=== PATIENT | female | born 1935 | race Caucasian/White ===

== ENCOUNTER 2018-01-25 09:43 | Outpatient (CLI) | payer MEDICARE, OTHER, SELFPAY ==
[2018-01-25] VITALS (11 sets, daily range): BP systolic 110–159; BP diastolic 62–116; PULSE 83–112; RESP 16–20; TEMP 36; O2SAT 95–100
--- NOTE | 2018-01-25 09:44 | DI.RAD.S_ITS ---
PROCEDURE: PAIN C/T INTERLAMINAR INJECT INDICATIONS: INTERVERTEBRAL DISC DISPLACMENT FINDINGS: Fluoroscopic spot filming was performed to verify placement of spinal needles at the left-sided T12-L1 paramedian interlaminar region level(s), as labeled on the films. Appropriate location(s) of the needle tip(s) was confirmed by injection of iodinated contrast. IMPRESSION: Successful left T12-L1 needle tip localization at the left paramedian interlaminar space for dorsal epidural steroid injection. Dictated by: Christian Randhawa M.D. on 01/25/2018 at 15:38 Approved by: Christian Randhawa M.D. on 01/25/2018 at 15:40
--- NOTE | 2018-01-25 10:22 | PM.PROC.1 ---
Procedures Date/Time Date of procedure: 01/25/18 Time of procedure: 10:22 General Procedure description: Preop diagnosis: Thoracic stenosis with HNP Postprocedure diagnosis: Thoracic stenosis with HNP Physician: Hair Sarah D.O. Indications: Inga is referred by RICARDO Jennings for treatment of thoracic DDD/DJD with radiculopathy Description of procedure: Fluoroscopic guided, contrast controlled T12/L1 translaminar epidural steroid injection with conscious sedation. Following denial of allergy review potential side effects and complications, including, but not necessarily limited to, infection, allergic reaction, local tissue breakdown, temporary as well as permanent nerve injury, stroke, paralysis and possible , the patient indicated that they understood and agreed to proceed. An informed consent document was signed by the patient, witnessed by the nurse, and placed in the patient's chart. Additionally other treatment options including modalities, medications and physical therapy were reviewed with the patient. After review of previous anaesthesic history and IV conscious sedation the patient was deemed safe to proceed with todays procedure with IV conscious sedation as ASA class II designation. Safety time-out was performed to confirm patient ID, procedure to be performed and site of procedure. IV sedation was accomplished with a combination of 1mg of Versed administered by the RN after DO order, titrated to patient comfort during the course of the procedure while the patient remained responsive to all verbal commands In the prone position, following sterile prep and drape of the thoracic region the T12/L1 translaminar space was identified fluoroscopically. The skin was anesthetized via 25 gauge 20 mm sheath with 1% lidocaine solution. At this point a 20 gauge epidural needle was atraumatically introduced and advanced under fluoroscopic guidance into the region of the T12/L1 translaminar space depth was confirmed on lateral view. Radiographic data, including multiple fluoroscopic views of the thoracic spine, reveals spinal needle at the T12/L1 translaminar space. Lateral views then showed the placement of the needle in the epidural space. Subsequent view show contrast material flowing superiorly and inferiorly in the epidural space. No vascular or intrathecal uptake is observed. At this point using loss of resistance technique with saline and the epidural space was entered. This was confirmed followed negative aspiration and injection of approximately 1.5 cc of Isovue 200 showed excellent epidural flow without vascular or intrathecal uptake. At this point, 1 cc of 1% lidocaine solution was admitted as a test dose and the patient was observed for an appropriate period of time without signs or symptoms of complications, including abdominal pain, shortness of breath, bilateral upper and lower extremity weakness, nausea and vomiting, prior to steroid injection. Subsequently, 3 cc or 30 mg of dexamethasone was then injected without incident. The patient tolerated the procedure well without signs of complications and subsequently was transferred to the recovery room for further monitoring. The patient was then transferred to the recovery area with their observed for an appropriate time after the injection. Patient reported a VAS score of 7 prior to the procedure and postprocedure VAS of 2. Total fluoroscopy time: 26.3 sec Total conscious sedation time: 24 min Hair Sarah D.O. Complications: none
[2018-01-25] MEDS: MIDAZOLAM 5 MG/5 ML VIAL IV (10:30)
[2018-01-25] MEDS: IOPAMIDOL 15 ML VIAL 3 ML INJ (10:33)
[2018-01-25] MEDS: DEXAMETHASONE 10 MG/ML VIAL 30 MG INJ (10:34)
== END 2018-01-25 12:00 ==
LOC: RAD 09:44
PROVIDERS: Family Provider Physician Assistant; PCP Physician Assistant; Visit Provider Physical Medicine & Rehabilitation
DX: M48.04 Spinal stenosis, thoracic region (principal); M51.14 Intervertebral disc disorders with radiculopathy, thoracic region
CPT/HCPCS: 62321; 99152; J1100; J2250

== ENCOUNTER → 2019-06-29 09:39 | Outpatient (CLI) | payer MEDICARE, OTHER, SELFPAY ==
--- NOTE | 2019-06-29 09:41 | DI.RAD.S_ITS ---
PROCEDURE: XR ANKLE LT MIN 3V INDICATIONS: l ankle pain TECHNIQUE: 3 views of the ankle were acquired. COMPARISON: [facility], , ANKLE 2 VIEWS RIGHT, 08/10/2015, 11:49. FINDINGS: Bones: Acute transverse fracture through medial malleolus is seen. Acute oblique fracture through distal fibular shaft extending to lateral malleolus is also noted. There is slight widening of both medial and lateral ankle mortise. No dislocation. No suspicious bony lesions. Soft tissues: Soft tissue swelling around ankle joint is noted. No tibiotalar joint effusion. Achilles tendon appears normal. IMPRESSION: Acute bimalleolar fractures as above. Dictated by: Jonathan Chicas M.D. on 06/29/2019 at 10:38 Approved by: Jonathan Chicas M.D. on 06/29/2019 at 10:41
== END ==
PROVIDERS: Family Provider Physician Assistant; PCP Physician Assistant; Referring Provider Physician Assistant; Visit Provider Physician Assistant
DX: S82.842A Displaced bimalleolar fracture of left lower leg, initial encounter for closed fracture (principal); M25.572 Pain in left ankle and joints of left foot; X58.XXXA Exposure to other specified factors, initial encounter
CPT/HCPCS: 73610

== ENCOUNTER → 2020-01-24 17:27 | Outpatient (CLI) | payer MEDICARE, OTHER, SELFPAY ==
[2020-01-24 18:33] LABS: Add Manual Diff / Slide Review NO; Basophils Absolute Auto 0 /uL (0-100); Basophils Percent Auto 0.7 % (0-2); Eosinophils Absolute Auto 200 /uL (0-450); Eosinophils Percent Auto 3.8 % (2-4); Hematocrit 42.3 % (36-46); Hemoglobin 14.4 g/dL (12.0-16.0); Lymphocytes Absolute Auto 1400 /uL (1100-4500); Lymphocytes Percent Auto 27.9 % (25-40); Mean Corpuscular Hemoglobin 35.8 PG (26-34); Mean Corpuscular Volume 105.5 fL (80-100); Monocytes Absolute Auto 600 /uL (0-900); Monocytes Percent Auto 12.2 % (3-14); Neutrophils Absolute Auto 2800 /uL (1500-7000); Neutrophils Percent Auto 55.4 % (50-75); Platelet Count 184 X10^3/uL (150-400); Red Blood Cell Count 4.01 X10^6/uL (4.0-5.2); Red Cell Distribution Width 13.3 % (11.6-14.8)
[2020-01-24 19:07] LABS: C-Reactive Protein Quant < 0.5 mg/dL (<1.0)
[2020-01-24 19:42] LABS: Erythrocyte Sedimentation Rate 3 MM/HR (0-20)
[2020-01-26 04:07] LABS: Complement C3 97 mg/dL (82-167)
[2020-01-28 14:10] LABS: Cytoplasmic C-ANCA <1:20 titer (Neg:<1:20); Perinuclear P-ANCA <1:20 titer (Neg:<1:20)
[2020-01-28 18:36] LABS: ANA Screen, IFA Positive (.)
[2020-01-29 02:11] LABS: Complement Total CH50 > 60 U/mL (>41)
== END ==
PROVIDERS: Family Provider Physician Assistant; PCP Physician Assistant; Referring Provider Internal Medicine; Visit Provider Internal Medicine
DX: R21 Rash and other nonspecific skin eruption (principal)
CPT/HCPCS: 36415; 85025; 85651; 86038; 86140; 86160; 86162; 87252

== ENCOUNTER 2022-05-03 18:44 | Inpatient (IN) | payer MEDICARE, OTHER, SELFPAY ==
[2022-05-03] VITALS (14 sets, daily range): BP systolic 130–219; BP diastolic 65–117; PULSE 99–126; RESP 28–45; TEMP 36.6; O2SAT 90–99; BMI 25.7
--- NOTE | 2022-05-03 18:49 | DI.RAD.S_ITS ---
PROCEDURE: XR CHEST 1V INDICATIONS: SOB, fatigued, cough TECHNIQUE: One view of the chest was acquired. COMPARISON: None. FINDINGS: Surgical changes and devices: Partially seen left shoulder hardware Lungs and pleura: Mild lung disease, most confluent at the right perihilar and infrahilar regions. Questionable trace left pleural effusion versus thickening. Mediastinum: Heart size is at the upper limit of normal. Bones and chest wall: No suspicious bony lesions. Overlying soft tissues appear unremarkable. IMPRESSION: Mild diffuse lung disease, most confluent in the right perihilar and infrahilar regions. These may be infectious or inflammatory. Consider future imaging surveillance to assess for resolution. Dictated by: Joe Kraft M.D. on 05/03/2022 at 19:47 Approved by: Joe Kraft M.D. on 05/03/2022 at 19:48
--- NOTE | 2022-05-03 18:50 | ED.GENADULT ---
HPI - General Adult General Chief complaint: Shortness of Breath/Dyspnea Stated complaint: SOB Time Seen by Provider: 05/03/22 18:46 History of Present Illness HPI narrative: 86-year-old female former smoker with history of hypertension is a do not resuscitate with limited interventions presents from [facility] at the request of nursing due to increasing shortness of breath, fatigue along with nausea and vomiting for the past few days. They apparently have a significant number of COVID patients there and suspect that she likely has COVID but have not checked yet. She denies any headache or blurred vision. She is had some runny nose and nasal congestion as well as cough. She states that she has a burning sensation in her anterior chest when she coughs. She becomes more short of breath when she walks but denies any orthopnea, weight gain or lower extremity swelling. She denies fever or chills. She has had nausea and vomiting but denies any diarrhea. She denies any dysuria, frequency or urgency. On arrival EMS found her pulse ox to be in the low 90s and when placed on 2 L she bumped up to the upper 90s Related Data Home Medications Medication Instructions Recorded Confirmed alprazolam 0.25 mg tablet 0.25 mg PO BID 01/12/18 06/29/19 aspirin 81 mg tablet,delayed 81 mg PO DAILY 01/12/18 06/29/19 release (Adult Aspirin Regimen) cimetidine 200 mg tablet (Tagamet 200 mg PO ONCE 01/12/18 06/29/19 HB) estradiol 0.5 mg tablet 0.5 mg PO DAILY 01/12/18 06/29/19 losartan 50 mg tablet 50 mg PO DAILY 01/12/18 06/29/19 oxycodone 5 mg tablet 5 mg PO Q4-6H PRN 01/12/18 06/29/19 duloxetine 60 mg capsule,delayed PO 90 days #90 caps 02/23/18 06/29/19 release oxycodone 15 mg tablet,crush PO 30 days #60 tabs 02/23/18 06/29/19 resistant,extended release 12 hr zolpidem 10 mg tablet PO 30 days #30 tabs 02/23/18 06/29/19 Allergies Allergy/AdvReac Type Severity Reaction Status Date / Time No Known Drug Allergies Allergy Verified 05/03/22 18:53 Review of Systems Review of Systems Narrative: GENERAL: See HPI HEENT: Denies sinus pain, ear pain, sore throat, difficulty swallowing, dizziness. RESPIRATORY: See HPI CARDIOVASCULAR: See HPI GASTROINTESTINAL: Denies nausea, vomiting, abdominal pain, diarrhea, constipation, melena. : Denies dysuria, frequency, incontinence, hematuria, urinary retention. MUSCULOSKELETAL: denies weakness, joint pain, or bony pain SKIN: Denies rash, skin lesions, or other NEUROLOGIC: Denies weakness, headache, numbness, change in speech, confusion, seizures, incoordination. PSYCHIATRIC: No concerning psychosocial issues. 12 point review of systems is negative except for those stated above Patient History Social History Smoking Status: Former smoker Smoking Status: Former smoker Exam Narrative Exam Narrative: GENERAL: [86] year old patient appears stated age. Well-developed patient, in mild distress. GCS 15 HEAD: Atraumatic. Normocephalic. EYES: Pupils equal round and reactive. Extraocular motions intact. No scleral icterus. No injection or drainage. ENT: Nose without bleeding, purulent drainage. Throat without erythema, tonsillar hypertrophy or exudate. Airway patent. NECK: Trachea midline. Non tender CARDIOVASCULAR: Regular rate and rhythm without murmurs, gallops, or rubs. RESPIRATORY: Clear to auscultation. Breath sounds equal bilaterally. No wheezes, rales, or rhonchi. No significant work of breathing, no use of accessory muscles or measurable hypoxemia GASTROINTESTINAL: Abdomen soft, non-tender, nondistended. EXTREMITIES: No edema or joint tenderness. BACK: Nontender without deformity or crepitance. No flank tenderness. NEURO: AOx3. SKIN: No rash or erythema of visible areas Initial Vital Signs Initial Vital Signs: Vital Signs Temperature 97.9 F 05/03/22 18:50 Pulse Rate 120 H 05/03/22 18:50 Respiratory Rate 28 H 05/03/22 18:50 Pulse Oximetry 90 L 05/03/22 18:50 Oxygen Delivery Method 05/03/22 18:50 Course Orders Ordered: ED Orders 05/03/22 18:49 Chest [XR chest 1V] Stat 05/03/22 18:56 Covid-19 + FLU A/B + RSV - PCR Stat 05/03/22 19:04 Complete Blood Count AUTO DIFF Stat Comprehensive Metabolic Panel Stat Lactate (Lactic Acid) Stat NT-proBNP (BNP-Adult 18+) Stat Procalcitonin Stat Prothrombin Time INR Stat Troponin & CK Cardiac Panel Stat 05/03/22 20:05 Blood Culture Stat Acetaminophen (Acetaminophen 325 Mg Tablet) 650 mg PO Q6H PRN PRN Reason: Fever/Mild Pain (1-3) Aspirin (Aspirin Ec 81 Mg Tablet) 81 mg PO DAILY [facility] Calcium Carbonate (Calcium Carbonate 500 Mg Tab) 1,000 mg PO Q4HR PRN PRN Reason: Dyspepsia Duloxetine HCl (Duloxetine 30 Mg Capsule) 60 mg PO DAILY [facility] Enoxaparin Sodium (Enoxaparin 40 Mg/0.4 Ml Syringe) 40 mg SUBCUT DAILY [facility] Sodium Chloride (Normal Saline 0.9%) 1,000 mls @ 100 mls/hr IV CONT [facility] Ceftriaxone Sodium 1,000 mg/ (Sodium Chloride) 100 mls @ 200 mls/hr IV Q24H [facility] Stop: 05/09/22 19:59 Azithromycin 500 mg/ Dextrose 250 mls @ 250 mls/hr IV Q24H [facility] Stop: 05/07/22 19:59 Losartan Potassium (Losartan 50 Mg Tablet) 50 mg PO DAILY [facility] Naloxone HCl (Naloxone 0.4 Mg/Ml Vial) 0.2 mg IV Q2MIN PRN PRN Reason: Opiate Reversal Ondansetron HCl (Ondansetron 4 Mg/2 Ml Inj) 4 mg IV Q8HR PRN PRN Reason: Nausea And Vomiting Discontinued Medications Furosemide (Furosemide 40 Mg/4 Ml Vial) 40 mg IV NOW ONE Stop: 05/03/22 20:10 Last Admin: 05/03/22 21:33 Dose: 40 mg Documented By: CLAIRE Sodium Chloride (Normal Saline 0.9%) 500 mls @ 1,000 mls/hr IV BOLUS ONE Stop: 05/03/22 19:17 Last Infusion: 05/03/22 20:24 Dose: 0 mls/hr Documented By: Admin: 05/03/22 19:30 Dose: 1,000 mls/hr Documented By: KAILYN Ceftriaxone Sodium 1,000 mg/ (Sodium Chloride) 100 mls @ 200 mls/hr IV NOW ONE Stop: 05/03/22 20:24 Last Infusion: 05/03/22 22:20 Dose: 0 mls/hr Documented By: Admin: 05/03/22 21:32 Dose: 200 mls/hr Documented By: CLAIRE Azithromycin 500 mg/ Dextrose 250 mls @ 250 mls/hr IV NOW ONE Stop: 05/03/22 20:24 Last Infusion: 05/03/22 23:46 Dose: 0 mls/hr Documented By: Admin: 05/03/22 22:30 Dose: 250 mls/hr Documented By: CLAIRE Sodium Chloride (Normal Saline 0.9%) 2,041.17 mls @ 680.39 mls/hr 30 ml/kg infuse over 3 hr (2041.17 ml) IV NOW ONE Stop: 05/03/22 23:29 Last Admin: 05/03/22 21:34 Dose: 680.39 mls/hr Documented By: CLAIRE Ondansetron HCl (Ondansetron 4 Mg/2 Ml Inj) 4 mg IV NOW ONE Stop: 05/03/22 18:49 Last Admin: 05/03/22 21:33 Dose: 4 mg Documented By: CLAIRE Vital Signs Vital signs: Vital Signs - 8 hr 05/03/22 18:50 05/03/22 19:58 05/03/22 20:00 Temperature 97.9 F Pulse Rate 120 H 102 H Respiratory Rate 28 H Blood Pressure 130/78 Pulse Oximetry 90 L 99 Oxygen Delivery Method Room Air 05/03/22 20:00 05/03/22 20:30 05/03/22 20:30 Temperature Pulse Rate 99 H 105 H Respiratory Rate Blood Pressure 183/79 H Pulse Oximetry 99 98 Oxygen Delivery Method 05/03/22 21:00 05/03/22 21:00 05/03/22 21:28 Temperature Pulse Rate 103 H 106 H Respiratory Rate Blood Pressure 147/69 H Pulse Oximetry 98 97 Oxygen Delivery Method 05/03/22 21:30 05/03/22 21:33 Temperature Pulse Rate 102 H Respiratory Rate 37 H Blood Pressure 157/72 H Pulse Oximetry Oxygen Delivery Method Medical Decision Making Lab Data Result diagrams: 05/03/22 19:04 05/03/22 19:04 Labs: Lab Results 05/03/22 05/03/22 05/03/22 Range/Units 18:56 19:04 19:04 WBC 14.3 H (4.5-11.0) X10^3/uL RBC 3.56 L (4.0-5.2) X10^6/uL Hgb 12.9 (12.0-16.0) g/dL Hct 38.1 (36-46) % MCV 106.9 H (80-100) fL MCH 36.3 H (26-34) PG MCHC 34.0 (30-36) % RDW 13.4 (11.6-14.8) % Plt Count 218 (150-400) X10^3/uL Neut % (Auto) Not Reportable Lymph % (Auto) Not Reportable [place] % (Auto) Not Reportable Eos % (Auto) Not Reportable Baso % (Auto) Not Reportable Lymph # (Auto) Not Reportable [place] # (Auto) Not Reportable Baso # (Auto) Not Reportable Total Counted 100 Seg Neutrophils % 79.0 H (38-70) % Band Neutrophils % 5.0 (3-7) % Lymphocytes % (Manual) 6.0 L (25-45) % Monocytes % (Manual) 10.0 (2-11) % Neutrophils # (Manual) 17033 H (2266-7643) /uL RBC Morphology See below Macrocytosis 1+ H PT (10.1-12.7) SECONDS INR (0.9-1.3) Sodium 124 L (137-145) mmol/L Potassium 4.2 (3.4-5.1) mmol/L Chloride 89 L (98-107) mmol/L Carbon Dioxide 24 (22-32) mmol/L BUN 28 H (7-17) mg/dL Creatinine 1.00 (0.52-1.04) mg/dL Estimated GFR 55 L (>60) mL/min BUN/Creatinine Ratio 28.0 H (6-22) Glucose 101 (80-110) mg/dL Lactate (0.7-2.1) mmol/L Calcium 8.5 (8.4-10.2) mg/dL Total Bilirubin 1.2 (0.2-1.3) mg/dL AST 21 (14-36) IU/L ALT 14 (<35) IU/L Alkaline Phosphatase 95 (38-126) U/L Total Creatine Kinase (30-135) U/L CK-MB (CK-2) CK-MB (CK-2) Rel Index Troponin I (0.01-0.034) ng/mL NT-Pro-B Natriuret Pep (<450) pg/mL Total Protein 6.0 L (6.3-8.2) g/dL Albumin 3.2 L (3.5-5.0) g/dL Globulin 2.8 (1.7-4.1) g/dL Albumin/Globulin Ratio 1.1 (1.0-2.8) Procalcitonin (<0.5) ng/mL SARS-CoV-2 (PCR) Negative (Negative) Influenza A (RT-PCR) Flu a negative (NEGATIVE) Influenza B (RT-PCR) Flu b negative (NEGATIVE) RSV (PCR) Negative (Negative) 05/03/22 05/03/22 05/03/22 Range/Units 19:04 19:04 19:04 WBC (4.5-11.0) X10^3/uL RBC (4.0-5.2) X10^6/uL Hgb (12.0-16.0) g/dL Hct (36-46) % MCV (80-100) fL MCH (26-34) PG MCHC (30-36) % RDW (11.6-14.8) % Plt Count (150-400) X10^3/uL Neut % (Auto) Lymph % (Auto) [place] % (Auto) Eos % (Auto) Baso % (Auto) Lymph # (Auto) [place] # (Auto) Baso # (Auto) Total Counted Seg Neutrophils % (38-70) % Band Neutrophils % (3-7) % Lymphocytes % (Manual) (25-45) % Monocytes % (Manual) (2-11) % Neutrophils # (Manual) (1963-7856) /uL RBC Morphology Macrocytosis PT 15.6 H (10.1-12.7) SECONDS INR 1.4 H (0.9-1.3) Sodium (137-145) mmol/L Potassium (3.4-5.1) mmol/L Chloride (98-107) mmol/L Carbon Dioxide (22-32) mmol/L BUN (7-17) mg/dL Creatinine (0.52-1.04) mg/dL Estimated GFR (>60) mL/min BUN/Creatinine Ratio (6-22) Glucose (80-110) mg/dL Lactate 1.5 (0.7-2.1) mmol/L Calcium (8.4-10.2) mg/dL Total Bilirubin (0.2-1.3) mg/dL AST (14-36) IU/L ALT (<35) IU/L Alkaline Phosphatase (38-126) U/L Total Creatine Kinase 38 (30-135) U/L CK-MB (CK-2) TNP CK-MB (CK-2) Rel Index TNP Troponin I 0.016 (0.01-0.034) ng/mL NT-Pro-B Natriuret Pep 22354 H (<450) pg/mL Total Protein (6.3-8.2) g/dL Albumin (3.5-5.0) g/dL Globulin (1.7-4.1) g/dL Albumin/Globulin Ratio (1.0-2.8) Procalcitonin (<0.5) ng/mL SARS-CoV-2 (PCR) (Negative) Influenza A (RT-PCR) (NEGATIVE) Influenza B (RT-PCR) (NEGATIVE) RSV (PCR) (Negative) 05/03/22 Range/Units 19:04 WBC (4.5-11.0) X10^3/uL RBC (4.0-5.2) X10^6/uL Hgb (12.0-16.0) g/dL Hct (36-46) % MCV (80-100) fL MCH (26-34) PG MCHC (30-36) % RDW (11.6-14.8) % Plt Count (150-400) X10^3/uL Neut % (Auto) Lymph % (Auto) [place] % (Auto) Eos % (Auto) Baso % (Auto) Lymph # (Auto) [place] # (Auto) Baso # (Auto) Total Counted Seg Neutrophils % (38-70) % Band Neutrophils % (3-7) % Lymphocytes % (Manual) (25-45) % Monocytes % (Manual) (2-11) % Neutrophils # (Manual) (5249-6816) /uL RBC Morphology Macrocytosis PT (10.1-12.7) SECONDS INR (0.9-1.3) Sodium (137-145) mmol/L Potassium (3.4-5.1) mmol/L Chloride (98-107) mmol/L Carbon Dioxide (22-32) mmol/L BUN (7-17) mg/dL Creatinine (0.52-1.04) mg/dL Estimated GFR (>60) mL/min BUN/Creatinine Ratio (6-22) Glucose (80-110) mg/dL Lactate (0.7-2.1) mmol/L Calcium (8.4-10.2) mg/dL Total Bilirubin (0.2-1.3) mg/dL AST (14-36) IU/L ALT (<35) IU/L Alkaline Phosphatase (38-126) U/L Total Creatine Kinase (30-135) U/L CK-MB (CK-2) CK-MB (CK-2) Rel Index Troponin I (0.01-0.034) ng/mL NT-Pro-B Natriuret Pep (<450) pg/mL Total Protein (6.3-8.2) g/dL Albumin (3.5-5.0) g/dL Globulin (1.7-4.1) g/dL Albumin/Globulin Ratio (1.0-2.8) Procalcitonin 9.64 H (<0.5) ng/mL SARS-CoV-2 (PCR) (Negative) Influenza A (RT-PCR) (NEGATIVE) Influenza B (RT-PCR) (NEGATIVE) RSV (PCR) (Negative) Urine Dip Bedside Urine Glucose Negative Bedside Urine Bilirubin - Negative Bedside Urine Ketone - Negative Urine Specific [place] 1.015 Bedside Urine Occult Blood +++ Bedside Urine pH 5.5 Bedside Urine Protein + 30 Bedside Urine Urobilinogen +/- 1mg Bedside Urine Nitrite - Negative Bedside Urine Leukocytes - Negative Esterase Point of care testing: Urine Dip Bedside Urine Glucose Negative Bedside Urine Bilirubin - Negative Bedside Urine Ketone - Negative Urine Specific [place] 1.015 Bedside Urine Occult Blood +++ Bedside Urine pH 5.5 Bedside Urine Protein + 30 Bedside Urine Urobilinogen +/- 1mg Bedside Urine Nitrite - Negative Bedside Urine Leukocytes - Negative Esterase ECG Data Interpretation: [2024] EKG is normal sinus rhythm rate [ 105] and free of any signs of ischemia or ectopy. No ST segmental elevation or depression. No T wave inversions MDM Narrative Medical decision making narrative: CC: 86-year-old female with shortness of breath, fatigue and weakness Complicating co-morbidities: Age, hypertension Data collected from: Patient and multiple family members Medical records reviewed: Multiple prior family practice and pain management notes Differential considered: COVID, influenza, pneumonia, CHF, anemia versus other Exam documented above, pertinent findings include: Increased work of breathing, hypoxemia with supplemental oxygen requirements, faint crackles in bilateral bases Lab Test results independently reviewed as above. Pertinent findings: Elevated white blood cell count and critically elevated procalcitonin consistent with underlying infectious process, sodium of 124 with weakness suggestive of symptoms associated with hyponatremia, finally her BNP is elevated at over 14,000 Independently reviewed EKG as above Imaging studies independently reviewed: Possible infiltrative Consultations: Hospitalist happy to accept Treatments: Patient given fluids for sepsis criteria, antibiotics as well as Lasix Re-evaluations: Patient does have improved work of breathing after above-stated therapies Discussion: Elderly female with multiple comorbidities presents with increased work of breathing, requirement of supplemental oxygen, sepsis, likely related to pneumonia, evidence of fluid overload and symptomatic hyponatremia, she requires hospitalization for further treatment and stabilization Discharge Plan Departure Patient Disposition: Admitted As Inpatient Clinical Impression: Sepsis, CHF (congestive heart failure), Pneumonia, Acute hyponatremia Admit Date/Time: 05/03/22 22:49 Admit Provider: Emily Barr
[2022-05-03 19:28] LABS: INR 1.4 (0.9-1.3); Prothrombin Time 15.6 SECONDS (10.1-12.7)
[2022-05-03] MEDS: SODIUM CHLORIDE 0.9% 500 ML 1000 ML IV (19:30)
[2022-05-03 19:31] LABS: Creatine Kinase 38 U/L (30-135)
[2022-05-03 19:32] LABS: Alanine Aminotransferase 14 IU/L (<35); Albumin 3.2 g/dL (3.5-5.0); Albumin Globulin Ratio 1.1 (1.0-2.8); Alkaline Phosphatase 95 U/L (38-126); Aspartate Aminotransferase 21 IU/L (14-36); Bilirubin Total 1.2 mg/dL (0.2-1.3); Blood Urea Nitrogen 28 mg/dL (7-17); Calcium 8.5 mg/dL (8.4-10.2); Carbon Dioxide 24 mmol/L (22-32); Chloride 89 mmol/L (98-107); Estimated Glomerular Filt Rate 55 mL/min (>60); Globulin 2.8 g/dL (1.7-4.1); Glucose 101 mg/dL (80-110); HEMOLYSIS 30 (0-50); Potassium 4.2 mmol/L (3.4-5.1); Sodium 124 mmol/L (137-145)
[2022-05-03 19:33] LABS: Lactate (Lactic Acid) 1.5 mmol/L (0.7-2.1)
[2022-05-03 19:36] LABS: Hematocrit 38.1 % (36-46); Hemoglobin 12.9 g/dL (12.0-16.0); Mean Corpuscular Hemoglobin 36.3 PG (26-34); Mean Corpuscular Volume 106.9 fL (80-100); Platelet Count 218 X10^3/uL (150-400); Red Blood Cell Count 3.56 X10^6/uL (4.0-5.2); Red Cell Distribution Width 13.4 % (11.6-14.8); White Blood Cell Count 14.3 X10^3/uL (4.5-11.0)
[2022-05-03 19:37] LABS: Influenza A - CEPHEID Flu A NEGATIVE (NEGATIVE); Influenza B - CEPHEID Flu B NEGATIVE (NEGATIVE); Respiratory Syncytial Virus Negative (Negative)
[2022-05-03 19:37] LABS: Add Manual Diff / Slide Review YES
[2022-05-03 19:44] LABS: NT-proBNP (BNP-Adult 18+) 14400 pg/mL (<450); Troponin I 0.016 ng/mL (0.01-0.034)
[2022-05-03 19:50] LABS: Macrocytosis 1+; Neutrophils Absolute Manual 12012 /uL (3000-5900); Total Cells Counted 100
[2022-05-03 20:00] LABS: COVID-19 CEPHEID 4-PLEX PCR Negative (Negative)
[2022-05-03 20:49] LABS: Procalcitonin 9.64 ng/mL (<0.5)
[2022-05-03] MEDS: cefTRIAXone 1,000 MG in SODIUM CHLORIDE 0.9% 100 ML 200 MG IV (21:32)
[2022-05-03] MEDS: FUROSEMIDE 40 MG/4 ML VIAL IV (21:33)
[2022-05-03] MEDS: ONDANSETRON 4 MG/2 ML INJ IV (21:33)
[2022-05-03] MEDS: SODIUM CHLORIDE 0.9% 2,041.17 ML 680.39 ML IV (21:34)
[2022-05-03] MEDS: AZITHROMYCIN 500 MG in DEXTROSE 5% IN WATER 250 ML 250 MG IV (22:30)
[2022-05-04] VITALS (15 sets, daily range): BP systolic 142–198; BP diastolic 70–100; PULSE 66–119; RESP 16–40; TEMP 36.4–37.1; O2SAT 92–97; BMI 25.7; BMI 26.1
--- NOTE | 2022-05-04 02:28 | P.HP_ITS ---
History of Present Illness History of Present Illness Date Patient Seen: 05/04/22 Time Patient Seen: 02:28 Chief complaint: SOB Narrative: Inga Mata is an 86-year-old female former smoker with history of hypertension presented to the ED from [facility] at the request of nursing due to increasing shortness of breath, fatigue along with nausea and vomiting for the past few days.? They apparently have a significant number of COVID patients there and suspect that she likely has COVID but have not checked yet.? She denies any headache or blurred vision.? She is had some runny nose and nasal congestion as well as cough.? She states that she has a burning sensation in her anterior chest when she coughs.? She becomes more short of breath when she walks but denies any orthopnea, weight gain or lower extremity swelling.? She denies fever or chills.? She has had nausea and vomiting, limited diarrhea, denies constipation.? She denies any dysuria, frequency or urgency.? On arrival EMS found her pulse ox to be in the low 90s and when placed on 2 L she bumped up to the upper 90s. She is afebrile, blood pressure 152/83 heart rate 111 respiratory rate 18 oxygen saturation of 96% on 2 L she weighs 68 kg with a BMI of 25.7 she does have an elevated white count of 14.3 she is an abnormal smear, sodium 124 chloride 89 BUN 28 EGFR [place] [address] [place] [address] albumin 3.2 procalcitonin is 9.64 respiratory panel including COVID-19 PCR are all negative. FH: Mother age 80 of ALS, father age 63 of heart disease. Patient History Surgical History History of shoulder replacement Family & Social History Safety & Behavioral: Feels Safe in Current Yes Environment Been Physically Hurt or No Threatened By a Person Tobacco & Substance use: Smoking Status Former smoker Substance Use Type does not use Alcohol use daughter states patient imbibes daily Meds Home Medications and Allergies Home Medications Medication Instructions Recorded Confirmed Type alprazolam 0.25 mg tablet 0.25 mg PO BID 01/12/18 06/29/19 History aspirin 81 mg tablet,delayed 81 mg PO DAILY 01/12/18 06/29/19 History release (Adult Aspirin Regimen) cimetidine 200 mg tablet (Tagamet 200 mg PO ONCE 01/12/18 06/29/19 History HB) estradiol 0.5 mg tablet 0.5 mg PO DAILY 01/12/18 06/29/19 History losartan 50 mg tablet 50 mg PO DAILY 01/12/18 06/29/19 History oxycodone 5 mg tablet 5 mg PO Q4-6H PRN 01/12/18 06/29/19 History duloxetine 60 mg capsule,delayed PO 90 days #90 caps 02/23/18 06/29/19 History release oxycodone 15 mg tablet,crush PO 30 days #60 tabs 02/23/18 06/29/19 History resistant,extended release 12 hr zolpidem 10 mg tablet PO 30 days #30 tabs 02/23/18 06/29/19 History Allergies Allergy/AdvReac Type Severity Reaction Status Date / Time No Known Drug Allergies Allergy Verified 05/03/22 18:53 Review of Systems Review of Systems ROS: Yes All systems reviewed with the patient and are negative except as otherwise documented Exam Vital Signs (past 8 hours): - 05/03/22 18:50 05/03/22 19:58 05/03/22 20:00 Temperature 97.9 F Pulse Rate 120 H 102 H Respiratory Rate 28 H Blood Pressure 130/78 Pulse Oximetry 90 L 99 Oxygen Delivery Method Room Air Oxygen Flow Rate 05/03/22 20:00 05/03/22 20:30 05/03/22 20:30 Temperature Pulse Rate 99 H 105 H Respiratory Rate Blood Pressure 183/79 H Pulse Oximetry 99 98 Oxygen Delivery Method Oxygen Flow Rate 05/03/22 21:00 05/03/22 21:00 05/03/22 21:28 Temperature Pulse Rate 103 H 106 H Respiratory Rate Blood Pressure 147/69 H Pulse Oximetry 98 97 Oxygen Delivery Method Oxygen Flow Rate 05/03/22 21:30 05/03/22 21:33 05/03/22 22:00 Temperature Pulse Rate 102 H 109 H Respiratory Rate 37 H 45 H Blood Pressure 157/72 H Pulse Oximetry 94 Oxygen Delivery Method Oxygen Flow Rate 05/03/22 22:01 05/03/22 22:01 05/03/22 22:20 Temperature Pulse Rate 110 H Respiratory Rate 37 H Blood Pressure 219/90 H 175/117 H Pulse Oximetry 94 Oxygen Delivery Method Oxygen Flow Rate 05/03/22 22:20 05/03/22 22:30 05/03/22 22:30 Temperature Pulse Rate 126 H 117 H Respiratory Rate 44 H 42 H Blood Pressure 177/109 H Pulse Oximetry 94 Oxygen Delivery Method Oxygen Flow Rate 05/03/22 23:00 05/03/22 23:00 05/03/22 23:30 Temperature Pulse Rate 110 H Respiratory Rate 33 H Blood Pressure 152/65 H 150/83 H Pulse Oximetry 94 Oxygen Delivery Method Oxygen Flow Rate 05/03/22 23:30 05/04/22 00:00 05/04/22 00:00 Temperature Pulse Rate 111 H 108 H Respiratory Rate 35 H 33 H Blood Pressure 161/73 H Pulse Oximetry 92 95 Oxygen Delivery Method Oxygen Flow Rate 05/04/22 00:30 05/04/22 00:30 05/04/22 01:00 Temperature Pulse Rate 119 H 108 H Respiratory Rate 40 H 27 H Blood Pressure 154/82 H Pulse Oximetry 92 95 Oxygen Delivery Method Oxygen Flow Rate 05/04/22 01:01 05/04/22 01:01 05/04/22 01:30 Temperature Pulse Rate 109 H Respiratory Rate 35 H Blood Pressure 148/70 H 162/100 H Pulse Oximetry 94 Oxygen Delivery Method Oxygen Flow Rate 05/04/22 01:30 Temperature Pulse Rate 107 H Respiratory Rate 28 H Blood Pressure Pulse Oximetry 94 Oxygen Delivery Method Nasal Cannula Oxygen Flow Rate 2 Oxygen Delivery Method Nasal Cannula Oxygen Flow Rate 2 Narrative Exam Narrative: Gen: Alert, oriented, ill appearing 86 y.o. female, NAD HEENT: normocephalic, atraumatic, conjunctiva clear, sclera non-icteric, oral mucosa pink and moist Neck: supple, full ROM, no JVD, trachea is midline Resp: Lungs CTA, non-labored breathing on supplemental O2 CV: RRR, no murmur or rubs Abd: soft, non-tender, normoactive BTs Skin: no lesions or rashes, dry and intact Neuro: Alert and oriented X 4 w/no focal deficits. Speech clear and coherent. Extremities: moves all 4 extremities, is ambulatory, negative Diamond?s sign Psyche: anxious, otherwise, normal mood and affect. Objective Labs Result Diagrams: 05/03/22 19:04 05/03/22 19:04 Labs: Laboratory Results - last 24 hr 05/03/22 05/03/2205/03/23 18:56 19:04 19:04 WBC 14.3 H RBC 3.56 L Hgb 12.9 Hct 38.1 MCV 106.9 H MCH 36.3 H MCHC 34.0 RDW 13.4 Plt Count 218 Neut % (Auto) Not Reportable Lymph % (Auto) Not Reportable [place] % (Auto) Not Reportable Eos % (Auto) Not Reportable Baso % (Auto) Not Reportable Lymph # (Auto) Not Reportable [place] # (Auto) Not Reportable Baso # (Auto) Not Reportable Total Counted 100 Seg Neutrophils % 79.0 H Band Neutrophils % 5.0 Lymphocytes % (Manual) 6.0 L Monocytes % (Manual) 10.0 Neutrophils # (Manual) 72254 H RBC Morphology See below Macrocytosis 1+ H PT INR Sodium 124 L Potassium 4.2 Chloride 89 L Carbon Dioxide 24 BUN 28 H Creatinine 1.00 Estimated GFR 55 L BUN/Creatinine Ratio 28.0 H Glucose 101 Lactate Calcium 8.5 Total Bilirubin 1.2 AST 21 ALT 14 Alkaline Phosphatase 95 Total Creatine Kinase CK-MB (CK-2) CK-MB (CK-2) Rel Index Troponin I NT-Pro-B Natriuret Pep Total Protein 6.0 L Albumin 3.2 L Globulin 2.8 Albumin/Globulin Ratio 1.1 Procalcitonin SARS-CoV-2 (PCR) Negative Influenza A (RT-PCR) Flu a negative Influenza B (RT-PCR) Flu b negative RSV (PCR) Negative 05/03/22 05/03/22 05/03/22 19:04 19:04 19:04 WBC RBC Hgb Hct MCV MCH MCHC RDW Plt Count Neut % (Auto) Lymph % (Auto) [place] % (Auto) Eos % (Auto) Baso % (Auto) Lymph # (Auto) [place] # (Auto) Baso # (Auto) Total Counted Seg Neutrophils % Band Neutrophils % Lymphocytes % (Manual) Monocytes % (Manual) Neutrophils # (Manual) RBC Morphology Macrocytosis PT 15.6 H INR 1.4 H Sodium Potassium Chloride Carbon Dioxide BUN Creatinine Estimated GFR BUN/Creatinine Ratio Glucose Lactate 1.5 Calcium Total Bilirubin AST ALT Alkaline Phosphatase Total Creatine Kinase 38 CK-MB (CK-2) TNP CK-MB (CK-2) Rel Index TNP Troponin I 0.016 NT-Pro-B Natriuret Pep 53215 H Total Protein Albumin Globulin Albumin/Globulin Ratio Procalcitonin SARS-CoV-2 (PCR) Influenza A (RT-PCR) Influenza B (RT-PCR) RSV (PCR) 05/03/22 19:04 WBC RBC Hgb Hct MCV MCH MCHC RDW Plt Count Neut % (Auto) Lymph % (Auto) [place] % (Auto) Eos % (Auto) Baso % (Auto) Lymph # (Auto) [place] # (Auto) Baso # (Auto) Total Counted Seg Neutrophils % Band Neutrophils % Lymphocytes % (Manual) Monocytes % (Manual) Neutrophils # (Manual) RBC Morphology Macrocytosis PT INR Sodium Potassium Chloride Carbon Dioxide BUN Creatinine Estimated GFR BUN/Creatinine Ratio Glucose Lactate Calcium Total Bilirubin AST ALT Alkaline Phosphatase Total Creatine Kinase CK-MB (CK-2) CK-MB (CK-2) Rel Index Troponin I NT-Pro-B Natriuret Pep Total Protein Albumin Globulin Albumin/Globulin Ratio Procalcitonin 9.64 H SARS-CoV-2 (PCR) Influenza A (RT-PCR) Influenza B (RT-PCR) RSV (PCR) Assessment & Plan Assessment & Plan narrative: Inga Mata is admitted for initial sepsis associated with probable pneumonia, acute CHF, and acute hyponatremia Sepsis associated with probable pneumonia, acute, present on admission * She will continue on supplemental oxygen * IV ceftriaxone and azithromycin Acute hyponatremia, present on admission * Initial sodium was 124, unknown if this is chronic or new * Holding fluids currently due to concerns for volume overload * Consider salt supplementation in the morning. We will need to have a careful increase in sodium levels over 24 hour period of time to avoid pontine demyelination. CHF, unknown if acute or chronic or both * She was given IV fluids in the ED as well as IV Lasix with good effect * Complete echo in the morning * She takes losartan 50 mg daily and this will be continued. She is not currently on a beta-josué. * I have started her on oral metoprolol extended release 25 mg p.o. daily * Continue aspirin 81 mg p.o. daily Chronic pain syndrome, stable * She sees Dr. Sarah who has in the past given her fluoroscopic epidural steroid injections * She currently takes oxycodone, and and has previously taken duloxetine unknown if she takes for anxiety are not Insomnia, chronic * She is insistent on taking her sleep medications which include Ambien 10 mg at bedtime and this will be continued Other independent historians: None Discussion of results, plan of care with independent HCP/other ED provider Reviewed outside records: PCP and pain management notes VTE Prophylaxis: Wells risk score 0X Enoxaparin 40 mg subQ once daily Bilateral SCDs Patient is admitted to the inpatient service due to the severity of disease, risks of further disease progression and this stay is expected to exceed 2 midnights. FEN: IV fluids: Saline lock, diet: Low-sodium heart healthy diet, labs: CBC, C/BMP, liver enzymes, Mag, PT/INR Consultants None Dispo: Unknown at this time Code status: DNR/DNI as discussed with the patient who identifies her daughter Ivonne Turner her surrogate and POA. Advanced care planning 10 minutes. [X] I have utilized all available immediate resources to obtain, update, or revi ew of the patient's current medications VTE Deep Vein Thrombosis/Pulmonary Embolism Present on Admission: No MIPS - Admit I confirm the patient?s Advance Care Plan is present, Code status is documented, Surrogate decision maker is in patient?s record: Yes MIPS - DC The patient has current or prior documentation of left ventricular ejection fraction (LVEF) less than 40%, or moderate or severely depressed left ventricular systolic function.: No COVID-19 COVID-19 status: Negative Result date/Date tested (Pos, Neg/Pending): 05/03/22
--- NOTE | 2022-05-04 04:05 | DI.ECHO.S_ITS ---
[facility]---------+ [facility] +---------+ : : [address] : [place] : : : : [id number] : : : : Phone: [phone]+ Echocardiogram Report + + :Name: SUMAN KEMP Study Date: 05/04/2022 Height: 64 in : :[facility] [employer] [facility] ReadingLocation: Weight: 150 lb : : Gender: Female BSA: 1.7 m2 : :: 1935 Age: 86 yrs BP: 152/83 mmHg: :Reason For Study: CHF : :Ordering Physician: PAMELA OCHOA Performed By: Tonie Collins : :Referring: PAMELA OCHOA : + + Interpretation Summary 1) Mildly increased left ventricular thickness (concentric) with normal size and severely reduced systolic function (EF 25-30%). 2) Normal right ventricular size and function. 3) The left atrium is severely dilated. The interatrial septum bows toward right atrium consistent with elevated left atrial pressure. 4) There is moderate mitral regurgitation. 5) The right ventricular systolic pressure is estimated to be at least 48 mmHg based on an estimated right atrial pressure of 15 mm Hg. 6) No prior Echo available for comparison. Procedure: A two-dimensional transthoracic echocardiogram with color flow and Doppler was performed. The study quality was technically good. There is no prior echocardiogram noted for this patient. The heart rate ranged between 90- 105 bpm during the study. Left Ventricle: The left ventricle is normal in size. There is mild concentric left ventricular hypertrophy. The ejection fraction is estimated to be 25-30%. There is severe global hypokinesis of the left ventricle. Diastolic function could not be accurately assessed due to atrial fibrillation. Right Ventricle: The right ventricle is normal in size and function. Atria: The left atrium is severely dilated. Right atrial size is normal. There is no Doppler evidence for an interatrial shunt. The interatrial septum bows toward right atrium consistent with elevated left atrial pressure. Mitral Valve: The mitral valve leaflets appear mildly thickened, but open well. There is moderate mitral regurgitation. Aortic Valve: The aortic valve is trileaflet. The aortic valve is mildly calcified. There is no aortic valve stenosis. No aortic regurgitation is present. Tricuspid Valve: The tricuspid valve is normal in structure and function. There is mild tricuspid regurgitation. The right ventricular systolic pressure is estimated to be at least 48 mmHg based on an estimated right atrial pressure of 15 mm Hg. Pulmonic Valve: The pulmonic valve leaflets are thin and pliable; valve motion is normal. There is mild to moderate pulmonic regurgitation. Great Vessels: The aortic root is normal size. The dimensions of the ascending aorta are normal. The IVC is dilated (diameter is greater than 2.1 cm) and it collapses less than 50% with a sniff. This suggests a high right atrial pressure of 15 mm Hg. Pericardium/ Pleura There is no pericardial effusion. There is no pleural effusion. MMode/2D Measurements & Calculations LVIDd: 5.7 cm LVOT diam: 2.2 cm LVIDs: 5.1 cm Ao root diam: 3.3 cm FS: 10.3 % asc Aorta Diam: 3.0 cm EPSS: 1.8 cm IVSd: 1.1 cm LVPWd: 1.1 cm LV caal. diameter/BSA (cm/m^2): 3.3 LV sys. diameter/BSA (cm/m^2): 2.9 LA A2 area: 22.6 cm2 RA long axis: 4.7 cm LA A4 area: 28.6 cm2 RA area: 11.2 cm2 LA length (vol): 6.0 cm RA vol: 22.5 ml LA vol: 90.9 ml RA : 13.0 ml/m2 LA vol index: 52.5 ml/m2 IVC diam: 2.2 cm RVD1 (basal): 3.7 cm RVD2 (mid): 2.9 cm TAPSE: 2.0 cm Doppler Measurements & Calculations Ao V2 max: 132.6 cm/sec LVOT Max Pedro: 69.6 cm/sec Ao V2 mean: 100.5 cm/sec LV V1 max P.9 mmHg Ao max P.0 mmHg LV V1 VTI: 13.5 cm Ao mean P.3 mmHg MANJEET(I,D): 2.1 cm2 Ao V2 VTI: 24.3 cm MANJEET(V,D): 2.0 cm2 sev ratio: 0.55 MANJEET indexed to BSA (cm^2/m^2): 1.2 MV E max pedro: 111.2 cm/sec TR max pedro: 287.4 cm/sec MV A max pedro: 2.4 cm/sec TR max P.0 mmHg MV E/A: 45.9 PA V2 max: 75.6 cm/sec Med Peak E' Pedro: 7.8 cm/sec PA V2 mean: 55.7 cm/sec E/E' med: 14.3 PA mean P.3 mmHg Lat Peak E' Pedro: 3.1 cm/sec PA pr(Accel): 46.5 mmHg E/E' lat: 35.3 E/e' average: 24.8 MV dec time: 0.13 sec SV(LVOT): 50.5 ml Reading Physician:09:10 AM
[2022-05-04] MEDS: ASPIRIN EC 81 MG TABLET PO (09:54)
[2022-05-04] MEDS: DULOXETINE 30 MG CAPSULE 60 MG PO (09:54)
[2022-05-04] MEDS: LOSARTAN 50 MG TABLET PO ×2 (09:55→21:01)
[2022-05-04] MEDS: ENOXAPARIN 40 MG/0.4 ML SYRINGE SUBCUT (09:57)
[2022-05-04] MEDS: METOPROLOL ER 25 MG TABLET PO (09:57)
[2022-05-04] MEDS: OXYCODONE ER 10 MG TAB 15 MG PO ×2 (11:28→21:01)
[2022-05-04] MEDS: predniSONE 20 MG TABLET 40 MG PO (11:29)
[2022-05-04] MEDS: FUROSEMIDE 40 MG/4 ML VIAL IV ×2 (11:30→23:59)
[2022-05-04] MEDS: ALBUTEROL 2.5 MG/3 ML NEB (ADULT) INH ×3 (13:56→19:16)
[2022-05-04] MEDS: polyethylene glycoL 3350 17 GM POWD.PACK PO (14:44)
--- NOTE | 2022-05-04 16:58 | PM.PN.1 ---
Subjective Subjective Date Patient Seen: 05/04/22 Interval history: 86-year-old female former smoker with history of hypertension presented to the ED from [facility] at the request of nursing due to increasing shortness of breath, fatigue along with nausea and vomiting for the past few days. She is being treated for pneumonia and CHF. Patient with audible wheeze when evaluated this morning. Echo showed LVEF 25-30%, LVH, normal RV, moderate MR, dilated IVC collapses less than 50% consistent with volume overload. Clinical presentation consistent with combination pneumonia and acute systolic heart failure. Patient's daughter endorses that in the past month her ankles have been swelling. This CHF is a new diagnosis for her. Ordered Lasix 40 mg IV b.i.d. for today then start on 20 mg oral daily tomorrow a.m.. Also was started on metoprolol succinate 25 mg daily and already on losartan 50 mg b.i.d. per home routine. Continue azithromycin and Rocephin for bacterial pneumonia. Additionally ordered prednisone 40 mg daily x5 days and nebulizer treatments qid and prn per RT. She was started back on her chronic pain regimen of extended release oxycodone and as needed oxycodone. On exam, vital stable. Labored breathing with diffuse wheezing on exam. Tachycardic with regular rhythm. Has mild edema in ankles. Neurologically she is alert and oriented. Exam Vital Signs (past 8 hours): - 05/04/22 09:55 05/04/22 09:57 05/04/22 12:00 Temperature 97.9 F Pulse Rate 113 H 113 H 93 H Respiratory Rate 16 Blood Pressure 189/98 H 198/98 H 168/80 H Pulse Oximetry 97 Oxygen Flow Rate 2 05/04/22 13:57 Temperature Pulse Rate Respiratory Rate Blood Pressure Pulse Oximetry 97 Oxygen Flow Rate 1 Oxygen Delivery Method Nasal Cannula Oxygen Flow Rate 1 Objective Labs Result Diagrams: 05/03/22 19:04 05/03/22 19:04 Labs: Laboratory Results - last 24 hr 05/03/22 05/03/22 05/03/22 18:56 19:04 19:04 WBC 14.3 H RBC 3.56 L Hgb 12.9 Hct 38.1 MCV 106.9 H MCH 36.3 H MCHC 34.0 RDW 13.4 Plt Count 218 Neut % (Auto) Not Reportable Lymph % (Auto) Not Reportable [place] % (Auto) Not Reportable Eos % (Auto) Not Reportable Baso % (Auto) Not Reportable Lymph # (Auto) Not Reportable [place] # (Auto) Not Reportable Baso # (Auto) Not Reportable Total Counted 100 Seg Neutrophils % 79.0 H Band Neutrophils % 5.0 Lymphocytes % (Manual) 6.0 L Monocytes % (Manual) 10.0 Neutrophils # (Manual) 76727 H RBC Morphology See below Macrocytosis 1+ H PT INR Sodium 124 L Potassium 4.2 Chloride 89 L Carbon Dioxide 24 BUN 28 H Creatinine 1.00 Estimated GFR 55 L BUN/Creatinine Ratio 28.0 H Glucose 101 Lactate Calcium 8.5 Total Bilirubin 1.2 AST 21 ALT 14 Alkaline Phosphatase 95 Total Creatine Kinase CK-MB (CK-2) CK-MB (CK-2) Rel Index Troponin I NT-Pro-B Natriuret Pep Total Protein 6.0 L Albumin 3.2 L Globulin 2.8 Albumin/Globulin Ratio 1.1 Procalcitonin SARS-CoV-2 (PCR) Negative Influenza A (RT-PCR) Flu a negative Influenza B (RT-PCR) Flu b negative RSV (PCR) Negative 05/03/22 05/03/22 05/03/22 19:04 19:04 19:04 WBC RBC Hgb Hct MCV MCH MCHC RDW Plt Count Neut % (Auto) Lymph % (Auto) [place] % (Auto) Eos % (Auto) Baso % (Auto) Lymph # (Auto) [place] # (Auto) Baso # (Auto) Total Counted Seg Neutrophils % Band Neutrophils % Lymphocytes % (Manual) Monocytes % (Manual) Neutrophils # (Manual) RBC Morphology Macrocytosis PT 15.6 H INR 1.4 H Sodium Potassium Chloride Carbon Dioxide BUN Creatinine Estimated GFR BUN/Creatinine Ratio Glucose Lactate 1.5 Calcium Total Bilirubin AST ALT Alkaline Phosphatase Total Creatine Kinase 38 CK-MB (CK-2) TNP CK-MB (CK-2) Rel Index TNP Troponin I 0.016 NT-Pro-B Natriuret Pep 54316 H Total Protein Albumin Globulin Albumin/Globulin Ratio Procalcitonin SARS-CoV-2 (PCR) Influenza A (RT-PCR) Influenza B (RT-PCR) RSV (PCR) 05/03/22 19:04 WBC RBC Hgb Hct MCV MCH MCHC RDW Plt Count Neut % (Auto) Lymph % (Auto) [place] % (Auto) Eos % (Auto) Baso % (Auto) Lymph # (Auto) [place] # (Auto) Baso # (Auto) Total Counted Seg Neutrophils % Band Neutrophils % Lymphocytes % (Manual) Monocytes % (Manual) Neutrophils # (Manual) RBC Morphology Macrocytosis PT INR Sodium Potassium Chloride Carbon Dioxide BUN Creatinine Estimated GFR BUN/Creatinine Ratio Glucose Lactate Calcium Total Bilirubin AST ALT Alkaline Phosphatase Total Creatine Kinase CK-MB (CK-2) CK-MB (CK-2) Rel Index Troponin I NT-Pro-B Natriuret Pep Total Protein Albumin Globulin Albumin/Globulin Ratio Procalcitonin 9.64 H SARS-CoV-2 (PCR) Influenza A (RT-PCR) Influenza B (RT-PCR) RSV (PCR) [facility] Surgical History History of shoulder replacement Social History household members: none Smoking Status: Former smoker alcohol intake: former Assessment & Plan Time Spent With Patient Critical Care time: I spent a total of [] minutes of critical care time on this patient's care today; this time is exclusive of procedural time.
[2022-05-04] MEDS: AZITHROMYCIN 500 MG in DEXTROSE 5% IN WATER 250 ML 250 MG IV (19:32)
[2022-05-04] MEDS: SODIUM CHLORIDE 0.9% FLUSH 10 ML IV ×2 (19:32→23:59)
[2022-05-04] MEDS: OXYCODONE IR 5 MG TABLET PO (19:40)
[2022-05-04] MEDS: cefTRIAXone 1,000 MG in SODIUM CHLORIDE 0.9% 100 ML 200 MG IV (20:38)
[2022-05-04] MEDS: ZOLPIDEM 5 MG TABLET 10 MG PO (21:01)
--- NOTE | 2022-05-04 23:42 | PC.NURSE ---
Patient is oriented except did not know day of month, year and reports she is in the hospital because of an ankle fracture. Breath sounds with expiratory wheezes throughout and crackles in bilateral bases; RA sat 95%; on continuous oximetry. HRR w/elevated BP of 144/77. Denies nausea. BT hypoactive and abdomen is soft. Denies dysuria, frequency or urgency and states she is continent but currently using Purewick as is getting IV Lasix. Is able to move herself in bed. Complained of back pain and was medicated with oxycodone IR without relief and then received scheduled oxycontin ER and is currently asleep. Refusing SCD's. Fall risk score is high and bed alarm is activated.
[2022-05-05] VITALS (9 sets, daily range): BP systolic 128–153; BP diastolic 58–93; PULSE 62–84; RESP 13–20; TEMP 35.8–36.9; O2SAT 93–100
[2022-05-05 06:03] LABS: Add Manual Diff / Slide Review NO; Basophils Absolute Auto 0 /uL (0-100); Basophils Percent Auto 0.1 % (0-2); Eosinophils Absolute Auto 0 /uL (0-450); Hematocrit 33.7 % (36-46); Hemoglobin 11.4 g/dL (12.0-16.0); Lymphocytes Absolute Auto 300 /uL (1100-4500); Lymphocytes Percent Auto 3.3 % (25-40); Mean Corpuscular HGB Conc 33.8 % (30-36); Mean Corpuscular Hemoglobin 36.2 PG (26-34); Mean Corpuscular Volume 107.1 fL (80-100); Monocytes Absolute Auto 1000 /uL (0-900); Monocytes Percent Auto 10.1 % (3-14); Neutrophils Absolute Auto 8400 /uL (1500-7000); Neutrophils Percent Auto 86.5 % (50-75); Platelet Count 207 X10^3/uL (150-400); Red Blood Cell Count 3.15 X10^6/uL (4.0-5.2); Red Cell Distribution Width 13.5 % (11.6-14.8); White Blood Cell Count 9.7 X10^3/uL (4.5-11.0)
[2022-05-05 06:15] LABS: Alanine Aminotransferase 15 IU/L (<35); Albumin 2.8 g/dL (3.5-5.0); Albumin Globulin Ratio 1.1 (1.0-2.8); Alkaline Phosphatase 90 U/L (38-126); Aspartate Aminotransferase 26 IU/L (14-36); BUN Creatinine Ratio 26.1 (6-22); Bilirubin Total 0.5 mg/dL (0.2-1.3); Blood Urea Nitrogen 36 mg/dL (7-17); Calcium 7.9 mg/dL (8.4-10.2); Carbon Dioxide 25 mmol/L (22-32); Chloride 88 mmol/L (98-107); Estimated Glomerular Filt Rate 37 mL/min (>60); Globulin 2.6 g/dL (1.7-4.1); Glucose 108 mg/dL (80-110); HEMOLYSIS < 15 (0-50); Magnesium 1.3 mg/dL (1.6-2.3); Potassium 4.6 mmol/L (3.4-5.1); Sodium 121 mmol/L (137-145); Total Protein 5.4 g/dL (6.3-8.2)
[2022-05-05] MEDS: polyethylene glycoL 3350 17 GM POWD.PACK PO (08:56)
[2022-05-05] MEDS: DOCUSATE 100 MG CAPSULE 200 MG PO (08:56)
[2022-05-05] MEDS: ENOXAPARIN 40 MG/0.4 ML SYRINGE SUBCUT (08:56)
[2022-05-05] MEDS: ESCITALOPRAM 10 MG TABLET 20 MG PO (08:57)
[2022-05-05] MEDS: predniSONE 20 MG TABLET 40 MG PO (08:57)
[2022-05-05] MEDS: METOPROLOL ER 25 MG TABLET PO (08:57)
[2022-05-05] MEDS: ASPIRIN EC 81 MG TABLET PO (08:58)
[2022-05-05] MEDS: FUROSEMIDE 20 MG TABLET PO (08:58)
[2022-05-05] MEDS: LOSARTAN 50 MG TABLET PO ×2 (08:58→21:20)
[2022-05-05] MEDS: SODIUM CHLORIDE 0.9% FLUSH 10 ML IV ×3 (08:59→22:04)
[2022-05-05] MEDS: OXYCODONE ER 10 MG TAB 15 MG PO ×2 (08:59→21:20)
--- NOTE | 2022-05-05 09:00 | OT.IP.EVAL ---
Current Diagnoses Sepsis, unspecified organism (05/03/22) Surgical History (Last Reviewed 05/04/22 @ 04:09 by NILDA Briceño) History of shoulder replacement Occupational Therapy Inpatient Evaluation/Re-Eval M1 PT/OT-IP Prior Functional Status Start: 05/05/22 09:46 Freq: NEEDED Status: Active Protocol: Document 05/05/22 09:00 [facility] (Rec: 05/05/22 10:02 [facility] [id number]) Medical Review Prior Functional Status Communication independent Mobility and Gait Uses a 4ww to get around at [facility] Activities of Daily Living and IADL's Pt able to do all ADL's and has help with meals, chores, money management and medications per pt. Social History Household Members none Living Arrangements Assisted Living Home Environment High Toilet,Walk in Shower Home Equipment Four Wheel Walker,Hand Held Shower,Grab Bars Near Toilet Additional Social History Comment Pt states has a built in seat in the walk in shower. Pt states has a Life Alert. Pt has an adjustable full size bed at home. M2 OT-IP Current Condition Start: 05/05/22 09:46 Freq: Status: Active Protocol: Document 05/05/22 09:00 [facility] (Rec: 05/05/22 10:02 [facility] [id number]) Occupational Therapy Current Condition Current Condition Evaluation Date 05/05/22 Treatment Diagnosis Hypoatremia, CHF, PNA Diagnosis Onset Date 05/03/22 M3 OT- IP Subjective and Pain Start: 05/05/22 09:46 Freq: Status: Active Protocol: Document 05/05/22 09:00 [facility] (Rec: 05/05/22 10:02 [facility] [id number]) OT- Subjective Occupational Therapy Visit Type Type Initial Evaluation Visit Start Time 09:00 Visit Stop Time 09:45 Occupational Therapy Visit Comments Patient Comments Pt agreed to get to the recliner so able to eat her breakfast. Patient/Caregiver Goals TO get better. OT Pain Assessment Pain When Pain Assessed At Rest Pain Present Pain Present Pain Reported Location Chest Description Pressure M4 OT- IP ADL's Start: 05/05/22 09:46 Freq: Status: Active Protocol: Document 05/05/22 09:00 [facility] (Rec: 05/05/22 10:02 [facility] [id number]) OT [id number] Comments OT Self-Feeding Comments Not at meal time. OT ADL-Grooming Comments OT Grooming Comments Not performed as pt wanting to eat breakfast. OT ADL-Oral Care Comments Oral Care Comments Not performed. OT ADL-Dressing General Eval Lower Body Dressing Ability Standby Assistance Comments OT Dressing Comments Pt able to bruna/doff her socks with her foot up on the bed with increased time. OT ADL-Toileting General Evaluation Toileting Ability Total Assistance Comments OT Toileting Comments Use of Purewick at this time. OT ADL-Bathing Comments OT Bathing Comments To tired to perform at this time. M5 OT- IP IADL's Start: 05/05/22 09:46 Freq: Status: Active Protocol: Document 05/05/22 09:00 [facility] (Rec: 05/05/22 10:02 [facility] [id number]) OT-Instrumental Activities of Daily Living Deficits IADL Deficits Identified Deficits Home Safety Awareness Awareness of Need for Assistance at Home Good Awareness Ability to Problem Solve Emergency Unable to Problem Solve Situations Home Safety Comments Pt not thinking clearly at times which may be affected by her low sodium levels. Medication Management Medication Management Caregiver Administers Money Management Money Management Caregiver Provides Assistance Meal Preparation Meal Preparation Caregiver Provides Assist Coding Compliance Auditor Coding Compliance Auditor Caregiver Provides Assist Driving Driving Caregiver Provides Assist M6 OT- IP Functional Cognition Start: 05/05/22 09:46 Freq: Status: Active Protocol: Document 05/05/22 09:00 [facility] (Rec: 05/05/22 10:02 [facility] [id number]) Cognitive Factors Limiting Selfcare Function Cognitive Ability Level of Alertness Alert,Confusional State Patient Orientation Name,Place,Situation Attention Span Ability Capable of Focused Attention, Capable of Sustained Attention Safety Awareness No Deficits Noted Problem Solving Ability Needs Assist to Identify Solutions Cognitive Comments Cognitive Assessment Comments Pt having low sodium which may be affecting her thinking at this time. Pt believing that she has had CPR done as having chest pain, nursing aware and explaining to the pt that her chest pain in from her new onset of CHF. OT- Vision and Hearing OT- Hearing Assessment OT- Hearing Assessment WFL OT- Vision Assessment Visual Acuity Glasses For Reading Visual Attentiveness WFL Occular Pursuits WFL Vision Assessment Comments Pt able to read the clock accurately. M7 OT- IP Mobility and Balance Start: 05/05/22 09:46 Freq: Status: Active Protocol: Document 05/05/22 09:00 [facility] (Rec: 05/05/22 10:02 [facility] [id number]) OT- Bed Mobility Assessment Rolling Type of Rolling Roll to Right Level of Assistance Standby Assistance Supine to Sit Supine to Sit Assist Standby Assistance Scooting Scooting to Edge of Bed Moderate Assistance OT-Transfer Assessment Sit to and From Stand Sit to and from Stand Contact Guard Assistance Transfers Transfer Ability Contact Guard Assistance Technique Transfer Destination Bed,Chair Transfer Technique Stand Step Pivot Devices Transfer Assistive Devices Gait Belt,Front Wheeled Walker Comments Mobility Comments Pt usually gets out of bed at home with the head of bed up. SBA to get up and MOD A to help scoot to the edge of the bed. CGA to stand to FWW and for transfer. VC to back up all the way to the recliner before sitting down. Pt needing increased time to sit before standing, O2 drops initially to 88% and immediately increases to 94% after several seconds. BP sitting 161/97 and after transfer 166/79. OT- Balance Assessment Sitting Balance and Reactions Static Sitting Balance Ability Normal Dynamic Sitting Balance Ability Good Standing Balance and Reactions Static Standing Balance Ability Fair Dynamic Standing Balance Ability Fair M8 OT- IP Objective Assessments Start: 05/05/22 09:46 Freq: Status: Active Protocol: Document 05/05/22 09:00 [facility] (Rec: 05/05/22 10:02 [facility] [id number]) OT Gross Range of Motion Upper Extremity Range of Motion Assessment Bilaterally Impaired ROM Impairments Left more decreased at end range of motion due to history of shoulder replacement for the left arm. OT Strength Comments Strength Comments Shoulder Flexion 3-/5 and from elbow to distal 4/5 to 4-/5 for BUE. OT- Coordination Assessment Comments Coordination Comments Pt needing assist for set-up for meal items. OT-Muscle Tone Assessment Muscle Tone WNL Yes M9 OT- IP Assessment and Plan Start: 05/05/22 09:46 Freq: Status: Active Protocol: Document 05/05/22 09:00 [facility] (Rec: 05/05/22 10:02 [facility] [id number]) OT Summary Assessment and Plan Potential Rehabilitation Potential Good Analytic Complexity at Evaluation Moderate Summary OT Impairments Strength,Balance,Functional Cognition,Functional Mobility, Self-Feeding,Grooming,Dressing ,Toileting,Bathing,Toilet Transfers,Shower Transfers, Activity Tolerance Progress Towards Goals Slow Progress due to Medical Issues,Slow Progress due to Activity Tolerance,Slow Progress due to Cognition Assessment Summary Pt MOD complexity and main barriers are not thinking as well as usual due to probable low sodium level, decreased activity tolerance and endurance, and just needing minimal assist for ADl and mobility needs at this time. Pt when medically stable with benefit from increased assist from [facility] and home health. Goals Self-Feeding Goal Independent Grooming Goal Independent Dressing Goal Independent Toileting Goal Independent Bathing Goal Independent Toilet Transfer Goal Independent Shower Transfer Goal Independent Patient/Caregiver Education Goal Demonstrate Energy Conservation and Pacing Days to Meet Goals 7 Frequency of Treatment Frequency Of Treatment Once a Day Treatment Plan OT Treatment Plan ADL Training,Functional Cognition Training,Functional Mobility,Patient/Family Education,Discharge Planning Discharge Recommendations OT Discharge Recommendations Home with 15/11 Assist but not 1:1 assist Available,Home Health Transportation Needs at Discharge Private Vehicle
[2022-05-05] MEDS: MAGNESIUM SULFATE 2 GM/50 ML PIGGYBACK IV (09:06)
--- NOTE | 2022-05-05 13:05 | PM.PN.1 ---
Subjective Subjective Date Patient Seen: 05/05/22 Time Patient Seen: 12:30 Interval history: Today she says she feels largely no different than when she came in to the hospital. She continues to have cough, she feels weak. She is not very short of breath currently. Exam Vital Signs (past 8 hours): - 05/05/22 06:00 05/05/22 08:57 05/05/22 08:58 Temperature 97.3 F L Pulse Rate 79 Respiratory Rate 17 Blood Pressure 153/93 H 133/64 133/64 Pulse Oximetry 95 Oxygen Flow Rate 0 05/05/22 12:14 Temperature 98.5 F Pulse Rate 62 Respiratory Rate 20 Blood Pressure 145/72 H Pulse Oximetry 98 Oxygen Flow Rate 0 Oxygen Delivery Method Room Air Oxygen Flow Rate 0 Narrative Exam Narrative: GEN: fatigued, no acute distress HEENT: moist mucous membranes SKIN: normal skin turgor PULM: harsh, coarse, rhonchorous breath sounds ABD: soft, nontender, nondistended EXT: trace to 1+ edema bilaterally NEURO: awake, alert, oriented, no focal deficits noted Objective Labs Result Diagrams: 05/05/22 05:29 05/05/22 05:29 Labs: Laboratory Results - last 24 hr 05/05/22 05/05/22 05:29 05:29 WBC 9.7 RBC 3.15 L Hgb 11.4 L Hct 33.7 L MCV 107.1 H MCH 36.2 H MCHC 33.8 RDW 13.5 Plt Count 207 Neut % (Auto) 86.5 H Lymph % (Auto) 3.3 L [place] % (Auto) 10.1 Eos % (Auto) 0.0 L Baso % (Auto) 0.1 Neut # (Auto) 8400 H Lymph # (Auto) 300 L [place] # (Auto) 1000 H Eos # (Auto) 0 Baso # (Auto) 0 Sodium 121 L Potassium 4.6 Chloride 88 L Carbon Dioxide 25 BUN 36 H Creatinine 1.38 H Estimated GFR 37 L BUN/Creatinine Ratio 26.1 H Glucose 108 Calcium 7.9 L Magnesium 1.3 L Total Bilirubin 0.5 AST 26 ALT 15 Alkaline Phosphatase 90 Total Protein 5.4 L Albumin 2.8 L Globulin 2.6 Albumin/Globulin Ratio 1.1 COUNT INCLUDES THE [facility] Surgical History History of shoulder replacement Social History household members: none Smoking Status: Former smoker alcohol intake: former Assessment & Plan Assessment & Plan narrative: 1. Sepsis from pneumonia with acute hypoxemic respiratory failure -initially tachycardic, tachypneic, with low oxygen sats consistent with respiratory failure -started antibiotics for pneumonia, continue ceftriaxone and azithromycin -now improving and off oxygen -also started on prednisone, will continue for 5 day burst -nebs prn 2. Acute CHF exacerbation with reduced EF -EF noted on ECHO to be 25-30% -new diagnosis of heart failure -initial BNP is 14k -patient received fluid boluses and diuretics on admission, per I/Os appears to be fluid balance positive, however respiratory status has improved, her volume status looks slightly volume overloaded with lower extremity edema and ECHO with non collapsing IVC, however after lasix was given sodium worsened and creatinine worsened, today 05/05 will hold diuretics and see if oral hydration improves her lab values, will consider restarting lasix tomorrow as suspect with her low EF she may need diuretics chronically -check BNP tomorrow -continue beta-josué and ARB 3. Hyponatremia and ANA MARIA with hypomagnesemia -may be secondary to diuretics -will stop diuretics today and recheck labs tomorrow -if is not improving tomorrow will reorder labs for further evaluation prior to fluids or diuretics Time Spent With Patient Critical Care time: I spent a total of [] minutes of critical care time on this patient's care today; this time is exclusive of procedural time.
[2022-05-05] MEDS: ALBUTEROL 2.5 MG/3 ML NEB (ADULT) INH ×2 (13:37→19:37)
--- NOTE | 2022-05-05 14:50 | PT.IIE ---
Current Diagnoses Sepsis, unspecified organism (05/03/22) Surgical History (Last Reviewed 05/04/22 @ 04:09 by NILDA Briceño) History of shoulder replacement Physical Therapy Inpatient Evaluation/Re-Eval M1 PT/OT-IP Prior Functional Status Start: 05/05/22 17:19 Freq: NEEDED Status: Active Protocol: Document 05/05/22 14:50 [facility] (Rec: 05/05/22 17:33 [facility] [id number]) Medical Review Prior Functional Status Communication able to make needs known Mobility and Gait per daughter: pt is modified independent with all mobilities and ambulation using 4WW in her apartment at [facility] but uses a transport chair when she has to go outside and usually somebody assists her with the transport chair; pt stated that she occasionally calls staff members to assist her if needed Activities of Daily Living and IADL's Pt able to do all ADL's and has help with meals, chores, money management and medications per pt. Social History Household Members none Living Arrangements Assisted Living Number of Floors (Floors) One Floor Number of Stairs To Enter/Railing? pt lives at [facility] Home Environment Standard Height Toilet,Walk in Shower,Built-In Shower Seat Home Equipment Four Wheel Walker,Raised Toilet Seat w/Armrests,Hand Held Shower,Grab Bars In Shower Additional Social History Comment pt has an adjustable bed M2 PT-IP Current Condition Start: 05/05/22 17:19 Freq: NEEDED Status: Active Protocol: Document 05/05/22 14:50 [facility] (Rec: 05/05/22 17:33 [facility] [id number]) Physical Therapy Current Condition Current Condition Evaluation Date 05/05/22 Treatment Diagnosis CHF; PNA; sepsis; difficulty in walking Onset Date 05/03/22 M3 PT-IP Subjective Start: 05/05/22 17:19 Freq: NEEDED Status: Active Protocol: Document 05/05/22 14:50 [facility] (Rec: 05/05/22 17:33 AB [email or web address]) Subjective Physical Therapy Visit Type Type Initial Evaluation Visit Start Time 14:50 Visit Stop Time 15:15 Total Visit Minutes 25 Number of AWNING CRAFTSPERSON Visits 0 Physical Therapy Visit Comments Patient Comments agreeable to do PT M4 PT-IP Mobility and Gait Start: 05/05/22 17:19 Freq: NEEDED Status: Active Protocol: Document 05/05/22 14:50 [facility] (Rec: 05/05/22 17:33 [facility] [id number]) PT-Bed Mobility Assessment Supine to Sit Supine to Sit Moderate Assistance,1 Person Assistance Scooting Scooting to Edge of Bed Moderate Assistance PT-Transfer Assessment Sit to and From Stand Sit to and from Stand Moderate Assistance,1 Person Assistance,Use of Upper Extremities Equipment Transfer Assistive Device Gait Belt,Front Wheeled Walker Orthotic/Prosthetic Devices or Brace: No Transfers Transfer Destination Chair Transfer Technique ambulated Transfer Ability Level of Assist Moderate Assistance,1 Person Assistance,Use of Upper Extremities Comments Mobility Comments BP: 140/70 O2 sat at room air : 97-99% completed supine to sit mod A and cues. able to sit on EOB CGA. O2 sat: 91% but increased to 97% in ~ 15 sec. completed sit to stand mod A and ambulated in room using FWW mod A and cues ~ 12 ft. increase stooped posture and increase unsteadiness midway through ambulation. pt agreed to sit up on the chair . (+) SOB , O2 sat after ambulation 93-94%. positioned on the chair. call light and table placed within reach. O2 sat at end of PT session: 99-100% Gait Assessment Gait Gait Assistance Required: Moderate Assistance Distance (Feet) 12 Able to Maintain Weight Bearing Status Yes During Gait Assistive Devices Assistive Device Gait Belt,Front Wheeled Walker Orthotic/Prosthetic Devices or Brace: No Gait Deviations General Gait Pattern Decreased Stride Length, Decreased Feet Clearance, Flexed Trunk Factors Limiting Gait Function Factors Limiting Gait Function Decreased Activity Tolerance, Decreased Strength,Pain,Poor Balance,Poor Safety Awareness, Respiratory Distress PT-Balance Assessment Sitting Balance and Reactions Static Sitting Balance Ability Good Dynamic Sitting Balance Ability Fair Standing Balance and Reactions Static Standing Balance Ability Fair Dynamic Standing Balance Ability Poor Device Used FWW M5 PT-IP Objective Assessments Start: 05/05/22 17:19 Freq: NEEDED Status: Active Protocol: Document 05/05/22 14:50 [facility] (Rec: 05/05/22 17:33 [facility] [id number]) Orientation Orientation/Cognition Level of Alertness Alert Orientation Name,Place,Situation Language Function Ability Hard of Hearing Safety Awareness Decreased Safety Awareness Memory Description Short Term Impaired Gross Range of Motion Lower Extremity ROM Assessment Within Functional Limits Strength Lower Extremity Strength Hip 4-/5 Knee 4-/5 Muscle Tone Muscle Tone WNL Yes M6 PT-IP Treatment Start: 05/05/22 17:19 Freq: NEEDED Status: Active Protocol: Document 05/05/22 14:50 [facility] (Rec: 05/05/22 17:33 [facility] [id number]) Physical Therapy Treatment Education Education Provided Safety M7 PT-IP Assessment and Plan Start: 05/05/22 17:19 Freq: NEEDED Status: Active Protocol: Document 05/05/22 14:50 [facility] (Rec: 05/05/22 17:33 [facility] [id number]) PT Summary Assessment and Plan Potential Rehabilitation Potential Fair Status of Condition at Evaluation Evolving Summary Impairments Pain,ROM,Strength,Balance, Coordination,Sensation,Tone, Cognition,Bed Mobility, Transfers,Gait,Activity Tolerance Assessment Summary Pt requiring mod A with mobility using FWW and unable to tolerate much activity with increase unsteadiness walking ~ 12 ft using fWW. (+) SOB but O2 sat 91-94% with activity. d/c plan depending on progress but may require SNF rehab at this time. will continue to assess progress. Goals Bed Mobility Goal Standby Assistance Transfer Goal Standby Assistance,Front Wheeled Walker Gait Goal Standby Assistance,Front Wheel Walker Gait Distance 100 Other Goals improve bed mobility, transfers and ambulation usng 4WW ~ 100ft SBA Days to Meet Goals 10 Frequency of Treatment Frequency Of Treatment Once a Day Treatment Plan Physical Therapy Treatment Plan Bed Mobility Training,Transfer Training,Gait Training, Therapeutic Exercise,Balance Retraining,Discharge Planning, Hot or Cold Pack,Neuromuscular Re-ed,Coordination Retraining Precautions Other Precautions O2 sat Recommendations To Nursing Amount of Assist Needed 1 Person Assist Discharge Recommendations PT Discharge Recommendations Home with 15/11 Assist Available,Home Health,Home vs SNF Equipment Needed for Home Before FWW if not safe with 4WW Discharge Transportation Needs at Discharge Private Vehicle,Wheelchair/ Cabulance
[2022-05-05] MEDS: cefTRIAXone 1,000 MG in SODIUM CHLORIDE 0.9% 100 ML 200 MG IV (19:40)
[2022-05-05] MEDS: AZITHROMYCIN 500 MG in DEXTROSE 5% IN WATER 250 ML 250 MG IV (20:28)
[2022-05-05] MEDS: ZOLPIDEM 5 MG TABLET 10 MG PO (21:19)
[2022-05-06] VITALS (9 sets, daily range): BP systolic 122–148; BP diastolic 66–85; PULSE 69–76; RESP 16–22; TEMP 35.7–36.1; O2SAT 94–100
--- NOTE | 2022-05-06 00:51 | PC.NURSE ---
Patient is oriented to self, birthdate, age, place and able to identify she has pneumonia. Breath sounds coarse with expiratory wheezes in bilateral upper lobes and crackles at bases and in left middle lobe. Reports feeling SOB with exertion but not at rest. Is on RA with sat of 100%; on continuous oximetry. HRR. Denied nausea. BT present and stated she is passing flatus but did not have a BM today. Requested purewick be applied overnight; denied dysuria. Is able to turn herself in bed. Gait not assessed at this time; receiving PT and OT. Complained of left hip and chronic back pain and was medicated with oxycontin at hs and is currently asleep. Refusing to wear SCD's. Fall risk score is high and bed alarm is activated.
[2022-05-06] MEDS: ALBUTEROL 2.5 MG/3 ML NEB (ADULT) INH ×2 (08:04→19:38)
[2022-05-06 08:09] LABS: Add Manual Diff / Slide Review NO; Basophils Absolute Auto 0 /uL (0-100); Eosinophils Absolute Auto 0 /uL (0-450); Eosinophils Percent Auto 0.1 % (2-4); Hematocrit 32.9 % (36-46); Hemoglobin 11.3 g/dL (12.0-16.0); Lymphocytes Absolute Auto 600 /uL (1100-4500); Lymphocytes Percent Auto 5.1 % (25-40); Mean Corpuscular HGB Conc 34.3 % (30-36); Mean Corpuscular Hemoglobin 36.3 PG (26-34); Mean Corpuscular Volume 105.7 fL (80-100); Monocytes Absolute Auto 1400 /uL (0-900); Monocytes Percent Auto 12.7 % (3-14); Neutrophils Absolute Auto 8900 /uL (1500-7000); Neutrophils Percent Auto 82.1 % (50-75); Platelet Count 225 X10^3/uL (150-400); Red Blood Cell Count 3.11 X10^6/uL (4.0-5.2); Red Cell Distribution Width 13.4 % (11.6-14.8); White Blood Cell Count 10.9 X10^3/uL (4.5-11.0)
[2022-05-06 08:49] LABS: Alanine Aminotransferase 19 IU/L (<35); Albumin 2.8 g/dL (3.5-5.0); Alkaline Phosphatase 103 U/L (38-126); Aspartate Aminotransferase 41 IU/L (14-36); BUN Creatinine Ratio 28.1 (6-22); Bilirubin Total 0.4 mg/dL (0.2-1.3); Blood Urea Nitrogen 45 mg/dL (7-17); Carbon Dioxide 22 mmol/L (22-32); Chloride 85 mmol/L (98-107); Estimated Glomerular Filt Rate 31 mL/min (>60); Globulin 2.7 g/dL (1.7-4.1); Glucose 96 mg/dL (80-110); HEMOLYSIS < 15 (0-50); Magnesium 1.9 mg/dL (1.6-2.3); Potassium 4.6 mmol/L (3.4-5.1); Total Protein 5.5 g/dL (6.3-8.2)
[2022-05-06 09:08] LABS: NT-proBNP (BNP-Adult 18+) 40200 pg/mL (<450)
[2022-05-06 09:20] LABS: Sodium 118 mmol/L (137-145)
[2022-05-06] MEDS: polyethylene glycoL 3350 17 GM POWD.PACK PO (09:40)
[2022-05-06] MEDS: ENOXAPARIN 30 MG/0.3 ML SYRINGE SUBCUT (09:41)
[2022-05-06] MEDS: OXYCODONE ER 10 MG TAB 15 MG PO ×2 (09:41→22:03)
[2022-05-06] MEDS: ESCITALOPRAM 10 MG TABLET 20 MG PO (09:42)
[2022-05-06] MEDS: ASPIRIN EC 81 MG TABLET PO (09:42)
[2022-05-06] MEDS: LOSARTAN 50 MG TABLET PO (09:42)
[2022-05-06] MEDS: predniSONE 20 MG TABLET 40 MG PO (09:42)
[2022-05-06] MEDS: SODIUM CHLORIDE 0.9% FLUSH 10 ML IV ×2 (09:43→22:03)
[2022-05-06] MEDS: METOPROLOL ER 25 MG TABLET PO (09:43)
[2022-05-06] MEDS: DOCUSATE 100 MG CAPSULE 200 MG PO (09:43)
--- NOTE | 2022-05-06 12:18 | P.PN_ITS ---
Subjective Subjective Date Patient Seen: 05/06/22 Time Patient Seen: 09:00 Interval history: She still feels short of breath. She is drinking a good amount of water. She is not eating much. Exam Vital Signs (past 8 hours): - 05/06/22 08:04 05/06/22 07:45 05/06/22 09:42 Temperature 97.0 F L Pulse Rate 69 69 Respiratory Rate 20 22 Blood Pressure 145/70 H 148/78 H Pulse Oximetry 97 96 Oxygen Flow Rate 0 05/06/22 09:43 Temperature Pulse Rate Respiratory Rate Blood Pressure 148/78 H Pulse Oximetry Oxygen Flow Rate Fraction of Inspired Oxygen 100 Oxygen Delivery Method Room Air Oxygen Flow Rate 0 Narrative Exam Narrative: GEN: fatigued, no acute distress HEENT: moist mucous membranes SKIN: normal skin turgor PULM: decreased breath sounds bilaterally ABD: soft, nontender, nondistended EXT: trace to 1+ edema bilaterally NEURO: awake, alert, oriented, no focal deficits noted Objective Labs Result Diagrams: 05/06/22 05:50 05/06/22 05:50 Labs: Laboratory Results - last 24 hr 05/06/22 05/06/22 05/06/22 05:50 05:50 05:50 WBC 10.9 RBC 3.11 L Hgb 11.3 L Hct 32.9 L MCV 105.7 H MCH 36.3 H MCHC 34.3 RDW 13.4 Plt Count 225 Neut % (Auto) 82.1 H Lymph % (Auto) 5.1 L [place] % (Auto) 12.7 Eos % (Auto) 0.1 L Baso % (Auto) 0.0 Neut # (Auto) 8900 H Lymph # (Auto) 600 L [place] # (Auto) 1400 H Eos # (Auto) 0 Baso # (Auto) 0 Sodium 118 L* Potassium 4.6 Chloride 85 L Carbon Dioxide 22 BUN 45 H Creatinine 1.60 H Estimated GFR 31 L BUN/Creatinine Ratio 28.1 H Glucose 96 Calcium 8.0 L Magnesium 1.9 Total Bilirubin 0.4 AST 41 H ALT 19 Alkaline Phosphatase 103 NT-Pro-B Natriuret Pep 51622 H Total Protein 5.5 L Albumin 2.8 L Globulin 2.7 Albumin/Globulin Ratio 1.0 PFSH Surgical History History of shoulder replacement Social History household members: none Smoking Status: Former smoker alcohol intake: former Assessment & Plan Assessment & Plan narrative: 1. Sepsis from pneumonia with acute hypoxemic respiratory failure -initially tachycardic, tachypneic, with low oxygen sats consistent with respiratory failure -started antibiotics for pneumonia, continue ceftriaxone and azithromycin -now improving and off oxygen -also started on prednisone, will continue for 5 day burst -nebs prn 2. Acute CHF exacerbation with reduced EF -EF noted on ECHO to be 25-30% -new diagnosis of heart failure -initial BNP is 14k, repeat is 40k -patient received fluid boluses and diuretics on admission, per I/Os appears to be fluid balance positive, however respiratory status has improved, her volume status looks slightly volume overloaded with lower extremity edema and ECHO with non collapsing IVC, however after lasix was given sodium worsened and creatinine worsened, with stopping fluids and lasix and letting her drink on her own on 05/05 she was volume up and with that her BNP increased, creatinine worsened, and sodium dropped -ordered for 80 IV lasix -continue beta-josué and ARB 3. Hyponatremia and ANA MARIA with hypomagnesemia -initially unclear if secondary to fluids or diuretics -diuretics held and patient was drinking lots of water on own on 05/05 and sodium worsened -ordered urine sodium, creatinine, osmolality, and also check serums osms -if is not improving tomorrow will reorder labs for further evaluation prior to fluids or diuretics Time Spent With Patient Critical Care time: I spent a total of [] minutes of critical care time on this patient's care today; this time is exclusive of procedural time.
[2022-05-06] MEDS: FUROSEMIDE 80 MG in SODIUM CHLORIDE 0.9% 50 ML 116 MG IV ×2 (12:21→23:32)
[2022-05-06] MEDS: OXYCODONE IR 5 MG TABLET PO (12:23)
--- NOTE | 2022-05-06 12:47 | PT.IPTN ---
Current Diagnoses Sepsis, unspecified organism (05/03/22) Physical Therapy Treatment Note M2 PT-IP Current Condition Start: 05/05/22 17:19 Freq: NEEDED Status: Active Protocol: Document 05/06/22 12:09 SP (Rec: 05/06/22 18:05 SP [id number]) Physical Therapy Current Condition Current Condition Evaluation Date 05/05/22 Treatment Diagnosis CHF; PNA; sepsis; difficulty in walking Onset Date 05/03/22 M3 PT-IP Subjective Start: 05/05/22 17:19 Freq: NEEDED Status: Active Protocol: Document 05/06/22 12:09 SP (Rec: 05/06/22 18:05 SP [id number]) Subjective Physical Therapy Visit Type Type Treatment Note Visit Start Time 12:09 Visit Stop Time 12:47 Total Visit Minutes 38 Notes Vitals: BP 125/69 HR 72 SaO2 97% on RA Daughter in room, observed tx. Number of CORRECTIONAL SUBSTANCE ABUSE COUNSELOR Visits 1 Physical Therapy Visit Comments Patient Comments agreeable to do PT Patient Goals return home with staff and daughter. Daughter stated can help her for few days and if still needs will have family help or make arrangements. Therapy Pain Assessment Pain When Pain Assessed During Mobility M4 PT-IP Mobility and Gait Start: 05/05/22 17:19 Freq: NEEDED Status: Active Protocol: Document 05/06/22 12:09 SP (Rec: 05/06/22 18:05 SP [id number]) PT-Bed Mobility Assessment Supine to Sit Supine to Sit Standby Assistance,Head of Bed Elevated,Bedrails Scooting Scooting to Edge of Bed Standby Assistance PT-Transfer Assessment Sit to and From Stand Sit to and from Stand Contact Guard Assistance, Minimal Assistance,1 Person Assistance,Use of Upper Extremities Equipment Transfer Assistive Device Gait Belt,Front Wheeled Walker Orthotic/Prosthetic Devices or Brace: No Transfers Transfer Destination Chair,Toilet Transfer Technique pt ambulated with FWW Transfer Ability Level of Assist Contact Guard Assistance,1 Person Assistance,Use of Upper Extremities Comments Mobility Comments Pt able to complete elevated supine>sit SBA, STS CGA cues for pushing from bed/downward pressure FWW for safety coming to standing. Progressed gait to toilet 10 ft w/ FWW CGA, cued proximating body to FWW then pivot and back step fully . Pt completed brief mgt cues for 1 UE on grab bar for safety other brief mgt then slow descend to sit toile CG/ Min A. Pt able to void, self pericare sitting. STS cues use grab bar, self brief mgt cues 1 UE support grab bar safety with balance. Pt tired coming out of bathrom and unable to progress gait to sink so gait to chair 8 ft w/FWW CGA, safety cues back step pivot/ cener self and proper hand placement. Min A to scoot back in chair fully due to unable to touch floor self support performance. Pt had call light and all needs in reach before left. CORRECTIONAL SUBSTANCE ABUSE COUNSELOR cued for breath due to tiring and noticed increase breath rate during activity, good pt carryover with cues. CORRECTIONAL SUBSTANCE ABUSE COUNSELOR discussed with pt and daughter pt decreased activity tolerance distance. Recommending SNF vs HHPT 15/11 available if daugher can provide it. Will continue to assess progress. Gait Assessment Gait Gait Assistance Required: Contact Guard Assist,1 Person Assist Distance (Feet) 10 Able to Maintain Weight Bearing Status Yes During Gait Assistive Devices Assistive Device Gait Belt,Front Wheeled Walker Orthotic/Prosthetic Devices or Brace: No Gait Deviations General Gait Pattern Decreased Stride Length, Decreased Feet Clearance, Flexed Trunk Factors Limiting Gait Function Factors Limiting Gait Function Decreased Activity Tolerance, Decreased Strength,Difficulty Following Directions,Pain,Poor Balance,Poor Safety Awareness ,Respiratory Distress Comments Gait Comments Pt receiprocal stepping w/ FWW , cues for safety back step fully to toilet. Pt decreased distance gait w/FWW post use bathroom this tx. Stair Climbing Assessment Comments Stair Climbing Comments No stairs to perform at home but states she visit her children and they have a few stairs to manage if she wants to visit. PT-Balance Assessment Sitting Balance and Reactions Static Sitting Balance Ability Good Dynamic Sitting Balance Ability Good Standing Balance and Reactions Static Standing Balance Ability Good Dynamic Standing Balance Ability Fair Device Used FWW M5 PT-IP Objective Assessments Start: 05/05/22 17:19 Freq: NEEDED Status: Active Protocol: Document 05/05/22 14:50 AB (Rec: 05/05/22 17:33 AB [id number]) Orientation Orientation/Cognition Level of Alertness Alert Orientation Name,Place,Situation Language Function Ability Hard of Hearing Safety Awareness Decreased Safety Awareness Memory Description Short Term Impaired Gross Range of Motion Lower Extremity ROM Assessment Within Functional Limits Strength Lower Extremity Strength Hip 4-/5 Knee 4-/5 Muscle Tone Muscle Tone WNL Yes M6 PT-IP Treatment Start: 05/05/22 17:19 Freq: NEEDED Status: Active Protocol: Document 05/06/22 12:09 SP (Rec: 05/06/22 18:05 SP [id number]) Physical Therapy Treatment Education Education Provided Safety Other Treatments Other Treatment Performed No sways or LOB during stance toilet activity, CGA require with cues for safety. M7 PT-IP Assessment and Plan Start: 05/05/22 17:19 Freq: NEEDED Status: Active Protocol: Document 05/06/22 12:09 SP (Rec: 05/06/22 18:05 SP [id number]) PT Summary Assessment and Plan Potential Rehabilitation Potential Fair Status of Condition at Evaluation Evolving Summary Impairments Pain,ROM,Strength,Balance, Coordination,Sensation,Tone, Cognition,Bed Mobility, Transfers,Gait,Activity Tolerance Progress Towards Goals Progressing Toward Goals,Slow Progress due to Activity Tolerance Assessment Summary Pt required SBA during elevated bedmob, CG- Min A STS and gait w/FWW. Pt requires safety cues for body/FWW positioning and proper hand placement. Pt increase breath rate with activitiy, needs rest breaks for mobility tasks . CORRECTIONAL SUBSTANCE ABUSE COUNSELOR discussed with daughter and pt decrease activity tolerance and unable short distances for appt and requires safety cues for mobiltiy and unsure safe to use of call light assist and assisted living facility. REcommending SNF vs 24/7 available when pt builds up more endurance, limited activity continues at this time. Will continue to assess progress. Goals Bed Mobility Goal Standby Assistance Transfer Goal Standby Assistance,Front Wheeled Walker Gait Goal Standby Assistance,Front Wheel Walker Gait Distance 100 Other Goals improve bed mobility, transfers and ambulation usng 4WW ~ 100ft SBA Days to Meet Goals 10 Frequency of Treatment Frequency Of Treatment Once a Day Treatment Plan Physical Therapy Treatment Plan Bed Mobility Training,Transfer Training,Gait Training, Therapeutic Exercise,Balance Retraining,Discharge Planning, Hot or Cold Pack,Neuromuscular Re-ed,Coordination Retraining Other Recommendations and Next Treatment transfers, further distance Focus gait w/ FWW (4WW if safe), gait further distance. Precautions Other Precautions O2 sat Recommendations To Nursing Amount of Assist Needed 1 Person Assist Discharge Recommendations PT Discharge Recommendations Home with 24/7 Assist Available,Home Health,SNF Rehab,Home vs SNF Equipment Needed for Home Before FWW if not safe with 4WW Discharge Transportation Needs at Discharge Private Vehicle,Wheelchair/ Cabulance
[2022-05-06 15:23] LABS: BUN Creatinine Ratio 28.8 (6-22); Blood Urea Nitrogen 46 mg/dL (7-17); Calcium 8.3 mg/dL (8.4-10.2); Carbon Dioxide 23 mmol/L (22-32); Chloride 85 mmol/L (98-107); Estimated Glomerular Filt Rate 31 mL/min (>60); Glucose 111 mg/dL (80-110); HEMOLYSIS < 15 (0-50); Potassium 4.7 mmol/L (3.4-5.1)
--- NOTE | 2022-05-06 15:24 | OT.IP.TRT ---
Current Diagnoses Sepsis, unspecified organism (05/03/22) Occupational Therapy Treatment Note M2 OT-IP Current Condition Start: 05/05/22 09:46 Freq: Status: Active Protocol: Document 05/05/22 09:00 [facility] (Rec: 05/05/22 10:02 [facility] [id number]) Occupational Therapy Current Condition Current Condition Evaluation Date 05/05/22 Treatment Diagnosis Hypoatremia, CHF, PNA Diagnosis Onset Date 05/03/22 M3 OT- IP Subjective and Pain Start: 05/05/22 09:46 Freq: Status: Active Protocol: Document 05/06/22 15:00 [facility] (Rec: 05/06/22 16:13 [facility] [id number]) OT- Subjective Occupational Therapy Visit Type Type Treatment Note Visit Start Time 15:00 Visit Stop Time 15:24 Total Visit Minutes 24 Occupational Therapy Visit Comments Patient Comments Pt agreed to use the bathroom and wanting to get back to bed . Patient/Caregiver Goals To go home. OT Pain Assessment Pain When Pain Assessed At Rest Pain Present Pain Present Denied Pain M4 OT- IP ADL's Start: 05/05/22 09:46 Freq: Status: Active Protocol: Document 05/06/22 15:00 [facility] (Rec: 05/06/22 16:13 [facility] [id number]) OT [id number] Comments OT Self-Feeding Comments Not at meal time. OT ADL-Grooming Comments OT Grooming Comments Pt states already performed earlier. OT ADL-Oral Care Comments Oral Care Comments Pt states did earlier. OT ADL-Dressing General Eval Lower Body Dressing Ability Moderate Assistance Comments OT Dressing Comments Pt needing assist to help bruna the brief over her feet. OT ADL-Toileting General Evaluation Toileting Ability Moderate Assistance Areas Needing Assistance Manage Clothing Comments OT Toileting Comments Pt needing assist to help put the brief over her feet and then with CGA for balance able to help pull the brief up over her hips. OT ADL-Bathing Comments OT Bathing Comments Pt too tired to try but states open to take a shower tomorrow. M6 OT- IP Functional Cognition Start: 05/05/22 09:46 Freq: Status: Active Protocol: Document 05/06/22 15:00 [facility] (Rec: 05/06/22 16:13 [facility] [id number]) Cognitive Factors Limiting Selfcare Function Cognitive Ability Level of Alertness Alert Patient Orientation Name,Place,Situation Attention Span Ability Capable of Focused Attention, Capable of Sustained Attention Safety Awareness No Deficits Noted Cognitive Comments Cognitive Assessment Comments Pt able to follow commands batter today. M7 OT- IP Mobility and Balance Start: 05/05/22 09:46 Freq: Status: Active Protocol: Document 05/06/22 15:00 [facility] (Rec: 05/06/22 16:13 [facility] [id number]) OT- Bed Mobility Assessment Sit to Supine Sit to Supine Assist Moderate Assistance OT-Transfer Assessment Sit to and From Stand Sit to and from Stand Minimal Assistance Transfers Transfer Ability Contact Guard Assistance Technique Transfer Destination Bed,Chair,Toilet Transfer Technique Stand Step Pivot Devices Transfer Assistive Devices Gait Belt,Front Wheeled Walker Comments Mobility Comments CGA with FWW and pt easily get tired. Pt DOMINIC x1 to stand from the toilet and CGA for balance while pulling up her brief. Pt's O2 on RA at 99%. OT- Balance Assessment Sitting Balance and Reactions Static Sitting Balance Ability Good Dynamic Sitting Balance Ability Good Standing Balance and Reactions Static Standing Balance Ability Fair Dynamic Standing Balance Ability Fair M8 OT- IP Objective Assessments Start: 05/05/22 09:46 Freq: Status: Active Protocol: Document 05/05/22 09:00 [facility] (Rec: 05/05/22 10:02 [facility] [id number]) OT Gross Range of Motion Upper Extremity Range of Motion Assessment Bilaterally Impaired ROM Impairments Left more decreased at end range of motion due to history of shoulder replacement for the left arm. OT Strength Comments Strength Comments Shoulder Flexion 3-/5 and from elbow to distal 4/5 to 4-/5 for BUE. OT- Coordination Assessment Comments Coordination Comments Pt needing assist for set-up for meal items. OT-Muscle Tone Assessment Muscle Tone WNL Yes M9 OT- IP Assessment and Plan Start: 05/05/22 09:46 Freq: Status: Active Protocol: Document 05/06/22 15:00 [facility] (Rec: 05/06/22 16:13 [facility] [id number]) OT Summary Assessment and Plan Potential Rehabilitation Potential Good Analytic Complexity at Evaluation Moderate Summary OT Impairments Strength,Balance,Functional Cognition,Functional Mobility, Self-Feeding,Grooming,Dressing ,Toileting,Bathing,Toilet Transfers,Shower Transfers, Activity Tolerance Progress Towards Goals Slow Progress due to Medical Issues,Slow Progress due to Activity Tolerance Assessment Summary Pt needing DOMINIC to stand from the toilet and assist for brief management needs due to weakness and fatigue at this time. Pt's daughter states when medically stable wiling to stay with her if needed or have more assist at [facility] for her. Pt will benefit from home health at well. Goals Self-Feeding Goal Independent Grooming Goal Independent Dressing Goal Independent Toileting Goal Independent Bathing Goal Independent Toilet Transfer Goal Independent Shower Transfer Goal Independent Patient/Caregiver Education Goal Demonstrate Energy Conservation and Pacing Days to Meet Goals 10 Frequency of Treatment Frequency Of Treatment Once a Day Treatment Plan OT Treatment Plan ADL Training,Functional Cognition Training,Functional Mobility,Patient/Family Education,Discharge Planning Discharge Recommendations OT Discharge Recommendations Home with 24 Assist Available,Home Health Transportation Needs at Discharge Private Vehicle
[2022-05-06 15:26] LABS: Sodium 119 mmol/L (137-145)
[2022-05-06 15:49] LABS: Creatinine Urine Random 46.9 mg/dL; Sodium Urine Random 19 mmol/L (30-90)
[2022-05-06] MEDS: AZITHROMYCIN 500 MG in DEXTROSE 5% IN WATER 250 ML 250 MG IV (21:40)
[2022-05-06] MEDS: cefTRIAXone 1,000 MG in SODIUM CHLORIDE 0.9% 100 ML 200 MG IV (21:41)
[2022-05-06] MEDS: ZOLPIDEM 5 MG TABLET 10 MG PO (21:53)
[2022-05-07] VITALS (9 sets, daily range): BP systolic 123–166; BP diastolic 59–83; PULSE 67–90; RESP 16–24; TEMP 35.6–36.3; O2SAT 96–99
[2022-05-07] MEDS: ALBUTEROL 2.5 MG/3 ML NEB (ADULT) INH ×4 (04:30→19:53)
[2022-05-07 05:24] LABS: Alanine Aminotransferase 22 IU/L (<35); Albumin 2.9 g/dL (3.5-5.0); Alkaline Phosphatase 91 U/L (38-126); Aspartate Aminotransferase 31 IU/L (14-36); Bilirubin Total 0.5 mg/dL (0.2-1.3); Blood Urea Nitrogen 48 mg/dL (7-17); Calcium 8.2 mg/dL (8.4-10.2); Carbon Dioxide 21 mmol/L (22-32); Chloride 88 mmol/L (98-107); Estimated Glomerular Filt Rate 34 mL/min (>60); Globulin 2.8 g/dL (1.7-4.1); Glucose 98 mg/dL (80-110); HEMOLYSIS 19 (0-50); Magnesium 1.7 mg/dL (1.6-2.3); Potassium 4.3 mmol/L (3.4-5.1); Sodium 120 mmol/L (137-145); Total Protein 5.7 g/dL (6.3-8.2)
[2022-05-07 07:02] LABS: Add Manual Diff / Slide Review NO; Basophils Absolute Auto 0 /uL (0-100); Basophils Percent Auto 0.1 % (0-2); Eosinophils Absolute Auto 0 /uL (0-450); Hematocrit 32.2 % (36-46); Hemoglobin 11.1 g/dL (12.0-16.0); Lymphocytes Absolute Auto 600 /uL (1100-4500); Lymphocytes Percent Auto 4.6 % (25-40); Mean Corpuscular HGB Conc 34.5 % (30-36); Mean Corpuscular Hemoglobin 36.3 PG (26-34); Mean Corpuscular Volume 105.3 fL (80-100); Monocytes Absolute Auto 1600 /uL (0-900); Monocytes Percent Auto 11.9 % (3-14); Neutrophils Absolute Auto 11100 /uL (1500-7000); Neutrophils Percent Auto 83.4 % (50-75); Platelet Count 236 X10^3/uL (150-400); Red Blood Cell Count 3.05 X10^6/uL (4.0-5.2); Red Cell Distribution Width 13.6 % (11.6-14.8); White Blood Cell Count 13.3 X10^3/uL (4.5-11.0)
--- NOTE | 2022-05-07 09:38 | PT.IPTN ---
Current Diagnoses Sepsis, unspecified organism (05/03/22) Physical Therapy Treatment Note M2 PT-IP Current Condition Start: 05/05/22 17:19 Freq: NEEDED Status: Active Protocol: Document 05/07/22 09:16 SP (Rec: 05/07/22 11:53 SP [id number]) Physical Therapy Current Condition Current Condition Evaluation Date 05/05/22 Treatment Diagnosis CHF; PNA; sepsis; difficulty in walking Onset Date 05/03/22 M3 PT-IP Subjective Start: 05/05/22 17:19 Freq: NEEDED Status: Active Protocol: Document 05/07/22 09:16 SP (Rec: 05/07/22 11:53 SP [id number]) Subjective Physical Therapy Visit Type Type Treatment Note Visit Start Time 09:15 Visit Stop Time 09:38 Total Visit Minutes 23 Notes Vitals: supine: BP 148/63 HR 67 SaO2 99% on R foot/toe. seated post transfer: BP 164/ 83 HR 78 Number of FUR WEIGHER Visits 2 Physical Therapy Visit Comments Patient Comments Pt sleeping when arrived, agreeable to do PT Patient Goals Pt stated would be willing to go to SNF to increase strength and endurance before going home, not back to the way I was before. Therapy Pain Assessment Pain When Pain Assessed During Mobility Pain Present Pain Present Pain Reported Location Chest Description Pressure,With Movement Pain Behaviors Facial Grimacing,Holding Area Pain Management Techniques Modification of Treatment,Re- positioning M4 PT-IP Mobility and Gait Start: 05/05/22 17:19 Freq: NEEDED Status: Active Protocol: Document 05/07/22 09:16 SP (Rec: 05/07/22 11:53 SP [id number]) PT-Bed Mobility Assessment Supine to Sit Supine to Sit Standby Assistance,Head of Bed Elevated,Bedrails Scooting Scooting to Edge of Bed Contact Guard Assistance, Minimal Assistance PT-Transfer Assessment Sit to and From Stand Sit to and from Stand Contact Guard Assistance, Minimal Assistance,1 Person Assistance,Use of Upper Extremities Equipment Transfer Assistive Device Gait Belt,Front Wheeled Walker Orthotic/Prosthetic Devices or Brace: No Transfers Transfer Destination Chair,Toilet Transfer Technique pt ambulated with FWW Transfer Ability Level of Assist Contact Guard Assistance, Minimal Assistance,1 Person Assistance,Use of Upper Extremities Comments Mobility Comments Pt completed elevated HOB approx 40 deg to sitting SBA Mod WB BUEs and bed rail ( doesn't have at home), scoot alot effort, required little forward pelvic scoot Min A and requested use of bed handle due to tiring out and increased breath rate. STS CG/ Min A cued UE support off bed (redirected off FWW). Pt declined gait to toilet, it's to far right now, I get to tired, can you bring the BSC close. SPT bed>BSC, cued full pivot with FWW close (tens keep out front to far), self brief mgt cued 1 UE contact FWW safety stability then reach back sit CGA. Pt completed STS CGA self pericare and brief mgt 1 UE on FWW no LOB. Pivot and walk to sink 5 ft, cued keep FWW facing sink CGA/ MIn A. Cued standing tall and pt reported felt stretch in anterior chest and when took big breath felt pain in front chest but goes away when comes back to flexed posture. Completed hand washing at sink 1 UE support on sink for stability CGA/ Min A support. Pt tried to gait 3 more ft then stated needed to go back to chair due to getting very tired and little short of breath 6 ft back to chair w/ FWW, safety cues upright posture/proximity to FWW fully back positioning CG/ Min A. Posterior scoot back in chair Min A each LE/ pelvic scoot. Pt had call light all needs in reach via MANAGER [employer] and was being provided breakfast when left. Gait Assessment Gait Gait Assistance Required: Contact Guard Assist,Minimum Assistance,1 Person Assist Distance (Feet) 10 Able to Maintain Weight Bearing Status Yes During Gait Assistive Devices Assistive Device Gait Belt,Front Wheeled Walker Orthotic/Prosthetic Devices or Brace: No Gait Deviations General Gait Pattern Antalgic,Decreased Stride Length,Decreased Feet Clearance,Flexed Trunk Factors Limiting Gait Function Factors Limiting Gait Function Decreased Activity Tolerance, Decreased Strength,Difficulty Following Directions,Pain,Poor Balance,Poor Safety Awareness ,Respiratory Distress Comments Gait Comments see mobility comments. Stair Climbing Assessment Comments Stair Climbing Comments No stairs to perform at home but states she visit her children and they have a few stairs to manage if she wants to visit. PT-Balance Assessment Sitting Balance and Reactions Static Sitting Balance Ability Good Dynamic Sitting Balance Ability Good Standing Balance and Reactions Static Standing Balance Ability Good Dynamic Standing Balance Ability Fair Device Used FWW M5 PT-IP Objective Assessments Start: 05/05/22 17:19 Freq: NEEDED Status: Active Protocol: Document 05/05/22 14:50 AB (Rec: 05/05/22 17:33 AB [id number]) Orientation Orientation/Cognition Level of Alertness Alert Orientation Name,Place,Situation Language Function Ability Hard of Hearing Safety Awareness Decreased Safety Awareness Memory Description Short Term Impaired Gross Range of Motion Lower Extremity ROM Assessment Within Functional Limits Strength Lower Extremity Strength Hip 4-/5 Knee 4-/5 Muscle Tone Muscle Tone WNL Yes M6 PT-IP Treatment Start: 05/05/22 17:19 Freq: NEEDED Status: Active Protocol: Document 05/07/22 09:16 SP (Rec: 05/07/22 11:53 SP [id number]) Physical Therapy Treatment Education Education Provided Safety Other Treatments Other Treatment Performed Education for slow breath during activity and stop rest for recovery and energy conservation. No sways or LOB during stance BSC or washing at sink activity, CGA/Min A require with cues for safety HP and FWW positioning. M7 PT-IP Assessment and Plan Start: 05/05/22 17:19 Freq: NEEDED Status: Active Protocol: Document 05/07/22 09:16 SP (Rec: 05/07/22 11:53 SP [id number]) PT Summary Assessment and Plan Potential Rehabilitation Potential Fair Status of Condition at Evaluation Evolving Summary Impairments Pain,ROM,Strength,Balance, Coordination,Sensation,Tone, Cognition,Bed Mobility, Transfers,Gait,Activity Tolerance Progress Towards Goals Slow Progress due to Pain,Slow Progress due to Activity Tolerance Assessment Summary Pt maintainin O2 stats 90s during tx but increased breath rate with activity, cues for slow breath. She had decreased activity tolerance SPT and short distance gait w/fww, Min A for bed mobility and trunk little sways during gait. FUR WEIGHER discussed with pt and pt stated would like to go to SNF believes will approve her stay to improved strength and endurance, better breath before returning home, doesn't think can use the call light safely for assist, doesn't want to impeded family to help her at this time. FUR WEIGHER recommending SNF vs 15/11 available support. Notified nursing/ care mgt pt request and support required this tx and chest pressure pain with standing tall with big breath in mirror tryin to work on posture at sink. MANAGER [employer] aware, was in room. Goals Bed Mobility Goal Standby Assistance Transfer Goal Standby Assistance,Front Wheeled Walker Gait Goal Standby Assistance,Front Wheel Walker Gait Distance 100 Other Goals improve bed mobility, transfers and ambulation usng 4WW ~ 100ft SBA Days to Meet Goals 10 Frequency of Treatment Frequency Of Treatment Once a Day Treatment Plan Physical Therapy Treatment Plan Bed Mobility Training,Transfer Training,Gait Training, Therapeutic Exercise,Balance Retraining,Discharge Planning, Hot or Cold Pack,Neuromuscular Re-ed,Coordination Retraining Other Recommendations and Next Treatment bedmob, transfer, gait further Focus distance, use of4WW when safe , uncertain has FWW at home. Precautions Other Precautions O2 sat Recommendations To Nursing Amount of Assist Needed 1 Person Assist Discharge Recommendations PT Discharge Recommendations Home with 15/11 Assist Available,Home Health,SNF Rehab,Home vs SNF Equipment Needed for Home Before FWW if not safe with 4WW Discharge Transportation Needs at Discharge Private Vehicle,Wheelchair/ Cabulance
[2022-05-07] MEDS: ENOXAPARIN 30 MG/0.3 ML SYRINGE SUBCUT (10:04)
[2022-05-07] MEDS: predniSONE 20 MG TABLET 40 MG PO (10:04)
[2022-05-07] MEDS: polyethylene glycoL 3350 17 GM POWD.PACK PO (10:04)
[2022-05-07] MEDS: METOPROLOL ER 25 MG TABLET PO (10:05)
[2022-05-07] MEDS: ASPIRIN EC 81 MG TABLET PO (10:05)
[2022-05-07] MEDS: OXYCODONE ER 10 MG TAB 15 MG PO (10:05)
[2022-05-07] MEDS: MAGNESIUM CHLORIDE 64 MG TABLET 128 MG PO (10:06)
[2022-05-07] MEDS: ESCITALOPRAM 10 MG TABLET 20 MG PO (10:06)
[2022-05-07] MEDS: DOCUSATE 100 MG CAPSULE 200 MG PO (10:06)
[2022-05-07] MEDS: SODIUM CHLORIDE 0.9% FLUSH 10 ML IV ×2 (10:07→22:22)
[2022-05-07] MEDS: FUROSEMIDE 80 MG in SODIUM CHLORIDE 0.9% 50 ML 116 MG IV ×2 (10:58→18:26)
--- NOTE | 2022-05-07 11:47 | PM.PN.1 ---
Subjective Subjective Date Patient Seen: 05/07/22 Interval history: continues to feel dyspnic with exertion, generally improving. Denies headaches or vision changes, no nausea or vomiting. Remains weak. Exam Vital Signs (past 8 hours): - 05/07/22 06:00 05/07/22 07:50 05/07/22 10:05 Temperature 96.9 F L Pulse Rate 76 72 84 Respiratory Rate 19 18 Blood Pressure 148/72 H 164/83 H Pulse Oximetry 97 98 Oxygen Delivery Method Room Air Oxygen Flow Rate 05/07/22 09:18 Temperature 97.2 F L Pulse Rate 90 Respiratory Rate 22 Blood Pressure 148/63 H Pulse Oximetry 96 Oxygen Delivery Method Oxygen Flow Rate 0 Fraction of Inspired Oxygen 100 Oxygen Delivery Method Room Air Oxygen Flow Rate 0 Narrative Exam Narrative: GEN: fatigued, no acute distress HEENT: moist mucous membranes SKIN: normal skin turgor PULM: decreased breath sounds bilaterally ABD: soft, nontender, nondistended EXT: trace to 1+ edema bilaterally NEURO: awake, alert, oriented, no focal deficits noted Objective Labs Result Diagrams: 05/07/22 06:45 05/07/22 05:02 Labs: Laboratory Results - last 24 hr 05/06/22 05/06/22 05/07/22 15:00 15:25 05:02 WBC RBC Hgb Hct MCV MCH MCHC RDW Plt Count Neut % (Auto) Lymph % (Auto) [place] % (Auto) Eos % (Auto) Baso % (Auto) Neut # (Auto) Lymph # (Auto) [place] # (Auto) Eos # (Auto) Baso # (Auto) Sodium 119 L* 120 L Potassium 4.7 4.3 Chloride 85 L 88 L Carbon Dioxide 23 21 L BUN 46 H 48 H Creatinine 1.60 H 1.50 H Estimated GFR 31 L 34 L BUN/Creatinine Ratio 28.8 H 32.0 H Glucose 111 H 98 Calcium 8.3 L 8.2 L Magnesium 1.7 Total Bilirubin 0.5 AST 31 ALT 22 Alkaline Phosphatase 91 Total Protein 5.7 L Albumin 2.9 L Globulin 2.8 Albumin/Globulin Ratio 1.0 Ur Random Sodium 19 L Urine Creatinine 46.9 05/07/22 06:45 WBC 13.3 H RBC 3.05 L Hgb 11.1 L Hct 32.2 L MCV 105.3 H MCH 36.3 H MCHC 34.5 RDW 13.6 Plt Count 236 Neut % (Auto) 83.4 H Lymph % (Auto) 4.6 L [place] % (Auto) 11.9 Eos % (Auto) 0.0 L Baso % (Auto) 0.1 Neut # (Auto) 40250 H Lymph # (Auto) 600 L [place] # (Auto) 1600 H Eos # (Auto) 0 Baso # (Auto) 0 Sodium Potassium Chloride Carbon Dioxide BUN Creatinine Estimated GFR BUN/Creatinine Ratio Glucose Calcium Magnesium Total Bilirubin AST ALT Alkaline Phosphatase Total Protein Albumin Globulin Albumin/Globulin Ratio Ur Random Sodium Urine Creatinine [facility] Surgical History History of shoulder replacement Social History household members: none Smoking Status: Former smoker alcohol intake: former Assessment & Plan Assessment & Plan narrative: 1. Sepsis from pneumonia with acute hypoxemic respiratory failure -initially tachycardic, tachypneic, with low oxygen sats consistent with respiratory failure. Respiratory failure now resolved. Respiratory status improved prior to diuresis so CHF may have been contributory initially but not the sole source of respiratory failure. -started antibiotics for pneumonia, continue ceftriaxone and azithromycin -also started on prednisone, will continue for 5 day burst for possible reactive airway or COPD exacerbation given smoking history. -nebs prn -prior documentation was reviewed, laboratory evaluat 2. Acute CHF exacerbation with reduced EF, new diagnosis. -EF noted on ECHO to be 25-30% -new diagnosis of heart failure -initial BNP is 14k, repeat is 40k -still slightly volume overloaded today, continue diuresis with 80 mg lasix IV BID, need to watch renal function and potassium while being diuresed as initially volume status was unclear. -continue beta-josué and ARB 3. Hyponatremia and ANA MARIA with hypomagnesemia -likely hypervolemic hyponatremia, continue diuresis as noted above. -urine sodium of 19, still not entirely clear of volume status, but may be a mixed picture as well. Continue to monitor BMP.. -prior documentation and lab evaluation reviewed, will need continued BMPs for hyponatremia. Code: DNR, surrogate is patient's daughter Dispo: Home with home health vs SNF, will need improvement in sodium to >125 prior to possible discharge, anticipate 1-2 more days given current trend with continued diuresis. DVT: Lovenox daily. Time Spent With Patient Critical Care time: I spent a total of [] minutes of critical care time on this patient's care today; this time is exclusive of procedural time.
--- NOTE | 2022-05-07 16:23 | OT.IPNOTE ---
Check on pt earlier this PM and pt too tired to attempt showering at this time and now wanting to go to skilled rehab when medically stable.
--- NOTE | 2022-05-07 16:29 | CM.DANOTE ---
DCP Note PT recommending SNF and patient and dtr Ivonne mckeon agreeable. Dtr requests [facility] and does not have a b/u choice at this time Placed call to September at [facility] and patient has been accepted when medically stable. PASRR completed Plan: DC to [facility] when medically stable. COVID PCR needed upon DC. DC date unknown. Keep dtr Ivonne Yue updated w/plan JW Discharge Planning/Care Management CM Discharge Assessment Start: 05/04/22 10:43 Freq: Status: Active Protocol: Document 05/04/22 10:43 BF (Rec: 05/04/22 10:47 BF [id number]) Discharge Planning Assessment Assigned Automatic Pinsetter Mechanic ANAIS Solis/Assigned Designee Name Dtr Ivonne Mckeon Contact Information [phone] Advance Directives? Yes Advance Directives on File Yes History Provided By Patient,Family Member,Medical Record Has Patient been admitted in last 30 No days? Prior Living Arrangements Assisted Living Household Members none Type of transporation used prior to Relies on Others admit Facility Name Admitted From: [facility] Willing to Return to Facility? Yes Independent with ADL's No Is patient alert and oriented? Yes Needs Assistance With Bathing,Meal Prep,Managing Medications,Home Chores / Shopping Caregiver for Another No DME Already Rented / Owned FWW / Walker Patient/Family Preference Longterm Facility,Home with Home Health Comment Hopefully return to [place] with vs SNF pending PT eval Barriers to Discharge No Discharge Plan Home with Home Health Transportation Arrangement Likely Dtr can transport if pt safe for POV Additional Comment Pending PT orders and eval Whiteboard Updated in Patient Room with Yes name and ext. # of Automatic Pinsetter Mechanic Review Status In Process Please Provide Date Initial DC 05/04/22 Assessment Was Performed Next Review Type Continued Stay Review
[2022-05-07] MEDS: cefTRIAXone 1,000 MG in SODIUM CHLORIDE 0.9% 100 ML 200 MG IV (22:08)
[2022-05-07] MEDS: ZOLPIDEM 5 MG TABLET 10 MG PO (22:23)
[2022-05-07] MEDS: OXYCODONE ER 10 MG TAB PO (22:23)
[2022-05-08] VITALS (9 sets, daily range): BP systolic 102–153; BP diastolic 59–70; PULSE 61–97; RESP 17–20; TEMP 36.3–37.1; O2SAT 92–97
[2022-05-08 04:40] LABS: Add Manual Diff / Slide Review NO; Basophils Absolute Auto 0 /uL (0-100); Basophils Percent Auto 0.2 % (0-2); Eosinophils Absolute Auto 0 /uL (0-450); Eosinophils Percent Auto 0.1 % (2-4); Hematocrit 30.2 % (36-46); Hemoglobin 10.3 g/dL (12.0-16.0); Lymphocytes Absolute Auto 500 /uL (1100-4500); Lymphocytes Percent Auto 3.9 % (25-40); Mean Corpuscular HGB Conc 34.1 % (30-36); Mean Corpuscular Volume 105.4 fL (80-100); Monocytes Absolute Auto 1200 /uL (0-900); Monocytes Percent Auto 9.2 % (3-14); Neutrophils Absolute Auto 11100 /uL (1500-7000); Neutrophils Percent Auto 86.6 % (50-75); Platelet Count 281 X10^3/uL (150-400); Red Blood Cell Count 2.86 X10^6/uL (4.0-5.2); Red Cell Distribution Width 13.5 % (11.6-14.8); White Blood Cell Count 12.9 X10^3/uL (4.5-11.0)
[2022-05-08 04:47] LABS: Blood Urea Nitrogen 48 mg/dL (7-17); Calcium 8.3 mg/dL (8.4-10.2); Carbon Dioxide 24 mmol/L (22-32); Chloride 89 mmol/L (98-107); Estimated Glomerular Filt Rate 44 mL/min (>60); Glucose 93 mg/dL (80-110); HEMOLYSIS < 15 (0-50); Sodium 123 mmol/L (137-145)
[2022-05-08 05:03] LABS: Magnesium 1.7 mg/dL (1.6-2.3)
[2022-05-08] MEDS: ALBUTEROL 2.5 MG/3 ML NEB (ADULT) INH ×3 (08:37→19:33)
[2022-05-08] MEDS: FUROSEMIDE 80 MG in SODIUM CHLORIDE 0.9% 50 ML 116 MG IV ×2 (09:59→17:26)
[2022-05-08] MEDS: DOCUSATE 100 MG CAPSULE 200 MG PO (10:00)
[2022-05-08] MEDS: MAGNESIUM CHLORIDE 64 MG TABLET 128 MG PO (10:00)
[2022-05-08] MEDS: ENOXAPARIN 30 MG/0.3 ML SYRINGE SUBCUT (10:00)
[2022-05-08] MEDS: OXYCODONE ER 10 MG TAB PO ×3 (10:00→21:24)
[2022-05-08] MEDS: METOPROLOL ER 25 MG TABLET PO (10:00)
[2022-05-08] MEDS: ESCITALOPRAM 10 MG TABLET 20 MG PO (10:00)
[2022-05-08] MEDS: predniSONE 20 MG TABLET 40 MG PO (10:00)
[2022-05-08] MEDS: SODIUM CHLORIDE 0.9% FLUSH 10 ML IV ×2 (10:00→21:25)
[2022-05-08] MEDS: ASPIRIN EC 81 MG TABLET PO (10:04)
[2022-05-08] MEDS: polyethylene glycoL 3350 17 GM POWD.PACK PO (10:04)
[2022-05-08] MEDS: ACETAMINOPHEN 325 MG TABLET 650 MG PO (10:54)
[2022-05-08] MEDS: OXYCODONE IR 5 MG TABLET PO ×2 (10:55→15:01)
--- NOTE | 2022-05-08 14:33 | P.PN_ITS ---
Subjective Subjective Date Patient Seen: 05/08/22 Interval history: continues to feel dyspnic with exertion, generally improving. Denies headaches or vision changes, no nausea or vomiting. Remains weak. Exam Vital Signs (past 8 hours): - 05/08/22 08:37 05/08/22 10:00 05/08/22 12:15 Temperature 98.8 F Pulse Rate 76 77 73 Respiratory Rate 18 20 Blood Pressure 153/70 H 138/62 Pulse Oximetry 94 94 Oxygen Delivery Method Room Air Oxygen Flow Rate 0 05/08/22 10:25 Temperature Pulse Rate 61 Respiratory Rate Blood Pressure 102/64 Pulse Oximetry Oxygen Delivery Method Oxygen Flow Rate Fraction of Inspired Oxygen 21 SaO2/FiO2 Ratio 461 Oxygen Delivery Method Room Air Oxygen Flow Rate 0 Narrative Exam Narrative: GEN: fatigued, no acute distress HEENT: moist mucous membranes SKIN: normal skin turgor PULM: decreased breath sounds bilaterally ABD: soft, nontender, nondistended EXT: trace to 1+ edema bilaterally NEURO: awake, alert, oriented, no focal deficits noted Objective Labs Result Diagrams: 05/08/22 04:24 05/08/22 04:24 Labs: Laboratory Results - last 24 hr 05/08/22 05/08/22 05/08/22 04:24 04:24 04:24 WBC 12.9 H RBC 2.86 L Hgb 10.3 L Hct 30.2 L MCV 105.4 H MCH 36.0 H MCHC 34.1 RDW 13.5 Plt Count 281 Neut % (Auto) 86.6 H Lymph % (Auto) 3.9 L [place] % (Auto) 9.2 Eos % (Auto) 0.1 L Baso % (Auto) 0.2 Neut # (Auto) 78491 H Lymph # (Auto) 500 L [place] # (Auto) 1200 H Eos # (Auto) 0 Baso # (Auto) 0 Sodium 123 L Potassium 4.0 Chloride 89 L Carbon Dioxide 24 BUN 48 H Creatinine 1.20 H Estimated GFR 44 L BUN/Creatinine Ratio 40.0 H Glucose 93 Calcium 8.3 L Magnesium 1.7 PFSH Surgical History History of shoulder replacement Social History household members: none Smoking Status: Former smoker alcohol intake: former Assessment & Plan Assessment & Plan narrative: 1. Sepsis from pneumonia with acute hypoxemic respiratory failure -initially tachycardic, tachypneic, with low oxygen sats consistent with respiratory failure. Respiratory failure now resolved. Respiratory status improved prior to diuresis so CHF may have been contributory initially but not the sole source of respiratory failure. -started antibiotics for pneumonia, continue ceftriaxone and azithromycin -also started on prednisone, will continue for 5 day burst for possible reactive airway or COPD exacerbation given smoking history. -nebs prn -prior documentation was reviewed, laboratory evaluation 2. Acute CHF exacerbation with reduced EF, new diagnosis. -EF noted on ECHO to be 25-30% -new diagnosis of heart failure -initial BNP is 14k, repeat is 40k -still slightly volume overloaded today, continue diuresis with 80 mg lasix IV BID, need to watch renal function and potassium while being diuresed as initially volume status was unclear. -continue beta-josué and ARB 3. Hyponatremia and ANA MARIA with hypomagnesemia -likely hypervolemic hyponatremia, continue diuresis as noted above. -urine sodium of 19, still not entirely clear of volume status, but may be a mixed picture as well. Continue to monitor BMP.. -prior documentation and lab evaluation reviewed, will need continued BMPs for hyponatremia. Continues to improve slowly up to 123 today. Will continue to monitor daily for now. -ANA MARIA improving today, creatinine to 1.2. Code: DNR, surrogate is patient's daughter Dispo: Home with home health vs SNF, will need improvement in sodium to >125 p rior to possible discharge, anticipate 1-2 more days given current trend with continued diuresis. DVT: Lovenox daily. Time Spent With Patient Critical Care time: I spent a total of [] minutes of critical care time on this patient's care today; this time is exclusive of procedural time.
--- NOTE | 2022-05-08 15:03 | PT.IPTN ---
Current Diagnoses Sepsis, unspecified organism (05/03/22) Physical Therapy Treatment Note M2 PT-IP Current Condition Start: 05/05/22 17:19 Freq: NEEDED Status: Active Protocol: Document 05/07/22 09:16 SP (Rec: 05/07/22 11:53 SP [id number]) Physical Therapy Current Condition Current Condition Evaluation Date 05/05/22 Treatment Diagnosis CHF; PNA; sepsis; difficulty in walking Onset Date 05/03/22 M3 PT-IP Subjective Start: 05/05/22 17:19 Freq: NEEDED Status: Active Protocol: Document 05/08/22 14:47 LJ (Rec: 05/08/22 15:03 LJ [id number]) Subjective Physical Therapy Visit Type Type Treatment Note Visit Start Time 13:10 Visit Stop Time 13:26 Total Visit Minutes 16 Number of CREDIT AND COLLECTION MANAGER Visits 3 Physical Therapy Visit Comments Patient Comments Pt in bed. Willing to gget up and work with PT. States she would like to sit on BSC Patient Goals Pt stated would be willing to go to SNF to increase strength and endurance before going home. Therapy Pain Assessment Pain When Pain Assessed During Mobility Pain Present Pain Present Pain Reported M4 PT-IP Mobility and Gait Start: 05/05/22 17:19 Freq: NEEDED Status: Active Protocol: Document 05/08/22 14:47 LJ (Rec: 05/08/22 15:03 LJ [id number]) PT-Bed Mobility Assessment Supine to Sit Supine to Sit Standby Assistance,Head of Bed Elevated,Bedrails Scooting Scooting to Edge of Bed Contact Guard Assistance, Minimal Assistance PT-Transfer Assessment Sit to and From Stand Sit to and from Stand Contact Guard Assistance,1 Person Assistance,Use of Upper Extremities Equipment Transfer Assistive Device Gait Belt,Front Wheeled Walker Orthotic/Prosthetic Devices or Brace: No Transfers Transfer Destination Chair,Bedside Commode Transfer Technique pt ambulated with FWW Transfer Ability Level of Assist Contact Guard Assistance,1 Person Assistance,Use of Upper Extremities Comments Mobility Comments Pt complleted bed mobility with HOB slightly elevated ~30 degrees SBA with requirement for [place] to scoot to edge of bed. Pt stood CGA and pivoted to BSC next to bed using FWW. Pt lowered self onto BSC and sat for ~5 min to void and have BM. Pt completed pericare and brief management independently holding onto BSC with one hand. Ambulated to sink and performed handwashing with one hand on sink for stability. Pt then ambulated to chair CGA ~6' stating she was too tired to walk any further. Pt able to lower self into chair and scoot back. Pt was reclined and given all needs within reach. Dtr entering room at end of treatment. Left pt in chair with all needs within reach and dtr in room. Gait Assessment Gait Gait Assistance Required: Contact Guard Assist,1 Person Assist Distance (Feet) 10 Able to Maintain Weight Bearing Status Yes During Gait Assistive Devices Assistive Device Gait Belt,Front Wheeled Walker Orthotic/Prosthetic Devices or Brace: No Gait Deviations General Gait Pattern Antalgic,Decreased Stride Length,Decreased Feet Clearance,Flexed Trunk Factors Limiting Gait Function Factors Limiting Gait Function Decreased Activity Tolerance, Decreased Strength,Difficulty Following Directions,Pain,Poor Balance,Poor Safety Awareness ,Respiratory Distress Comments Gait Comments see mobility comments. PT-Balance Assessment Sitting Balance and Reactions Static Sitting Balance Ability Good Dynamic Sitting Balance Ability Good Standing Balance and Reactions Static Standing Balance Ability Good Dynamic Standing Balance Ability Fair Device Used FWW M5 PT-IP Objective Assessments Start: 05/05/22 17:19 Freq: NEEDED Status: Active Protocol: Document 05/05/22 14:50 AB (Rec: 05/05/22 17:33 AB [id number]) Orientation Orientation/Cognition Level of Alertness Alert Orientation Name,Place,Situation Language Function Ability Hard of Hearing Safety Awareness Decreased Safety Awareness Memory Description Short Term Impaired Gross Range of Motion Lower Extremity ROM Assessment Within Functional Limits Strength Lower Extremity Strength Hip 4-/5 Knee 4-/5 Muscle Tone Muscle Tone WNL Yes M6 PT-IP Treatment Start: 05/05/22 17:19 Freq: NEEDED Status: Active Protocol: Document 05/08/22 14:47 TAMIA (Rec: 05/08/22 15:03 LJ [id number]) Physical Therapy Treatment Education Education Provided Safety M7 PT-IP Assessment and Plan Start: 05/05/22 17:19 Freq: NEEDED Status: Active Protocol: Document 05/08/22 14:47 LJ (Rec: 05/08/22 15:03 LJ [id number]) PT Summary Assessment and Plan Potential Rehabilitation Potential Fair Status of Condition at Evaluation Evolving Summary Impairments Pain,ROM,Strength,Balance, Coordination,Sensation,Tone, Cognition,Bed Mobility, Transfers,Gait,Activity Tolerance Progress Towards Goals Slow Progress due to Pain,Slow Progress due to Activity Tolerance Assessment Summary Pt not exhibiting SOB or labored breathing during activity. O2 stats remained in mid 90s during tx. She does not tolerate much activity and fatigues quickly. Pt endorses chest pain with heavy inhale. Resolves with rest. Goals Bed Mobility Goal Standby Assistance Transfer Goal Standby Assistance,Front Wheeled Walker Gait Goal Standby Assistance,Front Wheel Walker Gait Distance 100 Other Goals improve bed mobility, transfers and ambulation usng 4WW ~ 100ft SBA Days to Meet Goals 10 Frequency of Treatment Frequency Of Treatment Once a Day Treatment Plan Physical Therapy Treatment Plan Bed Mobility Training,Transfer Training,Gait Training, Therapeutic Exercise,Balance Retraining,Discharge Planning, Hot or Cold Pack,Neuromuscular Re-ed,Coordination Retraining Other Recommendations and Next Treatment bedmob, transfer, gait further Focus distance, use of4WW when safe , uncertain has FWW at home. Precautions Other Precautions O2 sat Recommendations To Nursing Amount of Assist Needed 1 Person Assist Discharge Recommendations PT Discharge Recommendations Home with 15/11 Assist Available,Home Health,SNF Rehab,Home vs SNF Equipment Needed for Home Before FWW if not safe with 4WW Discharge Transportation Needs at Discharge Private Vehicle,Wheelchair/ Cabulance
--- NOTE | 2022-05-08 15:03 | CM.DPNOTE ---
Discharge Planning Note: Patient sitting up in chair in good spirits. Daughter visiting and reading to patient. Patient is being diuresed this weekend. Discussed the plan [place] [facility] [place] which patient and daughter Ivonne are on board for. Plan: Once medically cleared, discharge [place] [facility], unless decision changes and is for home with HH. (PT note: SNF Rehab vs Home with HH and assist) Mariluz Fox RN/ALVINOP
[2022-05-08] MEDS: cefTRIAXone 1,000 MG in SODIUM CHLORIDE 0.9% 100 ML 200 MG IV (21:24)
[2022-05-08] MEDS: ZOLPIDEM 5 MG TABLET 10 MG PO (21:25)
[2022-05-09] VITALS (7 sets, daily range): BP systolic 128–158; BP diastolic 57–78; PULSE 65–80; RESP 16–19; TEMP 36.1–36.8; O2SAT 93–96
[2022-05-09 05:11] LABS: Add Manual Diff / Slide Review NO; Basophils Absolute Auto 0 /uL (0-100); Basophils Percent Auto 0.1 % (0-2); Eosinophils Absolute Auto 0 /uL (0-450); Eosinophils Percent Auto 0.1 % (2-4); Hematocrit 28.8 % (36-46); Hemoglobin 10.2 g/dL (12.0-16.0); Lymphocytes Absolute Auto 500 /uL (1100-4500); Mean Corpuscular HGB Conc 35.5 % (30-36); Mean Corpuscular Hemoglobin 36.7 PG (26-34); Mean Corpuscular Volume 103.4 fL (80-100); Monocytes Absolute Auto 1100 /uL (0-900); Neutrophils Absolute Auto 8900 /uL (1500-7000); Neutrophils Percent Auto 84.8 % (50-75); Platelet Count 285 X10^3/uL (150-400); Red Blood Cell Count 2.79 X10^6/uL (4.0-5.2); Red Cell Distribution Width 13.5 % (11.6-14.8); White Blood Cell Count 10.5 X10^3/uL (4.5-11.0)
[2022-05-09 05:34] LABS: BUN Creatinine Ratio 37.6 (6-22); Blood Urea Nitrogen 44 mg/dL (7-17); Calcium 8.4 mg/dL (8.4-10.2); Carbon Dioxide 28 mmol/L (22-32); Chloride 91 mmol/L (98-107); Estimated Glomerular Filt Rate 45 mL/min (>60); Glucose 95 mg/dL (80-110); HEMOLYSIS < 15 (0-50); Potassium 3.7 mmol/L (3.4-5.1); Sodium 126 mmol/L (137-145)
[2022-05-09 05:37] LABS: Magnesium 1.7 mg/dL (1.6-2.3)
[2022-05-09] MEDS: OXYCODONE IR 5 MG TABLET PO ×2 (06:44→16:01)
[2022-05-09] MEDS: ALBUTEROL 2.5 MG/3 ML NEB (ADULT) INH ×2 (07:41→19:20)
[2022-05-09] MEDS: OXYCODONE ER 10 MG TAB PO ×3 (08:53→20:17)
[2022-05-09] MEDS: ASPIRIN EC 81 MG TABLET PO (08:54)
[2022-05-09] MEDS: METOPROLOL ER 25 MG TABLET PO (08:54)
[2022-05-09] MEDS: ESCITALOPRAM 10 MG TABLET 20 MG PO (08:54)
[2022-05-09] MEDS: DOCUSATE 100 MG CAPSULE 200 MG PO (08:54)
[2022-05-09] MEDS: ENOXAPARIN 30 MG/0.3 ML SYRINGE SUBCUT (08:54)
[2022-05-09] MEDS: MAGNESIUM CHLORIDE 64 MG TABLET 128 MG PO (08:54)
[2022-05-09] MEDS: polyethylene glycoL 3350 17 GM POWD.PACK PO (09:03)
[2022-05-09] MEDS: SODIUM CHLORIDE 0.9% FLUSH 10 ML IV ×2 (09:04→19:42)
--- NOTE | 2022-05-09 09:41 | DI.RAD.S_ITS ---
PROCEDURE: XR KNEE LT 1TO2V INDICATIONS: Acute L knee pain TECHNIQUE: 2 views of the knee were acquired. COMPARISON: [facility], , KNEE 3V LEFT, 08/10/2015, 11:58. FINDINGS: Bones: No fractures or dislocations. No suspicious bony lesions. There is moderate lateral and medial femorotibial joint space narrowing seen, with associated remodeling changes including subchondral sclerosis and osteophyte formation along the jointline. Soft tissues: No significant joint effusion. Calcification can be seen along the joint line, which is attributed to meniscal calcification. IMPRESSION: Degenerative changes are seen, without an acute plain film abnormality seen. If it would be helpful for clinical management decision making, please consider a dedicated, scheduled knee MRI for further evaluation (assuming that there is no contraindication). Dictated by: Kevin Polk M.D. on 05/09/2022 at 9:27 Approved by: Kevin Polk M.D. on 05/09/2022 at 9:28
[2022-05-09] MEDS: FUROSEMIDE 80 MG in SODIUM CHLORIDE 0.9% 50 ML 116 MG IV ×2 (11:37→19:41)
--- NOTE | 2022-05-09 11:48 | PC.NURSE ---
Patients bilateral lungs with wheezes through out. She is a one person assist to get up to the commode. Patient has a soar bottom, cream applied to area after getting up to use the bathroom. Family in room now. Patient is 94% on room air. She brushed her teeth and is resting now.
--- NOTE | 2022-05-09 13:11 | PM.PN.1 ---
Subjective Subjective Date Patient Seen: 05/09/22 Interval history: continues to feel dyspnic with exertion, generally improving. Denies headaches or vision changes, no nausea or vomiting. Remains weak. Complains of L knee pain this morning. No significant swelling on exam and XR was ordered and was unremarkable. Exam Vital Signs (past 8 hours): - 05/09/22 07:41 05/09/22 07:54 05/09/22 13:00 Temperature 97.7 F 97.6 F Pulse Rate 71 76 80 Respiratory Rate 16 17 16 Blood Pressure 130/70 128/73 Pulse Oximetry 93 95 96 Oxygen Delivery Method Room Air Oxygen Flow Rate 0 0 0 Fraction of Inspired Oxygen 21 Fraction of Inspired Oxygen 21 SaO2/FiO2 Ratio 442 Oxygen Delivery Method Room Air Oxygen Flow Rate 0 Narrative Exam Narrative: GEN: fatigued, no acute distress HEENT: moist mucous membranes SKIN: normal skin turgor PULM: decreased breath sounds bilaterally ABD: soft, nontender, nondistended EXT: trace to 1+ edema bilaterally NEURO: awake, alert, oriented, no focal deficits noted Objective Labs Result Diagrams: 05/09/22 04:36 05/09/22 04:36 Labs: Laboratory Results - last 24 hr 05/09/22 05/09/22 05/09/22 04:36 04:36 04:36 WBC 10.5 RBC 2.79 L Hgb 10.2 L Hct 28.8 L MCV 103.4 H MCH 36.7 H MCHC 35.5 RDW 13.5 Plt Count 285 Neut % (Auto) 84.8 H Lymph % (Auto) 5.0 L [place] % (Auto) 10.0 Eos % (Auto) 0.1 L Baso % (Auto) 0.1 Neut # (Auto) 8900 H Lymph # (Auto) 500 L [place] # (Auto) 1100 H Eos # (Auto) 0 Baso # (Auto) 0 Sodium 126 L Potassium 3.7 Chloride 91 L Carbon Dioxide 28 BUN 44 H Creatinine 1.17 H Estimated GFR 45 L BUN/Creatinine Ratio 37.6 H Glucose 95 Calcium 8.4 Magnesium 1.7 PFSH Surgical History History of shoulder replacement Social History household members: none Smoking Status: Former smoker alcohol intake: former Assessment & Plan Assessment & Plan narrative: 1. Sepsis from pneumonia with acute hypoxemic respiratory failure -initially tachycardic, tachypneic, with low oxygen sats consistent with respiratory failure. Respiratory failure now resolved. Respiratory status improved prior to diuresis so CHF may have been contributory initially but not the sole source of respiratory failure. -started antibiotics for pneumonia, continue ceftriaxone and azithromycin -also started on prednisone, will continue for 5 day burst for possible reactive airway or COPD exacerbation given smoking history. -nebs prn -prior documentation was reviewed, laboratory evaluation with continued improvement today. 2. Acute CHF exacerbation with reduced EF, new diagnosis. -EF noted on ECHO to be 25-30% -new diagnosis of heart failure -initial BNP is 14k, repeat is 40k -still slightly volume overloaded today, continue diuresis with 80 mg lasix IV BID, need to watch renal function and potassium while being diuresed as initially volume status was unclear. -continue beta-josué and ARB 3. Hyponatremia and ANA MARIA with hypomagnesemia -likely hypervolemic hyponatremia, continue diuresis as noted above. -urine sodium of 19, still not entirely clear of volume status, but may be a mixed picture as well. Continue to monitor BMP.. -prior documentation and lab evaluation reviewed, will need continued BMPs for hyponatremia. Continues to improve slowly up to 126 today. Will continue to monitor daily for now. -ANA MARIA improving today, creatinine to 1.17 #L knee pain - complained of L knee pain 05/09, XR was unremarkable and no erythema or warmth suggestive of infection. Continue to monitor, continue PT Code: DNR, surrogate is patient's daughter Dispo: Home with home health vs SNF, will need improvement in sodium further and remains volume overloaded. Probable discharge to SNF in 1-2 days. DVT: Lovenox daily. Time Spent With Patient Critical Care time: I spent a total of [] minutes of critical care time on this patient's care today; this time is exclusive of procedural time.
--- NOTE | 2022-05-09 14:48 | CM.DPNOTE ---
Discharge Planning Note: Patient complaining of left knee pain this morning, xrays were negative. Patient still receiving diuretics, sodium slowly coming up. Unable to speak with Wang at [facility] this afternoon, no answer or VM (September is off this weekend, Wang is on). Spoke with Wang yesterday and they have accepted. Hospitalist notes say possible discharge in 1-2 days. Plan: Check in with [facility] tomorrow morning regarding discharge plan. Mariluz Fox RN/DCP
--- NOTE | 2022-05-09 15:32 | PT.IPTN ---
Current Diagnoses Sepsis, unspecified organism (05/03/22) Physical Therapy Treatment Note M2 PT-IP Current Condition Start: 05/05/22 17:19 Freq: NEEDED Status: Active Protocol: Document 05/07/22 09:16 SP (Rec: 05/07/22 11:53 SP [id number]) Physical Therapy Current Condition Current Condition Evaluation Date 05/05/22 Treatment Diagnosis CHF; PNA; sepsis; difficulty in walking Onset Date 05/03/22 M3 PT-IP Subjective Start: 05/05/22 17:19 Freq: NEEDED Status: Active Protocol: Document 05/09/22 15:32 AW (Rec: 05/09/22 15:51 AW [id number]) Subjective Physical Therapy Visit Type Type Treatment Note Visit Start Time 15:15 Visit Stop Time 15:32 Total Visit Minutes 17 Number of LINE O SCRIBE OPERATOR Visits 0 Physical Therapy Visit Comments Patient Comments Pt is willing to participate with PT but I just feel like I've been put through the mill . Therapy Pain Assessment Pain When Pain Assessed During Mobility Pain Present Pain Present Pain Reported M4 PT-IP Mobility and Gait Start: 05/05/22 17:19 Freq: NEEDED Status: Active Protocol: Document 05/09/22 15:32 AW (Rec: 05/09/22 15:51 AW [id number]) PT-Bed Mobility Assessment Sit to Supine Sit to Supine Minimal Assistance,1 Person Assistance,Bedrails PT-Transfer Assessment Sit to and From Stand Sit to and from Stand Contact Guard Assistance,1 Person Assistance,Use of Upper Extremities Equipment Transfer Assistive Device Gait Belt,Front Wheeled Walker Orthotic/Prosthetic Devices or Brace: No Transfers Transfer Destination Bed Transfer Technique pt ambulated with FWW Transfer Ability Level of Assist Contact Guard Assistance,1 Person Assistance,Use of Upper Extremities Comments Mobility Comments Checked on pt who was sitting on the commode. She needed CGA to partially stand and for balance support as she completed pericare. She stood fully and used FWW to ambulate 30 feet CGA. She refused the chair, stating she was too tired, and needed min A to elevate her legs to the bed for return to supine. Pt was able to bridge her hips three times and push herself toward HOB for repositioning. Pt was left with call light at hand. Gait Assessment Gait Gait Assistance Required: Contact Guard Assist,1 Person Assist Distance (Feet) 30 Assistive Devices Assistive Device Gait Belt,Front Wheeled Walker Orthotic/Prosthetic Devices or Brace: No Gait Deviations General Gait Pattern Antalgic,Decreased Stride Length,Decreased Feet Clearance,Flexed Trunk Factors Limiting Gait Function Factors Limiting Gait Function Decreased Activity Tolerance, Decreased Strength,Difficulty Following Directions,Pain,Poor Balance,Poor Safety Awareness ,Respiratory Distress Comments Gait Comments See mobility comments. No c/o left knee pain during gait today. Stair Climbing Assessment Comments Stair Climbing Comments No stairs to perform at home but states she visit her children and they have a few stairs to manage if she wants to visit. PT-Balance Assessment Sitting Balance and Reactions Static Sitting Balance Ability Good Dynamic Sitting Balance Ability Good Standing Balance and Reactions Static Standing Balance Ability Fair Dynamic Standing Balance Ability Fair Device Used FWW M5 PT-IP Objective Assessments Start: 05/05/22 17:19 Freq: NEEDED Status: Active Protocol: Document 05/05/22 14:50 AB (Rec: 05/05/22 17:33 AB [id number]) Orientation Orientation/Cognition Level of Alertness Alert Orientation Name,Place,Situation Language Function Ability Hard of Hearing Safety Awareness Decreased Safety Awareness Memory Description Short Term Impaired Gross Range of Motion Lower Extremity ROM Assessment Within Functional Limits Strength Lower Extremity Strength Hip 4-/5 Knee 4-/5 Muscle Tone Muscle Tone WNL Yes M6 PT-IP Treatment Start: 05/05/22 17:19 Freq: NEEDED Status: Active Protocol: Document 05/09/22 15:32 AW (Rec: 05/09/22 15:51 AW [id number]) Physical Therapy Treatment Education Education Provided Safety Other Treatments Other Treatment Performed EOB: seated june and LAQ x 8 BLE before needing to rest. M7 PT-IP Assessment and Plan Start: 05/05/22 17:19 Freq: NEEDED Status: Active Protocol: Document 05/09/22 15:32 AW (Rec: 05/09/22 15:51 AW [id number]) PT Summary Assessment and Plan Potential Rehabilitation Potential Fair Status of Condition at Evaluation Evolving Summary Impairments Pain,ROM,Strength,Balance, Coordination,Sensation,Tone, Cognition,Bed Mobility, Transfers,Gait,Activity Tolerance Progress Towards Goals Slow Progress due to Pain,Slow Progress due to Activity Tolerance Assessment Summary Pt was able to increase gait distance with FWW but remains well below functional baseline . She would benefit from SNF rehab to assist with functional recovery. Goals Bed Mobility Goal Standby Assistance Transfer Goal Standby Assistance,Front Wheeled Walker Gait Goal Standby Assistance,Front Wheel Walker Gait Distance 100 Other Goals improve bed mobility, transfers and ambulation usng 4WW ~ 100ft SBA Days to Meet Goals 10 Frequency of Treatment Frequency Of Treatment Once a Day Treatment Plan Physical Therapy Treatment Plan Bed Mobility Training,Transfer Training,Gait Training, Therapeutic Exercise,Balance Retraining,Discharge Planning, Hot or Cold Pack,Neuromuscular Re-ed,Coordination Retraining Other Recommendations and Next Treatment bedmob, transfer, gait further Focus distance, use of4WW when safe , uncertain has FWW at home. Precautions Other Precautions O2 sat (stable 05/09/22) Recommendations To Nursing Amount of Assist Needed 1 Person Assist Discharge Recommendations Equipment Needed for Home Before FWW if not safe with 4WW Discharge Transportation Needs at Discharge Private Vehicle,Wheelchair/ Cabulance
[2022-05-09] MEDS: ZOLPIDEM 5 MG TABLET 10 MG PO (20:17)
[2022-05-10 04:30] VITALS: BP 161/67; PULSE 72; RESP 16; TEMP 36.4; O2SAT 94
[2022-05-10 04:36] LABS: BUN Creatinine Ratio 44.7 (6-22); Blood Urea Nitrogen 42 mg/dL (7-17); Calcium 8.4 mg/dL (8.4-10.2); Carbon Dioxide 28 mmol/L (22-32); Chloride 90 mmol/L (98-107); Estimated Glomerular Filt Rate 59 mL/min (>60); Glucose 75 mg/dL (80-110); HEMOLYSIS < 15 (0-50); Potassium 3.3 mmol/L (3.4-5.1); Sodium 126 mmol/L (137-145)
[2022-05-10 04:42] LABS: Add Manual Diff / Slide Review NO; Basophils Absolute Auto 0 /uL (0-100); Basophils Percent Auto 0.1 % (0-2); Eosinophils Absolute Auto 100 /uL (0-450); Eosinophils Percent Auto 1.1 % (2-4); Hematocrit 32.4 % (36-46); Hemoglobin 11.1 g/dL (12.0-16.0); Lymphocytes Absolute Auto 700 /uL (1100-4500); Lymphocytes Percent Auto 5.8 % (25-40); Mean Corpuscular HGB Conc 34.1 % (30-36); Mean Corpuscular Hemoglobin 35.8 PG (26-34); Mean Corpuscular Volume 104.9 fL (80-100); Monocytes Absolute Auto 900 /uL (0-900); Monocytes Percent Auto 7.6 % (3-14); Neutrophils Absolute Auto 10000 /uL (1500-7000); Neutrophils Percent Auto 85.4 % (50-75); Platelet Count 356 X10^3/uL (150-400); Red Blood Cell Count 3.09 X10^6/uL (4.0-5.2); Red Cell Distribution Width 13.5 % (11.6-14.8); White Blood Cell Count 11.7 X10^3/uL (4.5-11.0)
[2022-05-10 07:27] VITALS: PULSE 64; RESP 16; O2SAT 92
[2022-05-10] MEDS: ALBUTEROL 2.5 MG/3 ML NEB (ADULT) INH ×2 (07:27→19:33)
[2022-05-10] MEDS: ASPIRIN EC 81 MG TABLET PO (09:54)
[2022-05-10] MEDS: METOPROLOL ER 25 MG TABLET PO (09:54)
[2022-05-10] MEDS: polyethylene glycoL 3350 17 GM POWD.PACK PO (09:54)
[2022-05-10] MEDS: OXYCODONE ER 10 MG TAB PO ×3 (09:55→20:37)
[2022-05-10] MEDS: DOCUSATE 100 MG CAPSULE 200 MG PO (09:55)
[2022-05-10] MEDS: ESCITALOPRAM 10 MG TABLET 20 MG PO (09:55)
[2022-05-10] MEDS: FUROSEMIDE 80 MG in SODIUM CHLORIDE 0.9% 50 ML 116 MG IV ×2 (09:56→18:02)
[2022-05-10 10:00] VITALS: BP 159/69; PULSE 86; RESP 20; TEMP 36.3; O2SAT 93
[2022-05-10] MEDS: OXYCODONE IR 5 MG TABLET PO ×2 (11:00→15:20)
--- NOTE | 2022-05-10 11:34 | DI.RAD.S_ITS ---
PROCEDURE: XR CHEST 1V INDICATIONS: chest pain, shortness of breath TECHNIQUE: One view of the chest was acquired. COMPARISON: [facility], CR, XR CHEST 1V, 05/03/2022, 18:56. 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 Lungs and pleura: Focal pulmonary radiopacities are present within the right upper lobe. Patchy pulmonary opacities are present at the left lung base. There is likely a small left effusion. Mediastinum: Mediastinal contours appear normal. Heart size is normal. Bones and chest wall: No suspicious bony lesions. Overlying soft tissues appear unremarkable. IMPRESSION: Bilateral pulmonary radiopacities suspicious for multifocal pneumonia. Short interval followup is recommended with resolution of the patient's symptoms to ensure there is no underlying pulmonary pathology. Dictated by: Livia Haney M.D. on 05/10/2022 at 12:14 Approved by: Livia Haney M.D. on 05/10/2022 at 12:16
--- NOTE | 2022-05-10 12:00 | CM.DPC ---
DCP SNF Planning: Per MD, pt not yet medically stable to d/c yet today and needs further diuresis and having some facial swelling and chest pressure. Pt to have a chest xray today. SW met bedside with pt and Dtr/DIPIKA Coronado and explained role again and they remember this SW from admission. They confirm that pt is not back to baseline and Dtr concerned that pt looks/feels worse today and thankful pt not yet discharging. Pt and Dtr confirm preference is [facility] at d/c before safe return to [facility]. SW confirmed with [facility] that they can accept, and can accept tomorrow if pt medically stable to d/c. PASRR previously completed. Likely will need updated COVID swab when confirmed if pt stable for d/c to SNF. Plan: SW to follow for plan of [facility] at d/c when medically stable and will likely need updated COVID swab. Irma Prince MSW
--- NOTE | 2022-05-10 12:32 | PC.NURSE ---
Patient complained of pain this am. Long acting oxycontin, and 5mg of oxycodone given to patient and this has been helpful for her discomfort to mid chest. She did complain of l.chest pain, but denied radiating pain to the back. EkG done and results to the Doctor. Blood sugar taken x1 and 83. Patient has a pure wick in place and is resting comfortably. Her left lower lip is slightly swollen, Doctor is aware and talked to patient and her daughter about this.
[2022-05-10] MEDS: POTASSIUM CHLORIDE 20 MEQ TAB 40 MEQ PO (12:59)
--- NOTE | 2022-05-10 13:22 | PT.IPTN ---
Current Diagnoses Sepsis, unspecified organism (05/03/22) Physical Therapy Treatment Note M2 PT-IP Current Condition Start: 05/05/22 17:19 Freq: NEEDED Status: Active Protocol: Document 05/07/22 09:16 SP (Rec: 05/07/22 11:53 SP [id number]) Physical Therapy Current Condition Current Condition Evaluation Date 05/05/22 Treatment Diagnosis CHF; PNA; sepsis; difficulty in walking Onset Date 05/03/22 M3 PT-IP Subjective Start: 05/05/22 17:19 Freq: NEEDED Status: Active Protocol: Document 05/10/22 13:22 AW (Rec: 05/10/22 13:37 AW [id number]) Subjective Physical Therapy Visit Type Type Treatment Note Visit Start Time 13:03 Visit Stop Time 13:22 Total Visit Minutes 19 Number of DEPUTY GRAND JURY Visits 0 Physical Therapy Visit Comments Patient Comments Pt has very little appetite today and feels extremely weak . M4 PT-IP Mobility and Gait Start: 05/05/22 17:19 Freq: NEEDED Status: Active Protocol: Document 05/10/22 13:22 AW (Rec: 05/10/22 13:37 AW [id number]) PT-Bed Mobility Assessment Supine to Sit Supine to Sit Minimal Assistance,1 Person Assistance,Bedrails Scooting Scooting to Edge of Bed Contact Guard Assistance, Minimal Assistance PT-Transfer Assessment Sit to and From Stand Sit to and from Stand Contact Guard Assistance,1 Person Assistance,Use of Upper Extremities Equipment Transfer Assistive Device Gait Belt,Front Wheeled Walker Orthotic/Prosthetic Devices or Brace: No Transfers Transfer Destination Chair Transfer Technique pt ambulated with FWW Transfer Ability Level of Assist Contact Guard Assistance,1 Person Assistance,Use of Upper Extremities Comments Mobility Comments Pt was lying in bed as PT arrived. BP 146/HR 80. She was able to roll to her right side and needed min A for SL to sit from flat bed surface. She took extra time to scoot forward. Cued pt for weight shift, offloading with arms, and QL walk forward and backward. Spent extra time practicing for improved bed mobility but pt continues to require extra time to scoot. She stood CGA and used FWW to ambulate short distance in the room. She refused to stop at the sink, stating she was too fatigued and vaguely faint to stand for ADL's. She agreed to sit up on the chair, transferring CGA. BP was stable and pt was left with call light in reach. Family remained in the room. Gait Assessment Gait Gait Assistance Required: Contact Guard Assist,1 Person Assist Distance (Feet) 15 Assistive Devices Assistive Device Gait Belt,Front Wheeled Walker Gait Deviations General Gait Pattern Antalgic,Decreased Stride Length,Decreased Feet Clearance,Flexed Trunk Factors Limiting Gait Function Factors Limiting Gait Function Decreased Activity Tolerance, Decreased Strength,Difficulty Following Directions,Pain,Poor Balance,Poor Safety Awareness ,Respiratory Distress Comments Gait Comments See mobility comments. No c/o left knee pain during gait today. Stair Climbing Assessment Comments Stair Climbing Comments No stairs to perform at home but states she visit her children and they have a few stairs to manage if she wants to visit. PT-Balance Assessment Sitting Balance and Reactions Static Sitting Balance Ability Good Dynamic Sitting Balance Ability Good Standing Balance and Reactions Static Standing Balance Ability Fair Dynamic Standing Balance Ability Fair Device Used FWW M5 PT-IP Objective Assessments Start: 05/05/22 17:19 Freq: NEEDED Status: Active Protocol: Document 05/05/22 14:50 AB (Rec: 05/05/22 17:33 AB [id number]) Orientation Orientation/Cognition Level of Alertness Alert Orientation Name,Place,Situation Language Function Ability Hard of Hearing Safety Awareness Decreased Safety Awareness Memory Description Short Term Impaired Gross Range of Motion Lower Extremity ROM Assessment Within Functional Limits Strength Lower Extremity Strength Hip 4-/5 Knee 4-/5 Muscle Tone Muscle Tone WNL Yes M6 PT-IP Treatment Start: 05/05/22 17:19 Freq: NEEDED Status: Active Protocol: Document 05/10/22 13:22 AW (Rec: 05/10/22 13:37 AW [id number]) Physical Therapy Treatment Education Education Provided Safety Other Treatments Other Treatment Performed QL walk on the bed as noted above for improved function in bed mobility. M7 PT-IP Assessment and Plan Start: 05/05/22 17:19 Freq: NEEDED Status: Active Protocol: Document 05/10/22 13:22 AW (Rec: 05/10/22 13:37 AW [id number]) PT Summary Assessment and Plan Potential Rehabilitation Potential Fair Status of Condition at Evaluation Evolving Summary Impairments Pain,ROM,Strength,Balance, Coordination,Sensation,Tone, Cognition,Bed Mobility, Transfers,Gait,Activity Tolerance Progress Towards Goals Slow Progress due to Pain,Slow Progress due to Activity Tolerance Assessment Summary Pt only able to walk 15 feet in the room today with FWW She is moving quite slowly and needs assist for FWW management, She remains well below functional baseline. She will require SNF rehab to assist with functional recovery. Goals Bed Mobility Goal Standby Assistance Transfer Goal Standby Assistance,Front Wheeled Walker Gait Goal Standby Assistance,Front Wheel Walker Gait Distance 100 Other Goals improve bed mobility, transfers and ambulation usng 4WW ~ 100ft SBA Days to Meet Goals 10 Frequency of Treatment Frequency Of Treatment Once a Day Treatment Plan Physical Therapy Treatment Plan Bed Mobility Training,Transfer Training,Gait Training, Therapeutic Exercise,Balance Retraining,Discharge Planning, Hot or Cold Pack,Neuromuscular Re-ed,Coordination Retraining Other Recommendations and Next Treatment bedmob, transfer, gait further Focus distance, use of4WW when safe , uncertain has FWW at home. Recommendations To Nursing Amount of Assist Needed 1 Person Assist Discharge Recommendations PT Discharge Recommendations SNF Rehab Equipment Needed for Home Before FWW if not safe with 4WW Discharge Transportation Needs at Discharge Private Vehicle,Wheelchair/ Cabulance
[2022-05-10] MEDS: cefTRIAXone 1,000 MG in SODIUM CHLORIDE 0.9% 100 ML 200 MG IV (13:35)
[2022-05-10] MEDS: AZITHROMYCIN 500 MG in DEXTROSE 5% IN WATER 250 ML 250 MG IV (14:15)
--- NOTE | 2022-05-10 14:20 | OT.IP.TRT ---
Current Diagnoses Sepsis, unspecified organism (05/03/22) Occupational Therapy Treatment Note M2 OT-IP Current Condition Start: 05/05/22 09:46 Freq: Status: Active Protocol: Document 05/05/22 09:00 [facility] (Rec: 05/05/22 10:02 [facility] [id number]) Occupational Therapy Current Condition Current Condition Evaluation Date 05/05/22 Treatment Diagnosis Hypoatremia, CHF, PNA Diagnosis Onset Date 05/03/22 M3 OT- IP Subjective and Pain Start: 05/05/22 09:46 Freq: Status: Active Protocol: Document 05/10/22 14:26 CGR (Rec: 05/10/22 14:31 CGR [id number]) OT- Subjective Occupational Therapy Visit Type Type Progress Note Visit Start Time 14:12 Visit Stop Time 14:20 Total Visit Minutes 8 Notes Per nursing, pt just had an antibiotic hung that needs to be transfused. Pt having difficulty keeping her arm straight for IV. Occupational Therapy Visit Comments Patient Comments I don't think I can do much OT Pain Assessment Pain When Pain Assessed At Rest Pain Present Pain Present Denied Pain M4 OT- IP ADL's Start: 05/05/22 09:46 Freq: Status: Active Protocol: Document 05/10/22 14:26 CGR (Rec: 05/10/22 14:31 CGR [id number]) OT [id number] Comments OT Self-Feeding Comments not meal time OT ADL-Grooming General Evaluation Grooming Ability Standby Assistance Areas Needing Assistance Retrieving/Set-up of Grooming Items,Face Washing Comments OT Grooming Comments seated in chair. OT ADL-Oral Care General Eval Oral Care Ability Standby Assistance Areas of Assistance Brushing Teeth Comments Oral Care Comments seated in chair. M5 OT- IP IADL's Start: 05/05/22 09:46 Freq: Status: Active Protocol: Document 05/05/22 09:00 [facility] (Rec: 05/05/22 10:02 [facility] [id number]) OT-Instrumental Activities of Daily Living Deficits IADL Deficits Identified Deficits Home Safety Awareness Awareness of Need for Assistance at Home Good Awareness Ability to Problem Solve Emergency Unable to Problem Solve Situations Home Safety Comments Pt not thinking clearly at times which may be affected by her low sodiumm levels. Medication Management Medication Management Caregiver Administers Money Management Money Management Caregiver Provides Assistance Meal Preparation Meal Preparation Caregiver Provides Assist Researcher Researcher Caregiver Provides Assist Driving Driving Caregiver Provides Assist M6 OT- IP Functional Cognition Start: 05/05/22 09:46 Freq: Status: Active Protocol: Document 05/06/22 15:00 [facility] (Rec: 05/06/22 16:13 [facility] [id number]) Cognitive Factors Limiting Selfcare Function Cognitive Ability Level of Alertness Alert Patient Orientation Name,Place,Situation Attention Span Ability Capable of Focused Attention, Capable of Sustained Attention Safety Awareness No Deficits Noted Cognitive Comments Cognitive Assessment Comments Pt able to follow commands batter today. M7 OT- IP Mobility and Balance Start: 05/05/22 09:46 Freq: Status: Active Protocol: Document 05/06/22 15:00 [facility] (Rec: 05/06/22 16:13 [facility] [id number]) OT- Bed Mobility Assessment Sit to Supine Sit to Supine Assist Moderate Assistance OT-Transfer Assessment Sit to and From Stand Sit to and from Stand Minimal Assistance Transfers Transfer Ability Contact Guard Assistance Technique Transfer Destination Bed,Chair,Toilet Transfer Technique Stand Step Pivot Devices Transfer Assistive Devices Gait Belt,Front Wheeled Walker Comments Mobility Comments CGA with FWW and pt easily get tired. Pt DOMINIC x1 to stand frtom the toilet and CGA for balance while pulling up her brief. Pt's O2 on RA at 99%. OT- Balance Assessment Sitting Balance and Reactions Static Sitting Balance Ability Good Dynamic Sitting Balance Ability Good Standing Balance and Reactions Static Standing Balance Ability Fair Dynamic Standing Balance Ability Fair M8 OT- IP Objective Assessments Start: 05/05/22 09:46 Freq: Status: Active Protocol: Document 05/05/22 09:00 [facility] (Rec: 05/05/22 10:02 [facility] [id number]) OT Gross Range of Motion Upper Extremity Range of Motion Assessment Bilaterally Impaired ROM Impairments Left more decreased at end range of motion due to history of shoulder replacement for the left arm. OT Strength Comments Strength Comments Shoulder Flexion 3-/5 and from elbow to distal 4/5 to 4-/5 for BUE. OT- Coordination Assessment Comments Coordination Comments Pt needing assist for set-up for meal items. OT-Muscle Tone Assessment Muscle Tone WNL Yes M9 OT- IP Assessment and Plan Start: 05/05/22 09:46 Freq: Status: Active Protocol: Document 05/10/22 14:26 CGR (Rec: 05/10/22 14:31 CGR [id number]) OT Summary Assessment and Plan Potential Rehabilitation Potential Good Analytic Complexity at Evaluation Moderate Summary OT Impairments Strength,Balance,Functional Cognition,Functional Mobility, Self-Feeding,Grooming,Dressing ,Toileting,Bathing,Toilet Transfers,Shower Transfers, Activity Tolerance Progress Towards Goals Slow Progress due to Medical Issues,Slow Progress due to Activity Tolerance Assessment Summary Pt states she just got up to the chair with P.T. and is fatigued. Pt agreeable to ADLs seated and washes face and brushed teeth while seated. Pt is currently getting an infusion of antibiotics and having difficulty following commands to keep her arm straight for for IV. Set arm on pillows for comfort and ended session. Pt left sitting up in chair with all needs within reach and call button in hand. Goals Self-Feeding Goal Independent Grooming Goal Independent Dressing Goal Independent Toileting Goal Independent Bathing Goal Independent Toilet Transfer Goal Independent Shower Transfer Goal Independent Patient/Caregiver Education Goal Demonstrate Energy Conservation and Pacing Days to Meet Goals 10 Frequency of Treatment Frequency Of Treatment Once a Day Treatment Plan OT Treatment Plan ADL Training,Functional Cognition Training,Functional Mobility,Patient/Family Education,Discharge Planning Discharge Recommendations OT Discharge Recommendations Home with 24/7 Assist Available,Home Health Transportation Needs at Discharge Private Vehicle
--- NOTE | 2022-05-10 14:29 | PM.PN.1 ---
Subjective Subjective Date Patient Seen: 05/10/22 Interval history: This morning patient with some left sided chest pain. EKG showed PVC but no indication of acute ischemia and symptoms had improved. Glucose was checked given BMP glucose of 75 which was unremarkable. Had just received diuretics. With mild WBC elevation, and new productive cough started patient on ceftriaxone and azithro for pneumonia. Exam Vital Signs (past 8 hours): - 05/10/22 07:27 05/10/22 10:00 Temperature 97.3 F L Pulse Rate 64 86 Respiratory Rate 16 20 Blood Pressure 159/69 H Pulse Oximetry 92 93 Oxygen Delivery Method Room Air Oxygen Flow Rate 0 0 Fraction of Inspired Oxygen 21 Fraction of Inspired Oxygen 21 SaO2/FiO2 Ratio 438 Oxygen Delivery Method Room Air Oxygen Flow Rate 0 Narrative Exam Narrative: GEN: fatigued, no acute distress HEENT: moist mucous membranes SKIN: normal skin turgor PULM: decreased breath sounds bilaterally ABD: soft, nontender, nondistended EXT: trace to 1+ edema bilaterally NEURO: awake, alert, oriented, no focal deficits noted Objective ECG Impression: sinus rhythm with frequent PCV Labs Result Diagrams: 05/10/22 04:01 05/10/22 04:01 Labs: Laboratory Results - last 24 hr 05/10/22 05/10/22 04:01 04:01 WBC 11.7 H RBC 3.09 L Hgb 11.1 L Hct 32.4 L MCV 104.9 H MCH 35.8 H MCHC 34.1 RDW 13.5 Plt Count 356 Neut % (Auto) 85.4 H Lymph % (Auto) 5.8 L [place] % (Auto) 7.6 Eos % (Auto) 1.1 L Baso % (Auto) 0.1 Neut # (Auto) 06480 H Lymph # (Auto) 700 L [place] # (Auto) 900 Eos # (Auto) 100 Baso # (Auto) 0 Sodium 126 L Potassium 3.3 L Chloride 90 L Carbon Dioxide 28 BUN 42 H Creatinine 0.94 Estimated GFR 59 L BUN/Creatinine Ratio 44.7 H Glucose 75 L Calcium 8.4 PFSH Surgical History History of shoulder replacement Social History household members: none Smoking Status: Former smoker alcohol intake: former Assessment & Plan Assessment & Plan narrative: 1. Sepsis from pneumonia with acute hypoxemic respiratory failure -initially tachycardic, tachypneic, with low oxygen sats consistent with respiratory failure. Respiratory failure now resolved. Respiratory status improved prior to diuresis so CHF may have been contributory initially but not the sole source of respiratory failure. -started antibiotics for pneumonia, continue ceftriaxone and azithromycin which were completed. However today patient with left chest pain, CXR consistent with multifocal pneumonia. Restarted 05/10, plan for another 5 day course. -also started on prednisone, continued for 5 day burst for possible reactive airway or COPD exacerbation given smoking history. -nebs prn 2. Acute CHF exacerbation with reduced EF, new diagnosis. -EF noted on ECHO to be 25-30% -new diagnosis of heart failure -initial BNP was 14k, repeat was 40k, continues with diuresis today. -still slightly volume overloaded today, continue diuresis with 80 mg lasix IV BID, need to watch renal function and potassium while being diuresed as initially volume status was unclear. -continue beta-josué and ARB -with chest pain will repeat troponin today, EKG with multiple PVC and PAC, but no obvious ischemia. 3. Hyponatremia and ANA MARIA with hypomagnesemia and hypokalemia -likely hypervolemic hyponatremia, continue diuresis as noted above. Na stable at 126 today, may need slight increase in diuretic therapy but will reassess with labs tomorrow. -urine sodium of 19, still not entirely clear of volume status, but may be a mixed picture as well. Continue to monitor BMP.. -prior documentation and lab evaluation reviewed, will need continued BMPs for hyponatremia. Continues to improve slowly up to 126 today. Will continue to monitor daily for now. -ANA MARIA improving today, creatinine to 0.94 -K 3.3 today, repleted with oral, low likely due to diuresis. #L knee pain - complained of L knee pain 05/09, XR was unremarkable and no erythema or warmth suggestive of infection. Continue to monitor, continue PT. Now improved today. Code: DNR, surrogate is patient's daughter Dispo: Home with home health vs SNF, will need improvement in sodium further and remains volume overloaded. Probable discharge to SNF in 1-2 days. DVT: Lovenox daily. Time Spent With Patient Critical Care time: I spent a total of [] minutes of critical care time on this patient's care today; this time is exclusive of procedural time.
--- NOTE | 2022-05-10 15:05 | CM.DANOTE ---
Note from 05/04/22 accidentally put in wrong pt chart: 05/04/22 10:47 - CM Disch. Assessment Note by ANAIS Barrios Acct Num: [id number] : 04/02/1937 Patient Age: 85 Patient is an 86 yo female who was admitted on 05/03/22 for SOB. Pt has [employer] for insurance and her PCP is Dr. Shahana Tejeda. EMR was reviewed. Per MD, pt admitted with pneumonia with sepsis and CHF. SW met bedside with pt and Dtr/DPOA Ivonne Turner [phone] and explained role and they confirm that pt resides alone (now ) at [facility] on the Assisted Living Side and receives assist with most ADLs and uses a 4WW for ambulation but does not ambulate far. Dtr lives locally about 5 min away and pt also has supportive son who lives in [place]. They deny any hx of HH or SNF in the past few years for pt but pt did go to SNF years ago when she had ankle fx. SW discussed likely need for PT orders to confirm pt safe for return to [facility] and they would be agreeable to HH if needed and aware if pt far below baseline might need SNF at d/c pending progress. Pt currently on oxygen and does not have home O2 at baseline. SW called Carolina at [facility] and left msg and faxed H&P for review towards hopeful d/c back. Plan: SW to follow for likely PT/OT orders for today towards determining return to [facility] vs SNF. ANAIS Barrios Discharge Planning/Care Management CM Discharge Assessment Start: 05/04/22 10:43 Freq: Status: Active Protocol: Document 05/04/22 10:43 BF (Rec: 05/04/22 10:47 BF [id number]) Discharge Planning Assessment Assigned Biomaterials Engineer ANAIS Solis DPOA/Assigned Designee Name Dtr Ivonne Turner Contact Information [phone] Advance Directives? Yes Advance Directives on File Yes History Provided By Patient,Family Member,Medical Record Has Patient been admitted in last 30 No days? Prior Living Arrangements Assisted Living Household Members none Type of transporation used prior to Relies on Others admit Facility Name Admitted From: [facility] Willing to Return to Facility? Yes Independent with ADL's No Is patient alert and oriented? Yes Needs Assistance With Bathing,Meal Prep,Managing Medications,Home Chores / Shopping Caregiver for Another No DME Already Rented / Owned FWW / Walker Patient/Family Preference Longterm Facility,Home with Home Health Comment Hopefully return to [place] with vs SNF pending PT eval Barriers to Discharge No Discharge Plan Home with Home Health Transportation Arrangement Likely Dtr can transport if pt safe for POV Additional Comment Pending PT orders and eval Whiteboard Updated in Patient Room with Yes name and ext. # of Biomaterials Engineer Review Status In Process Please Provide Date Initial DC 05/04/22 Assessment Was Performed Next Review Type Continued Stay Review
[2022-05-10 15:08] LABS: Osmolality, Serum 263 mOsmol/kg (280-301)
[2022-05-10 15:45] LABS: Troponin I 0.032 ng/mL (0.01-0.034)
[2022-05-10 16:00] VITALS: BP 130/68; PULSE 78; RESP 16; TEMP 36.4; O2SAT 93
[2022-05-10 19:33] VITALS: PULSE 74; RESP 18; O2SAT 94
[2022-05-10 20:00] VITALS: BP 132/44; PULSE 63; RESP 21; TEMP 36; O2SAT 94
[2022-05-10] MEDS: ZOLPIDEM 5 MG TABLET 10 MG PO (20:38)
[2022-05-11 02:00] VITALS: BP 159/66; PULSE 77; RESP 17; TEMP 36.8; O2SAT 93
[2022-05-11] MEDS: OXYCODONE IR 5 MG TABLET PO (02:45)
[2022-05-11] MEDS: BENZONATATE 100 MG CAPSULE PO ×3 (02:49→09:58)
[2022-05-11 05:10] LABS: Troponin I 0.032 ng/mL (0.01-0.034)
[2022-05-11 05:11] LABS: Add Manual Diff / Slide Review NO; Basophils Absolute Auto 0 /uL (0-100); Basophils Percent Auto 0.1 % (0-2); Eosinophils Absolute Auto 100 /uL (0-450); Hematocrit 32.3 % (36-46); Hemoglobin 11.3 g/dL (12.0-16.0); Lymphocytes Absolute Auto 500 /uL (1100-4500); Lymphocytes Percent Auto 4.8 % (25-40); Mean Corpuscular HGB Conc 34.9 % (30-36); Mean Corpuscular Hemoglobin 36.4 PG (26-34); Mean Corpuscular Volume 104.2 fL (80-100); Monocytes Absolute Auto 800 /uL (0-900); Monocytes Percent Auto 7.3 % (3-14); Neutrophils Absolute Auto 9900 /uL (1500-7000); Neutrophils Percent Auto 86.8 % (50-75); Platelet Count 349 X10^3/uL (150-400); Red Cell Distribution Width 13.7 % (11.6-14.8); White Blood Cell Count 11.4 X10^3/uL (4.5-11.0)
[2022-05-11 05:18] LABS: BUN Creatinine Ratio 42.5 (6-22); Blood Urea Nitrogen 34 mg/dL (7-17); Calcium 8.3 mg/dL (8.4-10.2); Carbon Dioxide 30 mmol/L (22-32); Chloride 90 mmol/L (98-107); Estimated Glomerular Filt Rate > 60 mL/min (>60); Glucose 81 mg/dL (80-110); HEMOLYSIS < 15 (0-50); Magnesium 1.2 mg/dL (1.6-2.3); Potassium 3.7 mmol/L (3.4-5.1); Sodium 126 mmol/L (137-145)
[2022-05-11 08:05] VITALS: BP 141/68; PULSE 71; RESP 16; TEMP 37; O2SAT 94
[2022-05-11] MEDS: ESCITALOPRAM 10 MG TABLET 20 MG PO (09:30)
[2022-05-11] MEDS: ASPIRIN EC 81 MG TABLET PO (09:57)
[2022-05-11] MEDS: DOCUSATE 100 MG CAPSULE 200 MG PO (09:58)
[2022-05-11] MEDS: METOPROLOL ER 25 MG TABLET PO (09:59)
[2022-05-11] MEDS: ENOXAPARIN 40 MG/0.4 ML SYRINGE SUBCUT (09:59)
[2022-05-11] MEDS: polyethylene glycoL 3350 17 GM POWD.PACK PO (09:59)
[2022-05-11] MEDS: FUROSEMIDE 80 MG in SODIUM CHLORIDE 0.9% 50 ML 116 MG IV ×3 (10:00→21:07)
[2022-05-11] MEDS: MAGNESIUM SULFATE 4 GM/100 ML PIGGYBACK IV (10:11)
[2022-05-11] MEDS: OXYCODONE ER 10 MG TAB PO ×3 (10:12→21:05)
[2022-05-11] MEDS: SODIUM CHLORIDE 0.9% FLUSH 10 ML IV ×2 (10:13→21:07)
[2022-05-11 10:29] VITALS: PULSE 72
[2022-05-11] MEDS: MAGNESIUM CHLORIDE 64 MG TABLET 128 MG PO ×2 (13:58→21:07)
[2022-05-11] MEDS: guaiFENesin Solution 100 MG/5 ML UDC PO (14:09)
[2022-05-11] MEDS: ACETAMINOPHEN 325 MG TABLET 650 MG PO (14:09)
[2022-05-11] MEDS: cefTRIAXone 1,000 MG in SODIUM CHLORIDE 0.9% 100 ML 200 MG IV (14:10)
[2022-05-11 14:17] VITALS: BP 150/73; PULSE 76; RESP 18; TEMP 37.1; O2SAT 93
[2022-05-11] MEDS: AZITHROMYCIN 500 MG in DEXTROSE 5% IN WATER 250 ML 250 MG IV (15:21)
--- NOTE | 2022-05-11 16:28 | PM.PN.1 ---
Subjective Subjective Date Patient Seen: 05/11/22 Interval history: No chest pain today, continued weakness, dyspnea with activity, and actually worsened edema today. Na stable at 126. Also with L arm pain around IV site. Ordered for midline access given likely prolonged need in the hospital for IV diuresis. Exam Vital Signs (past 8 hours): - 05/11/22 10:29 05/11/22 14:17 Temperature 98.8 F Pulse Rate 72 76 Respiratory Rate 18 Blood Pressure 150/73 H Pulse Oximetry 93 Oxygen Flow Rate 0 Fraction of Inspired Oxygen 21 SaO2/FiO2 Ratio 447 Oxygen Delivery Method Room Air Oxygen Flow Rate 0 Narrative Exam Narrative: GEN: fatigued, no acute distress HEENT: moist mucous membranes SKIN: normal skin turgor PULM: decreased breath sounds bilaterally ABD: soft, nontender, nondistended EXT:2+ edema bilaterally NEURO: awake, alert, oriented, no focal deficits noted Objective Labs Result Diagrams: 05/11/22 04:37 05/11/22 04:37 Labs: Laboratory Results - last 24 hr 05/11/22 05/11/22 05/11/22 04:37 04:37 04:37 WBC 11.4 H RBC 3.10 L Hgb 11.3 L Hct 32.3 L MCV 104.2 H MCH 36.4 H MCHC 34.9 RDW 13.7 Plt Count 349 Neut % (Auto) 86.8 H Lymph % (Auto) 4.8 L [place] % (Auto) 7.3 Eos % (Auto) 1.0 L Baso % (Auto) 0.1 Neut # (Auto) 9900 H Lymph # (Auto) 500 L [place] # (Auto) 800 Eos # (Auto) 100 Baso # (Auto) 0 Sodium 126 L Potassium 3.7 Chloride 90 L Carbon Dioxide 30 BUN 34 H Creatinine 0.80 Estimated GFR > 60 BUN/Creatinine Ratio 42.5 H Glucose 81 Calcium 8.3 L Magnesium 1.2 L Troponin I 0.032 ON LICENSE OF [facility] Surgical History History of shoulder replacement Social History household members: none Smoking Status: Former smoker alcohol intake: former Assessment & Plan Assessment & Plan narrative: 1. Sepsis from pneumonia with acute hypoxemic respiratory failure -initially tachycardic, tachypneic, with low oxygen sats consistent with respiratory failure. Respiratory failure now resolved. Respiratory status improved prior to diuresis so CHF may have been contributory initially but not the sole source of respiratory failure. -started antibiotics for pneumonia, continue ceftriaxone and azithromycin which were completed. However 05/10 patient with left chest pain, CXR consistent with multifocal pneumonia. Restarted 05/10, plan for another 5 day course. -also started on prednisone, continued for 5 day burst for possible reactive airway or COPD exacerbation given smoking history. -nebs prn 2. Acute CHF exacerbation with reduced EF, new diagnosis. -EF noted on ECHO to be 25-30% -new diagnosis of heart failure -initial BNP was 14k, repeat was 40k, continues with diuresis today. -worsened volume overload today, continued diuresis with 80 mg lasix IV BID, but will increase to TID today. Need to watch renal function and potassium while being diuresed. -continue beta-josué and ARB 3. Hyponatremia and ANA MARIA with hypomagnesemia and hypokalemia -likely hypervolemic hyponatremia, continue diuresis as noted above. Na stable at 126 for the last 3 days. Appears more volume overloaded, increase furosemide 80 mg to TID. -urine sodium of 19, still not entirely clear of volume status, but may be a mixed picture as well. Continue to monitor BMP.. -prior documentation and lab evaluation reviewed, will need continued BMPs for hyponatremia. Continues to improve slowly up to 126 today. Will continue to monitor daily for now. -ANA MARIA improving today, creatinine to 0.8 with diuresis -repleted with oral, low likely due to diuresis. #L knee pain, resolved - complained of L knee pain 05/09, XR was unremarkable and no erythema or warmth suggestive of infection. Continue to monitor, continue PT. Now improved today. Code: DNR, surrogate is patient's daughter Dispo: SNF, will need improvement in sodium further and remains volume overloaded. Probable discharge to SNF in a couple of days. DVT: Lovenox daily. Time Spent With Patient Critical Care time: I spent a total of [] minutes of critical care time on this patient's care today; this time is exclusive of procedural time.
--- NOTE | 2022-05-11 16:51 | OT.IP.TRT ---
Current Diagnoses Sepsis, unspecified organism (05/03/22) Occupational Therapy Treatment Note M2 OT-IP Current Condition Start: 05/05/22 09:46 Freq: Status: Active Protocol: Document 05/05/22 09:00 [facility] (Rec: 05/05/22 10:02 [facility] [id number]) Occupational Therapy Current Condition Current Condition Evaluation Date 05/05/22 Treatment Diagnosis Hypoatremia, CHF, PNA Diagnosis Onset Date 05/03/22 M3 OT- IP Subjective and Pain Start: 05/05/22 09:46 Freq: Status: Active Protocol: Document 05/11/22 16:40 [facility] (Rec: 05/11/22 16:51 [facility] [id number]) OT- Subjective Occupational Therapy Visit Type Type Treatment Note Visit Start Time 15:58 Visit Stop Time 16:27 Total Visit Minutes 29 Occupational Therapy Visit Comments Patient Comments Pt initially not wanting to participate in needing encouragement and then agreeing to try to use the commode. Patient/Caregiver Goals Pt not sure of whether it would be best to go home versus go to skilled rehab. OT Pain Assessment Pain When Pain Assessed At Rest Pain Present Pain Present Pain Reported M4 OT- IP ADL's Start: 05/05/22 09:46 Freq: Status: Active Protocol: Document 05/11/22 16:40 [facility] (Rec: 05/11/22 16:51 [facility] [id number]) OT [id number] Comments OT Self-Feeding Comments not meal time OT ADL-Grooming Comments OT Grooming Comments Pt states did already. OT ADL-Oral Care Comments Oral Care Comments Pt states did already. OT ADL-Dressing General Eval Lower Body Dressing Ability Moderate Assistance Comments OT Dressing Comments Pt needing assist to help bruna the brief over her feet. OT ADL-Toileting General Evaluation Toileting Ability Maximum Assistance Areas Needing Assistance Manage Clothing,Perform Perineal Hygiene Comments OT Toileting Comments Pt needing assist for completeness to wipe. Pt needing assist to help get the brief over her feet at this time. OT ADL-Bathing Comments OT Bathing Comments Pt continues to have low energy and not wanting to shower at this time. M6 OT- IP Functional Cognition Start: 05/05/22 09:46 Freq: Status: Active Protocol: Document 05/06/22 15:00 [facility] (Rec: 05/06/22 16:13 [facility] [id number]) Cognitive Factors Limiting Selfcare Function Cognitive Ability Level of Alertness Alert Patient Orientation Name,Place,Situation Attention Span Ability Capable of Focused Attention, Capable of Sustained Attention Safety Awareness No Deficits Noted Cognitive Comments Cognitive Assessment Comments Pt able to follow commands batter today. M7 OT- IP Mobility and Balance Start: 05/05/22 09:46 Freq: Status: Active Protocol: Document 05/11/22 16:40 [facility] (Rec: 05/11/22 16:51 [facility] [id number]) OT-Transfer Assessment Sit to and From Stand Sit to and from Stand Standby Assistance,Contact Guard Assistance Transfers Transfer Ability Contact Guard Assistance Technique Transfer Destination Bed,Bedside Commode Transfer Technique Stand Step Pivot Devices Transfer Assistive Devices Gait Belt,Front Wheeled Walker Comments Mobility Comments Pt from SBA to DOMINIC to stand depending on the height of surface. CGA to transfer. Pt moves very slowly and use of FWW. OT- Balance Assessment Sitting Balance and Reactions Static Sitting Balance Ability Good Dynamic Sitting Balance Ability Good Standing Balance and Reactions Static Standing Balance Ability Fair Dynamic Standing Balance Ability Fair M8 OT- IP Objective Assessments Start: 05/05/22 09:46 Freq: Status: Active Protocol: Document 05/05/22 09:00 [facility] (Rec: 05/05/22 10:02 [facility] [id number]) OT Gross Range of Motion Upper Extremity Range of Motion Assessment Bilaterally Impaired ROM Impairments Left more decreased at end range of motion due to history of shoulder replacement for the left arm. OT Strength Comments Strength Comments Shoulder Flexion 3-/5 and from elbow to distal 4/5 to 4-/5 for BUE. OT- Coordination Assessment Comments Coordination Comments Pt needing assist for set-up for meal items. OT-Muscle Tone Assessment Muscle Tone WNL Yes M9 OT- IP Assessment and Plan Start: 05/05/22 09:46 Freq: Status: Active Protocol: Document 05/11/22 16:40 [facility] (Rec: 05/11/22 16:51 [facility] [id number]) OT Summary Assessment and Plan Potential Rehabilitation Potential Good Analytic Complexity at Evaluation Moderate Summary OT Impairments Strength,Balance,Functional Cognition,Functional Mobility, Self-Feeding,Grooming,Dressing ,Toileting,Bathing,Toilet Transfers,Shower Transfers, Activity Tolerance Progress Towards Goals Slow Progress due to Medical Issues,Slow Progress due to Activity Tolerance Assessment Summary Pt continues to have decreased activity tolerance and endurance. Pt may benefit from skilled rehab versus increased assist at home and home health. Pt currently feels may be best t o go to skilled rehab at this time. To try showering tomorrow or sponging off for OT treatment. Goals Self-Feeding Goal Independent Grooming Goal Independent Dressing Goal Independent Toileting Goal Independent Bathing Goal Independent Toilet Transfer Goal Independent Shower Transfer Goal Independent Patient/Caregiver Education Goal Demonstrate Energy Conservation and Pacing Days to Meet Goals 10 Frequency of Treatment Frequency Of Treatment Once a Day Treatment Plan OT Treatment Plan ADL Training,Functional Cognition Training,Functional Mobility,Patient/Family Education,Discharge Planning Discharge Recommendations OT Discharge Recommendations Home with 15/11 Assist Available,Home Health,SNF Rehab,Home vs SNF Transportation Needs at Discharge Private Vehicle,Wheelchair/ Cabulance
--- NOTE | 2022-05-11 18:06 | PT.IPTN ---
Current Diagnoses Sepsis, unspecified organism (05/03/22) Physical Therapy Treatment Note M2 PT-IP Current Condition Start: 05/05/22 17:19 Freq: NEEDED Status: Active Protocol: Document 05/07/22 09:16 [facility] (Rec: 05/07/22 11:53 [facility] [id number]) Physical Therapy Current Condition Current Condition Evaluation Date 05/05/22 Treatment Diagnosis CHF; PNA; sepsis; difficulty in walking Onset Date 05/03/22 M3 PT-IP Subjective Start: 05/05/22 17:19 Freq: NEEDED Status: Active Protocol: Document 05/11/22 18:01 [facility] (Rec: 05/11/22 18:06 [facility] [id number]) Subjective Physical Therapy Visit Type Type Treatment Note Visit Start Time 17:15 Visit Stop Time 17:45 Total Visit Minutes 30 Number of TRAIN DIRECTOR Visits 0 Physical Therapy Visit Comments Patient Comments Pt reports she still has no appetite. Notes her L arm hurts from IV M4 PT-IP Mobility and Gait Start: 05/05/22 17:19 Freq: NEEDED Status: Active Protocol: Document 05/11/22 18:01 [facility] (Rec: 05/11/22 18:06 [facility] [id number]) PT-Transfer Assessment Sit to and From Stand Sit to and from Stand Contact Guard Assistance,1 Person Assistance,Use of Upper Extremities Equipment Transfer Assistive Device Gait Belt,Front Wheeled Walker Orthotic/Prosthetic Devices or Brace: No Gait Assessment Gait Gait Assistance Required: Contact Guard Assist,1 Person Assist Distance (Feet) 15 Assistive Devices Assistive Device Gait Belt,Front Wheeled Walker Gait Deviations General Gait Pattern Antalgic,Decreased Stride Length,Decreased Feet Clearance,Flexed Trunk Factors Limiting Gait Function Factors Limiting Gait Function Decreased Activity Tolerance, Decreased Strength,Difficulty Following Directions,Pain,Poor Balance,Poor Safety Awareness ,Respiratory Distress Comments Gait Comments pt seated in chair. Sit to stand CGA to FWW w/use of UEs. Pt amb about 7-8 ft and noted that she felt a little dizzy so she better get backt o the chair and amb back to chair. BP 124/66 and O2 94%. She agreedt o do seated exercises so completed seated ex and was left w/call light in reach. M5 PT-IP Objective Assessments Start: 05/05/22 17:19 Freq: NEEDED Status: Active Protocol: Document 05/05/22 14:50 [facility] (Rec: 05/05/22 17:33 [facility] [id number]) Orientation Orientation/Cognition Level of Alertness Alert Orientation Name,Place,Situation Language Function Ability Hard of Hearing Safety Awareness Decreased Safety Awareness Memory Description Short Term Impaired Gross Range of Motion Lower Extremity ROM Assessment Within Functional Limits Strength Lower Extremity Strength Hip 4-/5 Knee 4-/5 Muscle Tone Muscle Tone WNL Yes M6 PT-IP Treatment Start: 05/05/22 17:19 Freq: NEEDED Status: Active Protocol: Document 05/11/22 18:01 [facility] (Rec: 05/11/22 18:06 [facility] [id number]) Physical Therapy Treatment Exercises Exercises Ankle Pumps,Straight Leg Raises,Seated Knee Flexion/ Extension Other Treatments Other Treatment Performed sated marches B, seated abd B all ther ex x20 B M7 PT-IP Assessment and Plan Start: 05/05/22 17:19 Freq: NEEDED Status: Active Protocol: Document 05/11/22 18:01 [facility] (Rec: 05/11/22 18:06 [facility] [id number]) PT Summary Assessment and Plan Potential Rehabilitation Potential Fair Status of Condition at Evaluation Evolving Summary Impairments Pain,ROM,Strength,Balance, Coordination,Sensation,Tone, Cognition,Bed Mobility, Transfers,Gait,Activity Tolerance Progress Towards Goals Slow Progress due to Pain,Slow Progress due to Activity Tolerance Assessment Summary Pt cont to be slow to progress and is limited in her mobility still.S he reported dizziness today which dec walking distance but vitals were stable. She did work w/PT for seated ther ex as she is motivated to get better. At this time SNF is recommended d /t such dec activity tolerance , pt would not be able to get safely around apt. Goals Bed Mobility Goal Standby Assistance Transfer Goal Standby Assistance,Front Wheeled Walker Gait Goal Standby Assistance,Front Wheel Walker Gait Distance 100 Other Goals improve bed mobility, transfers and ambulation usng 4WW ~ 100ft SBA Days to Meet Goals 10 Frequency of Treatment Frequency Of Treatment Once a Day Treatment Plan Physical Therapy Treatment Plan Bed Mobility Training,Transfer Training,Gait Training, Therapeutic Exercise,Balance Retraining,Discharge Planning, Hot or Cold Pack,Neuromuscular Re-ed,Coordination Retraining Other Recommendations and Next Treatment bedmob, transfer, gait further Focus distance, use of4WW when safe , uncertain has FWW at home. Recommendations To Nursing Amount of Assist Needed 1 Person Assist Discharge Recommendations PT Discharge Recommendations SNF Rehab Equipment Needed for Home Before FWW if not safe with 4WW Discharge Transportation Needs at Discharge Private Vehicle,Wheelchair/ Cabulance
[2022-05-11 20:00] VITALS: BP 143/71; PULSE 66; RESP 19; TEMP 36.3; O2SAT 93
[2022-05-11] MEDS: ZOLPIDEM 5 MG TABLET 10 MG PO (21:06)
[2022-05-12] VITALS (8 sets, daily range): BP systolic 129–177; BP diastolic 51–72; PULSE 60–70; RESP 15–20; TEMP 36–36.6; O2SAT 91–95
[2022-05-12 04:56] LABS: Add Manual Diff / Slide Review NO; Basophils Absolute Auto 200 /uL (0-100); Basophils Percent Auto 1.6 % (0-2); Eosinophils Absolute Auto 200 /uL (0-450); Eosinophils Percent Auto 1.6 % (2-4); Hemoglobin 11.6 g/dL (12.0-16.0); Lymphocytes Absolute Auto 500 /uL (1100-4500); Lymphocytes Percent Auto 5.5 % (25-40); Mean Corpuscular HGB Conc 33.9 % (30-36); Mean Corpuscular Hemoglobin 35.8 PG (26-34); Mean Corpuscular Volume 105.5 fL (80-100); Monocytes Absolute Auto 600 /uL (0-900); Monocytes Percent Auto 6.3 % (3-14); Neutrophils Absolute Auto 8200 /uL (1500-7000); Platelet Count 386 X10^3/uL (150-400); Red Blood Cell Count 3.23 X10^6/uL (4.0-5.2); Red Cell Distribution Width 13.6 % (11.6-14.8); White Blood Cell Count 9.6 X10^3/uL (4.5-11.0)
[2022-05-12 05:03] LABS: BUN Creatinine Ratio 44.7 (6-22); Blood Urea Nitrogen 34 mg/dL (7-17); Calcium 8.2 mg/dL (8.4-10.2); Carbon Dioxide 32 mmol/L (22-32); Chloride 90 mmol/L (98-107); Estimated Glomerular Filt Rate > 60 mL/min (>60); Glucose 84 mg/dL (80-110); HEMOLYSIS 18 (0-50); Magnesium 1.5 mg/dL (1.6-2.3); Potassium 3.2 mmol/L (3.4-5.1); Sodium 128 mmol/L (137-145)
[2022-05-12] MEDS: FUROSEMIDE 80 MG in SODIUM CHLORIDE 0.9% 50 ML 116 MG IV ×2 (05:36→17:00)
[2022-05-12] MEDS: POTASSIUM CHLORIDE 20 MEQ TAB 40 MEQ PO (05:37)
--- NOTE | 2022-05-12 08:15 | PM.PN.1 ---
Subjective Subjective Interval history: She feels very fatigued, has shoulder pain. No nausea or vomiting. No abdomen pain. Exam Vital Signs (past 8 hours): - 05/12/22 02:00 05/12/22 08:00 Temperature 97.2 F L 96.8 F L Pulse Rate 70 68 Respiratory Rate 16 18 Blood Pressure 161/64 H 177/72 H Pulse Oximetry 91 95 Oxygen Flow Rate 0 Fraction of Inspired Oxygen 21 SaO2/FiO2 Ratio 447 Oxygen Delivery Method Room Air Oxygen Flow Rate 0 Narrative Exam Narrative: Listless Const General: cooperative and comfortable HENMT Head: normal to inspection and normocephalic Nose: external nose normal Eyes General: appearance normal, both eyes and all related structures Conjunctivae: conjunctivae normal Sclera: sclerae normal Pupils: pupils equal Neck Neck: normal visual inspection and No JVD Thyroid: not diffusely enlarged Chest Chest: normal inspection of the chest Resp Effort & Inspection: normal respiratory effort and able to speak in complete sentences Auscultation: clear to auscultation bilaterally Cardio Rate: regular rate Rhythm: regular rhythm Pulses: radial pulses present GI Inspection: normal to inspection Palpation: soft and no hepatosplenomegaly Auscultation: normal bowel sounds Skin General: no rashes or lesions noted Neuro General: patient alert, patient awake and patient oriented x3 Speech: speech normal Extrem General: normal to inspection Psych Appearance: grossly normal Mental Status: mental status grossly normal Speech and Movement: speech and movement normal Objective Labs Result Diagrams: 05/12/22 04:29 05/12/22 04:29 Labs: Laboratory Results - last 24 hr 05/12/22 05/12/22 04:29 04:29 WBC 9.6 RBC 3.23 L Hgb 11.6 L Hct 34.0 L MCV 105.5 H MCH 35.8 H MCHC 33.9 RDW 13.6 Plt Count 386 Neut % (Auto) 85.0 H Lymph % (Auto) 5.5 L [place] % (Auto) 6.3 Eos % (Auto) 1.6 L Baso % (Auto) 1.6 Neut # (Auto) 8200 H Lymph # (Auto) 500 L [place] # (Auto) 600 Eos # (Auto) 200 Baso # (Auto) 200 H Sodium 128 L Potassium 3.2 L Chloride 90 L Carbon Dioxide 32 BUN 34 H Creatinine 0.76 Estimated GFR > 60 BUN/Creatinine Ratio 44.7 H Glucose 84 Calcium 8.2 L Magnesium 1.5 L [facility] Surgical History History of shoulder replacement Social History household members: none Smoking Status: Former smoker alcohol intake: former Assessment & Plan Assessment & Plan narrative: 1. Sepsis (from pneumonia), present on admission and active. Improving. -initially tachycardic, tachypneic, with hypoxic consistent with respiratory failure. Respiratory failure now resolved. Respiratory status improved prior to diuresis so CHF may have been contributory initially but not the sole source of respiratory failure. -started antibiotics for pneumonia, continue ceftriaxone and azithromycin which were completed. However 05/10 patient with left chest pain, CXR consistent with multifocal pneumonia. Restarted 05/10, plan for another 5 day course. -also started on prednisone, continued for 5 day burst for possible reactive airway or COPD exacerbation given smoking history. 2. Community acquired pneumonia, present on admission and active. Improving. - continue Abx. 3. Acute hypoxic respiratory failure, present on admission and active. Improving. 4. Acute on chronic systolic heart failure (new diagnosis). Present on admission and active. Improving. -EF noted on ECHO to be 25-30% -new diagnosis of heart failure -worsened volume overload yesterday, continued diuresis with 80 mg lasix IV BID, but will increase to TID today. Need to watch renal function and potassium while being diuresed. -continue beta-josué and ARB -continue diuresis. 5. Hyponatremia (hypervolemic) and ANA MARIA with hypomagnesemia and hypokalemia -likely hypervolemic hyponatremia, continue diuresis as noted above. Na stable at 126 for the last 3 days. Appears more volume overloaded, increase furosemide 80 mg to TID. -urine sodium of 19, still not entirely clear of volume status, but may be a mixed picture as well. Continue to monitor BMP.. -prior documentation and lab evaluation reviewed, will need continued BMPs for hyponatremia. Continues to improve slowly up to 126 today. Will continue to monitor daily for now. -ANA MARIA improving today, creatinine to 0.8 with diuresis -repleted with oral, low likely due to diuresis. 6. ANA MARIA, present on admission and active. Improving. -follow renal function with diuresis. 7. Hypomagnesemia, NPOA and active -replete as needed 8. Hypokalemia, NPOA and active. -replete as needed 9. L knee pain, resolved ?- complained of L knee pain 05/09, XR was unremarkable and no erythema or warmth suggestive of infection. Continue to monitor, continue PT. Now improved today. Code: DNR, surrogate is patient's daughter (met with daughter today) Dispo: SNF, will need improvement in sodium further and remains volume overloaded. Probable discharge to SNF in a couple of days. DVT: Lovenox daily. Time Spent With Patient Critical Care time: I spent a total of [] minutes of critical care time on this patient's care today; this time is exclusive of procedural time.
[2022-05-12] MEDS: METOPROLOL ER 25 MG TABLET PO (09:05)
[2022-05-12] MEDS: DOCUSATE 100 MG CAPSULE 200 MG PO (09:05)
[2022-05-12] MEDS: ESCITALOPRAM 10 MG TABLET 20 MG PO (09:05)
[2022-05-12] MEDS: ENOXAPARIN 40 MG/0.4 ML SYRINGE SUBCUT (09:05)
[2022-05-12] MEDS: polyethylene glycoL 3350 17 GM POWD.PACK PO (09:05)
[2022-05-12] MEDS: ASPIRIN EC 81 MG TABLET PO (09:06)
[2022-05-12] MEDS: SODIUM CHLORIDE 0.9% FLUSH 10 ML IV (09:07)
[2022-05-12] MEDS: OXYCODONE ER 10 MG TAB PO ×3 (09:10→20:09)
[2022-05-12] MEDS: ALBUTEROL 2.5 MG/3 ML NEB (ADULT) INH ×3 (09:17→19:13)
[2022-05-12] MEDS: BENZONATATE 100 MG CAPSULE PO (11:00)
[2022-05-12] MEDS: guaiFENesin Solution 100 MG/5 ML UDC PO (11:00)
[2022-05-12] MEDS: MAGNESIUM CHLORIDE 64 MG TABLET 128 MG PO (13:15)
[2022-05-12] MEDS: cefTRIAXone 1,000 MG in SODIUM CHLORIDE 0.9% 100 ML 200 MG IV (14:20)
[2022-05-12] MEDS: AZITHROMYCIN 500 MG in DEXTROSE 5% IN WATER 250 ML 250 MG IV (14:21)
[2022-05-12] MEDS: OXYCODONE IR 5 MG TABLET PO (14:21)
--- NOTE | 2022-05-12 14:39 | OT.IP.TRT ---
Current Diagnoses Sepsis, unspecified organism (05/03/22) Occupational Therapy Treatment Note M2 OT-IP Current Condition Start: 05/05/22 09:46 Freq: Status: Active Protocol: Document 05/05/22 09:00 [facility] (Rec: 05/05/22 10:02 [facility] [id number]) Occupational Therapy Current Condition Current Condition Evaluation Date 05/05/22 Treatment Diagnosis Hypoatremia, CHF, PNA Diagnosis Onset Date 05/03/22 M3 OT- IP Subjective and Pain Start: 05/05/22 09:46 Freq: Status: Active Protocol: Document 05/12/22 14:16 [facility] (Rec: 05/12/22 14:39 [facility] [id number]) OT- Subjective Occupational Therapy Visit Type Type Treatment Note Visit Start Time 13:44 Visit Stop Time 14:16 Total Visit Minutes 32 Occupational Therapy Visit Comments Patient Comments Pt very tired and wanting to get back to bed but then agreed to sponge off. Patient/Caregiver Goals TO get better. OT Pain Assessment Pain When Pain Assessed At Rest Pain Present Pain Present Pain Reported Location Head Intensity 7 Scale Used Numeric (0 - 10) M4 OT- IP ADL's Start: 05/05/22 09:46 Freq: Status: Active Protocol: Document 05/12/22 14:16 [facility] (Rec: 05/12/22 14:39 [facility] [id number]) OT [id number] Comments OT Self-Feeding Comments NOt at meal time. OT ADL-Grooming Comments OT Grooming Comments Pt refused. OT ADL-Oral Care Comments Oral Care Comments Pt too tired to perform. OT ADL-Dressing General Eval Lower Body Dressing Ability Maximum Assistance Comments OT Dressing Comments MAXA to help bruna/doff her brief. OT ADL-Toileting General Evaluation Toileting Ability Maximum Assistance Areas Needing Assistance Manage Clothing Comments OT Toileting Comments Pt able to assist to roll in bed so able to change out her brief as pt getting dizzy while standing. Pt able to use wipe for hygiene while in supine. MAXA to assist to bruna /doff the tab brief. OT ADL-Bathing Bathing Type Bathing Type Sponge Bath General Evaluation Bathing Ability Moderate Assistance Areas Needing Assistance Wash/Dry Back Comments OT Bathing Comments Assist to wash her back. M6 OT- IP Functional Cognition Start: 05/05/22 09:46 Freq: Status: Active Protocol: Document 05/12/22 14:16 [facility] (Rec: 05/12/22 14:39 [facility] [id number]) Cognitive Factors Limiting Selfcare Function Cognitive Ability Level of Alertness Alert Patient Orientation Name,Place,Situation Attention Span Ability Capable of Focused Attention, Capable of Sustained Attention Ability to Follow Commands Able to Follow One Step Commands Cognitive Comments Cognitive Assessment Comments Pt able to follow commands and mainly just been very fatigued and has no energy. M7 OT- IP Mobility and Balance Start: 05/05/22 09:46 Freq: Status: Active Protocol: Document 05/12/22 14:16 [facility] (Rec: 05/12/22 14:39 [facility] [id number]) OT-Transfer Assessment Sit to and From Stand Sit to and from Stand Standby Assistance,Contact Guard Assistance Transfers Transfer Ability Contact Guard Assistance Technique Transfer Destination Bed,Bedside Commode Transfer Technique Stand Step Pivot Devices Transfer Assistive Devices Gait Belt,Front Wheeled Walker Comments Mobility Comments CGA with to stand with FWW and to transfer to the bed. DOMINIC to help get her legs into the bed. OT- Balance Assessment Sitting Balance and Reactions Static Sitting Balance Ability Good Dynamic Sitting Balance Ability Good Standing Balance and Reactions Static Standing Balance Ability Fair Dynamic Standing Balance Ability Fair M8 OT- IP Objective Assessments Start: 05/05/22 09:46 Freq: Status: Active Protocol: Document 05/05/22 09:00 [facility] (Rec: 05/05/22 10:02 [facility] [id number]) OT Gross Range of Motion Upper Extremity Range of Motion Assessment Bilaterally Impaired ROM Impairments Left more decreased at end range of motion due to history of shoulder replacement for the left arm. OT Strength Comments Strength Comments Shoulder Flexion 3-/5 and from elbow to distal 4/5 to 4-/5 for BUE. OT- Coordination Assessment Comments Coordination Comments Pt needing assist for set-up for meal items. OT-Muscle Tone Assessment Muscle Tone WNL Yes M9 OT- IP Assessment and Plan Start: 05/05/22 09:46 Freq: Status: Active Protocol: Document 05/12/22 14:16 [facility] (Rec: 05/12/22 14:39 [facility] [id number]) OT Summary Assessment and Plan Potential Rehabilitation Potential Good Analytic Complexity at Evaluation Moderate Summary OT Impairments Strength,Balance,Functional Cognition,Functional Mobility, Self-Feeding,Grooming,Dressing ,Toileting,Bathing,Toilet Transfers,Shower Transfers, Activity Tolerance Progress Towards Goals Slow Progress due to Medical Issues,Slow Progress due to Activity Tolerance Assessment Summary Pt continue to be fatigued and complaining of headache and dizziness with change of positions, nursing notified. Pt requesting to lie down but agreed to sponge off first and have a brief change. Pt looking to go to SNF when medically stable otherwise would need 24/7 assist available and home health. Goals Self-Feeding Goal Independent Grooming Goal Independent Dressing Goal Independent Toileting Goal Independent Bathing Goal Independent Toilet Transfer Goal Independent Shower Transfer Goal Independent Patient/Caregiver Education Goal Demonstrate Energy Conservation and Pacing Days to Meet Goals 20 Frequency of Treatment Frequency Of Treatment Once a Day Treatment Plan OT Treatment Plan ADL Training,Functional Cognition Training,Functional Mobility,Patient/Family Education,Discharge Planning Discharge Recommendations OT Discharge Recommendations Home with 24/7 Assist Available,Home Health,SNF Rehab,Home vs SNF Transportation Needs at Discharge Private Vehicle,Wheelchair/ Cabulance
--- NOTE | 2022-05-12 15:02 | PT-IP ANOTE ---
Pt refused in afternoon. States she has been up and just returned to bed. Reports being just too tired right now.
[2022-05-12] MEDS: ACETAMINOPHEN 325 MG TABLET 650 MG PO (20:03)
[2022-05-12] MEDS: ZOLPIDEM 5 MG TABLET 10 MG PO (21:21)
[2022-05-13] MEDS: FUROSEMIDE 80 MG in SODIUM CHLORIDE 0.9% 50 ML 116 MG IV ×4 (00:20→21:40)
[2022-05-13 02:00] VITALS: BP 138/61; PULSE 59; RESP 17; TEMP 35.7; O2SAT 93
[2022-05-13 04:40] LABS: BUN Creatinine Ratio 38.6 (6-22); Blood Urea Nitrogen 34 mg/dL (7-17); Calcium 8.2 mg/dL (8.4-10.2); Carbon Dioxide 26 mmol/L (22-32); Chloride 92 mmol/L (98-107); Estimated Glomerular Filt Rate > 60 mL/min (>60); Glucose 81 mg/dL (80-110); Magnesium 1.5 mg/dL (1.6-2.3); Sodium 127 mmol/L (137-145)
[2022-05-13 04:42] LABS: HEMOLYSIS 72 (0-50)
[2022-05-13 04:43] LABS: Potassium 3.9 mmol/L (3.4-5.1)
[2022-05-13 04:49] LABS: Add Manual Diff / Slide Review YES; Hematocrit 33.1 % (36-46); Hemoglobin 11.6 g/dL (12.0-16.0); Mean Corpuscular HGB Conc 34.9 % (30-36); Mean Corpuscular Hemoglobin 36.4 PG (26-34); Mean Corpuscular Volume 104.3 fL (80-100); Red Blood Cell Count 3.17 X10^6/uL (4.0-5.2); Red Cell Distribution Width 13.9 % (11.6-14.8); White Blood Cell Count 10.3 X10^3/uL (4.5-11.0)
[2022-05-13 06:44] LABS: Platelet Count 348 X10^3/uL (150-400); Total Cells Counted 100
[2022-05-13 06:45] LABS: Macrocytosis 1+; Neutrophils Absolute Manual 7931 /uL (3000-5900)
[2022-05-13 08:00] VITALS: BP 166/81; PULSE 74; RESP 16; TEMP 35.9; O2SAT 97
--- NOTE | 2022-05-13 08:04 | P.PN_ITS ---
Subjective Subjective Interval history: She feels about the same. fatigued and listless. No chest pain. Some body pain. Exam Vital Signs (past 8 hours): - 05/13/22 02:00 Temperature 96.3 F L Pulse Rate 59 L Respiratory Rate 17 Blood Pressure 138/61 Pulse Oximetry 93 Oxygen Flow Rate 1 Fraction of Inspired Oxygen 24 SaO2/FiO2 Ratio 391 Oxygen Delivery Method Nasal Cannula Oxygen Flow Rate 1 Narrative Exam Narrative: Lethargic but alert. Const General: cooperative and comfortable Orientation: oriented x3 HENMT Head: normal to inspection and normocephalic Eyes General: appearance normal, both eyes and all related structures Conjunctivae: conjunctivae normal Sclera: sclerae normal Neck Neck: normal visual inspection Chest Chest: normal inspection of the chest Resp Effort & Inspection: normal respiratory effort Auscultation: clear to auscultation bilaterally Cardio Rate: regular rate Rhythm: regular rhythm Heart Sounds: S1 normal and S2 normal Pulses: radial pulses present GI Inspection: normal to inspection Palpation: soft and no hepatosplenomegaly Skin General: no rashes or lesions noted Neuro General: patient alert and patient awake Extrem General: normal to inspection Psych Appearance: grossly normal Objective Labs Result Diagrams: 05/13/22 04:18 05/13/22 04:18 Labs: Laboratory Results - last 24 hr 05/13/22 05/13/22 04:18 04:18 WBC 10.3 RBC 3.17 L Hgb 11.6 L Hct 33.1 L MCV 104.3 H MCH 36.4 H MCHC 34.9 RDW 13.9 Plt Count 348 Neut % (Auto) Not Reportable Lymph % (Auto) Not Reportable [place] % (Auto) Not Reportable Eos % (Auto) Not Reportable Baso % (Auto) Not Reportable Lymph # (Auto) Not Reportable [place] # (Auto) Not Reportable Baso # (Auto) Not Reportable Total Counted 100 Seg Neutrophils % 75.0 H Band Neutrophils % 2.0 L Lymphocytes % (Manual) 15.0 L Monocytes % (Manual) 7.0 Eosinophils % (Manual) 1.0 L Neutrophils # (Manual) 7931 H RBC Morphology See below Macrocytosis 1+ H Sodium 127 L Potassium 3.9 Chloride 92 L Carbon Dioxide 26 BUN 34 H Creatinine 0.88 Estimated GFR > 60 BUN/Creatinine Ratio 38.6 H Glucose 81 Calcium 8.2 L Magnesium 1.5 L PFSH Surgical History History of shoulder replacement Social History household members: none Smoking Status: Former smoker alcohol intake: former Assessment & Plan Assessment & Plan narrative: 1. Sepsis (from pneumonia), present on admission and active. Resolved. -started antibiotics for pneumonia, continue ceftriaxone and azithromycin which were completed. However 05/10 patient with left chest pain, CXR consistent with multifocal pneumonia. Restarted 05/10,?plan for another 5 day course. -also started on prednisone, continued for 5 day burst for possible reactive airway or COPD exacerbation given smoking history. Stop at 5 days. 2. Community acquired pneumonia, present on admission and active. Improving. - continue Abx. 10 day course. 3. Acute hypoxic respiratory failure, present on admission and active. Improving. 4. Acute on chronic systolic heart failure (new diagnosis). Present on admission and active. Improving. -EF noted on ECHO to be 25-30% -new diagnosis of heart failure -worsened volume overload yesterday, continued diuresis with 80 mg lasix IV BID, but will increase to TID today. Need to watch renal function and potassium while being diuresed. -continue beta-josué and ARB -continue diuresis. No change to current lasix doses, will add zaroxolyn for synergy. 5. Hyponatremia (hypervolemic), present on admission and stable (remains around 127 at the best despite high doses of lasix). -continue furosemide 80 mg TID. -continue to monitor BMP.. 6. ANA MARIA, present on admission and active. Improving. -continue follow renal function with diuresis. 7. Hypomagnesemia,? NPOA and active -replete as needed 8. Hypokalemia, NPOA and active. -replete as needed 9. Left knee pain, resolved ?- complained of L knee pain 05/09, XR was unremarkable and no erythema or warmth suggestive of infection. Continue to monitor, continue PT. Now improved today. Code: DNR, surrogate is patient's daughter (met with daughter today) Dispo: SNF, will need improvement in sodium further and remains volume overloade d. Probable discharge to SNF in a couple of days. Met with patient and daughter , family is discussing options (including possibly hospice) today. DVT: Lovenox daily. Time Spent With Patient Critical Care time: I spent a total of [] minutes of critical care time on this patient's care today; this time is exclusive of procedural time.
[2022-05-13] MEDS: polyethylene glycoL 3350 17 GM POWD.PACK PO (09:43)
[2022-05-13] MEDS: ENOXAPARIN 40 MG/0.4 ML SYRINGE SUBCUT (09:45)
[2022-05-13] MEDS: OXYCODONE ER 10 MG TAB PO ×3 (09:45→21:47)
[2022-05-13] MEDS: ASPIRIN EC 81 MG TABLET PO (09:46)
[2022-05-13] MEDS: DOCUSATE 100 MG CAPSULE 200 MG PO (09:46)
[2022-05-13] MEDS: METOPROLOL ER 25 MG TABLET PO (09:46)
[2022-05-13] MEDS: SODIUM CHLORIDE 0.9% FLUSH 10 ML IV ×2 (09:47→21:41)
[2022-05-13] MEDS: ESCITALOPRAM 10 MG TABLET 20 MG PO (09:47)
[2022-05-13] MEDS: MAGNESIUM CHLORIDE 64 MG TABLET 128 MG PO (11:10)
[2022-05-13 11:44] VITALS: BP 155/61; PULSE 67
[2022-05-13] MEDS: OXYCODONE IR 5 MG TABLET PO (12:48)
[2022-05-13] MEDS: cefTRIAXone 1,000 MG in SODIUM CHLORIDE 0.9% 100 ML 200 MG IV (12:49)
[2022-05-13] MEDS: metOLazone 2.5 MG TABLET PO (12:49)
[2022-05-13] MEDS: guaiFENesin Solution 100 MG/5 ML UDC PO (12:49)
--- NOTE | 2022-05-13 14:36 | CM.DPNOTE ---
DCP Note Patient and family discussing hospice vs rehab today and patient has decided to proceed with rehabilitative pathway upon discharge Explained that having an ongoing discussion about hospice is appropriate and encouraged and patient's adult daughter and son agree dtr Ivonnechristiane Malagonn has contacted [place] at [facility] and Carolina states if patient ever transitions to hospice service, she can receive this care at [facility] as long as additional assist is secured Plan: DC to [facility] when medically cleared for discharge, w/c dorie contreras JW
--- NOTE | 2022-05-13 15:59 | OT.IPNOTE ---
Attempted to see pt for OT and pt just completed PT and too tired at this time and states has no energy, to check on pt again tomorrow.
[2022-05-13 16:00] VITALS: BP 140/55; PULSE 64; RESP 16; TEMP 36.1; O2SAT 96
--- NOTE | 2022-05-13 16:00 | PT.IPTN ---
Current Diagnoses Sepsis, unspecified organism (05/03/22) Physical Therapy Treatment Note M2 PT-IP Current Condition Start: 05/05/22 17:19 Freq: NEEDED Status: Active Protocol: Document 05/07/22 09:16 SP (Rec: 05/07/22 11:53 SP [id number]) Physical Therapy Current Condition Current Condition Evaluation Date 05/05/22 Treatment Diagnosis CHF; PNA; sepsis; difficulty in walking Onset Date 05/03/22 M3 PT-IP Subjective Start: 05/05/22 17:19 Freq: NEEDED Status: Active Protocol: Document 05/13/22 15:53 [facility] (Rec: 05/13/22 17:28 [facility] [id number]) Subjective Physical Therapy Visit Type Type Treatment Note Visit Start Time 15:25 Visit Stop Time 15:48 Total Visit Minutes 23 Number of [employer] Visits 0 Physical Therapy Visit Comments Patient Comments Pt on BSC and notes she is ready to get up. Feeling a little better today but still not great M4 PT-IP Mobility and Gait Start: 05/05/22 17:19 Freq: NEEDED Status: Active Protocol: Document 05/13/22 15:53 [facility] (Rec: 05/13/22 17:28 [facility] [id number]) PT-Bed Mobility Assessment Sit to Supine Sit to Supine Standby Assistance,Bedrails Scooting Scooting to Edge of Bed Standby Assistance Scooting Up and Down in Bed Standby Assistance PT-Transfer Assessment Sit to and From Stand Sit to and from Stand Contact Guard Assistance,1 Person Assistance,Use of Upper Extremities Equipment Transfer Assistive Device Gait Belt,Front Wheeled Walker Orthotic/Prosthetic Devices or Brace: No Transfers Transfer Destination Chair Transfer Technique pt ambulated with FWW Transfer Ability Level of Assist Contact Guard Assistance,1 Person Assistance,Use of Upper Extremities Comments Mobility Comments pt stood to FWW from BSC and stood SBA while PT wiped pt and pulled up pt's brief. Pt felt weak and ilghtheaded so pt walked the 4 ft to chair w/ FWW and sat in chair CGA. Pt PT was 147/100. MERCURY WASHER notified and MERCURY WASHER notified RN. Pt wanted to get into bed so transfer to bed to walk 4ft W/FWW CGA then sit to supine w/rail SBA. Pt scooted up in bed w/max cues and encouragment. Pt made comfortable and left w/call light in reach and bed alarm on. Gait Assessment Gait Gait Assistance Required: Contact Guard Assist,1 Person Assist Distance (Feet) 8 Assistive Devices Assistive Device Gait Belt,Front Wheeled Walker Gait Deviations General Gait Pattern Antalgic,Decreased Stride Length,Decreased Feet Clearance,Flexed Trunk Factors Limiting Gait Function Factors Limiting Gait Function Decreased Activity Tolerance, Decreased Strength,Difficulty Following Directions,Pain,Poor Balance,Poor Safety Awareness ,Respiratory Distress M5 PT-IP Objective Assessments Start: 05/05/22 17:19 Freq: NEEDED Status: Active Protocol: Document 05/05/22 14:50 [facility] (Rec: 05/05/22 17:33 [facility] [id number]) Orientation Orientation/Cognition Level of Alertness Alert Orientation Name,Place,Situation Language Function Ability Hard of Hearing Safety Awareness Decreased Safety Awareness Memory Description Short Term Impaired Gross Range of Motion Lower Extremity ROM Assessment Within Functional Limits Strength Lower Extremity Strength Hip 4-/5 Knee 4-/5 Muscle Tone Muscle Tone WNL Yes M6 PT-IP Treatment Start: 05/05/22 17:19 Freq: NEEDED Status: Active Protocol: Document 05/11/22 18:01 [facility] (Rec: 05/11/22 18:06 [facility] [id number]) Physical Therapy Treatment Exercises Exercises Ankle Pumps,Straight Leg Raises,Seated Knee Flexion/ Extension Other Treatments Other Treatment Performed sated marches B, seated abd B all ther ex x20 B M7 PT-IP Assessment and Plan Start: 05/05/22 17:19 Freq: NEEDED Status: Active Protocol: Document 05/13/22 15:53 [facility] (Rec: 05/13/22 17:28 [facility] [id number]) PT Summary Assessment and Plan Summary Impairments Pain,ROM,Strength,Balance, Coordination,Sensation,Tone, Cognition,Bed Mobility, Transfers,Gait,Activity Tolerance Progress Towards Goals Slow Progress due to Pain,Slow Progress due to Medical Issues,Slow Progress due to Activity Tolerance Assessment Summary Therapy session was limited today d/t BP being elevated so PT only did neccessary mobility to get pt comfortable . RN notified by MERCURY WASHER re: BP. Pt is motivated to improve and agreeable w/PT but was limited today by BP and not feeling well likely related to elevated BP. O2was 93%. Pt will require SNF rehab before return home. Goals Bed Mobility Goal Standby Assistance Transfer Goal Standby Assistance,Front Wheeled Walker Gait Goal Standby Assistance,Front Wheel Walker Gait Distance 100 Other Goals improve bed mobility, transfers and ambulation usng 4WW ~ 100ft SBA Days to Meet Goals 10 Frequency of Treatment Frequency Of Treatment Once a Day Treatment Plan Physical Therapy Treatment Plan Bed Mobility Training,Transfer Training,Gait Training, Therapeutic Exercise,Balance Retraining,Discharge Planning, Hot or Cold Pack,Neuromuscular Re-ed,Coordination Retraining Other Recommendations and Next Treatment bedmob, transfer, gait further Focus distance, use of4WW when safe , uncertain has FWW at home. Recommendations To Nursing Amount of Assist Needed 1 Person Assist Discharge Recommendations PT Discharge Recommendations SNF Rehab Equipment Needed for Home Before FWW if not safe with 4WW Discharge Transportation Needs at Discharge Private Vehicle,Wheelchair/ Cabulance
[2022-05-13 19:52] VITALS: PULSE 71; RESP 18; O2SAT 98
[2022-05-13] MEDS: ALBUTEROL 2.5 MG/3 ML NEB (ADULT) INH (19:52)
[2022-05-13 20:00] VITALS: BP 148/71; PULSE 76; RESP 18; TEMP 36.3; O2SAT 96
[2022-05-13] MEDS: ZOLPIDEM 5 MG TABLET 10 MG PO (21:41)
[2022-05-14 02:00] VITALS: BP 140/69; PULSE 60; RESP 16; TEMP 36.5; O2SAT 95
[2022-05-14 05:15] LABS: Magnesium 1.4 mg/dL (1.6-2.3)
[2022-05-14] MEDS: FUROSEMIDE 80 MG in SODIUM CHLORIDE 0.9% 50 ML 116 MG IV ×2 (06:24→14:11)
[2022-05-14 07:50] VITALS: BP 135/66; PULSE 66; RESP 17; TEMP 36.6; O2SAT 95
[2022-05-14 08:33] VITALS: PULSE 74; RESP 18; O2SAT 96
[2022-05-14] MEDS: ALBUTEROL 2.5 MG/3 ML NEB (ADULT) INH (08:33)
[2022-05-14] MEDS: DOCUSATE 100 MG CAPSULE 200 MG PO (09:06)
[2022-05-14] MEDS: MAGNESIUM CHLORIDE 64 MG TABLET 128 MG PO (09:06)
[2022-05-14] MEDS: ENOXAPARIN 40 MG/0.4 ML SYRINGE SUBCUT (09:07)
[2022-05-14] MEDS: ASPIRIN EC 81 MG TABLET PO (09:07)
[2022-05-14] MEDS: ESCITALOPRAM 10 MG TABLET 20 MG PO (09:07)
[2022-05-14] MEDS: OXYCODONE ER 10 MG TAB PO ×2 (09:07→14:50)
[2022-05-14] MEDS: METOPROLOL ER 25 MG TABLET PO (09:07)
[2022-05-14 09:27] LABS: BUN Creatinine Ratio 38.6 (6-22); Blood Urea Nitrogen 34 mg/dL (7-17); Calcium 8.3 mg/dL (8.4-10.2); Carbon Dioxide 31 mmol/L (22-32); Chloride 89 mmol/L (98-107); Estimated Glomerular Filt Rate > 60 mL/min (>60); Glucose 85 mg/dL (80-110); HEMOLYSIS < 15 (0-50); Potassium 3.4 mmol/L (3.4-5.1); Sodium 129 mmol/L (137-145)
[2022-05-14] MEDS: POTASSIUM CHLORIDE 20 MEQ TAB 40 MEQ PO (09:55)
[2022-05-14] MEDS: OXYCODONE IR 5 MG TABLET PO ×2 (09:55→14:14)
--- NOTE | 2022-05-14 10:29 | PC.NURSE ---
Addendum entered by Tonya Morejon R.N. 05/14/22 15:48: Report called on Patient to [facility]. Picked up around 1515 from hospital and report called at 1545 Addendum entered by Tonya Morejon R.N. 05/14/22 14:35: Patients daughter states that hospitalist yesterday was going to refer patient to a industrial service technician, as she is going to go to the [facility] across the street. Talked to Dr. Rahman who is on today and he states that they will do this at the [facility], they have a doctor over there that will see her. Daughter states I don't believe that, and is upset. This RN talked to MD and told him the issue. Patient will be discharged at 1500. Daughter not happy at this time. Original Note: Assess- Patient states that she has not felt good this am. Dr. Rahman ordered some potassium pills for patient and these were broken in to two. Before suggested that medication be dissolved in water and then given in apple sauce but patient wanted them to be broken in two. She tolerated the first two but then stated that they felt like they were stuck. Patient had a small emesis of coffee and gots lots of phlegm up, yellow in color. Just given her oxycodone for discomfort and this seems to have helped her. She ate small bites at breakfast and is resting now.
[2022-05-14 11:11] LABS: COVID19 -Nasal RAPID Negative (Negative)
--- NOTE | 2022-05-14 11:56 | OT.IP.TRT ---
Current Diagnoses Sepsis, unspecified organism (05/03/22) Occupational Therapy Treatment Note M2 OT-IP Current Condition Start: 05/05/22 09:46 Freq: Status: Active Protocol: Document 05/05/22 09:00 [facility] (Rec: 05/05/22 10:02 [facility] [id number]) Occupational Therapy Current Condition Current Condition Evaluation Date 05/05/22 Treatment Diagnosis Hypoatremia, CHF, PNA Diagnosis Onset Date 05/03/22 M3 OT- IP Subjective and Pain Start: 05/05/22 09:46 Freq: Status: Active Protocol: Document 05/14/22 11:15 [facility] (Rec: 05/14/22 14:03 [facility] [id number]) OT- Subjective Occupational Therapy Visit Type Type Treatment Note Visit Start Time 11:15 Visit Stop Time 11:56 Total Visit Minutes 41 Occupational Therapy Visit Comments Patient Comments Pt very tired but after more encouragement form her daughter and OT agreed to sponge off. Patient/Caregiver Goals To have more energy. OT Pain Assessment Pain When Pain Assessed At Rest Pain Present Pain Present Pain Reported M4 OT- IP ADL's Start: 05/05/22 09:46 Freq: Status: Active Protocol: Document 05/14/22 11:15 [facility] (Rec: 05/14/22 14:03 [facility] [id number]) OT [id number] Comments OT Self-Feeding Comments Not at meal time. OT ADL-Grooming General Evaluation Grooming Ability Minimal Assistance Areas Needing Assistance Combing/Brushing Hair Comments OT Grooming Comments Assist to brush the back of her hair. OT ADL-Oral Care Comments Oral Care Comments Pt too tired to perform. OT ADL-Dressing General Eval Lower Body Dressing Ability Maximum Assistance Comments OT Dressing Comments MAXA to help bruna/doff her brief. OT ADL-Toileting General Evaluation Toileting Ability Maximum Assistance Areas Needing Assistance Manage Clothing,Perform Perineal Hygiene Comments OT Toileting Comments Pt unable to assist for hygiene as when standing , urinating each times while standing as unable to control her bladder at this time. LOADING SUPERVISOR and OT able to assist pt for change brief,gown and socks out. OT ADL-Bathing Bathing Type Bathing Type Sponge Bath General Evaluation Bathing Ability Maximal Assistance Areas Needing Assistance Wash/Dry Back,Wash/Dry Perineal Area,Wash/Dry Lower Extremities Comments OT Bathing Comments Able to do while seated on the edge of the bed and BSC. M5 OT- IP IADL's Start: 05/05/22 09:46 Freq: Status: Active Protocol: Document 05/05/22 09:00 [facility] (Rec: 05/05/22 10:02 [facility] [id number]) OT-Instrumental Activities of Daily Living Deficits IADL Deficits Identified Deficits Home Safety Awareness Awareness of Need for Assistance at Home Good Awareness Ability to Problem Solve Emergency Unable to Problem Solve Situations Home Safety Comments Pt not thinking clearly at times which may be affected by her low sodium levels. Medication Management Medication Management Caregiver Administers Money Management Money Management Caregiver Provides Assistance Meal Preparation Meal Preparation Caregiver Provides Assist Sheet Folder Sheet Folder Caregiver Provides Assist Driving Driving Caregiver Provides Assist M6 OT- IP Functional Cognition Start: 05/05/22 09:46 Freq: Status: Active Protocol: Document 05/14/22 11:15 [facility] (Rec: 05/14/22 14:03 [facility] [id number]) Cognitive Factors Limiting Selfcare Function Cognitive Comments Cognitive Assessment Comments Pt abl to follow command but still very fatigued and having no energy to perform tasks. Pt needing rest breaks when trying to assist with sponge bath. M7 OT- IP Mobility and Balance Start: 05/05/22 09:46 Freq: Status: Active Protocol: Document 05/14/22 11:15 [facility] (Rec: 05/14/22 14:03 [facility] [id number]) OT- Bed Mobility Assessment Supine to Sit Supine to Sit Assist Moderate Assistance Scooting Scooting to Edge of Bed Maximum Assistance OT-Transfer Assessment Sit to and From Stand Sit to and from Stand Minimal Assistance,Moderate Assistance Transfers Transfer Ability Minimal Assistance Technique Transfer Destination Bed,Bedside Commode,Chair Transfer Technique Stand Step Pivot Devices Transfer Assistive Devices Gait Belt,Front Wheeled Walker Comments Mobility Comments MODA to help get her trunk upright and to help scoot to the edge of the bed with MAXA OT- Balance Assessment Sitting Balance and Reactions Static Sitting Balance Ability Good Dynamic Sitting Balance Ability Fair Standing Balance and Reactions Static Standing Balance Ability Fair Dynamic Standing Balance Ability Poor M8 OT- IP Objective Assessments Start: 05/05/22 09:46 Freq: Status: Active Protocol: Document 05/05/22 09:00 [facility] (Rec: 05/05/22 10:02 [facility] [id number]) OT Gross Range of Motion Upper Extremity Range of Motion Assessment Bilaterally Impaired ROM Impairments Left more decreased at end range of motion due to history of shoulder replacement for the left arm. OT Strength Comments Strength Comments Shoulder Flexion 3-/5 and from elbow to distal 4/5 to 4-/5 for BUE. OT- Coordination Assessment Comments Coordination Comments Pt needing assist for set-up for meal items. OT-Muscle Tone Assessment Muscle Tone WNL Yes M9 OT- IP Assessment and Plan Start: 05/05/22 09:46 Freq: Status: Active Protocol: Document 05/14/22 11:15 [facility] (Rec: 05/14/22 14:03 [facility] [id number]) OT Summary Assessment and Plan Potential Rehabilitation Potential Fair Analytic Complexity at Evaluation Moderate Summary OT Impairments Strength,Balance,Functional Cognition,Functional Mobility, Self-Feeding,Grooming,Dressing ,Toileting,Bathing,Toilet Transfers,Shower Transfers, Activity Tolerance Progress Towards Goals Slow Progress due to Medical Issues,Slow Progress due to Activity Tolerance Assessment Summary Pt needing more assist to bed mobility and transfers today. Pt still very tired , but willing to do sponge bath today. Pt looking to go to skilled rehab today. Goals Self-Feeding Goal Independent Grooming Goal Independent Dressing Goal Minimal Assistance Toileting Goal Minimal Assistance Bathing Goal Minimal Assistance Toilet Transfer Goal Standby Assistance Shower Transfer Goal Minimal Assistance Patient/Caregiver Education Goal Demonstrate Energy Conservation and Pacing Days to Meet Goals 15 Frequency of Treatment Frequency Of Treatment Once a Day Treatment Plan OT Treatment Plan ADL Training,Functional Cognition Training,Functional Mobility,Patient/Family Education,Discharge Planning Discharge Recommendations OT Discharge Recommendations Home with 24/7 Assist Available,Home Health,SNF Rehab,Home vs SNF Transportation Needs at Discharge Private Vehicle,Wheelchair/ Cabulance
--- NOTE | 2022-05-14 12:26 | PM.DS.1 ---
History of Present Illness History of Present Illness Date Patient Seen: 05/14/22 Time Patient Seen: 12:26 Chief complaint: SOB Narrative: Per admitting provider, Inga Mata is an 86-year-old female former smoker with history of hypertension presented to the ED from [facility] at the request of nursing due to increasing shortness of breath, fatigue along with nausea and vomiting for the past few days.? They apparently have a significant number of COVID patients there and suspect that she likely has COVID but have not checked yet.? She denies any headache or blurred vision.? She is had some runny nose and nasal congestion as well as cough.? She states that she has a burning sensation in her anterior chest when she coughs.? She becomes more short of breath when she walks but denies any orthopnea, weight gain or lower extremity swelling.? She denies fever or chills.? She has had nausea and vomiting, limited diarrhea, denies constipation.? She denies any dysuria, frequency or urgency.? On arrival EMS found her pulse ox to be in the low 90s and when placed on 2 L she bumped up to the upper 90s. She is afebrile, blood pressure 152/83 heart rate 111 respiratory rate 18 oxygen saturation of 96% on 2 L she weighs 68 kg with a BMI of 25.7 she does have an elevated white count of 14.3 she is an abnormal smear, sodium 124 chloride 89 BUN 28 EGFR [place] [address] [place] [address] albumin 3.2 procalcitonin is 9.64 respiratory panel including COVID-19 PCR are all negative. FH: Mother age 80 of ALS, father age 63 of heart disease. Discharge Providers Provider Date of admission: 05/03/22 22:49 Discharge Date: 05/14/22 Primary care physician: Shahana Jennings PA-C Consults: 05/05/22 08:20 Consult to Occupational Therapy Evaluate & Treat Comment: Physician Instructions: Evaluate and treat Consult to Physical Therapy Evaluate & Treat Comment: Physician Instructions: Evaluate and Treat Discharge provider: Jesus Rahman DO Summary Hospital Course Discharge Diagnosis: Please see hospital course by problem list noted below Hospital Course: 1. Sepsis (from pneumonia), present on admission and active. Resolved. -started antibiotics for pneumonia, continue ceftriaxone and azithromycin which were completed. However 05/10 patient with left chest pain, CXR consistent with multifocal pneumonia. Restarted 05/10 for possible pneumonia and discontinued at the time of discharge after receiving 9 total days of antibiotic therapy. -also started on prednisone, continued for 5 day burst for possible reactive airway or COPD exacerbation given smoking history. Completed course during her hospital stay. 2. Community acquired pneumonia, present on admission and active. Improving. - continue Abx. 10 day course. 3. Acute hypoxic respiratory failure, present on admission and active. Improving - patient at rest was no longer requiring supplemental oxygen, can provide oxygen at SNF if O2 drops below 90%, specifically with activity. Respiratory failure was due to combination of pneumonia and systolic heart failure as noted below. 4. Acute systolic heart failure (new diagnosis). Present on admission and active. Improving. -EF noted on ECHO to be 25-30% -new diagnosis of heart failure during this admission. -worsened volume overload despite 80 mg of IV lasix twice daily, increased to TID with eventual improvement with hypernatremia to 129. Her creatinine improved over time with continued diuresis. Eventually added metolazone with improvement. At discharge, continue 80 mg PO BID of oral lasix with 2.5 mg metolazone. -continue beta-josué and ARB -outpatient referral to cardiology recommended. 5. Hyponatremia (hypervolemic), present on admission and stable (remains around 127 at the best despite high doses of lasix). -continued diuresis as discussed above. -sodium, as low as 117 during her stay, improved with diuresis to 129 at the time of discharge. -limit fluid intake to 1.5 L max daily at discharge. 6. ANA MARIA, present on admission and active. Improving. -continued follow renal function with diuresis with continued improvement. ANA MARIA was likely due to congestion given marked improvement with diresis. Cr peaked at 1.6, improved to 0.88 at discharge. 7. Hypomagnesemia,? NPOA and active -repleted as needed, multiple times over the course of her stay so will discharge on repletion. 8. Hypokalemia, NPOA and active. -repleted as needed 9. Left knee pain, resolved ?- complained of L knee pain 05/09, XR was unremarkable and no erythema or warmth suggestive of infection. Dispo: transferred to SNF for continue therapies at the time of discharge. Recommend outpatient referral to cardiology. Time Spent with Patient Time spent: Greater than 30 minutes Exam Vital Signs (past 8 hours): - 05/14/22 07:50 05/14/22 08:33 Temperature 97.8 F Pulse Rate 66 74 Respiratory Rate 17 18 Blood Pressure 135/66 Pulse Oximetry 95 96 Oxygen Delivery Method Nasal Cannula Oxygen Flow Rate 1 1 Fraction of Inspired Oxygen 24 SaO2/FiO2 Ratio 408 Oxygen Delivery Method Nasal Cannula Oxygen Flow Rate 1 Narrative Exam Narrative: GEN: fatigued, no acute distress HEENT: moist mucous membranes SKIN: normal skin turgor PULM: decreased breath sounds bilaterally ABD: soft, nontender, nondistended EXT: trace edema bilaterally NEURO: awake, alert, oriented, no focal deficits noted Objective Labs Result Diagrams: 05/13/22 04:18 05/14/22 04:26 Labs: Laboratory Results - last 24 hr 05/14/22 05/14/22 05/14/22 04:26 04:26 10:53 Sodium 129 L Potassium 3.4 Chloride 89 L Carbon Dioxide 31 BUN 34 H Creatinine 0.88 Estimated GFR > 60 BUN/Creatinine Ratio 38.6 H Glucose 85 Calcium 8.3 L Magnesium 1.4 L SARS-CoV-2 (PCR) Negative [facility] Surgical History History of shoulder replacement Social History household members: none Smoking Status: Former smoker alcohol intake: former Discharge Plan Discharge Plan Patient Disposition: SNF Provider Discharge Comment: 86 F admitted with pneumonia and heart failure and low sodium. Sodium now much improved with diuresis, medications adjusted. Need to add losartan back as BP tolerates, focusing on diuresis for now. Discharge orders & Medications Prescriptions: New metolazone 2.5 mg Tablet 2.5 mg PO 1230 30 Days Qty: 30 0RF acetaminophen 325 mg Tablet 650 mg PO Q6H PRN (Reason: Fever/Mild Pain (1-3)) Qty: 30 0RF polyethylene glycol 3350 17 gram Powder In Packet 17 gm PO DAILY 14 Days Qty: 14 0RF docusate sodium 100 mg Capsule 200 mg PO DAILY 30 Days Qty: 30 0RF metoprolol succinate 25 mg Tablet Extended Release 24 Hr 25 mg PO DAILY 30 Days Qty: 30 0RF oxycodone 5 mg Tablet 5 mg PO Q4HR PRN (Reason: Pain, Moderate (4-6)) 7 Days Qty: 30 0RF Slow-Mag 71.5 mg Tablet,Delayed Release (Dr/Ec) 128 mg PO BID 30 Days Qty: 108 0RF furosemide 80 mg tablet 80 mg PO BID 30 Days Qty: 60 0RF Continued escitalopram oxalate 20 mg tablet 20 mg PO DAILY oxycodone 15 mg tablet,oral only,ext.rel.12 hr 15 mg PO BID 30 Days Qty: 60 0RF zolpidem 10 mg tablet 10 mg PO BEDTIME 30 Days Qty: 30 aspirin [Adult Aspirin Regimen] 81 mg tablet,delayed release (DR/EC) 81 mg PO DAILY Discontinued losartan 50 mg tablet 50 mg PO BID oxycodone 5 mg tablet 5 mg PO Q4-6H PRN (Reason: Pain (Scale Score 4-6)) Follow up/Referrals: Shahana Jennings PA-C [Primary Care Provider] - Discharge Health Status Precautions: [place] Diet/Activity/Treatments Diet: Diet as Tolerated Liquid consistency: Normal/Thin Food texture: Regular Diet comment: Fluid restrict to 1.5 L per day total fluid Activity: As tolerated Visit Report/Discharge Packet Stand Alone Forms: Patient Portal/API Discharge Data Primary Care Provider: Shahana Jennings
--- NOTE | 2022-05-14 12:50 | CM.DPNOTE ---
DC Note DC to [facility] today, patient and family remain agreeable to plan. SURAJ Izquierdo, following closely to assist in coordination; ALVINO ppk to be faxed w/completed EUGENIO RODRIGUES PCR updated, RN provided with case picker time, 1500, and contact number to call report to SAGAR Hendrickson at [facility]
[2022-05-14] MEDS: metOLazone 2.5 MG TABLET PO (14:10)
[2022-05-14] MEDS: cefTRIAXone 1,000 MG in SODIUM CHLORIDE 0.9% 100 ML 200 MG IV (14:11)
[2022-05-14 14:19] VITALS: BP 140/68; PULSE 77; RESP 16; TEMP 36.6; O2SAT 97
== END 2022-05-14 15:15 | DRG 871 ==
LOC: ED 21:42 → AC 22:49
PROVIDERS: Internal Medicine; Admitting Provider Nurse Practitioner Family; Emergency Provider Emergency Medicine; Family Provider Physician Assistant; PCP Physician Assistant; Referring Provider Emergency Medicine; Visit Provider Nurse Practitioner Family
DX: A41.9 Sepsis, unspecified organism (principal); I50.21 Acute systolic (congestive) heart failure; J18.9 Pneumonia, unspecified organism; J96.01 Acute respiratory failure with hypoxia; E87.1 Hypo-osmolality and hyponatremia; N17.9 Acute kidney failure, unspecified; G89.4 Chronic pain syndrome; G47.00 Insomnia, unspecified; E83.42 Hypomagnesemia; M25.562 Pain in left knee; E87.6 Hypokalemia; Z66 Do not resuscitate; Z87.891 Personal history of nicotine dependence; Z20.822 Contact with and (suspected) exposure to COVID-19
CPT/HCPCS: 0241U; 36415; 71045; 73560; 80048; 80053; 81003; 82550; 82570; 82962; 83605; 83735; 83880; 83930; 84145; 84300; 84484; 85007; 85025; 85610; 87040; 87635; 93005; 93010; 93306; 94640; 94760; 94762; 96365; 96367; 96375; 97110; 97116; 97162; 97166; 97530; 97535; 99285; C9803; J0696; J1650; J1940; J2405; J3475; J7613

== ENCOUNTER 2022-05-25 11:18 | Emergency (ER) | payer MEDICARE, OTHER, SELFPAY ==
[2022-05-04 02:45] VITALS: BMI 26.1
[2022-05-25] VITALS (15 sets, daily range): BP systolic 127–162; BP diastolic 58–98; PULSE 52–73; RESP 14–36; TEMP 36.2; O2SAT 91–96
--- NOTE | 2022-05-25 12:46 | DI.RAD.S_ITS ---
PROCEDURE: XR CHEST 2V INDICATIONS: chest tightness TECHNIQUE: 2 views of the chest were acquired. COMPARISON: [facility], , XR CHEST 1V, 05/10/2022, 11:39. FINDINGS: Surgical changes and devices: Left shoulder arthroplasty. Lungs and pleura: Nodular opacity in the right upper lobe. No pleural effusions or pneumothorax. Mediastinum: Mediastinal contours are normal. Heart size is normal. Bones and chest wall: No suspicious bony abnormalities. Soft tissues appear unremarkable. IMPRESSION: Nodular opacity right upper lobe decreased in size compared to May 10, 2022 which could represent residual pneumonia or neoplastic process. Recommend CT scan of the chest for additional evaluation. Dictated by: Daniela Aquino MD, PhD on 05/25/2022 at 13:07 Approved by: Daniela Aquino MD, PhD on 05/25/2022 at 13:09
[2022-05-25 13:02] LABS: Add Manual Diff / Slide Review NO; Basophils Absolute Auto 0 /uL (0-100); Basophils Percent Auto 0.9 % (0-2); Eosinophils Absolute Auto 200 /uL (0-450); Eosinophils Percent Auto 4.5 % (2-4); Hematocrit 33.2 % (36-46); Hemoglobin 11.7 g/dL (12.0-16.0); Lymphocytes Absolute Auto 900 /uL (1100-4500); Lymphocytes Percent Auto 17.6 % (25-40); Mean Corpuscular HGB Conc 35.2 % (30-36); Mean Corpuscular Hemoglobin 35.1 PG (26-34); Monocytes Absolute Auto 500 /uL (0-900); Monocytes Percent Auto 10.7 % (3-14); Neutrophils Absolute Auto 3300 /uL (1500-7000); Neutrophils Percent Auto 66.3 % (50-75); Platelet Count 165 X10^3/uL (150-400); Red Blood Cell Count 3.32 X10^6/uL (4.0-5.2); Red Cell Distribution Width 13.3 % (11.6-14.8); White Blood Cell Count 4.9 X10^3/uL (4.5-11.0)
[2022-05-25 13:23] LABS: INR 1.1 (0.9-1.3); Prothrombin Time 12.3 SECONDS (10.1-12.7)
[2022-05-25 13:25] LABS: PTT Partial Thromboplastin Tim 27 SECONDS (26-36)
[2022-05-25 13:30] LABS: Alanine Aminotransferase 17 IU/L (<35); Alkaline Phosphatase 70 U/L (38-126); Aspartate Aminotransferase 34 IU/L (14-36); BUN Creatinine Ratio 45.6 (6-22); Bilirubin Total 0.4 mg/dL (0.2-1.3); Blood Urea Nitrogen 82 mg/dL (7-17); Calcium 8.3 mg/dL (8.4-10.2); Carbon Dioxide 35 mmol/L (22-32); Chloride 83 mmol/L (98-107); Creatine Kinase < 20 U/L (30-135); Estimated Glomerular Filt Rate 27 mL/min (>60); Glucose 103 mg/dL (80-110); HEMOLYSIS < 15 (0-50); Lipase 144 U/L (23-300); Potassium 3.3 mmol/L (3.4-5.1); Sodium 126 mmol/L (137-145)
[2022-05-25 13:33] LABS: Magnesium 2.3 mg/dL (1.6-2.3); Phosphorous 3.6 mg/dL (2.8-4.1)
[2022-05-25 13:41] LABS: NT-proBNP (BNP-Adult 18+) 2190 pg/mL (<450); Troponin I 0.019 ng/mL (0.01-0.034)
[2022-05-25 14:17] LABS: Influenza A - CEPHEID Flu A NEGATIVE (NEGATIVE); Influenza B - CEPHEID Flu B NEGATIVE (NEGATIVE); Respiratory Syncytial Virus Negative (Negative)
[2022-05-25 14:25] LABS: COVID-19 CEPHEID 4-PLEX PCR Negative (Negative)
[2022-05-25] MEDS: FUROSEMIDE 80 MG in SODIUM CHLORIDE 0.9% 50 ML 116 MG IV (15:00)
[2022-05-25 15:24] LABS: Appearance Urine UA CLEAR; Bilirubin Urine UA NEGATIVE (NEGATIVE); Color Urine UA YELLOW; Glucose Urine UA NEGATIVE (Negative); Ketones Urine UA NEGATIVE (NEGATIVE); Leukocyte Esterase Urine UA NEGATIVE (NEGATIVE); Nitrite Urine UA NEGATIVE (Negative); Occult Blood Urine UA 1+ (Negative); Protein Urine UA NEGATIVE (Negative); Urobilinogen Urine UA 0.2 E.U./dL (0.2)
[2022-05-25 15:39] LABS: Bacteria Urine None Seen; RBC Urine 1-5/HPF (0-5/HPF); WBC Urine None Seen (0-5/HPF)
[2022-05-25 15:40] LABS: Culture Indicated Urine Cult Not Indicated
[2022-05-25 16:10] LABS: Alanine Aminotransferase 16 IU/L (<35); Albumin 2.8 g/dL (3.5-5.0); Albumin Globulin Ratio 0.9 (1.0-2.8); Alkaline Phosphatase 69 U/L (38-126); Aspartate Aminotransferase 33 IU/L (14-36); BUN Creatinine Ratio 51.2 (6-22); Bilirubin Total 0.4 mg/dL (0.2-1.3); Blood Urea Nitrogen 83 mg/dL (7-17); Calcium 8.3 mg/dL (8.4-10.2); Carbon Dioxide 35 mmol/L (22-32); Chloride 84 mmol/L (98-107); Estimated Glomerular Filt Rate 31 mL/min (>60); Glucose 94 mg/dL (80-110); HEMOLYSIS 44 (0-50); Potassium 3.2 mmol/L (3.4-5.1); Sodium 125 mmol/L (137-145); Total Protein 5.8 g/dL (6.3-8.2)
--- NOTE | 2022-05-25 19:40 | ED.RECABL ---
HPI - Recheck/Abnormal Lab/Rx <Cuco Whatley PA-C - Last Filed: 05/25/22 20:10> General Chief Complaint: Recheck/Abnormal Lab/Rx Stated Complaint: told by [facility] to come in Time Seen by Provider: 05/25/22 11:43 Source: patient Mode of arrival: Wheelchair History of Present Illness HPI narrative: 86-year-old female who is a former smoker, with history of hypertension, CHF brought in by her daughter for a low sodium of 120. Patient was diagnosed with hyponatremia on 05/03/2022, along with pneumonia, was hospitalized and discharged to the [facility] for rehabilitation on 05/14/2022. Since then, patient has recuperated slowly and still complains of intermittent nausea, fatigue. Patient also states that her ability to walk unassisted with her walker has been impacted due to her fatigue. Patient was sent by [facility] to the ED for a low-sodium level of 120. Patient and patient's daughter deny any acute cognitive changes, fevers, chills, chest pain, shortness of breath, vomiting, abdominal pain, dysuria, dizziness, syncope. Patient was diagnosed with CHF in January 2022, had a acute CHF exacerbation while in the hospital earlier this month. Patient is currently on metoprolol and Lasix. Related Data Home Medications Medication Instructions Recorded Confirmed aspirin 81 mg tablet,delayed 81 mg PO DAILY 01/12/18 05/04/22 release (Adult Aspirin Regimen) zolpidem 10 mg tablet 10 mg PO BEDTIME 30 days #30 tabs 02/23/18 05/04/22 escitalopram oxalate 20 mg tablet 20 mg PO DAILY 05/04/22 05/04/22 Previous Rx's Medication Instructions Recorded acetaminophen 325 mg tablet 650 mg PO Q6H PRN Fever/Mild Pain 05/14/22 (1-3) #30 tabs docusate sodium 100 mg capsule 200 mg PO DAILY 30 days #30 caps 05/14/22 furosemide 80 mg tablet 80 mg PO BID 30 days #60 tabs 05/14/22 magnesium chloride 71.5 mg 128 mg PO BID 30 days #108 tabs 05/14/22 (magnesium chloride) tablet,delayed release (Slow-Mag) metolazone 2.5 mg tablet 2.5 mg PO 1230 30 days #30 tabs 01/20/23 metoprolol succinate 25 mg 25 mg PO DAILY 30 days #30 tabs 05/14/22 tablet,extended release 24 hr oxycodone 15 mg tablet,crush 15 mg PO BID pain 30 days #60 tabs 05/14/22 resistant,extended release 12 hr Allergies Allergy/AdvReac Type Severity Reaction Status Date / Time No Known Drug Allergies Allergy Verified 05/25/22 11:37 Review of Systems <Cuco Whatley PA-C - Last Filed: 05/25/22 20:10> Review of Systems ROS Unobtainable: All systems reviewed & are unremarkable except as noted in HPI and below Constitutional Constitutional: Denies chills, Reports fatigue, Denies fever(s), Denies frequent falls, Reports lethargy, Reports poor appetite and Denies weakness Eyes Eyes: Denies change in vision, Denies eye discharge, Denies irritation and Denies loss of vision ENT Ears, Nose, Mouth, and Throat: Denies change in voice, Denies dizziness, Denies neck pain, Denies sore throat and Denies throat swelling Cardiovascular Cardiovascular: Denies chest pain, Denies irregular heart rhythm, Denies lightheadedness, Denies palpitations, Denies dyspnea, Denies dyspnea on exertion and Denies orthopnea Respiratory Respiratory: Denies cough, Denies dyspnea, Denies dyspnea on exertion and Denies wheezing Comments: Chest tightness Gastrointestinal Gastrointestinal: Denies abdominal pain, Denies change in bowel habits, Denies diarrhea, Reports nausea and Denies vomiting Genitourinary Genitourinary: Denies hematuria, Denies flank pain, Denies urinary incontinence and Denies urinary urgency Musculoskeletal Musculoskeletal: Denies back pain, Denies muscle weakness, Denies neck pain, Denies numbness and Denies tingling Integumentary/Breasts Skin/Breast: Denies pruritus, Denies erythema, Denies rash and Denies wounds Neurologic Neurologic: Denies behavioral changes, Denies confusion, Denies dizziness, Denies frequent falls, Denies loss of vision, Denies numbness, Denies tingling and Denies weakness Psychiatric Psychiatric: Denies anxiety, Denies behavioral changes, Denies confusion, Denies depression, Denies homicidal ideation and Denies suicidal ideation Endocrine Endocrine: Reports fatigue, Denies flushing and Denies palpitations Hematologic/Lymphatic Hematologic/Lymphatic: Denies easy bruising Allergic/Immunologic Allergic/Immunologic: Denies urticaria, Denies throat swelling and Denies wheezing Patient History <Cuco Whatley PA-C - Last Filed: 05/25/22 20:10> Surgical History History of shoulder replacement Social History household members: none Smoking Status: Former smoker alcohol intake: former Smoking Status: Former smoker alcohol intake frequency: holidays/special occasions only Substance Use Type: does not use Exam <Cuco Whatley PA-C - Last Filed: 05/25/22 20:10> Narrative Exam Narrative: Const General:?cooperative, healthy appearing and comfortable HENOR Head:?normal to inspection Ears:?hearing grossly normal bilaterally Nose:?external nose normal Face and sinus:?normal facial exam and sinuses nontender Mouth:?oral mucosae normal Throat:?posterior oropharynx normal Eyes General:?appearance normal, both eyes and all related structures Neck Neck:?normal visual inspection and no lymphadenopathy noted Resp Effort & Inspection:?normal respiratory effort Auscultation:?clear to auscultation bilaterally Cardio Rate:?regular rate Rhythm:?regular rhythm No leg swelling GI Abdomen is soft, nontender to palpation, nondistended. There is no CVA tenderness. Neuro General:?patient alert, patient awake and patient oriented x3 Initial Vital Signs Initial Vital Signs: Vital Signs Temperature 97.1 F L 05/25/22 11:31 Pulse Rate 54 L 05/25/22 11:31 Respiratory Rate 14 05/25/22 11:31 Blood Pressure 127/58 L 05/25/22 11:31 Pulse Oximetry 94 05/25/22 11:31 Oxygen Delivery Method 05/25/22 11:31 <Lev Perez DO - Last Filed: 05/28/22 07:00> Initial Vital Signs Initial Vital Signs: Vital Signs Temperature 97.1 F L 05/25/22 11:31 Pulse Rate 54 L 05/25/22 11:31 Respiratory Rate 14 05/25/22 11:31 Blood Pressure 127/58 L 05/25/22 11:31 Pulse Oximetry 94 05/25/22 11:31 Oxygen Delivery Method 05/25/22 11:31 Course <Cuco Whatley PA-C - Last Filed: 05/25/22 20:10> Orders Ordered: Discontinued Medications Sodium Chloride (Normal Saline 0.9%) 1,000 mls @ 1,000 mls/hr IV BOLUS ONE Stop: 05/25/22 14:32 Last Admin: 05/25/22 14:09 Dose: Not Given Documented By: NR Furosemide 80 mg/ Sodium (Chloride) 58 mls @ 116 mls/hr IV NOW ONE Stop: 05/25/22 14:05 Last Infusion: 05/25/22 15:39 Dose: 0 mls/hr Documented By: Admin: 05/25/22 15:00 Dose: 116 mls/hr Documented By: NR Vital Signs Vital signs: Vital Signs - 8 hr 05/25/22 12:17 05/25/22 12:20 05/25/22 12:20 Pulse Rate 60 56 L Respiratory Rate 17 Blood Pressure 149/65 H Pulse Oximetry 91 96 05/25/22 12:30 05/25/22 12:30 05/25/22 13:00 Pulse Rate 53 L 53 L Respiratory Rate 21 Blood Pressure 147/62 H Pulse Oximetry 96 95 05/25/22 13:29 05/25/22 13:29 05/25/22 13:30 Pulse Rate 52 L 52 L Respiratory Rate 25 H 36 H Blood Pressure 162/69 H Pulse Oximetry 95 96 05/25/22 14:00 05/25/22 14:30 05/25/22 15:00 Pulse Rate 53 L 73 58 L Respiratory Rate 29 H 25 H 17 Blood Pressure Pulse Oximetry 94 95 96 05/25/22 15:30 05/25/22 15:36 05/25/22 15:36 Pulse Rate 54 L 54 L Respiratory Rate 25 H 15 Blood Pressure 148/67 H Pulse Oximetry 94 96 05/25/22 16:00 05/25/22 16:30 05/25/22 16:39 Pulse Rate 54 L 56 L 57 L Respiratory Rate 19 16 24 Blood Pressure Pulse Oximetry 91 94 95 05/25/22 16:39 Pulse Rate Respiratory Rate Blood Pressure 151/98 H Pulse Oximetry <Lev Perez DO - Last Filed: 05/28/22 07:00> Orders Ordered: Discontinued Medications Sodium Chloride (Normal Saline 0.9%) 1,000 mls @ 1,000 mls/hr IV BOLUS ONE Stop: 05/25/22 14:32 Last Admin: 05/25/22 14:09 Dose: Not Given Documented By: NR Furosemide 80 mg/ Sodium (Chloride) 58 mls @ 116 mls/hr IV NOW ONE Stop: 05/25/22 14:05 Last Infusion: 05/25/22 15:39 Dose: 0 mls/hr Documented By: Admin: 05/25/22 15:00 Dose: 116 mls/hr Documented By: NR Vital Signs Vital signs: Vital Signs - 8 hr 05/25/22 12:17 05/25/22 12:20 05/25/22 12:20 Pulse Rate 60 56 L Respiratory Rate 17 Blood Pressure 149/65 H Pulse Oximetry 91 96 05/25/22 12:30 05/25/22 12:30 05/25/22 13:00 Pulse Rate 53 L 53 L Respiratory Rate 21 Blood Pressure 147/62 H Pulse Oximetry 96 95 05/25/22 13:29 05/25/22 13:29 05/25/22 13:30 Pulse Rate 52 L 52 L Respiratory Rate 25 H 36 H Blood Pressure 162/69 H Pulse Oximetry 95 96 05/25/22 14:00 05/25/22 14:30 05/25/22 15:00 Pulse Rate 53 L 73 58 L Respiratory Rate 29 H 25 H 17 Blood Pressure Pulse Oximetry 94 95 96 05/25/22 15:30 05/25/22 15:36 05/25/22 15:36 Pulse Rate 54 L 54 L Respiratory Rate 25 H 15 Blood Pressure 148/67 H Pulse Oximetry 94 96 05/25/22 16:00 05/25/22 16:30 05/25/22 16:39 Pulse Rate 54 L 56 L 57 L Respiratory Rate 19 16 24 Blood Pressure Pulse Oximetry 91 94 95 05/25/22 16:39 Pulse Rate Respiratory Rate Blood Pressure 151/98 H Pulse Oximetry MDM - Recheck/Abnormal Lab/Rx <Cuco Whatley PA-C - Last Filed: 05/25/22 20:10> Lab Data 05/25/22 12:48 05/25/22 15:45 Labs: Lab Results 05/25/22 05/25/22 05/25/22 Range/Units 12:48 12:48 12:48 WBC 4.9 (4.5-11.0) X10^3/uL RBC 3.32 L (4.0-5.2) X10^6/uL Hgb 11.7 L (12.0-16.0) g/dL Hct 33.2 L (36-46) % MCV 100.0 (80-100) fL MCH 35.1 H (26-34) PG MCHC 35.2 (30-36) % RDW 13.3 (11.6-14.8) % Plt Count 165 (150-400) X10^3/uL Neut % (Auto) 66.3 (50-75) % Lymph % (Auto) 17.6 L (25-40) % [place] % (Auto) 10.7 (3-14) % Eos % (Auto) 4.5 H (2-4) % Baso % (Auto) 0.9 (0-2) % Neut # (Auto) 3300 (7746-4793) /uL Lymph # (Auto) 900 L (9774-6179) /uL [place] # (Auto) 500 (0-900) /uL Eos # (Auto) 200 (0-450) /uL Baso # (Auto) 0 (0-100) /uL PT (10.1-12.7) SECONDS INR (0.9-1.3) APTT (26-36) SECONDS Sodium 126 L (137-145) mmol/L Potassium 3.3 L (3.4-5.1) mmol/L Chloride 83 L (98-107) mmol/L Carbon Dioxide 35 H (22-32) mmol/L BUN 82 H (7-17) mg/dL Creatinine 1.80 H (0.52-1.04) mg/dL Estimated GFR 27 L (>60) mL/min BUN/Creatinine Ratio 45.6 H (6-22) Glucose 103 (80-110) mg/dL Lactate 1.0 (0.7-2.1) mmol/L Calcium 8.3 L (8.4-10.2) mg/dL Phosphorus (2.8-4.1) mg/dL Magnesium (1.6-2.3) mg/dL Total Bilirubin 0.4 (0.2-1.3) mg/dL AST 34 (14-36) IU/L ALT 17 (<35) IU/L Alkaline Phosphatase 70 (38-126) U/L Total Creatine Kinase < 20 L (30-135) U/L CK-MB (CK-2) TNP CK-MB (CK-2) Rel Index TNP Troponin I 0.019 (0.01-0.034) ng/mL NT-Pro-B Natriuret Pep 2190 H (<450) pg/mL Total Protein 6.0 L (6.3-8.2) g/dL Albumin 3.0 L (3.5-5.0) g/dL Globulin 3.0 (1.7-4.1) g/dL Albumin/Globulin Ratio 1.0 (1.0-2.8) Lipase 144 (23-300) U/L Urine Color Urine Appearance Urine pH (4.5-8.0) Ur Specific [place] (1.000-1.035) Urine Protein (Negative) Urine Glucose (UA) (Negative) g/dL Urine Ketones (NEGATIVE) Urine Occult Blood (Negative) Urine Nitrate (Negative) Urine Bilirubin (NEGATIVE) Urine Urobilinogen (0.2) E.U./dL Ur Leukocyte Esterase (NEGATIVE) Urine RBC (0-5/HPF) Urine WBC (0-5/HPF) Urine Bacteria (None) Ur Culture Indicated? SARS-CoV-2 (PCR) (Negative) Influenza A (RT-PCR) (NEGATIVE) Influenza B (RT-PCR) (NEGATIVE) RSV (PCR) (Negative) 05/25/22 05/25/22 05/25/22 Range/Units 12:48 12:48 13:30 WBC (4.5-11.0) X10^3/uL RBC (4.0-5.2) X10^6/uL Hgb (12.0-16.0) g/dL Hct (36-46) % MCV (80-100) fL MCH (26-34) PG MCHC (30-36) % RDW (11.6-14.8) % Plt Count (150-400) X10^3/uL Neut % (Auto) (50-75) % Lymph % (Auto) (25-40) % [place] % (Auto) (3-14) % Eos % (Auto) (2-4) % Baso % (Auto) (0-2) % Neut # (Auto) (8000-9125) /uL Lymph # (Auto) (0403-4727) /uL [place] # (Auto) (0-900) /uL Eos # (Auto) (0-450) /uL Baso # (Auto) (0-100) /uL PT 12.3 (10.1-12.7) SECONDS INR 1.1 (0.9-1.3) APTT 27 (26-36) SECONDS Sodium (137-145) mmol/L Potassium (3.4-5.1) mmol/L Chloride (98-107) mmol/L Carbon Dioxide (22-32) mmol/L BUN (7-17) mg/dL Creatinine (0.52-1.04) mg/dL Estimated GFR (>60) mL/min BUN/Creatinine Ratio (6-22) Glucose (80-110) mg/dL Lactate (0.7-2.1) mmol/L Calcium (8.4-10.2) mg/dL Phosphorus 3.6 (2.8-4.1) mg/dL Magnesium 2.3 (1.6-2.3) mg/dL Total Bilirubin (0.2-1.3) mg/dL AST (14-36) IU/L ALT (<35) IU/L Alkaline Phosphatase (38-126) U/L Total Creatine Kinase (30-135) U/L CK-MB (CK-2) CK-MB (CK-2) Rel Index Troponin I (0.01-0.034) ng/mL NT-Pro-B Natriuret Pep (<450) pg/mL Total Protein (6.3-8.2) g/dL Albumin (3.5-5.0) g/dL Globulin (1.7-4.1) g/dL Albumin/Globulin Ratio (1.0-2.8) Lipase (23-300) U/L Urine Color Urine Appearance Urine pH (4.5-8.0) Ur Specific [place] (1.000-1.035) Urine Protein (Negative) Urine Glucose (UA) (Negative) g/dL Urine Ketones (NEGATIVE) Urine Occult Blood (Negative) Urine Nitrate (Negative) Urine Bilirubin (NEGATIVE) Urine Urobilinogen (0.2) E.U./dL Ur Leukocyte Esterase (NEGATIVE) Urine RBC (0-5/HPF) Urine WBC (0-5/HPF) Urine Bacteria (None) Ur Culture Indicated? SARS-CoV-2 (PCR) Negative (Negative) Influenza A (RT-PCR) Flu a negative (NEGATIVE) Influenza B (RT-PCR) Flu b negative (NEGATIVE) RSV (PCR) Negative (Negative) 05/25/22 05/25/22 Range/Units 14:51 15:45 WBC (4.5-11.0) X10^3/uL RBC (4.0-5.2) X10^6/uL Hgb (12.0-16.0) g/dL Hct (36-46) % MCV (80-100) fL MCH (26-34) PG MCHC (30-36) % RDW (11.6-14.8) % Plt Count (150-400) X10^3/uL Neut % (Auto) (50-75) % Lymph % (Auto) (25-40) % [place] % (Auto) (3-14) % Eos % (Auto) (2-4) % Baso % (Auto) (0-2) % Neut # (Auto) (7586-2223) /uL Lymph # (Auto) (0256-7586) /uL [place] # (Auto) (0-900) /uL Eos # (Auto) (0-450) /uL Baso # (Auto) (0-100) /uL PT (10.1-12.7) SECONDS INR (0.9-1.3) APTT (26-36) SECONDS Sodium 125 L (137-145) mmol/L Potassium 3.2 L (3.4-5.1) mmol/L Chloride 84 L (98-107) mmol/L Carbon Dioxide 35 H (22-32) mmol/L BUN 83 H (7-17) mg/dL Creatinine 1.62 H (0.52-1.04) mg/dL Estimated GFR 31 L (>60) mL/min BUN/Creatinine Ratio 51.2 H (6-22) Glucose 94 (80-110) mg/dL Lactate (0.7-2.1) mmol/L Calcium 8.3 L (8.4-10.2) mg/dL Phosphorus (2.8-4.1) mg/dL Magnesium (1.6-2.3) mg/dL Total Bilirubin 0.4 (0.2-1.3) mg/dL AST 33 (14-36) IU/L ALT 16 (<35) IU/L Alkaline Phosphatase 69 (38-126) U/L Total Creatine Kinase (30-135) U/L CK-MB (CK-2) CK-MB (CK-2) Rel Index Troponin I (0.01-0.034) ng/mL NT-Pro-B Natriuret Pep (<450) pg/mL Total Protein 5.8 L (6.3-8.2) g/dL Albumin 2.8 L (3.5-5.0) g/dL Globulin 3.0 (1.7-4.1) g/dL Albumin/Globulin Ratio 0.9 L (1.0-2.8) Lipase (23-300) U/L Urine Color Yellow Urine Appearance Clear Urine pH 6.0 (4.5-8.0) Ur Specific [place] 1.010 (1.000-1.035) Urine Protein Negative (Negative) Urine Glucose (UA) Negative (Negative) g/dL Urine Ketones Negative (NEGATIVE) Urine Occult Blood 1+ H (Negative) Urine Nitrate Negative (Negative) Urine Bilirubin Negative (NEGATIVE) Urine Urobilinogen 0.2 (0.2) E.U./dL Ur Leukocyte Esterase Negative (NEGATIVE) Urine RBC 1-5/hpf (0-5/HPF) Urine WBC None seen (0-5/HPF) Urine Bacteria None seen (None) Ur Culture Indicated? Cult not indicated SARS-CoV-2 (PCR) (Negative) Influenza A (RT-PCR) (NEGATIVE) Influenza B (RT-PCR) (NEGATIVE) RSV (PCR) (Negative) Urine Dip Bedside Urine Glucose Negative Bedside Urine Bilirubin - Negative Bedside Urine Ketone - Negative Urine Specific [place] 1.015 Bedside Urine Occult Blood + Bedside Urine pH 7.0 Bedside Urine Protein - Negative Bedside Urine Urobilinogen - Negative Bedside Urine Nitrite - Negative Bedside Urine Leukocytes - Negative Esterase MDM Narrative Medical decision making narrative: 86-year-old female who is a former smoker, with history of hypertension, CHF brought in by her daughter for a low sodium of 120. Concern for ACS versus CHF exacerbation versus hyponatremia versus electrolyte derangement versus dehydration versus UTI versus viral syndrome versus pneumonia versus other. Obtained chest x-ray, EKG, labs, troponin, BNP, UA, magnesium, phosphorus. Sodium was 126. ANA MARIA with creatinine at 1.8. Remaining labs within normal limits within normal limits. EKG with sinus bradycardia with first-degree AV block with PACs, no acute ST-T changes. NT proBNP at 9:19 p.m.. Patient's ANA MARIA likely due to the CHF exacerbation. Will give a dose of Lasix, reassess. Patient continued to be stable through the ED stay. Patient was given a dose of Lasix. Repeat sodium remained about the same at 1:25 a.m.. Encouraged patient to eat more and perhaps slightly salt her foods over the next several days. 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 Patient has tended to run bradycardic since starting metoprolol. ED return precautions were discussed with patient and patient's mother. They verbalized understanding. Medical records reviewed: yes <Lev Perez DO - Last Filed: 05/28/22 07:00> Lab Data Labs: Lab Results 05/25/22 05/25/22 05/25/22 Range/Units 12:48 12:48 12:48 WBC 4.9 (4.5-11.0) X10^3/uL RBC 3.32 L (4.0-5.2) X10^6/uL Hgb 11.7 L (12.0-16.0) g/dL Hct 33.2 L (36-46) % MCV 100.0 (80-100) fL MCH 35.1 H (26-34) PG MCHC 35.2 (30-36) % RDW 13.3 (11.6-14.8) % Plt Count 165 (150-400) X10^3/uL Neut % (Auto) 66.3 (50-75) % Lymph % (Auto) 17.6 L (25-40) % [place] % (Auto) 10.7 (3-14) % Eos % (Auto) 4.5 H (2-4) % Baso % (Auto) 0.9 (0-2) % Neut # (Auto) 3300 (0675-0546) /uL Lymph # (Auto) 900 L (4887-9227) /uL [place] # (Auto) 500 (0-900) /uL Eos # (Auto) 200 (0-450) /uL Baso # (Auto) 0 (0-100) /uL PT (10.1-12.7) SECONDS INR (0.9-1.3) APTT (26-36) SECONDS Sodium 126 L (137-145) mmol/L Potassium 3.3 L (3.4-5.1) mmol/L Chloride 83 L (98-107) mmol/L Carbon Dioxide 35 H (22-32) mmol/L BUN 82 H (7-17) mg/dL Creatinine 1.80 H (0.52-1.04) mg/dL Estimated GFR 27 L (>60) mL/min BUN/Creatinine Ratio 45.6 H (6-22) Glucose 103 (80-110) mg/dL Lactate 1.0 (0.7-2.1) mmol/L Calcium 8.3 L (8.4-10.2) mg/dL Phosphorus (2.8-4.1) mg/dL Magnesium (1.6-2.3) mg/dL Total Bilirubin 0.4 (0.2-1.3) mg/dL AST 34 (14-36) IU/L ALT 17 (<35) IU/L Alkaline Phosphatase 70 (38-126) U/L Total Creatine Kinase < 20 L (30-135) U/L CK-MB (CK-2) TNP CK-MB (CK-2) Rel Index TNP Troponin I 0.019 (0.01-0.034) ng/mL NT-Pro-B Natriuret Pep 2190 H (<450) pg/mL Total Protein 6.0 L (6.3-8.2) g/dL Albumin 3.0 L (3.5-5.0) g/dL Globulin 3.0 (1.7-4.1) g/dL Albumin/Globulin Ratio 1.0 (1.0-2.8) Lipase 144 (23-300) U/L Urine Color Urine Appearance Urine pH (4.5-8.0) Ur Specific [place] (1.000-1.035) Urine Protein (Negative) Urine Glucose (UA) (Negative) g/dL Urine Ketones (NEGATIVE) Urine Occult Blood (Negative) Urine Nitrate (Negative) Urine Bilirubin (NEGATIVE) Urine Urobilinogen (0.2) E.U./dL Ur Leukocyte Esterase (NEGATIVE) Urine RBC (0-5/HPF) Urine WBC (0-5/HPF) Urine Bacteria (None) Ur Culture Indicated? SARS-CoV-2 (PCR) (Negative) Influenza A (RT-PCR) (NEGATIVE) Influenza B (RT-PCR) (NEGATIVE) RSV (PCR) (Negative) 05/25/22 05/25/22 05/25/22 Range/Units 12:48 12:48 13:30 WBC (4.5-11.0) X10^3/uL RBC (4.0-5.2) X10^6/uL Hgb (12.0-16.0) g/dL Hct (36-46) % MCV (80-100) fL MCH (26-34) PG MCHC (30-36) % RDW (11.6-14.8) % Plt Count (150-400) X10^3/uL Neut % (Auto) (50-75) % Lymph % (Auto) (25-40) % [place] % (Auto) (3-14) % Eos % (Auto) (2-4) % Baso % (Auto) (0-2) % Neut # (Auto) (1204-8745) /uL Lymph # (Auto) (7471-1565) /uL [place] # (Auto) (0-900) /uL Eos # (Auto) (0-450) /uL Baso # (Auto) (0-100) /uL PT 12.3 (10.1-12.7) SECONDS INR 1.1 (0.9-1.3) APTT 27 (26-36) SECONDS Sodium (137-145) mmol/L Potassium (3.4-5.1) mmol/L Chloride (98-107) mmol/L Carbon Dioxide (22-32) mmol/L BUN (7-17) mg/dL Creatinine (0.52-1.04) mg/dL Estimated GFR (>60) mL/min BUN/Creatinine Ratio (6-22) Glucose (80-110) mg/dL Lactate (0.7-2.1) mmol/L Calcium (8.4-10.2) mg/dL Phosphorus 3.6 (2.8-4.1) mg/dL Magnesium 2.3 (1.6-2.3) mg/dL Total Bilirubin (0.2-1.3) mg/dL AST (14-36) IU/L ALT (<35) IU/L Alkaline Phosphatase (38-126) U/L Total Creatine Kinase (30-135) U/L CK-MB (CK-2) CK-MB (CK-2) Rel Index Troponin I (0.01-0.034) ng/mL NT-Pro-B Natriuret Pep (<450) pg/mL Total Protein (6.3-8.2) g/dL Albumin (3.5-5.0) g/dL Globulin (1.7-4.1) g/dL Albumin/Globulin Ratio (1.0-2.8) Lipase (23-300) U/L Urine Color Urine Appearance Urine pH (4.5-8.0) Ur Specific [place] (1.000-1.035) Urine Protein (Negative) Urine Glucose (UA) (Negative) g/dL Urine Ketones (NEGATIVE) Urine Occult Blood (Negative) Urine Nitrate (Negative) Urine Bilirubin (NEGATIVE) Urine Urobilinogen (0.2) E.U./dL Ur Leukocyte Esterase (NEGATIVE) Urine RBC (0-5/HPF) Urine WBC (0-5/HPF) Urine Bacteria (None) Ur Culture Indicated? SARS-CoV-2 (PCR) Negative (Negative) Influenza A (RT-PCR) Flu a negative (NEGATIVE) Influenza B (RT-PCR) Flu b negative (NEGATIVE) RSV (PCR) Negative (Negative) 05/25/22 05/25/22 Range/Units 14:51 15:45 WBC (4.5-11.0) X10^3/uL RBC (4.0-5.2) X10^6/uL Hgb (12.0-16.0) g/dL Hct (36-46) % MCV (80-100) fL MCH (26-34) PG MCHC (30-36) % RDW (11.6-14.8) % Plt Count (150-400) X10^3/uL Neut % (Auto) (50-75) % Lymph % (Auto) (25-40) % [place] % (Auto) (3-14) % Eos % (Auto) (2-4) % Baso % (Auto) (0-2) % Neut # (Auto) (0314-9397) /uL Lymph # (Auto) (5714-7070) /uL [place] # (Auto) (0-900) /uL Eos # (Auto) (0-450) /uL Baso # (Auto) (0-100) /uL PT (10.1-12.7) SECONDS INR (0.9-1.3) APTT (26-36) SECONDS Sodium 125 L (137-145) mmol/L Potassium 3.2 L (3.4-5.1) mmol/L Chloride 84 L (98-107) mmol/L Carbon Dioxide 35 H (22-32) mmol/L BUN 83 H (7-17) mg/dL Creatinine 1.62 H (0.52-1.04) mg/dL Estimated GFR 31 L (>60) mL/min BUN/Creatinine Ratio 51.2 H (6-22) Glucose 94 (80-110) mg/dL Lactate (0.7-2.1) mmol/L Calcium 8.3 L (8.4-10.2) mg/dL Phosphorus (2.8-4.1) mg/dL Magnesium (1.6-2.3) mg/dL Total Bilirubin 0.4 (0.2-1.3) mg/dL AST 33 (14-36) IU/L ALT 16 (<35) IU/L Alkaline Phosphatase 69 (38-126) U/L Total Creatine Kinase (30-135) U/L CK-MB (CK-2) CK-MB (CK-2) Rel Index Troponin I (0.01-0.034) ng/mL NT-Pro-B Natriuret Pep (<450) pg/mL Total Protein 5.8 L (6.3-8.2) g/dL Albumin 2.8 L (3.5-5.0) g/dL Globulin 3.0 (1.7-4.1) g/dL Albumin/Globulin Ratio 0.9 L (1.0-2.8) Lipase (23-300) U/L Urine Color Yellow Urine Appearance Clear Urine pH 6.0 (4.5-8.0) Ur Specific [place] 1.010 (1.000-1.035) Urine Protein Negative (Negative) Urine Glucose (UA) Negative (Negative) g/dL Urine Ketones Negative (NEGATIVE) Urine Occult Blood 1+ H (Negative) Urine Nitrate Negative (Negative) Urine Bilirubin Negative (NEGATIVE) Urine Urobilinogen 0.2 (0.2) E.U./dL Ur Leukocyte Esterase Negative (NEGATIVE) Urine RBC 1-5/hpf (0-5/HPF) Urine WBC None seen (0-5/HPF) Urine Bacteria None seen (None) Ur Culture Indicated? Cult not indicated SARS-CoV-2 (PCR) (Negative) Influenza A (RT-PCR) (NEGATIVE) Influenza B (RT-PCR) (NEGATIVE) RSV (PCR) (Negative) Urine Dip Bedside Urine Glucose Negative Bedside Urine Bilirubin - Negative Bedside Urine Ketone - Negative Urine Specific [place] 1.015 Bedside Urine Occult Blood + Bedside Urine pH 7.0 Bedside Urine Protein - Negative Bedside Urine Urobilinogen - Negative Bedside Urine Nitrite - Negative Bedside Urine Leukocytes - Negative Esterase Discharge Plan Departure Patient Disposition: Home Clinical Impression: Hyponatremia Instructions: DI for Hyponatremia Activity Restrictions/Additional Instructions: You were evaluated in the ED today for a low sodium level of 120. Your labs were redrawn in the ED, your sodium was 126, which is on the lower side of normal, however you are not having any symptoms from it. Your sodium level is likely low due to low oral intake. Please consume more foods with a higher salt intake over the next few days. Please follow-up with your PCP as soon as possible. Please also follow-up with the security operations manager for further evaluation and treatment of the CHF. Return to the ED if you experience any chest pain or shortness of breath or mental changes. Prescriptions: No Action escitalopram oxalate 20 mg tablet 20 mg PO DAILY metolazone 2.5 mg Tablet 2.5 mg PO 1230 30 Days Qty: 30 0RF acetaminophen 325 mg Tablet 650 mg PO Q6H PRN (Reason: Fever/Mild Pain (1-3)) Qty: 30 0RF docusate sodium 100 mg Capsule 200 mg PO DAILY 30 Days Qty: 30 0RF metoprolol succinate 25 mg Tablet Extended Release 24 Hr 25 mg PO DAILY 30 Days Qty: 30 0RF Slow-Mag 71.5 mg Tablet,Delayed Release (Dr/Ec) 128 mg PO BID 30 Days Qty: 108 0RF furosemide 80 mg tablet 80 mg PO BID 30 Days Qty: 60 0RF oxycodone 15 mg tablet,oral only,ext.rel.12 hr 15 mg PO BID 30 Days Qty: 60 0RF zolpidem 10 mg tablet 10 mg PO BEDTIME 30 Days Qty: 30 aspirin [Adult Aspirin Regimen] 81 mg tablet,delayed release (DR/EC) 81 mg PO DAILY Referrals: Shahana Jennings PA-C [Primary Care Provider] - Stand Alone Forms: Patient Portal/API <Lev Perez DO - Last Filed: 05/28/22 07:00> Cosign ED Attending Cosignature Attestation: Dr Perez Co-Sign Statement: I was available for consultation during this patient's emergency department visit. This chart is signed by myself for administrative purposes only. I did not have direct contact with this patient during this visit. They were seen independently by the APC.
== END 2022-05-25 16:50 | disposition home or self-care (01) ==
PROVIDERS: Emergency Medicine; Emergency Provider Student in an Organized Health Care Education/Training Program; Family Provider Physician Assistant; PCP Physician Assistant
DX: E87.1 Hypo-osmolality and hyponatremia (principal); Z20.822 Contact with and (suspected) exposure to COVID-19
CPT/HCPCS: 0241U; 36415; 71046; 80053; 81001; 81003; 82550; 83605; 83690; 83735; 83880; 84100; 84484; 85025; 85610; 85730; 93005; 96365; 99284; J1940

== ENCOUNTER 2022-06-23 10:52 | Inpatient (IN) | payer MEDICARE, OTHER, SELFPAY ==
[2022-05-04 02:45] VITALS: BMI 26.1
[2022-06-23] VITALS (14 sets, daily range): BP systolic 128–197; BP diastolic 65–100; PULSE 68–78; RESP 12–29; TEMP 36.2–36.6; O2SAT 94–100; BMI 23.8
--- NOTE | 2022-06-23 11:04 | DI.RAD.S_ITS ---
PROCEDURE: XR CHEST 1V INDICATIONS: altered mental status TECHNIQUE: One view of the chest was acquired. COMPARISON: [facility], CR, XR CHEST 2V, 05/25/2022, 12:46. FINDINGS: Surgical changes and devices: Right shoulder arthroplasty. Cholecystectomy clips. Lungs and pleura: Trace bilateral costophrenic angle blunting. Mediastinum: Mediastinal contours demonstrate retrocardiac opacity suspicious for hiatal hernia. Heart size is normal. Bones and chest wall: No suspicious bony lesions. Overlying soft tissues appear unremarkable. IMPRESSION: Trace costophrenic angle blunting suspicious for trace effusions versus scarring. Dictated by: Arpita Kaiser M.D. on 06/23/2022 at 11:57 Approved by: Arpita Kaiser M.D. on 06/23/2022 at 11:58
[2022-06-23 11:22] LABS: Add Manual Diff / Slide Review NO; Basophils Absolute Auto 0 /uL (0-100); Basophils Percent Auto 0.5 % (0-2); Eosinophils Absolute Auto 100 /uL (0-450); Eosinophils Percent Auto 1.4 % (2-4); Hematocrit 31.7 % (36-46); Lymphocytes Absolute Auto 1700 /uL (1100-4500); Lymphocytes Percent Auto 21.1 % (25-40); Mean Corpuscular HGB Conc 34.6 % (30-36); Mean Corpuscular Hemoglobin 32.4 PG (26-34); Mean Corpuscular Volume 93.8 fL (80-100); Monocytes Absolute Auto 800 /uL (0-900); Monocytes Percent Auto 10.2 % (3-14); Neutrophils Absolute Auto 5400 /uL (1500-7000); Neutrophils Percent Auto 66.8 % (50-75); Platelet Count 252 X10^3/uL (150-400); Red Blood Cell Count 3.38 X10^6/uL (4.0-5.2); Red Cell Distribution Width 13.9 % (11.6-14.8); White Blood Cell Count 8.2 X10^3/uL (4.5-11.0)
--- NOTE | 2022-06-23 11:22 | ED_ITS ---
HPI - Neuro Symptoms/Deficit General Chief Complaint: Neuro Symptoms/Deficit Stated Complaint: increased confusion over 2 weeks Time Seen by Provider: 06/23/22 11:09 Source: patient and EMS History of Present Illness HPI Narrative: The patient is a resident of [facility]. She is transferred by EMS due to a complaint of increased confusion. She is calm, verbal responses upon arrival. She is confused in some of her answers. However, she understands where she is at. She discussed her daughter and son, her daughter apparently left the country on a trip yesterday. She anticipates her son coming to see her. She has no complaints of headache or visual changes. She has no back pain, no cough or dyspnea. She denies chest pain then in an extends indicates left upper, lateral chest pain. Her main complaint is abdominal pain. She is no nausea vomiting. She is no back pain. She denies dysuria or hematuria. She was admitted here about 4 months ago with CHF, hyponatremia was noted at that time. She takes Lasix for the CHF. She currently has no complaints of chest discomfort or dyspnea. She is no orthopnea. Apparently there was a mix up with the directions to her caregivers, she was receiving a double dose of Lasix until this mistake was uncovered last night. She may missed a morning dose only of Lasix. She is no weakness or dizziness. She still has urine output. There is no suggestion of syncope/near-syncope. Confusion was noted with her recent admission, and also when she was in a care facility following the admission. She would recently improved. On Anticoagulants: No Related Data Home Medications Medication Instructions Recorded Confirmed aspirin 81 mg tablet,delayed 81 mg PO DAILY 01/12/18 05/04/22 release (Adult Aspirin Regimen) zolpidem 10 mg tablet 10 mg PO BEDTIME 30 days #30 tabs 02/23/18 05/04/22 escitalopram oxalate 20 mg tablet 20 mg PO DAILY 05/04/22 05/04/22 Previous Rx's Medication Instructions Recorded acetaminophen 325 mg tablet 650 mg PO Q6H PRN Fever/Mild Pain 05/14/22 (1-3) #30 tabs oxycodone 15 mg tablet,crush 15 mg PO BID pain 30 days #60 tabs 05/14/22 resistant,extended release 12 hr Allergies Allergy/AdvReac Type Severity Reaction Status Date / Time No Known Drug Allergies Allergy Verified 06/23/22 11:07 Review of Systems Review of Systems Narrative: ROS is limited due to confusion. Constitutional Constitutional: Denies anorexia, Denies body ache(s) and Denies fever(s) Eyes Eyes: Denies blurry vision ENT Ears, Nose, Mouth, and Throat: Denies dizziness and Denies sore throat Cardiovascular Cardiovascular: Denies chest pain, Denies pedal edema and Denies dyspnea Respiratory Respiratory: Denies cough and Denies dyspnea Gastrointestinal Gastrointestinal: Denies abdominal pain, Denies change in stool character and Reports vomiting Musculoskeletal Musculoskeletal: Denies arthralgias and Denies stiffness Integumentary/Breasts Skin/Breast: Denies rash Neurologic Neurologic: Reports confusion and Denies dizziness Psychiatric Psychiatric: Reports confusion Hematologic/Lymphatic On Anticoagulants: No Patient History Surgical History History of shoulder replacement Social History household members: none Smoking Status: Former smoker alcohol intake: former Smoking Status: Former smoker tobacco type: cigarettes alcohol intake frequency: holidays/special occasions only Substance Use Type: does not use Exam Initial Vital Signs Initial Vital Signs: Vital Signs Temperature 97.9 F 06/23/22 11:04 Pulse Rate 68 06/23/22 11:04 Respiratory Rate 19 06/23/22 11:04 Blood Pressure 197/81 H 06/23/22 11:04 Pulse Oximetry 97 06/23/22 11:04 Oxygen Delivery Method Room Air 06/23/22 11:04 Const General: cooperative, comfortable, well developed, well groomed and No acute distress Orientation: Orientation (Person and place) [facility] Head: normal to inspection, normocephalic and atraumatic Ears: hearing grossly normal bilaterally Face and sinus: normal facial exam Mouth: oral mucosae normal Throat: posterior oropharynx normal Eyes General: Yes appearance normal, both eyes and all related structures Pupils: PERRL EOM: EOM intact bilaterally Neck Neck: normal visual inspection and No JVD Chest Chest: normal inspection of the chest Resp Effort & Inspection: no respiratory distress Auscultation: clear to auscultation bilaterally Cardio Rate: regular rate Rhythm: regular rhythm Heart Sounds: S1 normal, S2 normal, normal, physiologic split S2 and no murmurs GI Inspection: normal to inspection Palpation: soft, No guarding, No mass and tender (mild LUQ) Percussion: normal to percussion Auscultation: normal bowel sounds Back/Spine/Pelvis Back: normal to inspection and No CVA tenderness Skin General: no rashes or lesions noted Neuro General: patient alert and no focal motor deficits Speech: speech normal Motor: muscle tone normal throughout Psych Appearance: well kempt Speech and Movement: speech and movement normal Course Course Course Narrative: Patient has encephalopathy, probably related to severe hyponatremia. She has a prior history of hyponatremia, but is on Lasix for CHF. She appears to be in accidentally overdose with the Lasix. Along with hyponatremia, she has acute on chronic renal failure with her creatinine increasing from 1.6 to 2.47. She is given a L of IV fluids. Clark is in, she is making urine. Her creatinine imp roved to 2.29. She remains confused, but improved. Head CT is benign. Her sodium level remains at 116. The case is discussed with the hospitalist, Dr. Rahman. The patient will be admitted for ongoing treatment of hyponatremia, renal failure, and encephalopathy. Orders Ordered: ED Orders 06/23/22 11:04 XR chest 1V Stat Complete Blood Count AUTO DIFF Stat Comprehensive Metabolic Panel Stat EKG-12 Lead Stat 06/23/22 11:23 Ammonia (NH3) Stat 06/23/22 11:40 CT head/brain wo con Stat 06/23/22 12:05 Respiratory Panel (Film Array) Stat 06/23/22 12:14 Urinalysis and Microscopic Stat Urine Drug Screen, Rapid Stat 06/23/22 14:05 Basic Metabolic Panel Stat Magnesium Stat Sodium Chloride (Normal Saline 0.9%) 1,000 mls @ 150 mls/hr IV CONT ARCELIA Last Infusion: 06/23/22 13:55 Dose: 0 mls/hr Documented By: Infusion: 06/23/22 12:54 Dose: 999 mls/hr Documented By: Admin: 06/23/22 12:37 Dose: 150 mls/hr Documented By: YRN Sodium Chloride (Normal Saline 0.9%) 1,000 mls @ 200 mls/hr IV BOLUS ONE Stop: 06/23/22 18:50 Last Infusion: 06/23/22 14:18 Dose: 200 mls/hr Documented By: Admin: 06/23/22 13:57 Dose: 200 mls/hr Documented By: JT Magnesium Sulfate (Magnesium Sulfate) 2 gm in 50 mls @ 25 mls/hr IV NOW ONE Stop: 06/23/22 17:02 Discontinued Medications Al Hydrox/Mg Hydrox/Simethicone (Mag Hydrox/Alum/Simeth 30 Ml Udc) 30 ml PO NOW ONE Stop: 06/23/22 14:19 Last Admin: 06/23/22 14:30 Dose: 30 ml Documented By: JOSSELYN Sodium Chloride (Normal Saline 0.9%) 1,000 mls @ 1,000 mls/hr IV BOLUS ONE Stop: 06/23/22 13:49 Last Admin: 06/23/22 12:54 Dose: Not Given Documented By: JT Vital Signs Vital signs: Vital Signs - 8 hr 06/23/22 11:04 06/23/22 12:30 06/23/22 12:00 Temperature 97.9 F Pulse Rate 68 77 75 Respiratory Rate 19 22 18 Blood Pressure 197/81 H 185/79 H 186/78 H Pulse Oximetry 97 94 95 Oxygen Delivery Method Room Air Room Air Room Air 06/23/22 14:00 06/23/22 13:30 06/23/22 13:00 Temperature Pulse Rate 78 75 71 Respiratory Rate 16 14 17 Blood Pressure 170/82 H 176/100 H 183/89 H Pulse Oximetry 100 96 98 Oxygen Delivery Method MDM - Neuro Symptoms/Deficit Lab Data 06/23/22 11:04 06/23/22 14:05 Labs: Lab Results 06/23/22 06/23/22 06/23/22 Range/Units 11:04 11:04 11:23 WBC 8.2 (4.5-11.0) X10^3/uL RBC 3.38 L (4.0-5.2) X10^6/uL Hgb 11.0 L (12.0-16.0) g/dL Hct 31.7 L (36-46) % MCV 93.8 (80-100) fL MCH 32.4 (26-34) PG MCHC 34.6 (30-36) % RDW 13.9 (11.6-14.8) % Plt Count 252 (150-400) X10^3/uL Neut % (Auto) 66.8 (50-75) % Lymph % (Auto) 21.1 L (25-40) % [place] % (Auto) 10.2 (3-14) % Eos % (Auto) 1.4 L (2-4) % Baso % (Auto) 0.5 (0-2) % Neut # (Auto) 5400 (9839-8324) /uL Lymph # (Auto) 1700 (8080-8427) /uL [place] # (Auto) 800 (0-900) /uL Eos # (Auto) 100 (0-450) /uL Baso # (Auto) 0 (0-100) /uL Sodium 116 L* (137-145) mmol/L Potassium 4.4 (3.4-5.1) mmol/L Chloride 76 L* (98-107) mmol/L Carbon Dioxide 28 (22-32) mmol/L BUN 66 H (7-17) mg/dL Creatinine 2.47 H (0.52-1.04) mg/dL Estimated GFR 19 L (>60) mL/min BUN/Creatinine Ratio 26.7 H (6-22) Glucose 89 (80-110) mg/dL Calcium 9.3 (8.4-10.2) mg/dL Magnesium (1.6-2.3) mg/dL Total Bilirubin 0.5 (0.2-1.3) mg/dL AST 29 (14-36) IU/L ALT 13 (<35) IU/L Alkaline Phosphatase 82 (38-126) U/L Ammonia < 9 L (9-30) umol/L Total Protein 6.4 (6.3-8.2) g/dL Albumin 3.5 (3.5-5.0) g/dL Globulin 2.9 (1.7-4.1) g/dL Albumin/Globulin Ratio 1.2 (1.0-2.8) Urine Color Urine Appearance Urine pH (4.5-8.0) Ur Specific [place] (1.000-1.035) Urine Protein (Negative) Urine Glucose (UA) (Negative) g/dL Urine Ketones (NEGATIVE) Urine Occult Blood (Negative) Urine Nitrate (Negative) Urine Bilirubin (NEGATIVE) Urine Urobilinogen (0.2) E.U./dL Ur Leukocyte Esterase (NEGATIVE) Urine RBC (0-5/HPF) Urine WBC (0-5/HPF) Ur Squamous Epith Cells (0-5/HPF) Urine Bacteria (None) Ur Culture Indicated? U Opiates 300ng/mL cut (Negative) Ur Oxycodone Screen (Negative) Urine Methadone Screen (Negative) Ur Barbiturates Screen (Negative) U Tricyclic Antidepress (Negative) Ur Phencyclidine Scrn (Negative) Ur Amphetamines Screen (Negative) U Methamphetamines Scrn (Negative) Ur MDMA Scrn (Ecstasy) (Negative) U Benzodiazepines Scrn (Negative) Urine Cocaine Screen (Negative) U Marijuana (THC) Screen (Negative) Chlamy pneumoniae PCR (Not Detect) Adenovirus (PCR) (Not Detect) B. pertussis DNA (PCR) (Not Detecte) B.parapertussis DNA PCR (Not Detecte) Coronavirus OC43 (PCR) (Not Detect) Coronavirus HKU1 (PCR) (Not Detect) Coronavirus 229E (PCR) (Not Detect) SARS-CoV-2 (PCR) (Not Detecte) Coronavirus NL63 (PCR) (Not Detect) Human Metapneumovir PCR (Not Detect) Influenza Type A (PCR) (Not Detect) Influenza Type B (PCR) (Not Detect) M. pneumoniae (PCR) (Not Detect) Parainfluenza 1 (PCR) (Not Detect) Parainfluenza 2 (PCR) (Not Detect) Parainfluenza 3 (PCR) (Not Detect) Parainfluenza 4 (PCR) (Not Detect) RSV (PCR) (Not Detect) Entero/Rhino (PCR) (Not Detect) 06/23/22 06/23/22 06/23/22 Range/Units 12:05 12:14 12:14 WBC (4.5-11.0) X10^3/uL RBC (4.0-5.2) X10^6/uL Hgb (12.0-16.0) g/dL Hct (36-46) % MCV (80-100) fL MCH (26-34) PG MCHC (30-36) % RDW (11.6-14.8) % Plt Count (150-400) X10^3/uL Neut % (Auto) (50-75) % Lymph % (Auto) (25-40) % [place] % (Auto) (3-14) % Eos % (Auto) (2-4) % Baso % (Auto) (0-2) % Neut # (Auto) (1718-0100) /uL Lymph # (Auto) (3650-8924) /uL [place] # (Auto) (0-900) /uL Eos # (Auto) (0-450) /uL Baso # (Auto) (0-100) /uL Sodium (137-145) mmol/L Potassium (3.4-5.1) mmol/L Chloride (98-107) mmol/L Carbon Dioxide (22-32) mmol/L BUN (7-17) mg/dL Creatinine (0.52-1.04) mg/dL Estimated GFR (>60) mL/min BUN/Creatinine Ratio (6-22) Glucose (80-110) mg/dL Calcium (8.4-10.2) mg/dL Magnesium (1.6-2.3) mg/dL Total Bilirubin (0.2-1.3) mg/dL AST (14-36) IU/L ALT (<35) IU/L Alkaline Phosphatase (38-126) U/L Ammonia (9-30) umol/L Total Protein (6.3-8.2) g/dL Albumin (3.5-5.0) g/dL Globulin (1.7-4.1) g/dL Albumin/Globulin Ratio (1.0-2.8) Urine Color Yellow Urine Appearance Clear Urine pH 6.0 (4.5-8.0) Ur Specific [place] <=1.005 (1.000-1.035) Urine Protein Negative (Negative) Urine Glucose (UA) Negative (Negative) g/dL Urine Ketones Negative (NEGATIVE) Urine Occult Blood 2+ H (Negative) Urine Nitrate Negative (Negative) Urine Bilirubin Negative (NEGATIVE) Urine Urobilinogen 0.2 (0.2) E.U./dL Ur Leukocyte Esterase Negative (NEGATIVE) Urine RBC 1-5/hpf (0-5/HPF) Urine WBC 0-1/hpf (0-5/HPF) Ur Squamous Epith Cells None seen (0-5/HPF) Urine Bacteria Occasional (0-1) (None) Ur Culture Indicated? Cult not indicated U Opiates 300ng/mL cut Negative (Negative) Ur Oxycodone Screen Positive H (Negative) Urine Methadone Screen Negative (Negative) Ur Barbiturates Screen Negative (Negative) U Tricyclic Antidepress Negative (Negative) Ur Phencyclidine Scrn Negative (Negative) Ur Amphetamines Screen Negative (Negative) U Methamphetamines Scrn Negative (Negative) Ur MDMA Scrn (Ecstasy) Negative (Negative) U Benzodiazepines Scrn Positive H (Negative) Urine Cocaine Screen Negative (Negative) U Marijuana (THC) Screen Negative (Negative) Chlamy pneumoniae PCR Not detected (Not Detect) Adenovirus (PCR) Not detected (Not Detect) B. pertussis DNA (PCR) Not detected (Not Detecte) B.parapertussis DNA PCR Not detected (Not Detecte) Coronavirus OC43 (PCR) Not detected (Not Detect) Coronavirus HKU1 (PCR) Not detected (Not Detect) Coronavirus 229E (PCR) Not detected (Not Detect) SARS-CoV-2 (PCR) Not detected (Not Detecte) Coronavirus NL63 (PCR) Not detected (Not Detect) Human Metapneumovir PCR Not detected (Not Detect) Influenza Type A (PCR) Not detected (Not Detect) Influenza Type B (PCR) Not detected (Not Detect) M. pneumoniae (PCR) Not detected (Not Detect) Parainfluenza 1 (PCR) Not detected (Not Detect) Parainfluenza 2 (PCR) Not detected (Not Detect) Parainfluenza 3 (PCR) Not detected (Not Detect) Parainfluenza 4 (PCR) Not detected (Not Detect) RSV (PCR) Not detected (Not Detect) Entero/Rhino (PCR) Not detected (Not Detect) 06/23/22 Range/Units 14:05 WBC (4.5-11.0) X10^3/uL RBC (4.0-5.2) X10^6/uL Hgb (12.0-16.0) g/dL Hct (36-46) % MCV (80-100) fL MCH (26-34) PG MCHC (30-36) % RDW (11.6-14.8) % Plt Count (150-400) X10^3/uL Neut % (Auto) (50-75) % Lymph % (Auto) (25-40) % [place] % (Auto) (3-14) % Eos % (Auto) (2-4) % Baso % (Auto) (0-2) % Neut # (Auto) (4404-1508) /uL Lymph # (Auto) (5433-6749) /uL [place] # (Auto) (0-900) /uL Eos # (Auto) (0-450) /uL Baso # (Auto) (0-100) /uL Sodium 116 L* (137-145) mmol/L Potassium 4.2 (3.4-5.1) mmol/L Chloride 80 L (98-107) mmol/L Carbon Dioxide 25 (22-32) mmol/L BUN 62 H (7-17) mg/dL Creatinine 2.29 H (0.52-1.04) mg/dL Estimated GFR 20 L (>60) mL/min BUN/Creatinine Ratio 27.1 H (6-22) Glucose 81 (80-110) mg/dL Calcium 8.8 (8.4-10.2) mg/dL Magnesium 1.5 L (1.6-2.3) mg/dL Total Bilirubin (0.2-1.3) mg/dL AST (14-36) IU/L ALT (<35) IU/L Alkaline Phosphatase (38-126) U/L Ammonia (9-30) umol/L Total Protein (6.3-8.2) g/dL Albumin (3.5-5.0) g/dL Globulin (1.7-4.1) g/dL Albumin/Globulin Ratio (1.0-2.8) Urine Color Urine Appearance Urine pH (4.5-8.0) Ur Specific [place] (1.000-1.035) Urine Protein (Negative) Urine Glucose (UA) (Negative) g/dL Urine Ketones (NEGATIVE) Urine Occult Blood (Negative) Urine Nitrate (Negative) Urine Bilirubin (NEGATIVE) Urine Urobilinogen (0.2) E.U./dL Ur Leukocyte Esterase (NEGATIVE) Urine RBC (0-5/HPF) Urine WBC (0-5/HPF) Ur Squamous Epith Cells (0-5/HPF) Urine Bacteria (None) Ur Culture Indicated? U Opiates 300ng/mL cut (Negative) Ur Oxycodone Screen (Negative) Urine Methadone Screen (Negative) Ur Barbiturates Screen (Negative) U Tricyclic Antidepress (Negative) Ur Phencyclidine Scrn (Negative) Ur Amphetamines Screen (Negative) U Methamphetamines Scrn (Negative) Ur MDMA Scrn (Ecstasy) (Negative) U Benzodiazepines Scrn (Negative) Urine Cocaine Screen (Negative) U Marijuana (THC) Screen (Negative) Chlamy pneumoniae PCR (Not Detect) Adenovirus (PCR) (Not Detect) B. pertussis DNA (PCR) (Not Detecte) B.parapertussis DNA PCR (Not Detecte) Coronavirus OC43 (PCR) (Not Detect) Coronavirus HKU1 (PCR) (Not Detect) Coronavirus 229E (PCR) (Not Detect) SARS-CoV-2 (PCR) (Not Detecte) Coronavirus NL63 (PCR) (Not Detect) Human Metapneumovir PCR (Not Detect) Influenza Type A (PCR) (Not Detect) Influenza Type B (PCR) (Not Detect) M. pneumoniae (PCR) (Not Detect) Parainfluenza 1 (PCR) (Not Detect) Parainfluenza 2 (PCR) (Not Detect) Parainfluenza 3 (PCR) (Not Detect) Parainfluenza 4 (PCR) (Not Detect) RSV (PCR) (Not Detect) Entero/Rhino (PCR) (Not Detect) Imaging Data CT scan - head: Radiologist's Impression: No acute intracranial findings. Chest x-ray: Radiologist's Impression: Trace costophrenic angle blunting suspicious for trace effusions versus scarring.? ECG Data Attestation: I personally reviewed and interpreted this ECG as follows: (Normal sinus rhythm rate 69 beats per minute. 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 no ectopy. No acute ST elevation.) Critical Care Time Critical Care Time Critical Care Time: Yes Total Critical Care Time: 50 Attestation: Time includes initial assessment patient, reviewing the situation with her family members, reviewing medical records, and reviewing clinical data. The case and workup was discussed with the hospitalist a couple times prior to admission. Patient family are informed of the clinical situation and need for admission. Discharge Plan Departure Patient Disposition: Admitted As Inpatient Clinical Impression: Hyponatremia, Encephalopathy, Hypomagnesemia, Acute on chronic kidney failure, Confusion Admit Date/Time: 06/23/22 15:02 Admit Provider: Jesus Rahman
[2022-06-23 11:31] LABS: Alanine Aminotransferase 13 IU/L (<35); Albumin 3.5 g/dL (3.5-5.0); Albumin Globulin Ratio 1.2 (1.0-2.8); Alkaline Phosphatase 82 U/L (38-126); Aspartate Aminotransferase 29 IU/L (14-36); BUN Creatinine Ratio 26.7 (6-22); Bilirubin Total 0.5 mg/dL (0.2-1.3); Blood Urea Nitrogen 66 mg/dL (7-17); Calcium 9.3 mg/dL (8.4-10.2); Carbon Dioxide 28 mmol/L (22-32); Estimated Glomerular Filt Rate 19 mL/min (>60); Globulin 2.9 g/dL (1.7-4.1); Glucose 89 mg/dL (80-110); HEMOLYSIS < 15 (0-50); Potassium 4.4 mmol/L (3.4-5.1); Total Protein 6.4 g/dL (6.3-8.2)
--- NOTE | 2022-06-23 11:40 | DI.CT.S_ITS ---
PROCEDURE: CT HEAD/BRAIN WO CON INDICATIONS: acute confusion TECHNIQUE: Noncontrast 4.5 mm thick angled axial sections acquired from the foramen magnum to the vertex, with coronal and sagittal reformats. For radiation dose reduction, the following was used: automated exposure control, adjustment of mA and/or kV according to patient size. COMPARISON: None. FINDINGS: Image quality: Excellent. CSF spaces: Basal cisterns are patent. No extra-axial fluid collections. The ventricles are symmetric in size and shape. Brain: No intracranial bleeds or masses. There is cerebral volume loss for age, with resultant ventricular and sulcal prominence. There are periventricular and deep white matter chronic small vessel ischemic changes. There is intracranial internal carotid artery atherosclerosis. Skull and face: Calvarium and visualized facial bones appear intact, without suspicious lesions. Sinuses: Visualized sinuses and mastoids are clear. IMPRESSION: Unremarkable noncontrast head CT, without a cause of acute confusion identified. Dictated by: Kevin Polk M.D. on 06/23/2022 at 11:46 Approved by: Kevin Polk M.D. on 06/23/2022 at 11:48
[2022-06-23 11:41] LABS: Chloride 76 mmol/L (98-107); Sodium 116 mmol/L (137-145)
[2022-06-23 11:42] LABS: Ammonia (NH3) < 9 umol/L (9-30)
--- NOTE | 2022-06-23 11:58 | PC.NURSE ---
ferguson catheter attempted, unsuccessful attempt, charge nurse informed. patient has rash in inguinal area. skin protectant applied after catheter insertion
[2022-06-23 12:23] LABS: Appearance Urine UA CLEAR; Bilirubin Urine UA NEGATIVE (NEGATIVE); Color Urine UA YELLOW; Glucose Urine UA NEGATIVE (Negative); Ketones Urine UA NEGATIVE (NEGATIVE); Leukocyte Esterase Urine UA NEGATIVE (NEGATIVE); Nitrite Urine UA NEGATIVE (Negative); Occult Blood Urine UA 2+ (Negative); Protein Urine UA NEGATIVE (Negative); Specific Gravity Urine UA <=1.005 (1.000-1.035); Ur Creatinine Normal (Normal); Ur Specific Gravity Normal (Normal); Urine pH Normal (Normal); Urobilinogen Urine UA 0.2 E.U./dL (0.2)
[2022-06-23 12:24] LABS: UR Morphine/Opiate cutoff 300 Negative (Negative); Urine Amphetamines Negative (Negative); Urine Barbiturates Negative (Negative); Urine Benzodiazepines Positive (Negative); Urine Cocaine Negative (Negative); Urine MDMA Negative (Negative); Urine Methadone Negative (Negative); Urine Methamphetamines Negative (Negative); Urine Oxycodone Positive (Negative); Urine Phencyclidine Negative (Negative); Urine Tetrahydrocannabinol Negative (Negative); Urine Tricyclic Antidepressant Negative (Negative)
[2022-06-23 12:35] LABS: Bacteria Urine Occasional (0-1); Culture Indicated Urine Cult Not Indicated; RBC Urine 1-5/HPF (0-5/HPF); Squamous Epithelial Cell Urine None Seen (0-5/HPF); WBC Urine 0-1/HPF (0-5/HPF)
[2022-06-23] MEDS: SODIUM CHLORIDE 0.9% 1,000 ML 150 ML IV ×2 (12:37→19:21)
--- NOTE | 2022-06-23 13:10 | PC.NURSE ---
pt's daughter states that [facility] was giving patient double the dose of her lasix. she normally takes one pill in the morning and it was being given morning and night. they think she has been getting 160-180mg per day.
[2022-06-23 13:14] LABS: Adenovirus Not Detected (Not Detect); Coronavirus 229E Not Detected (Not Detect); Coronavirus HKU1 Not Detected (Not Detect); Coronavirus NL 63 Not Detected (Not Detect); Coronavirus OC43 Not Detected (Not Detect); Human Metapneumovirus Not Detected (Not Detect); SARS- CoV-2 Not Detected (Not Detecte)
[2022-06-23 13:15] LABS: B. parapertussis Not Detected (Not Detecte); Bordetella pertussis Not Detected (Not Detecte); Chlamydophila pneumoniae Not Detected (Not Detect); Human Rhinovirus/Enterovirus Not Detected (Not Detect); Influenza A Not Detected (Not Detect); Influenza B Not Detected (Not Detect); Mycoplasma pneumoniae Not Detected (Not Detect); Parainfluenza Virus 1 Not Detected (Not Detect); Parainfluenza Virus 2 Not Detected (Not Detect); Parainfluenza Virus 3 Not Detected (Not Detect); Parainfluenza Virus 4 Not Detected (Not Detect); Respiratory Syncytial Virus Not Detected (Not Detect)
[2022-06-23] MEDS: SODIUM CHLORIDE 0.9% 1,000 ML 200 ML IV (13:57)
[2022-06-23 14:21] LABS: BUN Creatinine Ratio 27.1 (6-22); Blood Urea Nitrogen 62 mg/dL (7-17); Calcium 8.8 mg/dL (8.4-10.2); Carbon Dioxide 25 mmol/L (22-32); Chloride 80 mmol/L (98-107); Estimated Glomerular Filt Rate 20 mL/min (>60); Glucose 81 mg/dL (80-110); HEMOLYSIS < 15 (0-50); Magnesium 1.5 mg/dL (1.6-2.3); Potassium 4.2 mmol/L (3.4-5.1)
[2022-06-23 14:24] LABS: Sodium 116 mmol/L (137-145)
[2022-06-23] MEDS: MAG HYDROX/ALUM/SIMETH 30 ML UDC PO (14:30)
[2022-06-23] MEDS: MAGNESIUM SULFATE 2 GM/50 ML PIGGYBACK IV (16:20)
[2022-06-23] MEDS: ACETAMINOPHEN 325 MG TABLET 650 MG PO ×2 (16:30→21:27)
--- NOTE | 2022-06-23 16:47 | PM.HP.1 ---
History of Present Illness History of Present Illness Date Patient Seen: 06/23/22 Time Patient Seen: 16:30 Chief complaint: increased confusion over 2 weeks Narrative: Inga Mata is an 86-year-old female former smoker with history of hypertension, systolic heart failure who presents with worsening confusion per her daughter in law over the past 4-5 days. Daughter in law reports a mix up with some of her medications after leaving [facility] a few weeks ago (was discharged there after recent admission in April) where she was receiving double her usual dose of furosemide. Patient does not recall the events of the last few days, but currently denies symptoms including headache, chest pain, shortness of breath, nausea, vomiting. Nurse did report to me she did complain of headache and burning chest discomfort. Patient currentl resides at [facility]. It does appear facility started patient on bactrim for UTI, with end date on 06/25. In the emergency room, the patient was hypertensive but the remainder of her vital signs were unremarkable. CBC was unremarkable, but chemistry panel revealed a sodium of 116, a chloride of 80, and initial creatinine of 2.47 improved to 2.29 with fluids. Magnesium level was 1.5. Urinalysis was not indicative of infection, urine drug screen was positive for benzodiazepines and oxycodone, respiratory panel was negative. Head CT was unremarkable, chest x-ray showed some blunting of her costophrenic angles (possible trace bilateral pleural effusions) but no other vascular congestion. She was given a bolus of IV fluid, with above improvement in her Cr but sodium stayed at 116. She was admitted for further mangaement of hyponatremia. Patient History Medical History (Updated 06/23/22 @ 17:42 by Jesus Rahman DO) CHF (congestive heart failure) HTN (hypertension) Surgical History History of shoulder replacement Family & Social History Family History (Updated 06/23/22 @ 17:01 by Jesus Rahman DO) Mother No pertinent past medical history Father No pertinent past medical history Social History: household members none Safety & Behavioral: Feels Safe in Current Yes Environment Been Physically Hurt or No Threatened By a Person Tobacco & Substance use: Smoking Status Former smoker alcohol intake former alcohol intake frequency holiday/special occasion Substance Use Type does not use Meds Home Medications and Allergies Home Medications Medication Instructions Recorded Confirmed Type acetaminophen 325 mg tablet 650 mg PO Q6H PRN Fever/Mild Pain 05/14/22 06/23/22 Rx (1-3) #30 tabs docusate sodium 100 mg capsule 200 mg PO DAILY 06/23/22 06/23/22 History escitalopram oxalate 20 mg tablet 20 mg PO DAILY 06/23/22 06/23/22 History furosemide 80 mg tablet 80 mg PO BID 06/23/22 06/23/22 History metoprolol succinate 25 mg 12.5 mg PO DAILY 06/23/22 06/23/22 History tablet,extended release 24 hr mirtazapine 30 mg tablet 30 mg PO BEDTIME 06/23/22 06/23/22 History ondansetron 4 mg disintegrating 4 mg PO Q8H PRN Nausea And Vomiting 06/23/22 06/23/22 History tablet oxycodone 15 mg tablet,crush 15 mg PO BID 06/23/22 06/23/22 History resistant,extended release 12 hr (OxyContin) oxycodone 5 mg capsule 5 mg PO Q4H PRN Pain (Scale Score 06/23/22 06/23/22 History 4-6) polyethylene glycol 3350 17 gram 17 g PO DAILY 06/23/22 06/23/22 History oral powder packet (Miralax) sacubitril 24 mg-valsartan 26 mg 1 tab PO BID 06/23/22 06/23/22 History tablet (Entresto) sulfamethoxazole 800 1 tab PO BID 06/23/22 06/23/22 History mg-trimethoprim 160 mg tablet (Bactrim DS) zolpidem 10 mg tablet 10 mg PO BEDTIME PRN Insomnia 06/23/22 06/23/22 History Allergies Allergy/AdvReac Type Severity Reaction Status Date / Time No Known Drug Allergies Allergy Verified 06/23/22 11:07 Review of Systems Review of Systems Narrative: All other systems reviewed with the patient and are negative unless otherwise stated. Exam Vital Signs (past 8 hours): - 06/23/22 11:04 06/23/22 12:30 06/23/22 12:00 Temperature 97.9 F Pulse Rate 68 77 75 Respiratory Rate 19 22 18 Blood Pressure 197/81 H 185/79 H 186/78 H Pulse Oximetry 97 94 95 Oxygen Delivery Method Room Air Room Air Room Air 06/23/22 14:00 06/23/22 13:30 06/23/22 13:00 Temperature Pulse Rate 78 75 71 Respiratory Rate 16 14 17 Blood Pressure 170/82 H 176/100 H 183/89 H Pulse Oximetry 100 96 98 Oxygen Delivery Method Oxygen Delivery Method Room Air Narrative Exam Narrative: General:? Patient is well developed and well nourished, in no distress at this time. HEENT:? Normocephalic, atraumatic, extraocular muscles intact, oral pharynx is clear and mucous membranes are moist. Neck: supple and symmetric, trachea is midline, no cervical adenopathy. Negative for JVD Chest:? Normal AP diameter and contour without kyphoscoliosis, no tachypnea, equal chest rise bilaterally. Lungs:? CTA b/l no wheezing rhonchi or rales. Cardio:?RRR no m/r/g. Abdomen: S NT ND. No CVA tenderness. Musculoskeletal:? Muscle strength and tone are equal within normal limits, no deformity. Extremities: 1+ b/l LE edema, no joint effusions. No cyanosis or clubbing. Skin:? Pale,? Warm to touch,dry and intact without rashes, ulcerations or petechiae.? Neuro:? Alert and orientated to name only,? sensation to touch intact in all extremities, no gross deficits noted of cranial nerves. Psych:? Patient has a well-kept appearance, appropriate affect, mental status attitude thought context and judgment are appropriate for age. Objective ECG Impression: Sinus rhythm with 1st degree AV block Minimal voltage criteria for LVH, may be normal variant ( [place] product ) Anteroseptal infarct , age undetermined similar to prior tracing as interpreted by me Labs 06/23/22 11:04 06/23/22 14:05 Labs: Laboratory Results - last 24 hr 06/23/22 06/23/22 06/23/22 11:04 11:04 11:23 WBC 8.2 RBC 3.38 L Hgb 11.0 L Hct 31.7 L MCV 93.8 MCH 32.4 MCHC 34.6 RDW 13.9 Plt Count 252 Neut % (Auto) 66.8 Lymph % (Auto) 21.1 L [place] % (Auto) 10.2 Eos % (Auto) 1.4 L Baso % (Auto) 0.5 Neut # (Auto) 5400 Lymph # (Auto) 1700 [place] # (Auto) 800 Eos # (Auto) 100 Baso # (Auto) 0 Sodium 116 L* Potassium 4.4 Chloride 76 L* Carbon Dioxide 28 BUN 66 H Creatinine 2.47 H Estimated GFR 19 L BUN/Creatinine Ratio 26.7 H Glucose 89 Calcium 9.3 Magnesium Total Bilirubin 0.5 AST 29 ALT 13 Alkaline Phosphatase 82 Ammonia < 9 L Total Protein 6.4 Albumin 3.5 Globulin 2.9 Albumin/Globulin Ratio 1.2 Urine Color Urine Appearance Urine pH Ur Specific [place] Urine Protein Urine Glucose (UA) Urine Ketones Urine Occult Blood Urine Nitrate Urine Bilirubin Urine Urobilinogen Ur Leukocyte Esterase Urine RBC Urine WBC Ur Squamous Epith Cells Urine Bacteria Ur Culture Indicated? U Opiates 300ng/mL cut Ur Oxycodone Screen Urine Methadone Screen Ur Barbiturates Screen U Tricyclic Antidepress Ur Phencyclidine Scrn Ur Amphetamines Screen U Methamphetamines Scrn Ur MDMA Scrn (Ecstasy) U Benzodiazepines Scrn Urine Cocaine Screen U Marijuana (THC) Screen Chlamy pneumoniae PCR Adenovirus (PCR) B. pertussis DNA (PCR) B.parapertussis DNA PCR Coronavirus OC43 (PCR) Coronavirus HKU1 (PCR) Coronavirus 229E (PCR) SARS-CoV-2 (PCR) Coronavirus NL63 (PCR) Human Metapneumovir PCR Influenza Type A (PCR) Influenza Type B (PCR) M. pneumoniae (PCR) Parainfluenza 1 (PCR) Parainfluenza 2 (PCR) Parainfluenza 3 (PCR) Parainfluenza 4 (PCR) RSV (PCR) Entero/Rhino (PCR) 06/23/22 06/23/22 06/23/22 12:05 12:14 12:14 WBC RBC Hgb Hct MCV MCH MCHC RDW Plt Count Neut % (Auto) Lymph % (Auto) [place] % (Auto) Eos % (Auto) Baso % (Auto) Neut # (Auto) Lymph # (Auto) [place] # (Auto) Eos # (Auto) Baso # (Auto) Sodium Potassium Chloride Carbon Dioxide BUN Creatinine Estimated GFR BUN/Creatinine Ratio Glucose Calcium Magnesium Total Bilirubin AST ALT Alkaline Phosphatase Ammonia Total Protein Albumin Globulin Albumin/Globulin Ratio Urine Color Yellow Urine Appearance Clear Urine pH 6.0 Ur Specific [place] <=1.005 Urine Protein Negative Urine Glucose (UA) Negative Urine Ketones Negative Urine Occult Blood 2+ H Urine Nitrate Negative Urine Bilirubin Negative Urine Urobilinogen 0.2 Ur Leukocyte Esterase Negative Urine RBC 1-5/hpf Urine WBC 0-1/hpf Ur Squamous Epith Cells None seen Urine Bacteria Occasional (0-1) Ur Culture Indicated? Cult not indicated U Opiates 300ng/mL cut Negative Ur Oxycodone Screen Positive H Urine Methadone Screen Negative Ur Barbiturates Screen Negative U Tricyclic Antidepress Negative Ur Phencyclidine Scrn Negative Ur Amphetamines Screen Negative U Methamphetamines Scrn Negative Ur MDMA Scrn (Ecstasy) Negative U Benzodiazepines Scrn Positive H Urine Cocaine Screen Negative U Marijuana (THC) Screen Negative Chlamy pneumoniae PCR Not detected Adenovirus (PCR) Not detected B. pertussis DNA (PCR) Not detected B.parapertussis DNA PCR Not detected Coronavirus OC43 (PCR) Not detected Coronavirus HKU1 (PCR) Not detected Coronavirus 229E (PCR) Not detected SARS-CoV-2 (PCR) Not detected Coronavirus NL63 (PCR) Not detected Human Metapneumovir PCR Not detected Influenza Type A (PCR) Not detected Influenza Type B (PCR) Not detected M. pneumoniae (PCR) Not detected Parainfluenza 1 (PCR) Not detected Parainfluenza 2 (PCR) Not detected Parainfluenza 3 (PCR) Not detected Parainfluenza 4 (PCR) Not detected RSV (PCR) Not detected Entero/Rhino (PCR) Not detected 06/23/22 14:05 WBC RBC Hgb Hct MCV MCH MCHC RDW Plt Count Neut % (Auto) Lymph % (Auto) [place] % (Auto) Eos % (Auto) Baso % (Auto) Neut # (Auto) Lymph # (Auto) [place] # (Auto) Eos # (Auto) Baso # (Auto) Sodium 116 L* Potassium 4.2 Chloride 80 L Carbon Dioxide 25 BUN 62 H Creatinine 2.29 H Estimated GFR 20 L BUN/Creatinine Ratio 27.1 H Glucose 81 Calcium 8.8 Magnesium 1.5 L Total Bilirubin AST ALT Alkaline Phosphatase Ammonia Total Protein Albumin Globulin Albumin/Globulin Ratio Urine Color Urine Appearance Urine pH Ur Specific [place] Urine Protein Urine Glucose (UA) Urine Ketones Urine Occult Blood Urine Nitrate Urine Bilirubin Urine Urobilinogen Ur Leukocyte Esterase Urine RBC Urine WBC Ur Squamous Epith Cells Urine Bacteria Ur Culture Indicated? U Opiates 300ng/mL cut Ur Oxycodone Screen Urine Methadone Screen Ur Barbiturates Screen U Tricyclic Antidepress Ur Phencyclidine Scrn Ur Amphetamines Screen U Methamphetamines Scrn Ur MDMA Scrn (Ecstasy) U Benzodiazepines Scrn Urine Cocaine Screen U Marijuana (THC) Screen Chlamy pneumoniae PCR Adenovirus (PCR) B. pertussis DNA (PCR) B.parapertussis DNA PCR Coronavirus OC43 (PCR) Coronavirus HKU1 (PCR) Coronavirus 229E (PCR) SARS-CoV-2 (PCR) Coronavirus NL63 (PCR) Human Metapneumovir PCR Influenza Type A (PCR) Influenza Type B (PCR) M. pneumoniae (PCR) Parainfluenza 1 (PCR) Parainfluenza 2 (PCR) Parainfluenza 3 (PCR) Parainfluenza 4 (PCR) RSV (PCR) Entero/Rhino (PCR) Assessment & Plan Assessment & Plan narrative: 1. Acute metabolic encephalopathy due to severe hyponatremia - suspect hypovolemic etiology, though last admission she was hypervolemic and improved with diuresis. No clear volume status on exam today but does not appear overtly volume overloaded. Will check proBNP with next lab draw. - continue IV fluids for now given increase in furosemide and ANA MARIA that improved with fluid. - hold furosemide for now, along with entresto - continue to trend BMP q4 hours. If no improvement on next draw, consider 3% infusion to increase sodium level. Also consider change to diuresis instead of additional fluid given LE edema on exam. - No evidence of infectious etiology on CXR or UA. - Head CT unremarkable. - if started on 3% saline, reassess urine sodium and osmolality once stopped. 2. ANA MARIA, present on admission - suspect secondary to overdiuresis as discussed above, though volume status is not entirely clear at this time. Baseline creatinine around 0.8. - per medications from assisted living, also started on bactrim for UTI recently which will raise Cr level. Will stop at this time given negative UA. 3. HTN - restart home medications, less the diuretic and entresto as discussed above. 4. CHFrEF - will hold home diuretic. Hold entresto as discussed above until ANA MARIA improved, continue home beta josué 5. Hypomagnesemia - repleted in the ER, continue to follow. 6. Previous acute cystitis - was on bactrim until 06/25 for UTI, will stop therapy at this time, UA negative for infection here and no symptoms. Code: DNR, surrogate is patient's son and daughter Dispo: Admitted as inpatient with anticipated stay beyond two midnights. Hopefully she will be able to return to [facility] on discharge, will need PT/OT consultations with improvement in sodium. Possible SNF as well. I have utilized all available immediate resources to obtain, update, or review the patient's current medications. I have discussed case with ER provider, reviewed relevant lab and imaging studies myself with interpretations discussed above. Time Spent With Patient Critical Care time: I spent a total of [] minutes of critical care time on this patient's care today; this time is exclusive of procedural time.
[2022-06-23 17:31] LABS: MRSA (Nasal) PCR Not Detected (Not Detect)
--- NOTE | 2022-06-23 18:59 | PC.NURSE ---
1857--received pt from ER, accompanied by daughter in law; pt oriented to person and birthdate; somewhat aware of reason for admission but short term memory is affected; pt c/o headache and tylenol was given to good effect; pt does not have much appetite and has reported recent weight loss;
[2022-06-23 19:35] LABS: BUN Creatinine Ratio 25.2 (6-22); Blood Urea Nitrogen 59 mg/dL (7-17); Calcium 8.4 mg/dL (8.4-10.2); Carbon Dioxide 26 mmol/L (22-32); Chloride 83 mmol/L (98-107); Estimated Glomerular Filt Rate 20 mL/min (>60); Glucose 126 mg/dL (80-110); HEMOLYSIS < 15 (0-50); Potassium 4.3 mmol/L (3.4-5.1)
[2022-06-23 19:43] LABS: NT-proBNP (BNP-Adult 18+) 9690 pg/mL (<450)
[2022-06-23 19:51] LABS: Sodium 116 mmol/L (137-145)
[2022-06-23] MEDS: ONDANSETRON 4 MG/2 ML INJ IV (21:08)
[2022-06-23] MEDS: METOPROLOL ER 25 MG TABLET 12.5 MG PO (21:08)
[2022-06-23] MEDS: OXYCODONE ER 10 MG TAB PO (21:28)
[2022-06-23] MEDS: CALCIUM CARBONATE 500 MG TAB PO (21:28)
[2022-06-23 23:18] LABS: BUN Creatinine Ratio 27.4 (6-22); Blood Urea Nitrogen 61 mg/dL (7-17); Carbon Dioxide 27 mmol/L (22-32); Chloride 84 mmol/L (98-107); Estimated Glomerular Filt Rate 21 mL/min (>60); Glucose 107 mg/dL (80-110); HEMOLYSIS < 15 (0-50); Potassium 4.8 mmol/L (3.4-5.1)
[2022-06-23 23:20] LABS: Sodium 115 mmol/L (137-145)
[2022-06-24] VITALS (17 sets, daily range): BP systolic 125–177; BP diastolic 59–73; PULSE 63–82; RESP 13–22; TEMP 36.7–37.1; O2SAT 93–97
[2022-06-24] MEDS: SODIUM CHLORIDE 3 % 100 ML 20 ML IV (00:52)
[2022-06-24 03:25] LABS: BUN Creatinine Ratio 28.7 (6-22); Blood Urea Nitrogen 62 mg/dL (7-17); Calcium 7.9 mg/dL (8.4-10.2); Carbon Dioxide 28 mmol/L (22-32); Chloride 86 mmol/L (98-107); Estimated Glomerular Filt Rate 22 mL/min (>60); Glucose 82 mg/dL (80-110); HEMOLYSIS < 15 (0-50); Potassium 4.8 mmol/L (3.4-5.1)
[2022-06-24 03:55] LABS: Sodium 117 mmol/L (137-145)
[2022-06-24 04:47] LABS: Add Manual Diff / Slide Review NO; Basophils Absolute Auto 0 /uL (0-100); Basophils Percent Auto 0.9 % (0-2); Eosinophils Absolute Auto 200 /uL (0-450); Eosinophils Percent Auto 3.5 % (2-4); Hematocrit 24.8 % (36-46); Hemoglobin 8.5 g/dL (12.0-16.0); Lymphocytes Absolute Auto 1400 /uL (1100-4500); Lymphocytes Percent Auto 30.5 % (25-40); Mean Corpuscular HGB Conc 34.3 % (30-36); Mean Corpuscular Hemoglobin 32.2 PG (26-34); Mean Corpuscular Volume 93.7 fL (80-100); Monocytes Absolute Auto 600 /uL (0-900); Monocytes Percent Auto 12.2 % (3-14); Neutrophils Absolute Auto 2500 /uL (1500-7000); Neutrophils Percent Auto 52.9 % (50-75); Platelet Count 198 X10^3/uL (150-400); Red Blood Cell Count 2.64 X10^6/uL (4.0-5.2); Red Cell Distribution Width 13.7 % (11.6-14.8); White Blood Cell Count 4.7 X10^3/uL (4.5-11.0)
[2022-06-24 04:59] LABS: Magnesium 2.1 mg/dL (1.6-2.3)
[2022-06-24] MEDS: OXYCODONE ER 10 MG TAB PO ×3 (05:12→20:43)
[2022-06-24] MEDS: CALCIUM CARBONATE 500 MG TAB PO (05:12)
--- NOTE | 2022-06-24 05:29 | PC.NURSE ---
Instrument And Controls Technician Note-Patient remains confused, but is oriented to hospital keeps saying I am alert and coherent. Just need to know why I am here and I swear I haven't been drinking. Needs frequent reorientation and reassurance. BMP Q4h, critical Na+ reported to provider, NS @ 150ml/hr changed to 3% Na+Cl- at 20ml/hr for 5 hrs. Abdominal pain and nausea treated with routine oxycodone, Zofran, and Tums. VSS.
[2022-06-24 07:25] LABS: BUN Creatinine Ratio 30.4 (6-22); Blood Urea Nitrogen 63 mg/dL (7-17); Calcium 8.1 mg/dL (8.4-10.2); Carbon Dioxide 30 mmol/L (22-32); Chloride 88 mmol/L (98-107); Estimated Glomerular Filt Rate 23 mL/min (>60); Glucose 84 mg/dL (80-110); HEMOLYSIS < 15 (0-50); Potassium 4.8 mmol/L (3.4-5.1); Sodium 120 mmol/L (137-145)
[2022-06-24] MEDS: METOPROLOL ER 25 MG TABLET 12.5 MG PO ×2 (08:21→20:44)
[2022-06-24] MEDS: ENOXAPARIN 30 MG/0.3 ML SYRINGE SUBCUT (08:27)
--- NOTE | 2022-06-24 10:47 | CM.DANOTE ---
Addendum entered by ANAIS Barrios 06/24/22 14:54: ADD: Return msg from Carolina at [facility] confirming she received the clinicals and states pt has been using their In-house PT services [facility] and can continue these PT services when she returns. Carolina asks for SW to call tomorrow after PT eval to determine if pt will be safe to return to their facility directly from the hospital or needs SNF. BF Original Note: Patient is an 86 yo female who was admitted on 06/23/22 for Confusion. Pt has [facility] and [employer] for insurance and her PCP is Dr. Shahana Tejeda. EMR was reviewed. Per MD, pt admitted for hyponatremia and sodium levels improving but still not safe for PT eval and will likely order PT tomorrow Tuesday when levels are improved. Pt was last admitted on 05/03/22 for SOB with pneumonia with sepsis and CHF and discharged to [facility] rehab. SW met bedside with pt (who was too confused to participate in goal directed discussion) and Dtr glenroy Bustillos ([phone]) and son Cj ([phone]) and they confirm that other local Dtr Ivonne Turner ([phone]) and son Cj are both DPOAs but Dtr Ivonne is leaving today for a 3 week trip. Family confirms that pt resides alone (now ) at [facility] on the Assisted Living Side and receives assist with most ADLs and uses a 4WW for ambulation but does not ambulate far and they just increased pt to the highest level of care at their facility. Dtr lives locally about 5 min away. Family states pt has been back at [facility] from [facility] SNF for a couple weeks and there was discussion about getting HH but nothing set up yet that they know of. They are hopeful for pt to d/c back to [facility] and would be happy with HH. SW discussed likely need for PT orders to confirm pt safe for return to [facility] and they would be agreeable to HH if needed and aware if pt far below baseline might need SNF at d/c pending progress. SW called Carolina at [facility] and left msg and faxed clinicals for review towards hopeful d/c back with Home Health. Left msg asking if HH already set up or if new referral would be needed. Plan: SW to follow closely for pt's sodium levels to improve and then PT orders to likely be placed tomorrow Tuesday towards confirming if pt can return to [facility] with likely need for new HH referral vs SNF. SW to coordinate with Carolina from [facility] tomorrow after pt seen by PT. ANAIS Barrios Discharge Planning/Care Management CM Discharge Assessment Start: 06/24/22 10:44 Freq: Status: Active Protocol: Document 06/24/22 10:44 BF (Rec: 06/24/22 10:47 BF [id number]) Discharge Planning Assessment Assigned Customer Resolution Specialist ANAIS Solis DPOA/Assigned Designee Name Dtr Ivonne and sherin Corona Contact Information [phone] and [phone] Advance Directives? Yes: POL, Advance Directive Advance Directives on File Yes History Provided By Patient,Family Member,Medical Record Has Patient been admitted in last 30 No days? Comment last admitted in Apr 2022 this year and discharged to [facility] and then back to [facility] Assisted side Prior Living Arrangements Assisted Living Household Members none Type of transporation used prior to Relies on Others admit Facility Name Admitted From: [facility] Willing to Return to Facility? Yes Independent with ADL's No Is patient alert and oriented? Yes: currently confused due to sodium levels Needs Assistance With Bathing,Meal Prep,Managing Medications,Home Chores / Shopping Caregiver for Another No DME Already Rented / Owned Elevated Toilet Seat,FWW / Walker Patient/Family Preference Intermediate Facility,Home with Home Health Comment Pending PT eval tomorrow when sodium levels improve, likely CORRECTION with new HH referral Barriers to Discharge No Discharge Plan Home with Home Health Transportation Arrangement Likely Dtr glenroy and sherin Corona can transport if pt safe for POV Referrals Initiated Home Health Additional Comment Pending PT orders and eval tomororw when pt more medically appropriate Medicare Choice List Provided Yes Medicare choice list reviewed on family electronic tablet with Whiteboard Updated in Patient Room with Yes name and ext. # of Customer Resolution Specialist Review Status In Process Please Provide Date Initial DC 06/24/22 Assessment Was Performed Next Review Type Continued Stay Review
[2022-06-24 11:22] LABS: BUN Creatinine Ratio 30.4 (6-22); Blood Urea Nitrogen 62 mg/dL (7-17); Calcium 8.2 mg/dL (8.4-10.2); Carbon Dioxide 29 mmol/L (22-32); Chloride 88 mmol/L (98-107); Estimated Glomerular Filt Rate 23 mL/min (>60); Glucose 110 mg/dL (80-110); HEMOLYSIS < 15 (0-50); Potassium 4.7 mmol/L (3.4-5.1); Sodium 120 mmol/L (137-145)
[2022-06-24 12:00] LABS: Sodium Urine Random 6 mmol/L (30-90)
[2022-06-24 15:32] LABS: BUN Creatinine Ratio 30.2 (6-22); Blood Urea Nitrogen 61 mg/dL (7-17); Carbon Dioxide 28 mmol/L (22-32); Chloride 89 mmol/L (98-107); Estimated Glomerular Filt Rate 24 mL/min (>60); Glucose 96 mg/dL (80-110); HEMOLYSIS < 15 (0-50); Potassium 4.8 mmol/L (3.4-5.1); Sodium 120 mmol/L (137-145)
[2022-06-24] MEDS: FUROSEMIDE 20 MG/2 ML VIAL IV (16:24)
--- NOTE | 2022-06-24 17:30 | PM.PN.1 ---
Subjective Subjective Interval history: Patient confused, seeing spiders this morning. No other complaints. Na improved to 120 after 3% bolus. Stable today at 120 with no interventions. Urine Na 6, given worsening with IV fluids with improvement in ANA MARIA will attempt light diuresis with 20 mg IV lasix this afternoon. Exam Vital Signs (past 8 hours): - 06/24/22 11:00 06/24/22 12:00 06/24/22 13:00 Temperature 98.0 F Pulse Rate 71 Respiratory Rate 16 Blood Pressure 147/62 H Pulse Oximetry 96 97 Oxygen Delivery Method Room Air Room Air 06/24/22 15:00 06/24/22 15:58 Temperature 98.3 F Pulse Rate 67 Respiratory Rate 15 Blood Pressure 125/59 L Pulse Oximetry 97 97 Oxygen Delivery Method Room Air Oxygen Delivery Method Room Air Oxygen Flow Rate 0 Narrative Exam Narrative: General:? Patient is well developed and well nourished, in no distress at this time. HEENT:? Normocephalic, atraumatic, extraocular muscles intact, oral pharynx is clear and mucous membranes are moist. Neck: supple and symmetric, trachea is midline, no cervical adenopathy. Chest:? Normal AP diameter and contour without kyphoscoliosis, no tachypnea, equal chest rise bilaterally. Lungs:? CTA b/l no wheezing rhonchi or rales. Cardio:?RRR no m/r/g. Abdomen: S NT ND. No CVA tenderness. Musculoskeletal:? Muscle strength and tone are equal within normal limits, no deformity. Extremities: 1+ b/l LE edema, no joint effusions. No cyanosis or clubbing. Skin:? Pale,? Warm to touch,dry and intact without rashes, ulcerations or petechiae.? Neuro:? Alert and orientated to name only,? sensation to touch intact in all extremities, no gross deficits noted of cranial nerves. Psych:? Patient has a well-kept appearance, but reports seeing spiders and is adamant they are there. Objective Labs 06/24/22 03:07 06/24/22 15:00 Labs: Laboratory Results - last 24 hr 06/23/22 06/23/22 06/23/22 16:07 18:55 18:55 WBC RBC Hgb Hct MCV MCH MCHC RDW Plt Count Neut % (Auto) Lymph % (Auto) [place] % (Auto) Eos % (Auto) Baso % (Auto) Neut # (Auto) Lymph # (Auto) [place] # (Auto) Eos # (Auto) Baso # (Auto) Sodium 116 L* Potassium 4.3 Chloride 83 L Carbon Dioxide 26 BUN 59 H Creatinine 2.34 H Estimated GFR 20 L BUN/Creatinine Ratio 25.2 H Glucose 126 H Calcium 8.4 Magnesium NT-Pro-B Natriuret Pep 9690 H Ur Random Sodium Nasal Screen MRSA (PCR) Not detected 06/23/22 06/24/22 06/24/22 23:00 03:07 03:07 WBC 4.7 RBC 2.64 L Hgb 8.5 L Hct 24.8 L MCV 93.7 MCH 32.2 MCHC 34.3 RDW 13.7 Plt Count 198 Neut % (Auto) 52.9 Lymph % (Auto) 30.5 [place] % (Auto) 12.2 Eos % (Auto) 3.5 Baso % (Auto) 0.9 Neut # (Auto) 2500 Lymph # (Auto) 1400 [place] # (Auto) 600 Eos # (Auto) 200 Baso # (Auto) 0 Sodium 115 L* Cancelled Potassium 4.8 Cancelled Chloride 84 L Cancelled Carbon Dioxide 27 Cancelled BUN 61 H Cancelled Creatinine 2.23 H Cancelled Estimated GFR 21 L Cancelled BUN/Creatinine Ratio 27.4 H Cancelled Glucose 107 Cancelled Calcium 8.0 L Cancelled Magnesium 2.1 NT-Pro-B Natriuret Pep Ur Random Sodium Nasal Screen MRSA (PCR) 06/24/22 06/24/22 06/24/22 03:07 07:00 11:00 WBC RBC Hgb Hct MCV MCH MCHC RDW Plt Count Neut % (Auto) Lymph % (Auto) [place] % (Auto) Eos % (Auto) Baso % (Auto) Neut # (Auto) Lymph # (Auto) [place] # (Auto) Eos # (Auto) Baso # (Auto) Sodium 117 L* 120 L 120 L Potassium 4.8 4.8 4.7 Chloride 86 L 88 L 88 L Carbon Dioxide 28 30 29 BUN 62 H 63 H 62 H Creatinine 2.16 H 2.07 H 2.04 H Estimated GFR 22 L 23 L 23 L BUN/Creatinine Ratio 28.7 H 30.4 H 30.4 H Glucose 82 84 110 Calcium 7.9 L 8.1 L 8.2 L Magnesium NT-Pro-B Natriuret Pep Ur Random Sodium Nasal Screen MRSA (PCR) 06/24/22 06/24/22 11:46 15:00 WBC RBC Hgb Hct MCV MCH MCHC RDW Plt Count Neut % (Auto) Lymph % (Auto) [place] % (Auto) Eos % (Auto) Baso % (Auto) Neut # (Auto) Lymph # (Auto) [place] # (Auto) Eos # (Auto) Baso # (Auto) Sodium 120 L Potassium 4.8 Chloride 89 L Carbon Dioxide 28 BUN 61 H Creatinine 2.02 H Estimated GFR 24 L BUN/Creatinine Ratio 30.2 H Glucose 96 Calcium 8.0 L Magnesium NT-Pro-B Natriuret Pep Ur Random Sodium 6 L Nasal Screen MRSA (PCR) [facility] Medical History (Updated 06/23/22 @ 17:42 by Jesus Rahman DO) CHF (congestive heart failure) HTN (hypertension) Surgical History History of shoulder replacement Family History (Updated 06/23/22 @ 17:01 by Jesus Rahman DO) Mother No pertinent past medical history Father No pertinent past medical history Social History household members: none Smoking Status: Former smoker alcohol intake: former Assessment & Plan Assessment & Plan narrative: 1. Acute metabolic encephalopathy due to severe hyponatremia - suspected hypovolemia initially with increased furosemide, but that only worsened Na dropping it to 115. Given 3% NS with improvement to 120, now stable at 120 today. Repeat urine sodium 6, may be still hypo or hypervolemic. Given worsening with fluids overnight, will start low dose furosemide at 20 mg IV to assess response. - continue to trend BMP q4 hours. ProBNP 9690. - No evidence of infectious etiology on CXR or UA. - Head CT unremarkable. 2. ANA MARIA, present on admission - suspect secondary to overdiuresis as discussed above, though volume status is not entirely clear at this time. Baseline creatinine around 0.8. Creatinine improving slowly, to 2.02 today. - per medications from assisted living, also started on bactrim for UTI recently which will raise Cr level. Will stop at this time given negative UA. 3. HTN - restart home medications, less the diuretic and entresto as discussed above. BP improved with diuretic. 4. CHFrEF - will hold home diuretic. Hold entresto as discussed above until ANA MARIA improved, continue home beta josué 5. Hypomagnesemia - repleted in the ER, continue to follow. 6. Previous acute cystitis - was on bactrim until 06/25 for UTI, will stop therapy at this time, UA negative for infection here and no symptoms. 7. Anemia, - possibly dilutional with Hg to 8.5, will continue to monitor today. No obvious source of bleeding at this time. Code: DNR, surrogate is patient's son and daughter Dispo: Admitted as inpatient with anticipated stay beyond two midnights. Hopefully she will be able to return to [facility] on discharge, will need PT/OT consultations with improvement in sodium. Possible SNF as well. I have utilized all available immediate resources to obtain, update, or review the patient's current medications. Time Spent With Patient Critical Care time: I spent a total of [] minutes of critical care time on this patient's care today; this time is exclusive of procedural time.
[2022-06-24 19:45] LABS: BUN Creatinine Ratio 30.5 (6-22); Blood Urea Nitrogen 60 mg/dL (7-17); Calcium 8.3 mg/dL (8.4-10.2); Carbon Dioxide 29 mmol/L (22-32); Chloride 89 mmol/L (98-107); Estimated Glomerular Filt Rate 24 mL/min (>60); Glucose 115 mg/dL (80-110); HEMOLYSIS < 15 (0-50); Potassium 4.6 mmol/L (3.4-5.1); Sodium 121 mmol/L (137-145)
[2022-06-24] MEDS: SODIUM CHLORIDE 0.9% FLUSH 10 ML IV (20:43)
[2022-06-24] MEDS: MIRTAZAPINE 15 MG TABLET 30 MG PO (20:44)
[2022-06-24] MEDS: SIMETHICONE 80 MG TABLET PO (20:44)
[2022-06-24] MEDS: OXYCODONE IR 5 MG TABLET PO (21:38)
[2022-06-24] MEDS: ACETAMINOPHEN 325 MG TABLET 650 MG PO (21:39)
[2022-06-24 23:52] LABS: Blood Urea Nitrogen 63 mg/dL (7-17); Calcium 8.1 mg/dL (8.4-10.2); Carbon Dioxide 27 mmol/L (22-32); Chloride 89 mmol/L (98-107); Estimated Glomerular Filt Rate 24 mL/min (>60); Glucose 81 mg/dL (80-110); HEMOLYSIS < 15 (0-50)
[2022-06-25] VITALS (9 sets, daily range): BP systolic 111–181; BP diastolic 52–81; PULSE 70–81; RESP 15–22; TEMP 36.1–36.8; O2SAT 90–98
[2022-06-25] LABS: Potassium 4.5 mmol/L (3.4-5.1)
[2022-06-25 00:04] LABS: Sodium 119 mmol/L (137-145)
[2022-06-25 04:47] LABS: Add Manual Diff / Slide Review NO; Basophils Absolute Auto 100 /uL (0-100); Eosinophils Absolute Auto 300 /uL (0-450); Eosinophils Percent Auto 5.8 % (2-4); Hematocrit 25.4 % (36-46); Hemoglobin 8.8 g/dL (12.0-16.0); Lymphocytes Absolute Auto 1500 /uL (1100-4500); Lymphocytes Percent Auto 29.2 % (25-40); Mean Corpuscular HGB Conc 34.7 % (30-36); Mean Corpuscular Hemoglobin 32.9 PG (26-34); Mean Corpuscular Volume 94.9 fL (80-100); Monocytes Absolute Auto 600 /uL (0-900); Monocytes Percent Auto 12.1 % (3-14); Neutrophils Absolute Auto 2700 /uL (1500-7000); Neutrophils Percent Auto 51.9 % (50-75); Platelet Count 188 X10^3/uL (150-400); Red Blood Cell Count 2.68 X10^6/uL (4.0-5.2); Red Cell Distribution Width 13.9 % (11.6-14.8); White Blood Cell Count 5.2 X10^3/uL (4.5-11.0)
[2022-06-25 04:57] LABS: BUN Creatinine Ratio 34.4 (6-22); Blood Urea Nitrogen 62 mg/dL (7-17); Calcium 8.2 mg/dL (8.4-10.2); Carbon Dioxide 27 mmol/L (22-32); Chloride 90 mmol/L (98-107); Estimated Glomerular Filt Rate 27 mL/min (>60); Glucose 79 mg/dL (80-110); HEMOLYSIS < 15 (0-50); Potassium 4.5 mmol/L (3.4-5.1); Sodium 121 mmol/L (137-145)
[2022-06-25] MEDS: OXYCODONE ER 10 MG TAB PO ×2 (05:34→20:53)
[2022-06-25] MEDS: SIMETHICONE 80 MG TABLET PO (05:41)
[2022-06-25] MEDS: CALCIUM CARBONATE 500 MG TAB PO (05:41)
[2022-06-25] MEDS: ENOXAPARIN 30 MG/0.3 ML SYRINGE SUBCUT (08:05)
[2022-06-25] MEDS: FUROSEMIDE 40 MG/4 ML VIAL IV ×2 (08:06→18:09)
[2022-06-25] MEDS: ESCITALOPRAM 10 MG TABLET 20 MG PO (08:06)
[2022-06-25] MEDS: METOPROLOL ER 25 MG TABLET 12.5 MG PO ×2 (08:06→20:52)
[2022-06-25] MEDS: SODIUM CHLORIDE 0.9% FLUSH 10 ML IV (09:18)
--- NOTE | 2022-06-25 16:36 | PM.PN.1 ---
Subjective Subjective Interval history: Patient confused, but no furher hallucinations today. No other complaints. Na improved to 121 after slight diuresis so increased diuretic further today. Exam Vital Signs (past 8 hours): - 06/25/22 12:00 06/25/22 13:29 Temperature 98.1 F Pulse Rate 70 Respiratory Rate 19 Blood Pressure 112/60 Pulse Oximetry 98 97 Oxygen Delivery Method Room Air Oxygen Flow Rate 0 Oxygen Delivery Method Room Air Oxygen Flow Rate 0 Narrative Exam Narrative: General:? Patient is well developed and well nourished, in no distress at this time. HEENT:? Normocephalic, atraumatic, extraocular muscles intact, oral pharynx is clear and mucous membranes are moist. Neck: supple and symmetric, trachea is midline, no cervical adenopathy. Chest:? Normal AP diameter and contour without kyphoscoliosis, no tachypnea, equal chest rise bilaterally. Lungs:? CTA b/l no wheezing rhonchi or rales. Cardio:?RRR no m/r/g. Abdomen: S NT ND. No CVA tenderness. Musculoskeletal:? Muscle strength and tone are equal within normal limits, no deformity. Extremities: 1+ b/l LE edema, no joint effusions. No cyanosis or clubbing. Skin:? Pale,? Warm to touch,dry and intact without rashes, ulcerations or petechiae.? Neuro:? Alert and orientated to name only,? sensation to touch intact in all extremities, no gross deficits noted of cranial nerves. Psych:? Patient has a well-kept appearance, pleasant affect. Objective Labs 06/25/22 04:14 06/25/22 04:14 Labs: Laboratory Results - last 24 hr 06/24/22 06/24/22 06/25/22 19:25 23:33 04:14 WBC 5.2 RBC 2.68 L Hgb 8.8 L Hct 25.4 L MCV 94.9 MCH 32.9 MCHC 34.7 RDW 13.9 Plt Count 188 Neut % (Auto) 51.9 Lymph % (Auto) 29.2 [place] % (Auto) 12.1 Eos % (Auto) 5.8 H Baso % (Auto) 1.0 Neut # (Auto) 2700 Lymph # (Auto) 1500 [place] # (Auto) 600 Eos # (Auto) 300 Baso # (Auto) 100 Sodium 121 L 119 L* Potassium 4.6 4.5 Chloride 89 L 89 L Carbon Dioxide 29 27 BUN 60 H 63 H Creatinine 1.97 H 1.97 H Estimated GFR 24 L 24 L BUN/Creatinine Ratio 30.5 H 32.0 H Glucose 115 H 81 Calcium 8.3 L 8.1 L Magnesium 06/25/22 04:14 WBC RBC Hgb Hct MCV MCH MCHC RDW Plt Count Neut % (Auto) Lymph % (Auto) [place] % (Auto) Eos % (Auto) Baso % (Auto) Neut # (Auto) Lymph # (Auto) [place] # (Auto) Eos # (Auto) Baso # (Auto) Sodium 121 L Potassium 4.5 Chloride 90 L Carbon Dioxide 27 BUN 62 H Creatinine 1.80 H Estimated GFR 27 L BUN/Creatinine Ratio 34.4 H Glucose 79 L Calcium 8.2 L Magnesium 2.0 PFSH Medical History (Updated 06/23/22 @ 17:42 by Jesus Rahman DO) CHF (congestive heart failure) HTN (hypertension) Surgical History History of shoulder replacement Family History (Updated 06/23/22 @ 17:01 by Jesus Rahman DO) Mother No pertinent past medical history Father No pertinent past medical history Social History household members: none Smoking Status: Former smoker alcohol intake: former Assessment & Plan Assessment & Plan narrative: 1. Acute metabolic encephalopathy due to severe hyponatremia - suspected hypovolemia initially with increased furosemide, but that only worsened Na dropping it to 115. Given 3% NS with improvement to 120, was then stable at 120 x3. Repeat urine sodium 6, may be still hypo or hypervolemic. Given worsening with fluids overnight, started low dose furosemide at 20 mg IV with improvement today. Have increased diuretic further to 40mg IV BID today. - continue to trend BMP q12 hours. ProBNP 9690. - No evidence of infectious etiology on CXR or UA. - Head CT unremarkable. 2. ANA MARIA, present on admission - suspect secondary to overdiuresis as discussed above, though volume status is not entirely clear at this time. Baseline creatinine around 0.8. May have also been from entresto in combination. Creatinine improving slowly, to 1.8 today even with continued diuresis. - per medications from assisted living, also started on bactrim for UTI recently which will raise Cr level. Stopped antibiotic given negative UA on admit 3. HTN - restart home medications, less the diuretic and entresto as discussed above. BP improved with diuretic. 4. CHFrEF - diuresing as above. Hold entresto as discussed above until ANA MARIA improved, continue home beta josué 5. Hypomagnesemia - repleted in the ER, continue to follow. 6. Previous acute cystitis - was on bactrim until 06/25 for UTI, will stop therapy at this time, UA negative for infection here and no symptoms. 7. Anemia, - possibly dilutional with Hg to 8.5, will continue to monitor today. No obvious source of bleeding at this time. Code: DNR, surrogate is patient's son and daughter Dispo: Admitted as inpatient with anticipated stay beyond two midnights. Hopefully she will be able to return to [facility] on discharge, will need PT/OT consultations with improvement in sodium. Possible SNF as well. I have utilized all available immediate resources to obtain, update, or review the patient's current medications. Time Spent With Patient Critical Care time: I spent a total of [] minutes of critical care time on this patient's care today; this time is exclusive of procedural time.
[2022-06-25 17:18] LABS: BUN Creatinine Ratio 35.8 (6-22); Blood Urea Nitrogen 63 mg/dL (7-17); Calcium 8.2 mg/dL (8.4-10.2); Carbon Dioxide 27 mmol/L (22-32); Chloride 90 mmol/L (98-107); Estimated Glomerular Filt Rate 28 mL/min (>60); Glucose 90 mg/dL (80-110); HEMOLYSIS < 15 (0-50); Potassium 4.7 mmol/L (3.4-5.1); Sodium 123 mmol/L (137-145)
--- NOTE | 2022-06-25 18:47 | PC.NURSE ---
Patient had some wheezes that family states was new for patient. Given her lasix and patient is doing well. She denies pain or discomfort at this time.
[2022-06-25] MEDS: MIRTAZAPINE 15 MG TABLET 30 MG PO (20:53)
[2022-06-25] MEDS: TRAZODONE 50 MG TABLET 25 MG PO (20:54)
[2022-06-26] VITALS (10 sets, daily range): BP systolic 107–170; BP diastolic 34–67; PULSE 62–86; RESP 16–20; TEMP 36–37.1; O2SAT 92–96
[2022-06-26] MEDS: OXYCODONE ER 10 MG TAB PO ×3 (05:10→21:32)
[2022-06-26 07:00] LABS: BUN Creatinine Ratio 35.9 (6-22); Blood Urea Nitrogen 60 mg/dL (7-17); Calcium 7.9 mg/dL (8.4-10.2); Carbon Dioxide 28 mmol/L (22-32); Chloride 91 mmol/L (98-107); Estimated Glomerular Filt Rate 30 mL/min (>60); Glucose 95 mg/dL (80-110); HEMOLYSIS < 15 (0-50); Magnesium 1.8 mg/dL (1.6-2.3); Potassium 4.1 mmol/L (3.4-5.1); Sodium 124 mmol/L (137-145)
[2022-06-26 07:04] LABS: Add Manual Diff / Slide Review NO; Basophils Absolute Auto 0 /uL (0-100); Eosinophils Absolute Auto 300 /uL (0-450); Hematocrit 24.2 % (36-46); Hemoglobin 8.3 g/dL (12.0-16.0); Lymphocytes Absolute Auto 1000 /uL (1100-4500); Lymphocytes Percent Auto 22.8 % (25-40); Mean Corpuscular HGB Conc 34.3 % (30-36); Mean Corpuscular Hemoglobin 32.5 PG (26-34); Mean Corpuscular Volume 94.7 fL (80-100); Monocytes Absolute Auto 500 /uL (0-900); Monocytes Percent Auto 10.7 % (3-14); Neutrophils Absolute Auto 2500 /uL (1500-7000); Neutrophils Percent Auto 58.5 % (50-75); Platelet Count 180 X10^3/uL (150-400); Red Blood Cell Count 2.56 X10^6/uL (4.0-5.2); Red Cell Distribution Width 13.6 % (11.6-14.8); White Blood Cell Count 4.2 X10^3/uL (4.5-11.0)
[2022-06-26] MEDS: FUROSEMIDE 40 MG/4 ML VIAL IV ×2 (09:48→16:21)
[2022-06-26] MEDS: METOPROLOL ER 25 MG TABLET 12.5 MG PO ×2 (09:50→21:29)
[2022-06-26] MEDS: ENOXAPARIN 30 MG/0.3 ML SYRINGE SUBCUT (09:50)
[2022-06-26] MEDS: ESCITALOPRAM 10 MG TABLET 20 MG PO (09:51)
[2022-06-26] MEDS: SODIUM CHLORIDE 0.9% FLUSH 10 ML IV ×2 (09:51→22:02)
--- NOTE | 2022-06-26 11:27 | P.PN_ITS ---
Subjective Subjective Interval history: Patient confused somewhat,? but no further hallucinations today. Complains of stomach gas and gurgling. Has had good breakfast per patient. Na improved to 124, continue diuresis. Exam Vital Signs (past 8 hours): - 06/26/22 09:50 06/26/22 09:45 Pulse Rate 86 Blood Pressure 170/67 H Pulse Oximetry 96 Oxygen Delivery Method Room Air Oxygen Flow Rate 0 Oxygen Delivery Method Room Air Oxygen Flow Rate 0 Narrative Exam Narrative: General:? Patient is well developed and well nourished, in no distress at this time. HEENT:? Normocephalic, atraumatic, extraocular muscles intact, oral pharynx is clear and mucous membranes are moist. Neck: supple and symmetric, trachea is midline, no cervical adenopathy. Chest:? Normal AP diameter and contour without kyphoscoliosis, no tachypnea, equal chest rise bilaterally. Lungs:? CTA b/l no wheezing rhonchi or rales. Cardio:?RRR no m/r/g. Abdomen: S minimal discomfort on palpation. Bowel sounds hyperactive, ND. No CVA tenderness. Musculoskeletal:? Muscle strength and tone are equal within normal limits, no deformity. Extremities: 1+ b/l LE edema, no joint effusions. No cyanosis or clubbing. Skin:? Pale,? Warm to touch,dry and intact without rashes, ulcerations or petechiae.? Neuro:? Alert and orientated to name only,? sensation to touch intact in all extremities, no gross deficits noted of cranial nerves. Psych:? Patient has a well-kept appearance, pleasant affect. Objective Labs 06/26/22 05:58 06/26/22 05:58 Labs: Laboratory Results - last 24 hr 06/25/22 06/26/22 06/26/22 16:46 05:58 05:58 WBC 4.2 L RBC 2.56 L Hgb 8.3 L Hct 24.2 L MCV 94.7 MCH 32.5 MCHC 34.3 RDW 13.6 Plt Count 180 Neut % (Auto) 58.5 Lymph % (Auto) 22.8 L [place] % (Auto) 10.7 Eos % (Auto) 7.0 H Baso % (Auto) 1.0 Neut # (Auto) 2500 Lymph # (Auto) 1000 L [place] # (Auto) 500 Eos # (Auto) 300 Baso # (Auto) 0 Sodium 123 L 124 L Potassium 4.7 4.1 Chloride 90 L 91 L Carbon Dioxide 27 28 BUN 63 H 60 H Creatinine 1.76 H 1.67 H Estimated GFR 28 L 30 L BUN/Creatinine Ratio 35.8 H 35.9 H Glucose 90 95 Calcium 8.2 L 7.9 L Magnesium 1.8 PFSH Medical History (Updated 06/23/22 @ 17:42 by Jesus Rahman DO) CHF (congestive heart failure) HTN (hypertension) Surgical History History of shoulder replacement Family History (Updated 06/23/22 @ 17:01 by Jesus Rahman DO) Mother No pertinent past medical history Father No pertinent past medical history Social History household members: none Smoking Status: Former smoker alcohol intake: former Assessment & Plan Assessment & Plan narrative: 1. Acute metabolic encephalopathy due to severe hyponatremia ?- suspected hypovolemia initially with increased furosemide, but that only worsened Na dropping it to 115. Given 3% NS with improvement to 120, was then stable at 120 x3. Repeat urine sodium 6, may be still hypo or hypervolemic. Given worsening with fluids overnight, started low dose furosemide at 20 mg IV with improvement today. Have increased diuretic further to 40mg IV BID yesterda y, continue and follow labs ?- continue to trend BMP q12 hours. ProBNP 9690. ?- No evidence of infectious etiology on CXR or UA. ?- Head CT unremarkable. - need to consider oral NaCl replacement and need to stay on such replacement to prevent recurrence of hyponatremia/hospitalization 2. ANA MARIA, present on admission ?- suspect secondary to overdiuresis as discussed above, though volume status is not entirely clear at this time. Baseline creatinine around 0.8. May have also been from entresto in combination. Creatinine improving slowly, to 1.8 today even with continued diuresis. ?- per medications from assisted living, also started on bactrim for UTI recently which will raise Cr level. Stopped antibiotic given negative UA on admit 3. HTN ?- restart home medications, less the diuretic and entresto as discussed above. BP improved with diuretic. 4. CHFrEF ?- diuresing as above. Hold entresto as discussed above until ANA MARIA improved, continue home beta josué 5. Hypomagnesemia ?- repleted in the ER, continue to follow. 6. Previous acute cystitis ?- was on bactrim until 06/25 for UTI, will stop therapy at this time, UA negative for infection here and no symptoms. 7. Anemia, ?- possibly dilutional with Hg to 8.5, now 8.3 today. No obvious source of bleeding at this time. Continue to follow labs and clinically. Code: DNR, surrogate is patient's son and daughter Dispo: Admitted as inpatient with anticipated stay beyond two midnights. Hopefully she will be able to return to [facility] on discharge, will need PT/OT consultations with improvement in sodium. Possible SNF as well. Time Spent With Patient Critical Care time: I spent a total of [] minutes of critical care time on this patient's care tod ay; this time is exclusive of procedural time.
--- NOTE | 2022-06-26 14:21 | PT.IIE ---
Current Diagnoses Hypo-osmolality and hyponatremia (06/23/22) Surgical History (Last Reviewed 05/25/22 @ 20:09 by Cuco Whatley PA-C) History of shoulder replacement Medical History (Last Updated 06/23/22 @ 17:42 by Jesus Rahman DO) CHF (congestive heart failure) HTN (hypertension) Physical Therapy Inpatient Evaluation/Re-Eval M1 PT/OT-IP Prior Functional Status Start: 06/26/22 13:23 Freq: NEEDED Status: Active Protocol: Document 06/26/22 13:24 [facility] (Rec: 06/26/22 14:20 [facility] [id number]) Medical Review Prior Functional Status Medical History Reviewed Yes Communication communication with nursing prior to treatment, pt's son was in the room with her Mobility and Gait per pt's son's report Inga has been using a FWW Social History Household Members none Living Arrangements Assisted Living M2 PT-IP Current Condition Start: 06/26/22 13:23 Freq: NEEDED Status: Active Protocol: Document 06/26/22 13:24 [facility] (Rec: 06/26/22 14:20 [facility] [id number]) Physical Therapy Current Condition Current Condition Evaluation Date 06/26/22 Treatment Diagnosis increased confusion, hypertension , systolic heart failure Onset Date 06/23/22 M3 PT-IP Subjective Start: 06/26/22 13:23 Freq: NEEDED Status: Active Protocol: Document 06/26/22 13:24 [facility] (Rec: 06/26/22 14:20 [facility] [id number]) Subjective Physical Therapy Visit Type Type Initial Evaluation Visit Start Time 13:25 Visit Stop Time 14:00 Total Visit Minutes 35 Physical Therapy Visit Comments Patient Comments pt reports she agrees to sit at the edge of the bed and dangle her feet but thats it Therapy Pain Assessment Pain Present Pain Present Denied Pain M4 PT-IP Mobility and Gait Start: 06/26/22 13:23 Freq: NEEDED Status: Active Protocol: Document 06/26/22 13:24 [facility] (Rec: 06/26/22 14:20 [facility] [id number]) PT-Bed Mobility Assessment Rolling Level of Assist Minimal Assistance Supine to Sit Supine to Sit Minimal Assistance Sit to Supine Sit to Supine Minimal Assistance Scooting Scooting to Edge of Bed Moderate Assistance Scooting Up and Down in Bed Moderate Assistance PT-Transfer Assessment Comments Mobility Comments pt was min A for bed mobility, she was able to sit at the edge of the bed with fww x 6 minutes to dangle her feet. She was encouraged to attempt to scoot forward to place feet on the floor. Pt required mod A to do this. Once her feet were on the floor she became fearful as she reported she was not ready to stand and was afraid of falling. I attempted many times to encourage her to stand however Inga did not wish to attempt to stand with FWW M5 PT-IP Objective Assessments Start: 06/26/22 13:23 Freq: NEEDED Status: Active Protocol: Document 06/26/22 13:24 [facility] (Rec: 06/26/22 14:20 [facility] [id number]) Orientation Orientation/Cognition Level of Alertness Confusional State Gross Range of Motion Upper Extremity ROM Assessment Bilaterally Impaired Lower Extremity ROM Assessment Bilaterally Impaired Strength Upper Extremity Strength Assessment Within Functional Limits Lower Extremity Strength Assessment Within Functional Limits Coordination Assessment Gross Coordination Gross Coordination WNL Muscle Tone Muscle Tone WNL Yes M6 PT-IP Treatment Start: 06/26/22 13:23 Freq: NEEDED Status: Active Protocol: Document 06/26/22 13:24 [facility] (Rec: 06/26/22 14:20 [facility] [id number]) Physical Therapy Treatment Exercises Exercises Ankle Pumps,Gluteal Sets,Quad Sets,Heel Slides,Shoulder Flexion,Elbow Flexion/ Extension Other Treatments Other Treatment Performed ther ex as aboved were performed in supine, once in a seated position at the edge of the bed Inga was instructed in seated knee flexion and extension as well as shoulder flexion. Inga was able to maintain her balance with Min A with ther ex M7 PT-IP Assessment and Plan Start: 06/26/22 13:23 Freq: NEEDED Status: Active Protocol: Document 06/26/22 13:24 [facility] (Rec: 06/26/22 14:20 [facility] [id number]) PT Summary Assessment and Plan Potential Rehabilitation Potential Good Status of Condition at Evaluation Evolving Summary Impairments ROM,Strength,Balance,Bed Mobility,Transfers,Activity Tolerance Assessment Summary 86 year old female who resides at [facility] with a history of hypertension, congestive heart failure who presents with worsening confusion over the 4-5 days prior to admission. Inga was very afraid of falling and from the beginning of treatment told me she was only going to sit at the edge of the bed. She was min A for bed mobility and required mod A to help her scoot forward on the bed. She was able to maintain her balance with sitting at the edge of the bed and tolerated seated exercises well. I think fear stopped her from trying to go further with standing however she became very defensive when I attempted to encourage more so treatment did not progress past sitting at the edge of bed for exercises. Her son and daughter in law were both present for PT treatment Goals Bed Mobility Goal Contact Guard Assistance Transfer Goal Minimal Assistance Gait Goal Minimal Assistance Gait Distance 50 feet Days to Meet Goals 5 Frequency of Treatment Frequency Of Treatment Once a Day Treatment Plan Physical Therapy Treatment Plan Bed Mobility Training,Transfer Training,Gait Training, Therapeutic Exercise Recommendations To Nursing Amount of Assist Needed 1 Person Assist Discharge Recommendations PT Discharge Recommendations Home with Assistance Transportation Needs at Discharge Private Vehicle
[2022-06-26] MEDS: CALCIUM CARBONATE 500 MG TAB PO (15:39)
[2022-06-26] MEDS: MIRTAZAPINE 15 MG TABLET 30 MG PO (21:28)
[2022-06-26] MEDS: TRAZODONE 50 MG TABLET 25 MG PO (21:30)
[2022-06-26] MEDS: SODIUM CHLORIDE 0.9% 500 ML 1000 ML IV (22:46)
[2022-06-27] VITALS (7 sets, daily range): BP systolic 120–160; BP diastolic 44–62; PULSE 60–65; RESP 16–18; TEMP 36.1–36.8; O2SAT 93–97
[2022-06-27] MEDS: ACETAMINOPHEN 325 MG TABLET 650 MG PO ×2 (00:39→19:46)
[2022-06-27] MEDS: OXYCODONE IR 5 MG TABLET PO ×3 (00:39→17:12)
[2022-06-27] MEDS: OXYCODONE ER 10 MG TAB PO ×3 (04:59→21:35)
[2022-06-27 07:56] LABS: Add Manual Diff / Slide Review NO; Basophils Absolute Auto 0 /uL (0-100); Eosinophils Absolute Auto 400 /uL (0-450); Eosinophils Percent Auto 8.5 % (2-4); Lymphocytes Absolute Auto 1200 /uL (1100-4500); Lymphocytes Percent Auto 27.5 % (25-40); Mean Corpuscular HGB Conc 33.4 % (30-36); Mean Corpuscular Hemoglobin 32.2 PG (26-34); Mean Corpuscular Volume 96.2 fL (80-100); Monocytes Absolute Auto 500 /uL (0-900); Monocytes Percent Auto 12.4 % (3-14); Neutrophils Absolute Auto 2100 /uL (1500-7000); Neutrophils Percent Auto 50.6 % (50-75); Platelet Count 173 X10^3/uL (150-400); White Blood Cell Count 4.2 X10^3/uL (4.5-11.0)
[2022-06-27 08:02] LABS: Alanine Aminotransferase 11 IU/L (<35); Albumin 2.2 g/dL (3.5-5.0); Albumin Globulin Ratio 0.9 (1.0-2.8); Alkaline Phosphatase 47 U/L (38-126); Aspartate Aminotransferase 25 IU/L (14-36); BUN Creatinine Ratio 35.4 (6-22); Bilirubin Total 0.2 mg/dL (0.2-1.3); Blood Urea Nitrogen 62 mg/dL (7-17); Calcium 7.6 mg/dL (8.4-10.2); Carbon Dioxide 29 mmol/L (22-32); Chloride 94 mmol/L (98-107); Estimated Glomerular Filt Rate 28 mL/min (>60); Globulin 2.5 g/dL (1.7-4.1); Glucose 81 mg/dL (80-110); HEMOLYSIS < 15 (0-50); Potassium 4.1 mmol/L (3.4-5.1); Sodium 125 mmol/L (137-145); Total Protein 4.7 g/dL (6.3-8.2)
[2022-06-27] MEDS: ESCITALOPRAM 10 MG TABLET 20 MG PO (08:20)
[2022-06-27] MEDS: ENOXAPARIN 30 MG/0.3 ML SYRINGE SUBCUT (08:22)
[2022-06-27] MEDS: METOPROLOL ER 25 MG TABLET 12.5 MG PO ×2 (08:22→21:27)
[2022-06-27] MEDS: FUROSEMIDE 40 MG/4 ML VIAL IV (08:22)
[2022-06-27] MEDS: SODIUM CHLORIDE 0.9% FLUSH 10 ML IV ×2 (08:22→20:30)
--- NOTE | 2022-06-27 10:52 | P.PN_ITS ---
Subjective Subjective Interval history: Patient confused somewhat and says she is tired,? but no further hallucinations. Na improved to 125, continue diuresis and transition to oral meds. Exam Vital Signs (past 8 hours): - 06/27/22 08:22 06/27/22 07:00 06/27/22 09:12 Temperature 97 F L Pulse Rate 61 60 Respiratory Rate 16 Blood Pressure 150/62 H 150/62 H Pulse Oximetry 95 Oxygen Flow Rate 0 Oxygen Delivery Method Room Air Oxygen Flow Rate 0 Narrative Exam Narrative: General:? Patient is well developed and well nourished, in no distress at this time. HEENT:? Normocephalic, atraumatic, extraocular muscles intact, oral pharynx is clear and mucous membranes are moist. Neck: supple and symmetric, trachea is midline, no cervical adenopathy. Chest:? Normal AP diameter and contour without kyphoscoliosis, no tachypnea, equal chest rise bilaterally. Lungs:? CTA b/l no wheezing rhonchi or rales. Cardio:?RRR no m/r/g. Abdomen:minimal discomfort on palpation. Bowel sounds normal, ND. No CVA tenderness. Musculoskeletal:? Muscle strength and tone are equal within normal limits, no deformity. Extremities: 1+ b/l LE edema, no joint effusions. No cyanosis or clubbing. Skin:? Pale,? Warm to touch,dry and intact without rashes, ulcerations or petechiae.? Neuro:? Alert and orientated to name only,? sensation to touch intact in all extremities, no gross deficits noted of cranial nerves. Psych:? Patient has a well-kept appearance, pleasant affect. Objective Labs 06/27/22 07:41 06/27/22 07:41 Labs: Laboratory Results - last 24 hr 06/27/22 06/27/22 07:41 07:41 WBC 4.2 L RBC 2.50 L Hgb 8.0 L Hct 24.0 L MCV 96.2 MCH 32.2 MCHC 33.4 RDW 14.0 Plt Count 173 Neut % (Auto) 50.6 Lymph % (Auto) 27.5 [place] % (Auto) 12.4 Eos % (Auto) 8.5 H Baso % (Auto) 1.0 Neut # (Auto) 2100 Lymph # (Auto) 1200 [place] # (Auto) 500 Eos # (Auto) 400 Baso # (Auto) 0 Sodium 125 L Potassium 4.1 Chloride 94 L Carbon Dioxide 29 BUN 62 H Creatinine 1.75 H Estimated GFR 28 L BUN/Creatinine Ratio 35.4 H Glucose 81 Calcium 7.6 L Total Bilirubin 0.2 AST 25 ALT 11 Alkaline Phosphatase 47 Total Protein 4.7 L Albumin 2.2 L Globulin 2.5 Albumin/Globulin Ratio 0.9 L [facility] Medical History (Updated 06/23/22 @ 17:42 by Jesus Rahman DO) CHF (congestive heart failure) HTN (hypertension) Surgical History History of shoulder replacement Family History (Updated 06/23/22 @ 17:01 by Jesus Rahman DO) Mother No pertinent past medical history Father No pertinent past medical history Social History household members: none Smoking Status: Former smoker alcohol intake: former Assessment & Plan Assessment & Plan narrative: 1. Acute metabolic encephalopathy due to severe hyponatremia ?- suspected hypovolemia initially with increased furosemide, but that only worsened Na dropping it to 115. Given 3% NS with improvement to 120, was then stable at 120 x3. Repeat urine sodium 6, may be still hypo or hypervolemic. Given worsening with fluids overnight, started low dose furosemide at 20 mg IV with improvement. Then increased diuretic further to 40mg IV BID and now transitioning to furosemide 60 mg po BID ?- continue to trend BMP. ProBNP was 9690, request add-on today. ?- No evidence of infectious etiology on CXR or UA. ?- Head CT unremarkable. - need to consider oral NaCl replacement and need to stay on such replacement to prevent recurrence of hyponatremia/hospitalization 2. ANA MARIA, present on admission ?- suspect secondary to overdiuresis as discussed above, though volume status is not entirely clear at this time. May have also been from entresto in combination. Creatinine improving slowly, to 1.75 today even with continued diuresis. ?- per medications from assisted living, also started on bactrim for UTI re cently which will raise Cr level. Stopped antibiotic given negative UA on admit 3. HTN ?- restart home medications, less the diuretic and entresto as discussed above. BP improved with diuretic of furosemide. 4. CHFrEF ?- diuresing as above. Hold entresto as discussed above until ANA MARIA improved, cont inue home beta josué, add BNP from labs today, although again tomorrow. 5. Hypomagnesemia ?- repleted in the ER, consistently stable, no longer following. 6. Previous acute cystitis ?- was on bactrim until 06/25 for UTI, will stop therapy at this time, UA negative for infection here and no symptoms. 7. Anemia, ?- possibly dilutional with Hg to 8.5, now 8.0? today. No obvious source of bleeding at this time. 8. Prolongued QT. Stop Trazodone. Initiate melatonin 3 mg at night for sleep. Continue to follow labs and clinically. Code: DNR, surrogate is patient's son and daughter Dispo: Admitted as inpatient with anticipated stay beyond two midnights. Hopefully she will [facility], will need PT/OT consultations with improvement in sodium. Possible SNF as well. Time Spent With Patient Critical Care time: I spent a total of [] minutes of critical care time on this patient's care today; this time is exclusive of procedural time.
[2022-06-27 13:50] LABS: NT-proBNP (BNP-Adult 18+) 11100 pg/mL (<450)
--- NOTE | 2022-06-27 15:14 | CM.DPC ---
DCP Cont Per MD, pt making slow progress but was able to participate with PT yesterday and PT anticipates pt can return to [facility] but pt was limited due to fear rather than inability to ambulate. PT will continue to work with pt but short staffed today Sun and unsure if they will be able to work with pt today. [facility] faxed [facility] new referral as backup in case [facility] states pt not back to baseline and pt has been to [facility] about a month ago. [facility] faxed updated clinicals and PT note to Carolina at [facility] to review tomorrow, Mon, when she returns to the office. Plan: [facility] to follow closely Mon AM with Carolina at [facility] to determine if they can accept pt back otherwise [facility] review to see if they will take pt again before return to [facility]. ANAIS Barrios
[2022-06-27] MEDS: FUROSEMIDE 20 MG TABLET 60 MG PO (17:11)
[2022-06-27] MEDS: SPIRONOLACTONE 25 MG TABLET PO (17:11)
[2022-06-27] MEDS: MIRTAZAPINE 15 MG TABLET 30 MG PO (21:26)
[2022-06-27] MEDS: MELATONIN 3 MG TABLET PO (21:26)
[2022-06-28] VITALS (10 sets, daily range): BP systolic 125–178; BP diastolic 45–67; PULSE 59–97; RESP 19–20; TEMP 35.9–36.4; O2SAT 74–94
[2022-06-28] MEDS: OXYCODONE ER 10 MG TAB PO ×3 (05:19→20:15)
[2022-06-28 06:54] LABS: Add Manual Diff / Slide Review NO; Basophils Absolute Auto 0 /uL (0-100); Basophils Percent Auto 0.9 % (0-2); Eosinophils Absolute Auto 300 /uL (0-450); Eosinophils Percent Auto 7.4 % (2-4); Hematocrit 24.5 % (36-46); Hemoglobin 8.3 g/dL (12.0-16.0); Lymphocytes Absolute Auto 1200 /uL (1100-4500); Lymphocytes Percent Auto 25.7 % (25-40); Mean Corpuscular Hemoglobin 32.5 PG (26-34); Mean Corpuscular Volume 95.5 fL (80-100); Monocytes Absolute Auto 600 /uL (0-900); Monocytes Percent Auto 12.8 % (3-14); Neutrophils Absolute Auto 2500 /uL (1500-7000); Neutrophils Percent Auto 53.2 % (50-75); Platelet Count 177 X10^3/uL (150-400); Red Blood Cell Count 2.56 X10^6/uL (4.0-5.2); Red Cell Distribution Width 13.9 % (11.6-14.8); White Blood Cell Count 4.6 X10^3/uL (4.5-11.0)
[2022-06-28 07:05] LABS: Alanine Aminotransferase 13 IU/L (<35); Albumin 2.4 g/dL (3.5-5.0); Alkaline Phosphatase 50 U/L (38-126); Aspartate Aminotransferase 26 IU/L (14-36); BUN Creatinine Ratio 36.8 (6-22); Bilirubin Total 0.2 mg/dL (0.2-1.3); Blood Urea Nitrogen 60 mg/dL (7-17); Calcium 7.7 mg/dL (8.4-10.2); Carbon Dioxide 27 mmol/L (22-32); Chloride 94 mmol/L (98-107); Estimated Glomerular Filt Rate 31 mL/min (>60); Globulin 2.5 g/dL (1.7-4.1); Glucose 90 mg/dL (80-110); Potassium 4.6 mmol/L (3.4-5.1); Sodium 124 mmol/L (137-145); Total Protein 4.9 g/dL (6.3-8.2)
[2022-06-28 07:10] LABS: NT-proBNP (BNP-Adult 18+) 9420 pg/mL (<450)
[2022-06-28 07:16] LABS: HEMOLYSIS 25 (0-50)
[2022-06-28] MEDS: SODIUM CHLORIDE 1,000 MG TABLET 1000 MG PO ×3 (08:44→20:22)
[2022-06-28] MEDS: METOPROLOL ER 25 MG TABLET 12.5 MG PO ×2 (08:44→20:15)
[2022-06-28] MEDS: ESCITALOPRAM 10 MG TABLET 20 MG PO (08:45)
[2022-06-28] MEDS: SPIRONOLACTONE 25 MG TABLET PO (08:45)
[2022-06-28] MEDS: SODIUM CHLORIDE 0.9% FLUSH 10 ML IV ×2 (08:45→22:19)
[2022-06-28] MEDS: OXYCODONE IR 5 MG TABLET PO (08:47)
[2022-06-28] MEDS: FUROSEMIDE 20 MG TABLET 60 MG PO ×2 (08:47→17:14)
[2022-06-28] MEDS: ENOXAPARIN 30 MG/0.3 ML SYRINGE SUBCUT (08:48)
--- NOTE | 2022-06-28 11:03 | P.PN_ITS ---
Subjective Subjective Interval history: No new complaints. Is nervous about mobilizing. Needs to be encouraged to do so with assistance initially. Significantly less confused and more interactive like her normal self. Exam Vital Signs (past 8 hours): - 06/28/22 09:28 06/28/22 07:00 Pulse Rate 66 Pulse Oximetry 93 Oxygen Delivery Method Room Air Oxygen Flow Rate 0 Oxygen Delivery Method Room Air Oxygen Flow Rate 0 Narrative Exam Narrative: General:? Patient is well developed and well nourished, in no distress at this t micky. HEENT:? Normocephalic, atraumatic, extraocular muscles intact, oral pharynx is clear and mucous membranes are moist. Neck: supple and symmetric, trachea is midline, no cervical adenopathy. Chest:? Normal AP diameter and contour without kyphoscoliosis, no tachypnea, equal chest rise bilaterally. Lungs:? CTA b/l no wheezing rhonchi or rales. Cardio:?RRR no m/r/g. Abdomen:Bowel sounds normal, ND. No CVA tenderness. Musculoskeletal:? Muscle strength and tone are equal within normal limits, no d eformity. Extremities: 1+ b/l LE edema, no joint effusions. No cyanosis or clubbing. Skin:? Pale,? Warm to touch,dry and intact without rashes, ulcerations or petechiae.? Neuro:? Alert and orientated to name only,? sensation to touch intact in all extremities, no gross deficits noted of cranial nerves. Psych:? Patient has a well-kept appearance, pleasant affect. Objective Labs 06/28/22 06:40 06/28/22 06:40 Labs: Laboratory Results - last 24 hr 06/27/22 06/28/22 06/28/22 07:26 06:40 06:40 WBC 4.6 RBC 2.56 L Hgb 8.3 L Hct 24.5 L MCV 95.5 MCH 32.5 MCHC 34.0 RDW 13.9 Plt Count 177 Neut % (Auto) 53.2 Lymph % (Auto) 25.7 [place] % (Auto) 12.8 Eos % (Auto) 7.4 H Baso % (Auto) 0.9 Neut # (Auto) 2500 Lymph # (Auto) 1200 [place] # (Auto) 600 Eos # (Auto) 300 Baso # (Auto) 0 Sodium 124 L Potassium 4.6 Chloride 94 L Carbon Dioxide 27 BUN 60 H Creatinine 1.63 H Estimated GFR 31 L BUN/Creatinine Ratio 36.8 H Glucose 90 Calcium 7.7 L Total Bilirubin 0.2 AST 26 ALT 13 Alkaline Phosphatase 50 NT-Pro-B Natriuret Pep 25251 H 9420 H Total Protein 4.9 L Albumin 2.4 L Globulin 2.5 Albumin/Globulin Ratio 1.0 PFSH Medical History (Updated 06/23/22 @ 17:42 by Jesus Rahman DO) CHF (congestive heart failure) HTN (hypertension) Surgical History History of shoulder replacement Family History (Updated 06/23/22 @ 17:01 by Jesus Rahman DO) Mother No pertinent past medical history Father No pertinent past medical history Social History household members: none Smoking Status: Former smoker alcohol intake: former Assessment & Plan Assessment & Plan narrative: 1. Acute metabolic encephalopathy due to severe hyponatremia ?- suspected hypovolemia initially with increased furosemide, but that only worsened Na dropping it to 115. Given 3% NS with improvement to 120, was then stable at 120 x3. Repeat urine sodium 6, may be still hypo or hypervolemic. Patient now on furosemide 60 mg po BID ?- continue to trend BMP. ProBNP 9420 today which was improvement. ?- No evidence of infectious etiology on CXR or UA. ?- Head CT unremarkable. - started oral NaCl replacement today and need to stay on such replacement to prevent recurrence of hyponatremia/hospitalization. This should be a medication at the time of discharge and stress the patient needs to continue to take it to help avoid further readmission. The dose may need to be increased to sodium chloride 2000 mg with each meal prior to discharge. 2. ANA MARIA, present on admission ?- suspect secondary to overdiuresis as discussed above, though volume status is not entirely clear at this time. May have also been from entresto in combination. Creatinine improving slowly, to 1.75 today even with continued diuresis. ?- per medications from assisted living, also started on bactrim for UTI recently which will raise Cr level. Stopped antibiotic given negative UA on admit 3. HTN ?- restart home medications, less the diuretic and entresto as discussed above. BP improved with diuretic of furosemide. 4. CHFrEF ?- diuresing as above. Hold entresto as discussed above until ANA MARIA improved, continue home beta blocke. BNP better today at 9420. Added spironolactone 25 mg daily today. Continue to follow BNP. 5. Hypomagnesemia ?- repleted in the ER, consistently stable, no longer following. 6. Previous acute cystitis ?- was on bactrim until 06/25 for UTI, will stop therapy at this time, UA negative for infection here and no symptoms. 7. Anemia, ?- possibly dilutional with Hg to 8.5, now 8.0? today. No obvious source of bleeding at this time. 8. Prolongued QT. Stop Trazodone.? Initiate melatonin 3 mg at night for sleep. Continue to follow labs and clinically. This is a complex patient that needs both diuresis as well as sodium replacement tablets to both treat fluid retention and hyponatremia. Once discharged patient should remain on both the diuresis and the sodium chloride tablet replacement. Code: DNR, surrogate is patient's son and daughter Dispo: Admitted as inpatient with anticipated stay beyond two midnights. Hopefully she will be able to return to [facility] on discharge, will need PT/OT consultations now that has improvement in sodium. Possible SNF as well. Patient's progress with mobility will determine a whether she needs sniff for can go to [facility] on discharge. Time Spent With Patient Critical Care time: I spent a total of [] minutes of critical care time on this patient's care today; this time is exclusive of procedural time.
[2022-06-28] MEDS: polyethylene glycoL 3350 17 GM POWD.PACK PO (14:45)
--- NOTE | 2022-06-28 16:41 | DIET.CONS2 ---
Dietary Inpatient Consultation Note Admission Date: 06/23/2022 15:02 86 y/o F admitted for hyponatremia management. RD assessed d/t MNA 6.? Met with pt bedside while pt was eating lunch to discuss current diet intake.? While eating, pt reported many times that she was not hungry/does not have appetite and was only eating because she had to in order to stay healthy.? Pt eating <50% of meals while hospitalized. LOS day 5.? Pt reports normally having an appetite, and does drink Ensure at home.? EER: 6829-7399 kcal (25-30 kcal/kg per BMI), 60-75 g protein (0.9-1.1 g/kg per age) Diagnosis: Inadequate energy intake r/t decreased appetite aeb <50% meals consumed while hospitalized, MNA 6. Intervention: Discussed reasons for decreased appetite. Recc Ensure while hospitalized. Pt seemed happy with recommendation as she did not want to eat what was on lunch tray.? Electronically Signed by: Joanne Medley 06/28/22 16:41 Clinical Dietitian [address] [address]
[2022-06-28] MEDS: MIRTAZAPINE 15 MG TABLET PO (20:14)
[2022-06-28] MEDS: MELATONIN 3 MG TABLET PO (20:14)
[2022-06-28] MEDS: SENNOSIDES 8.6 MG TABLET 17.2 MG PO (20:15)
[2022-06-28 21:34] LABS: Osmolality Urine 217 mOsmol/kg (.)
[2022-06-29] VITALS (8 sets, daily range): BP systolic 142–166; BP diastolic 50–64; PULSE 59–68; RESP 16–18; TEMP 36.3–36.5; O2SAT 93–96
[2022-06-29] MEDS: OXYCODONE IR 5 MG TABLET PO ×2 (03:30→08:33)
[2022-06-29] MEDS: OXYCODONE ER 10 MG TAB PO ×3 (05:09→21:18)
[2022-06-29 07:05] LABS: Add Manual Diff / Slide Review NO; Basophils Absolute Auto 0 /uL (0-100); Basophils Percent Auto 0.3 % (0-2); Eosinophils Absolute Auto 300 /uL (0-450); Eosinophils Percent Auto 5.2 % (2-4); Hematocrit 25.4 % (36-46); Hemoglobin 8.7 g/dL (12.0-16.0); Lymphocytes Absolute Auto 1300 /uL (1100-4500); Lymphocytes Percent Auto 23.4 % (25-40); Mean Corpuscular HGB Conc 34.2 % (30-36); Mean Corpuscular Hemoglobin 32.5 PG (26-34); Monocytes Absolute Auto 700 /uL (0-900); Monocytes Percent Auto 11.9 % (3-14); Neutrophils Absolute Auto 3300 /uL (1500-7000); Neutrophils Percent Auto 59.2 % (50-75); Platelet Count 190 X10^3/uL (150-400); Red Blood Cell Count 2.68 X10^6/uL (4.0-5.2); White Blood Cell Count 5.5 X10^3/uL (4.5-11.0)
[2022-06-29 07:20] LABS: Alanine Aminotransferase 13 IU/L (<35); Albumin 2.5 g/dL (3.5-5.0); Alkaline Phosphatase 51 U/L (38-126); Aspartate Aminotransferase 24 IU/L (14-36); BUN Creatinine Ratio 40.5 (6-22); Bilirubin Total 0.3 mg/dL (0.2-1.3); Blood Urea Nitrogen 62 mg/dL (7-17); Calcium 7.9 mg/dL (8.4-10.2); Carbon Dioxide 27 mmol/L (22-32); Chloride 93 mmol/L (98-107); Estimated Glomerular Filt Rate 33 mL/min (>60); Globulin 2.5 g/dL (1.7-4.1); Glucose 79 mg/dL (80-110); HEMOLYSIS < 15 (0-50); Potassium 4.5 mmol/L (3.4-5.1); Sodium 125 mmol/L (137-145)
[2022-06-29 07:29] LABS: NT-proBNP (BNP-Adult 18+) 13900 pg/mL (<450)
[2022-06-29] MEDS: ESCITALOPRAM 10 MG TABLET PO (08:32)
[2022-06-29] MEDS: SODIUM CHLORIDE 0.9% FLUSH 10 ML IV ×2 (08:32→20:10)
[2022-06-29] MEDS: FUROSEMIDE 20 MG TABLET 60 MG PO ×2 (08:33→17:34)
[2022-06-29] MEDS: METOPROLOL ER 25 MG TABLET 12.5 MG PO ×2 (08:33→20:09)
[2022-06-29] MEDS: SODIUM CHLORIDE 1,000 MG TABLET 1000 MG PO ×3 (08:33→21:18)
[2022-06-29] MEDS: SPIRONOLACTONE 25 MG TABLET PO (08:33)
[2022-06-29] MEDS: ENOXAPARIN 30 MG/0.3 ML SYRINGE SUBCUT (08:41)
--- NOTE | 2022-06-29 09:42 | PT.IPTN ---
Current Diagnoses Hypo-osmolality and hyponatremia (06/23/22) Physical Therapy Treatment Note M2 PT-IP Current Condition Start: 06/26/22 13:23 Freq: NEEDED Status: Active Protocol: Document 06/29/22 09:25 SP (Rec: 06/29/22 12:14 SP [id number]) Physical Therapy Current Condition Current Condition Evaluation Date 06/26/22 Treatment Diagnosis increased confusion, hypertension , systolic heart failure Onset Date 06/23/22 M3 PT-IP Subjective Start: 06/26/22 13:23 Freq: NEEDED Status: Active Protocol: Document 06/29/22 09:25 SP (Rec: 06/29/22 12:14 SP [id number]) Subjective Physical Therapy Visit Type Type Treatment Note Visit Start Time 09:25 Visit Stop Time 09:42 Total Visit Minutes 17 Notes Nurse provided physical assist required during tx for scoot up in bed and encouragement of mobility during tx. Number of LACING CUTTER Visits 1 Physical Therapy Visit Comments Patient Comments pt reports she agrees to sit at the edge of the bed and allow her to set feet on the floor. I dont have enough strength stand right now and afraid if I try I will fall, I can't do it. Therapy Pain Assessment Pain When Pain Assessed During Mobility Pain Present Pain Present Pain Reported Location Back Scale Used 8 Head Intensity 8 abdomen Scale Used 8 Chest Scale Used pressure when I breath M4 PT-IP Mobility and Gait Start: 06/26/22 13:23 Freq: NEEDED Status: Active Protocol: Document 06/29/22 09:25 SP (Rec: 06/29/22 12:14 SP [id number]) PT-Bed Mobility Assessment Rolling Level of Assist Minimal Assistance Supine to Sit Supine to Sit Minimal Assistance Sit to Supine Sit to Supine Minimal Assistance Scooting Scooting to Edge of Bed Minimal Assistance,Moderate Assistance Scooting Up and Down in Bed Maximum Assistance PT-Transfer Assessment Comments Mobility Comments pt was min A for elevated bed mobility, Min/Mod to scoot to EOB she was able to sit at the edge of the bed feet supported in floor. Sititng balance EOB sBA. She was encouraged to trial/attempt to stand but pt refused stating I can not do this right now and if try I am going to fall, this is as far as I can get today. Lateral scoot up EOB R Mod/ Max A few inches, cues cues for HP and BLE repositioning sequencing patterning. Sit>supine Min/Mod A for BLEs into bed, Max A x2 to scoot up in bed Cued to bend knees and self push support. Provided pillows under thighs for LS alignment support. WIll continue to assess progress. Gait Assessment Comments Gait Comments Unable to assess due to refusal to assess, decrease strength, motiviation and fear falling. Stair Climbing Assessment Comments Stair Climbing Comments no stairs need to assess. PT-Balance Assessment Sitting Balance and Reactions Static Sitting Balance Ability Good Dynamic Sitting Balance Ability Fair M5 PT-IP Objective Assessments Start: 06/26/22 13:23 Freq: NEEDED Status: Active Protocol: Document 06/26/22 13:24 AMH (Rec: 06/26/22 14:20 AMH [id number]) Orientation Orientation/Cognition Level of Alertness Confusional State Gross Range of Motion Upper Extremity ROM Assessment Bilaterally Impaired Lower Extremity ROM Assessment Bilaterally Impaired Strength Upper Extremity Strength Assessment Within Functional Limits Lower Extremity Strength Assessment Within Functional Limits Coordination Assessment Gross Coordination Gross Coordination WNL Muscle Tone Muscle Tone WNL Yes M6 PT-IP Treatment Start: 06/26/22 13:23 Freq: NEEDED Status: Active Protocol: Document 06/29/22 09:25 SP (Rec: 06/29/22 12:14 SP [id number]) Physical Therapy Treatment Exercises Exercises Ankle Pumps,Heel Slides Knee ROM Measurement approx 90d eg B knee flexion AROM with ease. M7 PT-IP Assessment and Plan Start: 06/26/22 13:23 Freq: NEEDED Status: Active Protocol: Document 06/29/22 09:25 SP (Rec: 06/29/22 12:14 SP [id number]) PT Summary Assessment and Plan Potential Rehabilitation Potential Good Status of Condition at Evaluation Evolving Summary Impairments ROM,Strength,Balance,Bed Mobility,Transfers,Activity Tolerance Progress Towards Goals Slow Progress due to Pain,Slow Progress due to Activity Tolerance Assessment Summary Pt CG/Mod bed mob sup<>Sit, Lateral scoot up side bed Max Ax1 with max verbal/tactile cues, Max A x2 scoot up in bed . Pt has fear falling and decreased strength unable to progress seated at EOB today. WIll continue to assess progress . She will need SNF to progress funtional mobility independence. Goals Bed Mobility Goal Contact Guard Assistance Transfer Goal Minimal Assistance Gait Goal Minimal Assistance Gait Distance 50 feet Days to Meet Goals 5 Frequency of Treatment Frequency Of Treatment Once a Day Treatment Plan Physical Therapy Treatment Plan Bed Mobility Training,Transfer Training,Gait Training, Therapeutic Exercise Other Recommendations and Next Treatment bed mob , STS, stand endurance Focus with FWW, transfers w/ FWW, gait if able chair follow. Recommendations To Nursing Amount of Assist Needed 1 Person Assist Discharge Recommendations PT Discharge Recommendations SNF Rehab Transportation Needs at Discharge Wheelchair/Cabulance
[2022-06-29] MEDS: CALCIUM CARBONATE 500 MG TAB PO ×2 (10:13→20:10)
[2022-06-29] MEDS: ACETAMINOPHEN 325 MG TABLET 650 MG PO (11:42)
--- NOTE | 2022-06-29 12:47 | P.PN_ITS ---
Subjective Subjective Interval history: Patient confused and weak still. She feels a bit off and is struggling with the fact she can't remember parts of her hospitalization, seems a bit disorienting she says. No complaints today, no chest pain, shortness of breath, or nausea. Exam Vital Signs (past 8 hours): - 06/29/22 07:00 06/29/22 08:33 06/29/22 09:20 Temperature 97.3 F L Pulse Rate 68 68 68 Respiratory Rate 17 Blood Pressure 146/53 H 146/53 H 146/53 H Pulse Oximetry 94 Oxygen Delivery Method Oxygen Flow Rate 0 06/29/22 07:00 06/29/22 11:45 Temperature 97.7 F Pulse Rate 62 Respiratory Rate 16 Blood Pressure 162/54 H Pulse Oximetry 94 96 Oxygen Delivery Method Room Air Oxygen Flow Rate 0 0 Oxygen Delivery Method Room Air Oxygen Flow Rate 0 Narrative Exam Narrative: General:? Patient is well developed and well nourished, in no distress at this time. HEENT:? Normocephalic, atraumatic, extraocular muscles intact, oral pharynx is clear and mucous membranes are moist. Neck: supple and symmetric, trachea is midline, no cervical adenopathy. Chest:? Normal AP diameter and contour without kyphoscoliosis, no tachypnea, equal chest rise bilaterally. Lungs:? CTA b/l no wheezing rhonchi or rales. Cardio:?RRR no m/r/g. Abdomen:Bowel sounds normal, ND. No CVA tenderness. Musculoskeletal:? Muscle strength and tone are equal within normal limits, no deformity. Extremities: No edema, no joint effusions. No cyanosis or clubbing. Skin:? Pale,? Warm to touch,dry and intact without rashes, ulcerations or petechiae.? Neuro:? Alert and orientated to name and location,? sensation to touch intact in all extremities, no gross deficits noted of cranial nerves. Psych:? Patient has a well-kept appearance, pleasant affect. Objective Labs 06/29/22 06:45 06/29/22 06:45 Labs: Laboratory Results - last 24 hr 06/24/22 06/29/22 06/29/22 11:45 06:45 06:45 WBC 5.5 RBC 2.68 L Hgb 8.7 L Hct 25.4 L MCV 95.0 MCH 32.5 MCHC 34.2 RDW 14.0 Plt Count 190 Neut % (Auto) 59.2 Lymph % (Auto) 23.4 L [place] % (Auto) 11.9 Eos % (Auto) 5.2 H Baso % (Auto) 0.3 Neut # (Auto) 3300 Lymph # (Auto) 1300 [place] # (Auto) 700 Eos # (Auto) 300 Baso # (Auto) 0 Sodium Potassium Chloride Carbon Dioxide BUN Creatinine Estimated GFR BUN/Creatinine Ratio Glucose Calcium Total Bilirubin AST ALT Alkaline Phosphatase NT-Pro-B Natriuret Pep 67110 H Total Protein Albumin Globulin Albumin/Globulin Ratio Urine Osmolality 217 06/29/22 06:45 WBC RBC Hgb Hct MCV MCH MCHC RDW Plt Count Neut % (Auto) Lymph % (Auto) [place] % (Auto) Eos % (Auto) Baso % (Auto) Neut # (Auto) Lymph # (Auto) [place] # (Auto) Eos # (Auto) Baso # (Auto) Sodium 125 L Potassium 4.5 Chloride 93 L Carbon Dioxide 27 BUN 62 H Creatinine 1.53 H Estimated GFR 33 L BUN/Creatinine Ratio 40.5 H Glucose 79 L Calcium 7.9 L Total Bilirubin 0.3 AST 24 ALT 13 Alkaline Phosphatase 51 NT-Pro-B Natriuret Pep Total Protein 5.0 L Albumin 2.5 L Globulin 2.5 Albumin/Globulin Ratio 1.0 Urine Osmolality [facility] Medical History (Updated 06/23/22 @ 17:42 by Jesus Rahman DO) CHF (congestive heart failure) HTN (hypertension) Surgical History History of shoulder replacement Family History (Updated 06/23/22 @ 17:01 by Jesus Rahman DO) Mother No pertinent past medical history Father No pertinent past medical history Social History household members: none Smoking Status: Former smoker alcohol intake: former Assessment & Plan Assessment & Plan narrative: 1. Acute metabolic encephalopathy due to severe hyponatremia ?- suspected hypovolemia initially with increased furosemide, but that only worsened Na dropping it to 115. Given 3% NS with improvement to 120, was then stable at 120 x3. Repeat urine sodium 6, may be still hypo or hypervolemic but has since been improving with continued diuresis. Patient now on furosemide 60 mg po BID ?- continue to trend BMP daily ?- No evidence of infectious etiology on CXR or UA. ?- Head CT unremarkable. - started oral sodium tabs to see if improvement, though will need continued diuresis. 2. ANA MARIA, present on admission ?- suspect secondary to overdiuresis as discussed above, though volume status is not entirely clear at this time. May have also been from entresto in combination. Creatinine improving slowly, to 1.5 today even with continued diuresis. ?- per medications from assisted living, also started on bactrim for UTI recently which will raise Cr level. Stopped antibiotic given negative UA on admit 3. HTN ?- restart home medications, less the diuretic and entresto as discussed above. BP improved with diuretic of furosemide. 4. CHFrEF ?- diuresing as above. Hold entresto as discussed above until ANA MARIA improved, continue home beta blocke. BNP better today at 9420. Added spironolactone 25 mg daily today. Continue to follow BNP. 5. Hypomagnesemia ?- repleted in the ER, consistently stable, no longer following. 6. Previous acute cystitis ?- was on bactrim until 06/25 for UTI, will stop therapy at this time, UA negative for infection here and no symptoms. 7. Anemia, ?- possibly dilutional with stable Hg in the 8s this admission. No obvious source of bleeding at this time. 8. Prolongued QT. Stop Trazodone.? Initiate melatonin 3 mg at night for sleep. Code: DNR, surrogate is patient's son and daughter Dispo: Admitted as inpatient with anticipated stay beyond two midnights. SNF vs [facility] depending on improvement in sodium and progress with therapies. Time Spent With Patient Critical Care time: I spent a total of [] minutes of critical care time on this patient's care today; this time is exclusive of procedural time.
[2022-06-29] MEDS: SIMETHICONE 80 MG TABLET PO ×2 (17:23→21:24)
[2022-06-29] MEDS: SENNOSIDES 8.6 MG TABLET 17.2 MG PO (21:18)
[2022-06-29] MEDS: MELATONIN 3 MG TABLET PO (21:18)
[2022-06-29] MEDS: MIRTAZAPINE 15 MG TABLET PO (21:19)
[2022-06-30] MEDS: OXYCODONE IR 5 MG TABLET PO ×3 (02:03→22:56)
[2022-06-30] MEDS: ACETAMINOPHEN 325 MG TABLET 650 MG PO ×3 (02:04→22:56)
[2022-06-30] MEDS: OXYCODONE ER 10 MG TAB PO ×3 (05:57→21:12)
[2022-06-30 06:18] LABS: BUN Creatinine Ratio 36.7 (6-22); Blood Urea Nitrogen 61 mg/dL (7-17); Calcium 7.7 mg/dL (8.4-10.2); Carbon Dioxide 27 mmol/L (22-32); Chloride 95 mmol/L (98-107); Estimated Glomerular Filt Rate 30 mL/min (>60); Glucose 80 mg/dL (80-110); HEMOLYSIS < 15 (0-50); Magnesium 1.8 mg/dL (1.6-2.3); Potassium 4.8 mmol/L (3.4-5.1); Sodium 124 mmol/L (137-145)
[2022-06-30 07:00] VITALS: BP 146/55; PULSE 69; RESP 20; TEMP 35.6; O2SAT 94
[2022-06-30 08:00] VITALS: O2SAT 93
[2022-06-30 09:07] VITALS: BP 146/55; PULSE 68
[2022-06-30] MEDS: METOPROLOL ER 25 MG TABLET 12.5 MG PO ×2 (09:07→21:19)
[2022-06-30] MEDS: FUROSEMIDE 20 MG TABLET 60 MG PO ×2 (09:07→17:20)
[2022-06-30] MEDS: BUMETANIDE 1 MG TABLET PO (09:11)
[2022-06-30] MEDS: ENOXAPARIN 30 MG/0.3 ML SYRINGE SUBCUT (09:11)
[2022-06-30] MEDS: SODIUM CHLORIDE 1,000 MG TABLET 1000 MG PO ×3 (09:11→21:12)
[2022-06-30] MEDS: SPIRONOLACTONE 25 MG TABLET PO (09:11)
[2022-06-30] MEDS: ESCITALOPRAM 10 MG TABLET PO (09:11)
[2022-06-30] MEDS: SODIUM CHLORIDE 0.9% FLUSH 10 ML IV ×2 (09:12→21:13)
--- NOTE | 2022-06-30 11:00 | PT.IPTN ---
Current Diagnoses Hypo-osmolality and hyponatremia (06/23/22) Physical Therapy Treatment Note M2 PT-IP Current Condition Start: 06/26/22 13:23 Freq: NEEDED Status: Active Protocol: Document 06/29/22 09:25 SP (Rec: 06/29/22 12:14 SP [id number]) Physical Therapy Current Condition Current Condition Evaluation Date 06/26/22 Treatment Diagnosis increased confusion, hypertension , systolic heart failure Onset Date 06/23/22 M3 PT-IP Subjective Start: 06/26/22 13:23 Freq: NEEDED Status: Active Protocol: Document 06/30/22 12:17 TS (Rec: 06/30/22 12:44 TS [id number]) Subjective Physical Therapy Visit Type Type Treatment Note Visit Start Time 11:00 Visit Stop Time 11:50 Total Visit Minutes 50 Notes Nursing assisted with scooting up in bed and with bed hearn. BP:147/59 Number of SOFTWARE APPLICATIONS ENGINEER Visits 2 Physical Therapy Visit Comments Patient Comments Pt is agreeable to PT session. She states she is scared to move and that her bones hurt. She has a persistent cough throughout session. Therapy Pain Assessment Pain When Pain Assessed During Mobility Pain Present Pain Present Pain Reported M4 PT-IP Mobility and Gait Start: 06/26/22 13:23 Freq: NEEDED Status: Active Protocol: Document 06/30/22 12:17 TS (Rec: 06/30/22 12:44 TS [id number]) PT-Bed Mobility Assessment Rolling Level of Assist Minimal Assistance Supine to Sit Supine to Sit Minimal Assistance Sit to Supine Sit to Supine Minimal Assistance Scooting Scooting to Edge of Bed Moderate Assistance Scooting Up and Down in Bed Maximum Assistance PT-Transfer Assessment Comments Mobility Comments Pt found resting in bed and agreeable to PT session. Pt appears confused and repeats herself often asking the same questions to therapist throughout session. She can follow single step instructions 90% of the time but needs consistent cues to remain on task. She performed ankle pumps x5, quad sets x8 and heel slides x8 but could not recall exercises from previous sessions. She performed log roll x2 with Abeba and VC for UE support on handrail. She required Abeba to right trunk into sitting position but could slide LEs off bed on her own. Once seated required consistent cues to maintain midline during sitting on EOB. She required ModA for scooting to EOB with sheet underneath her. After encouragement from therapist to try and stand pt became fearful and stated she hurts too much to stand and move to the chair for lunch. She laid back in bed and required MaxAx2 to scoot up to HOB. Pt was left in bed with her call zachariah and jaelyn nearby , RN notified. Gait Assessment Comments Gait Comments Unable to assess at this time due to fear of falling and pain. PT-Balance Assessment Sitting Balance and Reactions Static Sitting Balance Ability Good Dynamic Sitting Balance Ability Fair Comments Other Balance Tests/Deviations/Treatment Pt required Abeba to CGA : sitting on EOB. Takes multiple verbal cues to have her maintain midline when sitting. M5 PT-IP Objective Assessments Start: 06/26/22 13:23 Freq: NEEDED Status: Active Protocol: Document 06/26/22 13:24 AMH (Rec: 06/26/22 14:20 AMH [id number]) Orientation Orientation/Cognition Level of Alertness Confusional State Gross Range of Motion Upper Extremity ROM Assessment Bilaterally Impaired Lower Extremity ROM Assessment Bilaterally Impaired Strength Upper Extremity Strength Assessment Within Functional Limits Lower Extremity Strength Assessment Within Functional Limits Coordination Assessment Gross Coordination Gross Coordination WNL Muscle Tone Muscle Tone WNL Yes M6 PT-IP Treatment Start: 06/26/22 13:23 Freq: NEEDED Status: Active Protocol: Document 06/30/22 12:17 TS (Rec: 06/30/22 12:44 TS [id number]) Physical Therapy Treatment Exercises Exercises Ankle Pumps,Quad Sets,Heel Slides Knee ROM Measurement Performed supine in bed. M7 PT-IP Assessment and Plan Start: 06/26/22 13:23 Freq: NEEDED Status: Active Protocol: Document 06/30/22 12:17 TS (Rec: 06/30/22 12:44 TS [id number]) PT Summary Assessment and Plan Potential Rehabilitation Potential Good Status of Condition at Evaluation Evolving Summary Impairments ROM,Strength,Balance,Bed Mobility,Transfers,Activity Tolerance Progress Towards Goals Slow Progress due to Pain,Slow Progress due to Activity Tolerance Assessment Summary Pt requires Abeba for rolling, Abeba supine to sit, Abeba and progressing to CGA for maintaing sitting balance and ModA for scooting in bed. Encouraged pt to try standing with FWW but states she is fearful of falling and she hurts too much to move to the chair. Pt laid back in bed requring MaxAx2 to scoot to HOB. PT is still recommending SNF to increase strength, bed mobility, transfers and gait. Goals Bed Mobility Goal Contact Guard Assistance Transfer Goal Minimal Assistance Gait Goal Minimal Assistance Gait Distance 50 feet Days to Meet Goals 5 Frequency of Treatment Frequency Of Treatment Once a Day Treatment Plan Physical Therapy Treatment Plan Bed Mobility Training,Transfer Training,Gait Training, Therapeutic Exercise Other Recommendations and Next Treatment Trial standing with FWW and Focus transferring to chair, ambulation if strength is imporved. Recommendations To Nursing Amount of Assist Needed 2 Person Assist Discharge Recommendations PT Discharge Recommendations SNF Rehab Transportation Needs at Discharge Wheelchair/Cabulance
--- NOTE | 2022-06-30 12:15 | P.PN_ITS ---
Subjective Subjective Interval history: Patient confused and weak still. No chest pain, shortness of breath but does state she had a bit of nausea this AM which is now improved. Exam Vital Signs (past 8 hours): - 06/30/22 09:07 06/30/22 08:00 Pulse Rate 68 Blood Pressure 146/55 H Pulse Oximetry 93 Oxygen Delivery Method Room Air Oxygen Flow Rate 0 Oxygen Delivery Method Room Air Oxygen Flow Rate 0 Narrative Exam Narrative: General:? Patient is well developed and well nourished, in no distress at this time. HEENT:? Normocephalic, atraumatic, extraocular muscles intact, oral pharynx is clear and mucous membranes are moist. Neck: supple and symmetric, trachea is midline, no cervical adenopathy. Chest:? Normal AP diameter and contour without kyphoscoliosis, no tachypnea, equal chest rise bilaterally. Lungs:? CTA b/l no wheezing rhonchi or rales. Cardio:?RRR no m/r/g. Abdomen:Bowel sounds normal, ND. No CVA tenderness. Musculoskeletal:? Muscle strength and tone are equal within normal limits, no deformity. Extremities: No edema, no joint effusions. No cyanosis or clubbing. Skin:? Pale,? Warm to touch,dry and intact without rashes, ulcerations or petechiae.? Neuro:? Alert and orientated to name and location,? sensation to touch intact in all extremities, no gross deficits noted of cranial nerves. Psych:? Patient has a well-kept appearance, pleasant affect. Objective Labs 06/29/22 06:45 06/30/22 05:55 Labs: Laboratory Results - last 24 hr 06/30/22 05:55 Sodium 124 L Potassium 4.8 Chloride 95 L Carbon Dioxide 27 BUN 61 H Creatinine 1.66 H Estimated GFR 30 L BUN/Creatinine Ratio 36.7 H Glucose 80 Calcium 7.7 L Magnesium 1.8 [facility] Medical History (Updated 06/23/22 @ 17:42 by Jesus Rahman DO) CHF (congestive heart failure) HTN (hypertension) Surgical History History of shoulder replacement Family History (Updated 06/23/22 @ 17:01 by Jesus Rahman DO) Mother No pertinent past medical history Father No pertinent past medical history Social History household members: none Smoking Status: Former smoker alcohol intake: former Assessment & Plan Assessment & Plan narrative: 1. Acute metabolic encephalopathy due to severe hyponatremia ?- suspected hypovolemia initially with increased furosemide, but that only worsened Na dropping it to 115. Given 3% NS with improvement to 120, was then stable at 120 x3. Repeat urine sodium 6, may be still hypo or hypervolemic but has since been improving with continued diuresis. Patient now on furosemide 60 mg po BID but dropped from 125 to 124 today, added bumex to see if improvement. ?- continue to trend BMP daily ?- No evidence of infectious etiology on CXR or UA. ?- Head CT unremarkable. - started oral sodium tabs to see if improvement, though will need continued diuresis. 2. ANA MARIA, present on admission ?- probably due to hypovolemia initially? or possibly from congestion given need for diuresis. May have also been from entresto in combination. Creatinine improving slowly, but now stable around 1.6 today even with continued diuresis. ?- per medications from assisted living, also started on bactrim for UTI recently which will raise Cr level. Stopped antibiotic given negative UA on admit 3. HTN ?- restart home medications, less the diuretic and entresto as discussed above. BP improved with diuretic of furosemide. 4. CHFrEF ?- diuresing as above. Hold entresto as discussed above , continue home beta josué. Added spironolactone 25 mg daily today. - consider restarting home entresto tomorrow if BP is steady and creatinine after addition of bumex. 5. Hypomagnesemia ?- repleted in the ER, consistently stable, no longer following. 6. Previous acute cystitis ?- was on bactrim until 06/25 for UTI, will stop therapy at this time, UA negative for infection here and no symptoms. 7. Anemia, ?- possibly dilutional with stable Hg in the 8s this admission. No obvious source of bleeding at this time. 8. Prolongued QT. Stop Trazodone.? Initiate melatonin 3 mg at night for sleep. Code: DNR, surrogate is patient's son and daughter Dispo: Admitted as inpatient with anticipated stay beyond two midnights. SNF vs [facility] depending on improvement in sodium and progress with therapies. Time Spent With Patient Critical Care time: I spent a total of [] minutes of critical care time on this patient's care today; this time is exclusive of procedural time.
--- NOTE | 2022-06-30 17:16 | CM.DPC ---
DCP/continued: Reviewed chart. Current d/c recommendations are SNF. Patient resides at [facility] and prefers to return there with HH. However, she is agreeable to short stay at local SNF/[facility] if needed. [facility] has called and reports that they can accept when patient medically stable. In addition, Livia is contact at [facility] ph# [phone]. P: CM team to f/u tomorrow to confirm plan pending patient's mobility status. As of right now SNF recommended. ANEESH
[2022-06-30 21:00] VITALS: BP 153/48; PULSE 69; TEMP 36.9; O2SAT 94
[2022-06-30] MEDS: SENNOSIDES 8.6 MG TABLET 17.2 MG PO (21:12)
[2022-06-30] MEDS: MELATONIN 3 MG TABLET PO (21:12)
[2022-06-30] MEDS: MIRTAZAPINE 15 MG TABLET PO (21:12)
[2022-06-30 21:19] VITALS: BP 153/48; PULSE 70
[2022-07-01] MEDS: ACETAMINOPHEN 325 MG TABLET 650 MG PO ×2 (05:21→16:09)
[2022-07-01] MEDS: OXYCODONE ER 10 MG TAB PO ×3 (05:22→20:23)
[2022-07-01 05:50] LABS: BUN Creatinine Ratio 36.9 (6-22); Blood Urea Nitrogen 62 mg/dL (7-17); Calcium 7.8 mg/dL (8.4-10.2); Carbon Dioxide 27 mmol/L (22-32); Chloride 94 mmol/L (98-107); Estimated Glomerular Filt Rate 29 mL/min (>60); Glucose 81 mg/dL (80-110); HEMOLYSIS < 15 (0-50); Magnesium 1.7 mg/dL (1.6-2.3); Potassium 4.6 mmol/L (3.4-5.1); Sodium 126 mmol/L (137-145)
[2022-07-01 07:00] VITALS: BP 159/58; PULSE 61; RESP 17; TEMP 35.8; O2SAT 95
[2022-07-01 07:40] VITALS: O2SAT 95
[2022-07-01] MEDS: FUROSEMIDE 20 MG TABLET 60 MG PO ×2 (07:46→16:09)
[2022-07-01] MEDS: OXYCODONE IR 5 MG TABLET PO ×2 (07:46→16:09)
[2022-07-01 09:04] VITALS: BP 159/58
[2022-07-01] MEDS: ESCITALOPRAM 10 MG TABLET PO (09:04)
[2022-07-01] MEDS: BUMETANIDE 1 MG TABLET PO (09:04)
[2022-07-01] MEDS: SPIRONOLACTONE 25 MG TABLET PO (09:04)
[2022-07-01] MEDS: ENOXAPARIN 30 MG/0.3 ML SYRINGE SUBCUT (09:04)
[2022-07-01] MEDS: SODIUM CHLORIDE 1,000 MG TABLET 1000 MG PO ×3 (09:04→20:22)
[2022-07-01] MEDS: METOPROLOL ER 25 MG TABLET 12.5 MG PO ×2 (09:04→20:22)
[2022-07-01] MEDS: SODIUM CHLORIDE 0.9% FLUSH 10 ML IV ×2 (09:05→20:25)
--- NOTE | 2022-07-01 14:22 | P.PN_ITS ---
Subjective Subjective Interval history: Patient confusion slowly improving, but weak still and nauseous. No chest pain or palpitations. No shortness of breath. Exam Vital Signs (past 8 hours): - 07/01/22 07:00 07/01/22 09:04 07/01/22 07:40 Temperature 96.4 F L Pulse Rate 61 Respiratory Rate 17 Blood Pressure 159/58 H 159/58 H Pulse Oximetry 95 95 Oxygen Delivery Method Room Air Oxygen Flow Rate 0 0 Oxygen Delivery Method Room Air Oxygen Flow Rate 0 Narrative Exam Narrative: General:? Patient is well developed and well nourished, in no distress at this time. HEENT:? Normocephalic, atraumatic, extraocular muscles intact, oral pharynx is clear and mucous membranes are moist. Neck: supple and symmetric, trachea is midline, no cervical adenopathy. Chest:? Normal AP diameter and contour without kyphoscoliosis, no tachypnea, equal chest rise bilaterally. Lungs:? CTA b/l no wheezing rhonchi or rales. Cardio:?RRR no m/r/g. Abdomen:Bowel sounds normal, ND. No CVA tenderness. Musculoskeletal:? Muscle strength and tone are equal within normal limits, no deformity. Extremities: No edema, no joint effusions. No cyanosis or clubbing. Skin:? Pale,? Warm to touch,dry and intact without rashes, ulcerations or pe techiae.? Neuro:? Alert and orientated to name and location,? sensation to touch intact in all extremities, no gross deficits noted of cranial nerves. Psych:? Patient has a well-kept appearance, pleasant affect. Objective Labs 06/29/22 06:45 07/01/22 05:15 Labs: Laboratory Results - last 24 hr 07/01/22 05:15 Sodium 126 L Potassium 4.6 Chloride 94 L Carbon Dioxide 27 BUN 62 H Creatinine 1.68 H Estimated GFR 29 L BUN/Creatinine Ratio 36.9 H Glucose 81 Calcium 7.8 L Magnesium 1.7 PFSH Medical History (Updated 06/23/22 @ 17:42 by Jesus Rahman DO) CHF (congestive heart failure) HTN (hypertension) Surgical History History of shoulder replacement Family History (Updated 06/23/22 @ 17:01 by Jesus Rahman, DO) Mother No pertinent past medical history Father No pertinent past medical history Social History household members: none Smoking Status: Former smoker alcohol intake: former Assessment & Plan Assessment & Plan narrative: 1. Acute metabolic encephalopathy due to severe hyponatremia ?- suspected hypovolemia initially with increased furosemide, but that only worsened Na dropping it to 115. Given 3% NS with improvement to 120, was then stable at 120 x3. Repeat urine sodium 6, may be still hypo or hypervolemic but has since been improving with continued diuresis. Patient now on furosemide 60 mg po BID but dropped from 125 to 124 today, added bumex with improvement to 126. ?- continue to trend BMP daily ?- No evidence of infectious etiology on CXR or UA. ?- Head CT unremarkable. - started oral sodium tabs to see if improvement, though will need continued diuresis. 2. ANA MARIA, present on admission ?- probably due to hypovolemia initially? or possibly from congestion given need for diuresis. May have also been from entresto in combination. Creatinine improving slowly, but now stable around 1.6 today even with continued diuresis. ?- per medications from assisted living, also started on bactrim for UTI recently which will raise Cr level. Stopped antibiotic given negative UA on admit 3. HTN ?- restart home medications, less entresto as discussed above. May be able to resume tomorrow depending on renal function. 4. CHFrEF ?- diuresing as above. Hold entresto as discussed above , continue home beta josué. Added spironolactone 25 mg daily today. - consider restarting home entresto tomorrow if BP is steady and creatinine after addition of bumex. 5. Hypomagnesemia ?- repleted in the ER, consistently stable, no longer following. 6. Previous acute cystitis ?- was on bactrim until 06/25 for UTI, will stop therapy at this time, UA negative for infection here and no symptoms. 7. Anemia, ?- possibly dilutional with stable Hg in the 8s this admission. No obvious source of bleeding at this time. 8. Prolongued QT. Stop Trazodone.? Initiate melatonin 3 mg at night for sleep. Code: DNR, surrogate is patient's son and daughter Dispo: Admitted as inpatient with anticipated stay beyond two midnights. Plan for SNF, in 1-2 days, hopeful for tomorrow if renal function stable and sodium improves a bit more. Time Spent With Patient Critical Care time: I spent a total of [] minutes of critical care time on this patient's care today; this time is exclusive of procedural time.
--- NOTE | 2022-07-01 14:51 | PT-IP ANOTE ---
Pt completely refused to work with therapy today, reports she was up and in her chair earlier with nursing, and she did feel better, but it tired her out too much, and now all my bones feel like they're bad. Will try again tomorrow, but if pt continues to refuse to even stand bedside, may be appropriate to discharge from PT caseload.
--- NOTE | 2022-07-01 15:51 | CM.DPC ---
Addendum entered by April Pritchett R.N. 07/02/22 11:48: Carolina at [facility] is aware that patient is going to [facility] today, Felecia, store administrative assistant BAMBI is faxing her over the H&P. Addendum entered by April Pritchett R.N. 07/02/22 10:58: Pushed back time to 1130 for medicinal plant picker, as hospitalist hospitalist having difficulties printing out med sheets, was on the phone with IT. September at [facility] indicated that they can accept the DC Summary as long as meds are on the sheet. Let hospitalist know this. Gave nurse, Bo, number for report. Original Note: DCP Cont: [facility] had went ahead and set up time for medicinal plant picker at 1400 if she was ready. Updated hospitalist, Dr. Rahman. He will keep her another day to monitor sodium level. Updated September at [facility]. Met with patient in her room, she is pleasant, not feeling well. Son, Cj, then came in. This DC Car Coupler met with Cj and [id number]. They are aware that patient is staying for another day. They inquired if there was a time set up as of yet for patient to go to [facility] tomorrow. Let them know that a time has not yet been set up, but can update them tomorrow, after team rounds. P: DCP to continue to follow. PASSR completed, patient may be able to discharge tomorrow to [facility] as long as she is medically stable, they do have the bed for her tomorrow. April Pritchett RN/Control Systems Technician
[2022-07-01 19:45] VITALS: PULSE 66; RESP 18; TEMP 36.2; O2SAT 93
[2022-07-01 20:22] VITALS: BP 165/51; PULSE 62
[2022-07-01] MEDS: MELATONIN 3 MG TABLET PO (20:22)
[2022-07-01] MEDS: MIRTAZAPINE 15 MG TABLET PO (20:22)
[2022-07-01] MEDS: SENNOSIDES 8.6 MG TABLET 17.2 MG PO (20:22)
[2022-07-01 21:05] VITALS: BP 152/49
[2022-07-02] MEDS: OXYCODONE ER 10 MG TAB PO (06:05)
[2022-07-02 06:43] LABS: BUN Creatinine Ratio 39.9 (6-22); Blood Urea Nitrogen 65 mg/dL (7-17); Calcium 7.9 mg/dL (8.4-10.2); Carbon Dioxide 26 mmol/L (22-32); Chloride 96 mmol/L (98-107); Estimated Glomerular Filt Rate 31 mL/min (>60); Glucose 79 mg/dL (80-110); HEMOLYSIS < 15 (0-50); Magnesium 1.8 mg/dL (1.6-2.3); Potassium 4.6 mmol/L (3.4-5.1); Sodium 126 mmol/L (137-145)
[2022-07-02 07:00] VITALS: O2SAT 93
[2022-07-02 07:45] VITALS: BP 152/49; PULSE 64; RESP 16; TEMP 36.2; O2SAT 93
[2022-07-02] MEDS: ENOXAPARIN 30 MG/0.3 ML SYRINGE SUBCUT (08:49)
[2022-07-02] MEDS: ESCITALOPRAM 10 MG TABLET PO (08:50)
[2022-07-02] MEDS: SPIRONOLACTONE 25 MG TABLET PO (08:50)
[2022-07-02] MEDS: SODIUM CHLORIDE 1,000 MG TABLET 1000 MG PO (08:50)
[2022-07-02] MEDS: BUMETANIDE 1 MG TABLET PO (08:50)
[2022-07-02 08:56] VITALS: BP 152/49; PULSE 64
[2022-07-02 10:34] LABS: COVID19 -Nasal RAPID Negative (Negative)
[2022-07-02] MEDS: ACETAMINOPHEN 325 MG TABLET 650 MG PO (10:38)
[2022-07-02] MEDS: FUROSEMIDE 20 MG TABLET 60 MG PO (10:39)
[2022-07-02] MEDS: SODIUM CHLORIDE 0.9% FLUSH 10 ML IV (10:40)
--- NOTE | 2022-07-02 10:51 | PC.NURSE ---
Pt is alert with moments of confusion. Follows commands, asking appropriate questions. Family attentive at bedside. Making appropriate requests.
--- NOTE | 2022-07-02 11:34 | PM.DS.1 ---
History of Present Illness History of Present Illness Chief complaint: increased confusion over 2 weeks Narrative: Per history and physical: Inga Mata is an 86-year-old female former smoker with history of hypertension, systolic heart failure who presents with worsening confusion per her daughter in law over the past 4-5 days. Daughter in law reports a mix up with some of her medications after leaving [facility] a few weeks ago (was discharged there after recent admission in April) where she was receiving double her usual dose of furosemide. Patient does not recall the events of the last few days, but currently denies symptoms including headache, chest pain, shortness of breath, nausea, vomiting. Nurse did report to me she did complain of headache and burning chest discomfort. Patient currentl resides at [facility]. It does appear facility started patient on bactrim for UTI, with end date on 06/25. In the emergency room, the patient was hypertensive but the remainder of her vital signs were unremarkable.? CBC was unremarkable, but chemistry panel revealed a sodium of 116, a chloride of 80, and initial creatinine of 2.47 improved to 2.29 with fluids.? Magnesium level was 1.5.? Urinalysis was not indicative of infection, urine drug screen was positive for benzodiazepines and oxycodone, respiratory panel was negative.? Head CT was unremarkable, chest x-ray showed some blunting of her costophrenic angles (possible trace bilateral pleural effusions) but no other vascular congestion. She was given a bolus of IV fluid, with above improvement in her Cr but sodium stayed at 116. She was admitted for further mangaement of hyponatremia. Discharge Providers Provider Date of admission: 06/23/22 15:02 Discharge Date: 07/02/22 Primary care physician: Shahana Jennings PA-C Consults: 06/23/22 17:39 Consult to Pastoral Services Routine Comment: pt requests financial sales advisor visit when available 06/26/22 10:47 Consult to Physical Therapy Evaluate & Treat Comment: Physician Instructions: Evaluate and Treat Discharge provider: Jennifer Vann MD Summary Hospital Course Discharge Diagnosis: Acute metabolic encephalopathy due to severe hyponatremia, improving Severe hyponatremia, improving sodium level up to 126 at the date of discharge with goal likely of 129-130 ANA MARIA in the setting of probable CKD stage 3 Hypertension Congestive heart failure with reduced ejection fraction with ejection fraction of 25-30% Hypomagnesemia, repleted UTI prior to admission, resolved Anemia Prolonged QT Hospital Course: Patient was admitted with recurrent hyponatremia in the setting of what appears to be now CKD 3 (likely due to need for diuresis) and chronic systolic congestive heart failure. She was noted to have significant encephalopathy which was related to her hyponatremia at admission. Admission sodium level was 116. It has gradually improved and is up to 126 at discharge. Patient was given additional diuresis which led to worsening ANA MARIA. Subsequently salt tablets were added with good results. At the time of discharge, patient is on furosemide 60 mg twice daily along with salt tablets 1 g t.i.d.. It is hoped that the salt tablets will be a temporizing measure as with her CHF, long-term use would be risky. She does have an appointment to establish with a ranch hand livestock within several weeks. Discussed with family the importance of having a ranch hand livestock work with her cataloging assistant for better management overall. Patient will have a follow-up BMP to be done on July 05 and the facility MD will follow. Patient is discharging in stable condition. At the time of discharge, medication reconciliation could not be performed. Current medications are as follows: Acetaminophen 600 mg p.o. Q.6 hours as needed docusate 200 mg daily escitalopram 20 mg daily furosemide 60 mg po BID metoprolol 12.5 mg daily mirtazepine 30 mg qhs oxycodone 5 mg q4 prn oxycontin 15 mg BID miralax 17 gm po daily Entresto 1 tab po BID melatonin 3 mg qhs prn Salt tabs 1 gm po TID Senna daily Status at Discharge Overall status at discharge: patient is progressing back to baseline Exam Vital Signs (past 8 hours): - 07/02/22 07:45 07/02/22 08:56 07/02/22 07:00 Temperature 97.1 F L Pulse Rate 64 64 Respiratory Rate 16 Blood Pressure 152/49 H 152/49 H Pulse Oximetry 93 93 Oxygen Delivery Method Room Air Oxygen Flow Rate 0 Oxygen Delivery Method Room Air Oxygen Flow Rate 0 Narrative Exam Narrative: GEN: Leave female, somewhat anxious, mildly confused, NAD HEENT:NC, Face symmetric CHEST: Respiratory excursions symmetric, mild end expiratory wheezes CV: RRR, no M/R/G ABD: Soft, NT/ND, BT present in all 4 quadrants, no organomegaly or masses EXTR: warm, well perfused, no C/C/E SKIN: warm and dry, no rash NEURO: Alert and oriented x 3, nonfocal Objective Labs 06/29/22 06:45 07/02/22 06:08 Labs: Laboratory Results - last 24 hr 07/02/22 07/02/22 06:08 08:30 Sodium 126 L Potassium 4.6 Chloride 96 L Carbon Dioxide 26 BUN 65 H Creatinine 1.63 H Estimated GFR 31 L BUN/Creatinine Ratio 39.9 H Glucose 79 L Calcium 7.9 L Magnesium 1.8 SARS-CoV-2 (PCR) Negative [facility] Medical History (Updated 06/23/22 @ 17:42 by Jesus Rahman DO) CHF (congestive heart failure) HTN (hypertension) Surgical History History of shoulder replacement Family History (Updated 06/23/22 @ 17:01 by Jesus Rahman DO) Mother No pertinent past medical history Father No pertinent past medical history Social History household members: none Smoking Status: Former smoker alcohol intake: former Discharge Plan Discharge Plan Patient Disposition: SNF Transfer to: [facility] Other facility: Facility MD Provider Discharge Comment: Please obtain f/u BMP on 07/05/22 to recheck sodium and creatinine (Na 126 and Cr 1.63 this am) Discharge orders & Medications Prescriptions: New senna 8.6 mg capsule 8.6 mg PO BEDTIME Qty: 30 0RF sodium chloride 1,000 mg tablet,soluble 1,000 mg PO TID Qty: 42 0RF furosemide 40 mg tablet 60 mg PO BID Qty: 42 0RF Continued polyethylene glycol 3350 [Miralax] 17 gram Powder In Packet 17 g PO DAILY mirtazapine 30 mg Tablet 30 mg PO BEDTIME oxycodone 5 mg Capsule 5 mg PO Q4H PRN (Reason: Pain (Scale Score 4-6)) docusate sodium 100 mg Capsule 200 mg PO DAILY metoprolol succinate 25 mg Tablet Extended Release 24 Hr 12.5 mg PO DAILY ondansetron 4 mg Tablet,Disintegrating 4 mg PO Q8H PRN (Reason: Nausea And Vomiting) escitalopram oxalate 20 mg Tablet 20 mg PO DAILY oxycodone [OxyContin] 15 mg Tablet,Oral Only,Ext.Rel.12 Hr 15 mg PO BID Entresto 24-26 mg Tablet 1 tab PO BID acetaminophen 325 mg Tablet 650 mg PO Q6H PRN (Reason: Fever/Mild Pain (1-3)) Qty: 30 0RF Discontinued sulfamethoxazole-trimethoprim [Bactrim DS] 800-160 mg Tablet 1 tab PO BID Rx Instructions: end date 06/25/22 furosemide 80 mg Tablet 80 mg PO BID zolpidem 10 mg Tablet 10 mg PO BEDTIME PRN (Reason: Insomnia) Follow up/Referrals: Shahana Jennings PA-C [Primary Care Provider] - Diet/Activity/Treatments Diet: Diet as Tolerated and Regular Liquid consistency: Normal/Thin Food texture: Regular Catheter: 2-way [place] Oxygen: N/A Visit Report/Discharge Packet Stand Alone Forms: Patient Portal/API Discharge Data Primary Care Provider: Shahana Jennings
--- NOTE | 2022-07-02 11:38 | PC.NURSE ---
11:30 Pt transferred to W/c, belongings accounted for and sent with Family. 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 [employer] issue understood by [employer]. [employer] continues to work on issue.
== END 2022-07-02 11:30 | DRG 640 ==
LOC: ED 13:14 → AC 15:03 → ICU 15:18 → AC 06-25 15:52
PROVIDERS: Family Medicine; Neuromusculoskeletal Medicine, Sports Medicine; Admitting Provider Internal Medicine; Emergency Provider Emergency Medicine; Family Provider Physician Assistant; PCP Physician Assistant; Referring Provider Emergency Medicine; Visit Provider Internal Medicine
DX: E87.1 Hypo-osmolality and hyponatremia (principal); G93.41 Metabolic encephalopathy; I50.22 Chronic systolic (congestive) heart failure; N17.9 Acute kidney failure, unspecified; I13.0 Hypertensive heart and chronic kidney disease with heart failure and stage 1 through stage 4 chronic kidney disease, or unspecified chronic kidney disease; E83.42 Hypomagnesemia; R94.31 Abnormal electrocardiogram [ECG] [EKG]; N18.30 Chronic kidney disease, stage 3 unspecified; Z20.822 Contact with and (suspected) exposure to COVID-19; Z66 Do not resuscitate; Z87.891 Personal history of nicotine dependence
CPT/HCPCS: 36415; 70450; 71045; 80048; 80053; 80305; 81001; 82140; 83735; 83880; 83935; 84300; 85025; 87633; 87635; 87797; 93005; 97161; 97530; 99285; 99291; C9803; J1650; J1940; J2405; J3475

== ENCOUNTER → 2022-07-17 01:11 | Outpatient (ROUT) | payer MEDICARE, OTHER, SELFPAY ==
[2022-06-23 15:57] VITALS: BMI 23.8
[2022-07-17 01:17] LABS: Appearance Urine UA CLEAR; Bilirubin Urine UA NEGATIVE (NEGATIVE); Color Urine UA YELLOW; Glucose Urine UA NEGATIVE (Negative); Ketones Urine UA NEGATIVE (NEGATIVE); Leukocyte Esterase Urine UA TRACE (NEGATIVE); Nitrite Urine UA NEGATIVE (Negative); Occult Blood Urine UA 3+ (Negative); Protein Urine UA 2+ (Negative); Specific Gravity Urine UA 1.015 (1.000-1.035); Urobilinogen Urine UA 0.2 E.U./dL (0.2)
[2022-07-17 01:19] LABS: pH Urine UA 5.5 (4.5-8.0)
[2022-07-17 01:34] LABS: Bacteria Urine None Seen; Culture Indicated Urine Specimen Cultured; RBC Urine 5-10/HPF (0-5/HPF); Squamous Epithelial Cell Urine 1-5 /HPF (0-5/HPF); WBC Urine 1-5/HPF (0-5/HPF)
== END ==
PROVIDERS: Physician Assistant Medical; Family Provider Physician Assistant; PCP Physician Assistant; Visit Provider Nurse Practitioner Family
DX: N39.0 Urinary tract infection, site not specified (principal)
CPT/HCPCS: 81001; 87077; 87086; 87147; 87186

== ENCOUNTER 2022-08-09 14:47 | Emergency (ER) | payer MEDICARE, OTHER, SELFPAY ==
[2022-06-23 15:57] VITALS: BMI 23.8
[2022-08-09] VITALS (38 sets, daily range): BP systolic 129–174; BP diastolic 60–77; PULSE 60–95; RESP 14–57; TEMP 36.6–36.8; O2SAT 95–99; BMI 25.2
[2022-08-09 15:16] LABS: Add Manual Diff / Slide Review NO; Basophils Absolute Auto 0 /uL (0-100); Basophils Percent Auto 0.4 % (0-2); Eosinophils Absolute Auto 100 /uL (0-450); Eosinophils Percent Auto 1.5 % (2-4); Hematocrit 23.4 % (36-46); Hemoglobin 7.9 g/dL (12.0-16.0); Lymphocytes Absolute Auto 1100 /uL (1100-4500); Lymphocytes Percent Auto 16.9 % (25-40); Mean Corpuscular HGB Conc 33.8 % (30-36); Mean Corpuscular Hemoglobin 31.1 PG (26-34); Monocytes Absolute Auto 400 /uL (0-900); Monocytes Percent Auto 5.8 % (3-14); Neutrophils Absolute Auto 5000 /uL (1500-7000); Neutrophils Percent Auto 75.4 % (50-75); Platelet Count 249 X10^3/uL (150-400); Red Blood Cell Count 2.54 X10^6/uL (4.0-5.2); Red Cell Distribution Width 15.9 % (11.6-14.8); White Blood Cell Count 6.6 X10^3/uL (4.5-11.0)
[2022-08-09 15:33] LABS: Alanine Aminotransferase 14 IU/L (<35); Albumin 2.9 g/dL (3.5-5.0); Alkaline Phosphatase 69 U/L (38-126); Aspartate Aminotransferase 25 IU/L (14-36); BUN Creatinine Ratio 31.1 (6-22); Bilirubin Total 0.6 mg/dL (0.2-1.3); Blood Urea Nitrogen 64 mg/dL (7-17); Calcium 8.4 mg/dL (8.4-10.2); Carbon Dioxide 26 mmol/L (22-32); Chloride 96 mmol/L (98-107); Estimated Glomerular Filt Rate 23 mL/min (>60); Globulin 2.8 g/dL (1.7-4.1); Glucose 120 mg/dL (80-110); HEMOLYSIS < 15 (0-50); Sodium 130 mmol/L (137-145); Total Protein 5.7 g/dL (6.3-8.2)
[2022-08-09 15:40] LABS: INR 1.2 (0.9-1.3); Prothrombin Time 14.1 SECONDS (10.1-12.7)
[2022-08-09 15:43] LABS: PTT Partial Thromboplastin Tim 27 SECONDS (26-36)
[2022-08-09 16:00] LABS: NT-proBNP (BNP-Adult 18+) 39500 pg/mL (<450)
--- NOTE | 2022-08-09 16:36 | ED_ITS ---
HPI - Recheck/Abnormal Lab/Rx <Lev Perez, DO - Last Filed: 08/10/22 07:07> General Chief Complaint: Recheck/Abnormal Lab/Rx Stated Complaint: says needs blood transfusion Time Seen by Provider: 08/09/22 16:05 Source: patient and family Mode of arrival: Wheelchair History of Present Illness HPI narrative: Patient is an 87-year-old female. Has a history of renal disease. Does see a centrifugal station operator. Also has a history of heart failure. Is on diuretics. Had some blood counts obtained last week by her centrifugal station operator. She was contacted by her centrifugal station operator and also her primary doctor to come to the emergency department because her blood counts were low and she potentially needs a blood transfusion. She is not on anticoagulation. She is not had any blood in her stool no blood in her urine. Has not vomiting. No abdominal pain. No chest pain. She states she has had some shortness of breath on exertion but this is not necessarily new and has been going on for several weeks if not longer. Also has had some fatigue which again is not new. She is not had any bruising. She is taking all of her medications as directed. Related Data Home Medications Medication Instructions Recorded Confirmed docusate sodium 100 mg capsule 200 mg PO DAILY 06/23/22 06/23/22 escitalopram oxalate 20 mg tablet 20 mg PO DAILY 06/23/22 06/23/22 metoprolol succinate 25 mg 12.5 mg PO DAILY 06/23/22 06/23/22 tablet,extended release 24 hr mirtazapine 30 mg tablet 30 mg PO BEDTIME 06/23/22 06/23/22 ondansetron 4 mg disintegrating 4 mg PO Q8H PRN Nausea And Vomiting 06/23/22 06/23/22 tablet oxycodone 15 mg tablet,crush 15 mg PO BID 06/23/22 06/23/22 resistant,extended release 12 hr (OxyContin) oxycodone 5 mg capsule 5 mg PO Q4H PRN Pain (Scale Score 06/23/22 06/23/22 4-6) polyethylene glycol 3350 17 gram 17 g PO DAILY 06/23/22 06/23/22 oral powder packet (Miralax) sacubitril 24 mg-valsartan 26 mg 1 tab PO BID 06/23/22 06/23/22 tablet (Entresto) Previous Rx's Medication Instructions Recorded acetaminophen 325 mg tablet 650 mg PO Q6H PRN Fever/Mild Pain 05/14/22 (1-3) #30 tabs furosemide 40 mg tablet 60 mg PO BID #42 tabs 07/02/22 sennosides 8.6 mg capsule (senna) 8.6 mg PO BEDTIME #30 caps 07/02/22 sodium chloride 1,000 mg soluble 1,000 mg PO TID #42 tabs 07/02/22 tablet Allergies Allergy/AdvReac Type Severity Reaction Status Date / Time trazodone AdvReac Intermediate QTc Verified 06/27/22 12:40 prolongation when on escitalopram concurrently Review of Systems <Lev Perez DO - Last Filed: 08/10/22 07:07> Constitutional Constitutional: Reports system reviewed and no additional complaints, except as documented Cardiovascular Cardiovascular: Reports system reviewed and no additional complaints, except as documented Respiratory Respiratory: Reports system reviewed and no additional complaints, except as documented Gastrointestinal Gastrointestinal: Reports system reviewed and no additional complaints, except as documented Genitourinary Genitourinary: Reports system reviewed and no additional complaints, except as documented Integumentary/Breasts Skin/Breast: Reports system reviewed and no additional complaints, except as documented Neurologic Neurologic: Reports system reviewed and no additional complaints, except as documented Hematologic/Lymphatic On Anticoagulants: No Patient History <Lev Perez DO - Last Filed: 08/10/22 07:07> Medical History CHF (congestive heart failure) HTN (hypertension) Surgical History History of shoulder replacement Family History (Updated 06/23/22 @ 17:01 by Jesus Rahman DO) Mother No pertinent past medical history Father No pertinent past medical history Social History household members: none Smoking Status: Former smoker alcohol intake: former Smoking Status: Former smoker tobacco type: cigarettes alcohol intake frequency: holidays/special occasions only Substance Use Type: does not use Exam <Lev Perez DO - Last Filed: 08/10/22 07:07> Initial Vital Signs Initial Vital Signs: Vital Signs Temperature 97.8 F 08/09/22 14:50 Pulse Rate 67 08/09/22 14:50 Respiratory Rate 20 08/09/22 14:50 Blood Pressure 138/68 08/09/22 14:50 Pulse Oximetry 99 08/09/22 14:50 Oxygen Delivery Method Room Air 08/09/22 14:50 Const General: cooperative, comfortable and No ill appearing HENMT Head: normal to inspection and normocephalic Resp Effort & Inspection: normal respiratory effort Auscultation: clear to auscultation bilaterally Cardio Rate: regular rate Rhythm: regular rhythm GI Inspection: normal to inspection Skin General: no rashes or lesions noted Extrem General: edema <Maria Teresa Mendoza MD - Last Filed: 08/09/22 21:41> Initial Vital Signs Initial Vital Signs: Vital Signs Temperature 97.8 F 08/09/22 14:50 Pulse Rate 67 08/09/22 14:50 Respiratory Rate 20 08/09/22 14:50 Blood Pressure 138/68 08/09/22 14:50 Pulse Oximetry 99 08/09/22 14:50 Oxygen Delivery Method Room Air 08/09/22 14:50 Course <Lev Perez DO - Last Filed: 08/10/22 07:07> Orders Ordered: Discontinued Medications Furosemide 60 mg/ Sodium (Chloride) 56 mls @ 112 mls/hr IV NOW ONE Stop: 08/09/22 21:06 Last Infusion: 08/09/22 21:47 Dose: 0 mls/hr Documented By: Admin: 08/09/22 21:17 Dose: 112 mls/hr Documented By: REYMUNDO Torsemide (Torsemide 10 Mg Tablet) 40 mg PO NOW ONE Stop: 08/09/22 16:38 Last Admin: 08/09/22 17:04 Dose: 40 mg Documented By: JOSSELYN Vital Signs Vital signs: Vital Signs - 8 hr 08/09/22 14:50 08/09/22 16:10 08/09/22 16:10 Temperature 97.8 F Pulse Rate 67 73 Respiratory Rate 20 Blood Pressure 138/68 144/67 H Blood Pressure [Right Arm] Pulse Oximetry 99 Oxygen Delivery Method Room Air 08/09/22 16:15 08/09/22 16:30 08/09/22 16:30 Temperature Pulse Rate 65 70 Respiratory Rate 20 19 Blood Pressure 156/71 H Blood Pressure [Right Arm] Pulse Oximetry 98 99 Oxygen Delivery Method 08/09/22 16:45 08/09/22 18:32 08/09/22 18:47 Temperature 98.1 F 98.2 F Pulse Rate 63 74 75 Respiratory Rate 20 24 25 H Blood Pressure 168/74 H 168/74 H Blood Pressure [Right Arm] Pulse Oximetry 97 Oxygen Delivery Method 08/09/22 18:49 08/09/22 17:00 08/09/22 17:01 Temperature 98.2 F Pulse Rate 75 62 64 Respiratory Rate 25 H 19 18 Blood Pressure Blood Pressure [Right Arm] 168/74 H Pulse Oximetry 96 97 97 Oxygen Delivery Method Room Air 08/09/22 17:01 08/09/22 17:15 08/09/22 17:16 Temperature Pulse Rate 68 70 Respiratory Rate 18 20 Blood Pressure 146/68 H Blood Pressure [Right Arm] Pulse Oximetry 98 98 Oxygen Delivery Method 08/09/22 17:16 08/09/22 17:30 08/09/22 17:30 Temperature Pulse Rate 62 Respiratory Rate 17 Blood Pressure 163/72 H 164/70 H Blood Pressure [Right Arm] Pulse Oximetry 97 Oxygen Delivery Method 08/09/22 17:45 08/09/22 18:50 08/09/22 17:55 Temperature 97.8 F Pulse Rate 61 62 65 Respiratory Rate 14 24 18 Blood Pressure 143/63 H Blood Pressure [Right Arm] Pulse Oximetry 96 96 Oxygen Delivery Method 08/09/22 17:55 08/09/22 18:00 08/09/22 18:00 Temperature Pulse Rate 64 Respiratory Rate 19 Blood Pressure 139/60 138/63 Blood Pressure [Right Arm] Pulse Oximetry 98 Oxygen Delivery Method 08/09/22 18:15 08/09/22 18:15 08/09/22 18:30 Temperature Pulse Rate 62 Respiratory Rate 17 Blood Pressure 160/69 H 168/74 H Blood Pressure [Right Arm] Pulse Oximetry 97 Oxygen Delivery Method 08/09/22 18:30 08/09/22 18:33 08/09/22 18:33 Temperature Pulse Rate 74 73 Respiratory Rate Blood Pressure 160/77 H Blood Pressure [Right Arm] Pulse Oximetry 96 97 Oxygen Delivery Method 08/09/22 18:45 08/09/22 18:45 08/09/22 18:48 Temperature Pulse Rate 71 73 Respiratory Rate Blood Pressure 160/73 H Blood Pressure [Right Arm] Pulse Oximetry 98 96 Oxygen Delivery Method 08/09/22 18:48 08/09/22 19:00 08/09/22 19:00 Temperature Pulse Rate 95 H Respiratory Rate 33 H Blood Pressure 168/74 H 174/75 H Blood Pressure [Right Arm] Pulse Oximetry 97 Oxygen Delivery Method 08/09/22 19:15 08/09/22 19:16 08/09/22 19:16 Temperature Pulse Rate 63 63 Respiratory Rate Blood Pressure 145/63 H Blood Pressure [Right Arm] Pulse Oximetry 98 98 Oxygen Delivery Method 08/09/22 19:30 08/09/22 19:30 08/09/22 19:45 Temperature Pulse Rate 68 61 Respiratory Rate 29 H 39 H Blood Pressure 147/67 H Blood Pressure [Right Arm] Pulse Oximetry 95 97 Oxygen Delivery Method 08/09/22 19:46 08/09/22 19:46 08/09/22 20:00 Temperature 98.1 F Pulse Rate 60 Respiratory Rate 57 H Blood Pressure 134/63 129/60 Blood Pressure [Right Arm] Pulse Oximetry 97 Oxygen Delivery Method 08/09/22 20:00 08/09/22 20:15 08/09/22 20:15 Temperature Pulse Rate 62 61 Respiratory Rate 30 H 33 H Blood Pressure 169/75 H Blood Pressure [Right Arm] Pulse Oximetry 98 97 Oxygen Delivery Method 08/09/22 20:30 08/09/22 20:30 Temperature Pulse Rate 63 Respiratory Rate 27 H Blood Pressure 144/63 H Blood Pressure [Right Arm] Pulse Oximetry 97 Oxygen Delivery Method <Maria Teresa Mendoza MD - Last Filed: 08/09/22 21:41> Orders Ordered: Discontinued Medications Furosemide 60 mg/ Sodium (Chloride) 56 mls @ 112 mls/hr IV NOW ONE Stop: 08/09/22 21:06 Last Infusion: 08/09/22 21:47 Dose: 0 mls/hr Documented By: Admin: 08/09/22 21:17 Dose: 112 mls/hr Documented By: REYMUNDO Torsemide (Torsemide 10 Mg Tablet) 40 mg PO NOW ONE Stop: 08/09/22 16:38 Last Admin: 08/09/22 17:04 Dose: 40 mg Documented By: JOSSELYN Vital Signs Vital signs: Vital Signs - 8 hr 08/09/22 14:50 08/09/22 16:10 08/09/22 16:10 Temperature 97.8 F Pulse Rate 67 73 Respiratory Rate 20 Blood Pressure 138/68 144/67 H Blood Pressure [Right Arm] Pulse Oximetry 99 Oxygen Delivery Method Room Air 08/09/22 16:15 08/09/22 16:30 08/09/22 16:30 Temperature Pulse Rate 65 70 Respiratory Rate 20 19 Blood Pressure 156/71 H Blood Pressure [Right Arm] Pulse Oximetry 98 99 Oxygen Delivery Method 08/09/22 16:45 08/09/22 18:32 08/09/22 18:47 Temperature 98.1 F 98.2 F Pulse Rate 63 74 75 Respiratory Rate 20 24 25 H Blood Pressure 168/74 H 168/74 H Blood Pressure [Right Arm] Pulse Oximetry 97 Oxygen Delivery Method 08/09/22 18:49 08/09/22 17:00 08/09/22 17:01 Temperature 98.2 F Pulse Rate 75 62 64 Respiratory Rate 25 H 19 18 Blood Pressure Blood Pressure [Right Arm] 168/74 H Pulse Oximetry 96 97 97 Oxygen Delivery Method Room Air 08/09/22 17:01 08/09/22 17:15 08/09/22 17:16 Temperature Pulse Rate 68 70 Respiratory Rate 18 20 Blood Pressure 146/68 H Blood Pressure [Right Arm] Pulse Oximetry 98 98 Oxygen Delivery Method 08/09/22 17:16 08/09/22 17:30 08/09/22 17:30 Temperature Pulse Rate 62 Respiratory Rate 17 Blood Pressure 163/72 H 164/70 H Blood Pressure [Right Arm] Pulse Oximetry 97 Oxygen Delivery Method 08/09/22 17:45 08/09/22 18:50 08/09/22 17:55 Temperature 97.8 F Pulse Rate 61 62 65 Respiratory Rate 14 24 18 Blood Pressure 143/63 H Blood Pressure [Right Arm] Pulse Oximetry 96 96 Oxygen Delivery Method 08/09/22 17:55 08/09/22 18:00 08/09/22 18:00 Temperature Pulse Rate 64 Respiratory Rate 19 Blood Pressure 139/60 138/63 Blood Pressure [Right Arm] Pulse Oximetry 98 Oxygen Delivery Method 08/09/22 18:15 08/09/22 18:15 08/09/22 18:30 Temperature Pulse Rate 62 Respiratory Rate 17 Blood Pressure 160/69 H 168/74 H Blood Pressure [Right Arm] Pulse Oximetry 97 Oxygen Delivery Method 08/09/22 18:30 08/09/22 18:33 08/09/22 18:33 Temperature Pulse Rate 74 73 Respiratory Rate Blood Pressure 160/77 H Blood Pressure [Right Arm] Pulse Oximetry 96 97 Oxygen Delivery Method 08/09/22 18:45 08/09/22 18:45 08/09/22 18:48 Temperature Pulse Rate 71 73 Respiratory Rate Blood Pressure 160/73 H Blood Pressure [Right Arm] Pulse Oximetry 98 96 Oxygen Delivery Method 08/09/22 18:48 08/09/22 19:00 08/09/22 19:00 Temperature Pulse Rate 95 H Respiratory Rate 33 H Blood Pressure 168/74 H 174/75 H Blood Pressure [Right Arm] Pulse Oximetry 97 Oxygen Delivery Method 08/09/22 19:15 08/09/22 19:16 08/09/22 19:16 Temperature Pulse Rate 63 63 Respiratory Rate Blood Pressure 145/63 H Blood Pressure [Right Arm] Pulse Oximetry 98 98 Oxygen Delivery Method 08/09/22 19:30 08/09/22 19:30 08/09/22 19:45 Temperature Pulse Rate 68 61 Respiratory Rate 29 H 39 H Blood Pressure 147/67 H Blood Pressure [Right Arm] Pulse Oximetry 95 97 Oxygen Delivery Method 08/09/22 19:46 08/09/22 19:46 08/09/22 20:00 Temperature 98.1 F Pulse Rate 60 Respiratory Rate 57 H Blood Pressure 134/63 129/60 Blood Pressure [Right Arm] Pulse Oximetry 97 Oxygen Delivery Method 08/09/22 20:00 08/09/22 20:15 08/09/22 20:15 Temperature Pulse Rate 62 61 Respiratory Rate 30 H 33 H Blood Pressure 169/75 H Blood Pressure [Right Arm] Pulse Oximetry 98 97 Oxygen Delivery Method 08/09/22 20:30 08/09/22 20:30 Temperature Pulse Rate 63 Respiratory Rate 27 H Blood Pressure 144/63 H Blood Pressure [Right Arm] Pulse Oximetry 97 Oxygen Delivery Method MDM - Recheck/Abnormal Lab/Rx <Lev Perez DO - Last Filed: 08/10/22 07:07> Medical Records Attestation: I reviewed the patient's medical records. Lab Data Attestation: I reviewed the patient's lab results. 08/09/22 15:00 08/09/22 15:00 Labs: Lab Results 08/09/22 08/09/22 08/09/22 Range/Units 15:00 15:00 15:00 WBC 6.6 (4.5-11.0) X10^3/uL RBC 2.54 L (4.0-5.2) X10^6/uL Hgb 7.9 L (12.0-16.0) g/dL Hct 23.4 L (36-46) % MCV 92.0 (80-100) fL MCH 31.1 (26-34) PG MCHC 33.8 (30-36) % RDW 15.9 H (11.6-14.8) % Plt Count 249 (150-400) X10^3/uL Neut % (Auto) 75.4 H (50-75) % Lymph % (Auto) 16.9 L (25-40) % Schley % (Auto) 5.8 (3-14) % Eos % (Auto) 1.5 L (2-4) % Baso % (Auto) 0.4 (0-2) % Neut # (Auto) 5000 (3103-0895) /uL Lymph # (Auto) 1100 (5317-7523) /uL [place] # (Auto) 400 (0-900) /uL Eos # (Auto) 100 (0-450) /uL Baso # (Auto) 0 (0-100) /uL PT 14.1 H (10.1-12.7) SECONDS INR 1.2 (0.9-1.3) APTT 27 (26-36) SECONDS Sodium 130 L (137-145) mmol/L Potassium 4.0 (3.4-5.1) mmol/L Chloride 96 L (98-107) mmol/L Carbon Dioxide 26 (22-32) mmol/L BUN 64 H (7-17) mg/dL Creatinine 2.06 H (0.52-1.04) mg/dL Estimated GFR 23 L (>60) mL/min BUN/Creatinine Ratio 31.1 H (6-22) Glucose 120 H (80-110) mg/dL Calcium 8.4 (8.4-10.2) mg/dL Total Bilirubin 0.6 (0.2-1.3) mg/dL AST 25 (14-36) IU/L ALT 14 (<35) IU/L Alkaline Phosphatase 69 (38-126) U/L NT-Pro-B Natriuret Pep (<450) pg/mL Total Protein 5.7 L (6.3-8.2) g/dL Albumin 2.9 L (3.5-5.0) g/dL Globulin 2.8 (1.7-4.1) g/dL Albumin/Globulin Ratio 1.0 (1.0-2.8) Blood Type Antibody Screen Crossmatch 08/09/22 08/09/22 Range/Units 15:00 15:00 WBC (4.5-11.0) X10^3/uL RBC (4.0-5.2) X10^6/uL Hgb (12.0-16.0) g/dL Hct (36-46) % MCV (80-100) fL MCH (26-34) PG MCHC (30-36) % RDW (11.6-14.8) % Plt Count (150-400) X10^3/uL Neut % (Auto) (50-75) % Lymph % (Auto) (25-40) % Schley % (Auto) (3-14) % Eos % (Auto) (2-4) % Baso % (Auto) (0-2) % Neut # (Auto) (6224-2090) /uL Lymph # (Auto) (1619-9933) /uL Schley # (Auto) (0-900) /uL Eos # (Auto) (0-450) /uL Baso # (Auto) (0-100) /uL PT (10.1-12.7) SECONDS INR (0.9-1.3) APTT (26-36) SECONDS Sodium (137-145) mmol/L Potassium (3.4-5.1) mmol/L Chloride (98-107) mmol/L Carbon Dioxide (22-32) mmol/L BUN (7-17) mg/dL Creatinine (0.52-1.04) mg/dL Estimated GFR (>60) mL/min BUN/Creatinine Ratio (6-22) Glucose (80-110) mg/dL Calcium (8.4-10.2) mg/dL Total Bilirubin (0.2-1.3) mg/dL AST (14-36) IU/L ALT (<35) IU/L Alkaline Phosphatase (38-126) U/L NT-Pro-B Natriuret Pep 32118 H (<450) pg/mL Total Protein (6.3-8.2) g/dL Albumin (3.5-5.0) g/dL Globulin (1.7-4.1) g/dL Albumin/Globulin Ratio (1.0-2.8) Blood Type B Positive Antibody Screen Negative Crossmatch See Detail Urine Dip Bedside Urine Glucose Negative Bedside Urine Bilirubin - Negative Bedside Urine Ketone - Negative Urine Specific [place] 1.015 Bedside Urine Occult Blood ++ Bedside Urine pH 6.0 Bedside Urine Protein - Negative Bedside Urine Urobilinogen - Negative Bedside Urine Nitrite - Negative Bedside Urine Leukocytes + 70 Esterase ECG Data Attestation: I personally reviewed and interpreted this ECG as follows: Interpretation: Sinus rhythm Ventricular rate is 65 Normal axis Normal QRS LVH No ST T wave changes MDM Narrative Medical decision making narrative: Patient has been having some dyspnea on exertion and fatigue however this potentially has been going on for weeks or longer. She is somewhat more anemic today compared to labs that were drawn approximately 10 days ago. Patient also has a history of CHF. She does have lower extremity swelling. Her BNP is elevated. I did discuss with the patient and the patient's daughter who is at bedside the risks and benefits of the blood transfusion. Did inform her that her hemoglobin and hematocrit today were not necessarily at the level that would necessitate a automatic blood transfusion. I did inform them that I am not 100% convinced that a blood transfusion would help her shortness of breath and fatigue however it potentially could. We also discussed the possibility of fluid overload given her history of CHF. After all of this discussion the patient and daughter did agree to blood transfusion. Patient was given her n ight dose of diuretic. We will transfuse 1 unit of packed red blood cells very slowly anticipate discharge afterwards. Care turned over to Dr. Mendoza to observe until disposition can be made. <Maria Teresa Mendoza MD - Last Filed: 08/09/22 21:41> Lab Data Labs: Lab Results 08/09/22 08/09/22 08/09/22 Range/Units 15:00 15:00 15:00 WBC 6.6 (4.5-11.0) X10^3/uL RBC 2.54 L (4.0-5.2) X10^6/uL Hgb 7.9 L (12.0-16.0) g/dL Hct 23.4 L (36-46) % MCV 92.0 (80-100) fL MCH 31.1 (26-34) PG MCHC 33.8 (30-36) % RDW 15.9 H (11.6-14.8) % Plt Count 249 (150-400) X10^3/uL Neut % (Auto) 75.4 H (50-75) % Lymph % (Auto) 16.9 L (25-40) % Schley % (Auto) 5.8 (3-14) % Eos % (Auto) 1.5 L (2-4) % Baso % (Auto) 0.4 (0-2) % Neut # (Auto) 5000 (7954-1162) /uL Lymph # (Auto) 1100 (3179-6610) /uL Sch[place] # (Auto) 400 (0-900) /uL Eos # (Auto) 100 (0-450) /uL Baso # (Auto) 0 (0-100) /uL PT 14.1 H (10.1-12.7) SECONDS INR 1.2 (0.9-1.3) APTT 27 (26-36) SECONDS Sodium 130 L (137-145) mmol/L Potassium 4.0 (3.4-5.1) mmol/L Chloride 96 L (98-107) mmol/L Carbon Dioxide 26 (22-32) mmol/L BUN 64 H (7-17) mg/dL Creatinine 2.06 H (0.52-1.04) mg/dL Estimated GFR 23 L (>60) mL/min BUN/Creatinine Ratio 31.1 H (6-22) Glucose 120 H (80-110) mg/dL Calcium 8.4 (8.4-10.2) mg/dL Total Bilirubin 0.6 (0.2-1.3) mg/dL AST 25 (14-36) IU/L ALT 14 (<35) IU/L Alkaline Phosphatase 69 (38-126) U/L NT-Pro-B Natriuret Pep (<450) pg/mL Total Protein 5.7 L (6.3-8.2) g/dL Albumin 2.9 L (3.5-5.0) g/dL Globulin 2.8 (1.7-4.1) g/dL Albumin/Globulin Ratio 1.0 (1.0-2.8) Blood Type Antibody Screen Crossmatch 08/09/22 08/09/22 Range/Units 15:00 15:00 WBC (4.5-11.0) X10^3/uL RBC (4.0-5.2) X10^6/uL Hgb (12.0-16.0) g/dL Hct (36-46) % MCV (80-100) fL MCH (26-34) PG MCHC (30-36) % RDW (11.6-14.8) % Plt Count (150-400) X10^3/uL Neut % (Auto) (50-75) % Lymph % (Auto) (25-40) % [place] % (Auto) (3-14) % Eos % (Auto) (2-4) % Baso % (Auto) (0-2) % Neut # (Auto) (2177-0909) /uL Lymph # (Auto) (9728-3738) /uL [place] # (Auto) (0-900) /uL Eos # (Auto) (0-450) /uL Baso # (Auto) (0-100) /uL PT (10.1-12.7) SECONDS INR (0.9-1.3) APTT (26-36) SECONDS Sodium (137-145) mmol/L Potassium (3.4-5.1) mmol/L Chloride (98-107) mmol/L Carbon Dioxide (22-32) mmol/L BUN (7-17) mg/dL Creatinine (0.52-1.04) mg/dL Estimated GFR (>60) mL/min BUN/Creatinine Ratio (6-22) Glucose (80-110) mg/dL Calcium (8.4-10.2) mg/dL Total Bilirubin (0.2-1.3) mg/dL AST (14-36) IU/L ALT (<35) IU/L Alkaline Phosphatase (38-126) U/L NT-Pro-B Natriuret Pep 04840 H (<450) pg/mL Total Protein (6.3-8.2) g/dL Albumin (3.5-5.0) g/dL Globulin (1.7-4.1) g/dL Albumin/Globulin Ratio (1.0-2.8) Blood Type B Positive Antibody Screen Negative Crossmatch See Detail Urine Dip Bedside Urine Glucose Negative Bedside Urine Bilirubin - Negative Bedside Urine Ketone - Negative Urine Specific [place] 1.015 Bedside Urine Occult Blood ++ Bedside Urine pH 6.0 Bedside Urine Protein - Negative Bedside Urine Urobilinogen - Negative Bedside Urine Nitrite - Negative Bedside Urine Leukocytes + 70 Esterase MDM Narrative Medical decision making narrative: Patient has been having some dyspnea on exertion and fatigue however this potentially has been going on for weeks or longer. She is somewhat more anemic today compared to labs that were drawn approximately 10 days ago. Patient also has a history of CHF. She does have lower extremity swelling. Her BNP is elevated. I did discuss with the patient and the patient's daughter who is at bedside the risks and benefits of the blood transfusion. Did inform her that her hemoglobin and hematocrit today were not necessarily at the level that would necessitate a automatic blood transfusion. I did inform them that I am not 100% convinced that a blood transfusion would help her shortness of breath and fatigue however it potentially could. We also discussed the possibility of fluid overload given her history of CHF. After all of this discussion the patient and daughter did agree to blood transfusion. Patient was given her night dose of diuretic. We will transfuse 1 unit of packed red blood cells very slowly anticipate discharge afterwards. Care turned over to Dr. Mendoza to observe until disposition can be made. 925pm patient is re-examined after her transfusion. She is feeling slightly better. She is given an additional dose of IV Lasix prior to discharge to avoid volume overload. She will follow-up with her primary doctor. Questions are answered and she is safe for discharge home Discharge Plan Departure Patient Disposition: Home Clinical Impression: Anemia CHF (congestive heart failure) Qualifiers: Heart failure type: unspecified Heart failure chronicity: chronic Qualified Code(s): I50.9 - Heart failure, unspecified Instructions: DI for Blood Transfusion Activity Restrictions/Additional Instructions: Thank you for coming in tonight I hope that this extra unit of blood give you a bit more energy. We have given you your usual nighttime dose of your diuretic as well as an extra dose of IV Lasix. I want the blood to fill up all of your blood vessels but not make your heart failure any worse Please follow-up with your primary care doctor within the next 1-2 days. If you find that you are getting worse or develop any new symptoms, please feel free to return to the emergency department for further evaluation. Prescriptions: No Action polyethylene glycol 3350 [Miralax] 17 gram Powder In Packet 17 g PO DAILY mirtazapine 30 mg Tablet 30 mg PO BEDTIME oxycodone 5 mg Capsule 5 mg PO Q4H PRN (Reason: Pain (Scale Score 4-6)) docusate sodium 100 mg Capsule 200 mg PO DAILY metoprolol succinate 25 mg Tablet Extended Release 24 Hr 12.5 mg PO DAILY ondansetron 4 mg Tablet,Disintegrating 4 mg PO Q8H PRN (Reason: Nausea And Vomiting) escitalopram oxalate 20 mg Tablet 20 mg PO DAILY oxycodone [OxyContin] 15 mg Tablet,Oral Only,Ext.Rel.12 Hr 15 mg PO BID Entresto 24-26 mg Tablet 1 tab PO BID senna 8.6 mg capsule 8.6 mg PO BEDTIME Qty: 30 0RF sodium chloride 1,000 mg tablet,soluble 1,000 mg PO TID Qty: 42 0RF furosemide 40 mg tablet 60 mg PO BID Qty: 42 0RF acetaminophen 325 mg Tablet 650 mg PO Q6H PRN (Reason: Fever/Mild Pain (1-3)) Qty: 30 0RF Referrals: Melinda Hassan PA-C [Primary Care Provider] - Stand Alone Forms: Patient Portal/API
[2022-08-09] MEDS: TORSEMIDE 10 MG TABLET 40 MG PO (17:04)
[2022-08-09] MEDS: FUROSEMIDE 60 MG in SODIUM CHLORIDE 0.9% 50 ML 112 MG IV (21:17)
== END 2022-08-09 21:50 | disposition home or self-care (01) ==
PROVIDERS: Emergency Medicine; Emergency Provider Emergency Medicine; Family Provider Physician Assistant; PCP Physician Assistant
DX: D64.9 Anemia, unspecified (principal); I50.9 Heart failure, unspecified; I10 Essential (primary) hypertension; R06.00 Dyspnea, unspecified
CPT/HCPCS: 36415; 36430; 80053; 81003; 83880; 85025; 85610; 85730; 86850; 86900; 86901; 93005; 93010; 96365; 99284; 99285; P9016; J1940

== ENCOUNTER → 2022-08-17 11:06 | Outpatient (CLI) | payer MEDICARE, OTHER, SELFPAY ==
[2022-06-23 15:57] VITALS: BMI 23.8
--- NOTE | 2022-08-17 | DI.US.S_ITS ---
PROCEDURE: US RENAL COMPLETE INDICATIONS: Chronic kidney disease, stage 4 (severe) TECHNIQUE: Real-time scanning was performed of the kidneys and bladder, with image documentation. COMPARISON: [facility], , RENAL COMPLETE, 12/27/2013, 13:51. FINDINGS: Kidneys: Kidneys are normal in size. Right kidney measures 10.2 cm long; left kidney measures 8.7 cm long. Right renal cortical thickness is 1.1 cm; left renal cortical thickness is 0.8 cm. Renal cortical echotexture is mildly increased in echogenicity. No hydronephrosis or nephrolithiasis. No suspicious solid mass lesions. Simple renal cysts are noted in the bilateral kidneys. Bladder: Pre-void bladder volume was not obtained. Post-void residual is 20.5 mL. Pre-void images demonstrate no intraluminal masses or stones. On pre-void images, neither ureteral jets are noted with color Doppler interrogation. (Of note, ureteral jets may not be detectable in up to 25% of cases due to insufficient differences in specific gravity between ureteral and bladder urine). Miscellaneous: No free pelvic fluid. There is an incidentally noted left pleural effusion. IMPRESSION: 1. Left renal atrophy and increased cortical echogenicity of the bilateral kidneys. 2. No hydronephrosis or nephrolithiasis. 3. Small postvoid residual. 4. Incidentally noted left pleural effusion. Dictated by: Livia Haney M.D. on 08/17/2022 at 12:51 Approved by: Livia Haney M.D. on 08/17/2022 at 12:54
== END ==
PROVIDERS: Family Provider Physician Assistant; PCP Physician Assistant; Referring Provider Student in an Organized Health Care Education/Training Program; Visit Provider Student in an Organized Health Care Education/Training Program
DX: N18.4 Chronic kidney disease, stage 4 (severe) (principal); J90 Pleural effusion, not elsewhere classified; N26.1 Atrophy of kidney (terminal)
CPT/HCPCS: 76770

== ENCOUNTER → 2022-08-24 13:40 | Outpatient (CLI) | payer MEDICARE, OTHER, SELFPAY ==
[2022-06-23 15:57] VITALS: BMI 23.8
[2022-08-24 15:26] LABS: Hematocrit 27.5 % (36-46); Hemoglobin 9.3 g/dL (12.0-16.0)
[2022-08-24 15:51] LABS: HEMOLYSIS < 15 (0-50); Iron 41 ug/dL (37-170)
[2022-08-24 15:55] LABS: BUN Creatinine Ratio 30.8 (6-22); Blood Urea Nitrogen 52 mg/dL (7-17); Calcium 8.3 mg/dL (8.4-10.2); Carbon Dioxide 32 mmol/L (22-32); Chloride 95 mmol/L (98-107); Estimated Glomerular Filt Rate 29 mL/min (>60); Glucose 98 mg/dL (80-110); HEMOLYSIS < 15 (0-50); Potassium 3.8 mmol/L (3.4-5.1); Sodium 133 mmol/L (137-145)
[2022-08-24 16:03] LABS: NT-proBNP (BNP-Adult 18+) 33600 pg/mL (<450)
[2022-08-24 16:08] LABS: Percent Iron Saturation 21 % (15-50); Total Iron Binding Capacity 200 ug/dL (265-497); Transferrin 149 mg/dL (206-381)
[2022-08-24 16:29] LABS: Ferritin 162 ng/mL (11-264)
== END ==
PROVIDERS: Family Provider Physician Assistant; PCP Physician Assistant; Referring Provider Student in an Organized Health Care Education/Training Program; Visit Provider Student in an Organized Health Care Education/Training Program
DX: I50.32 Chronic diastolic (congestive) heart failure (principal); N05.9 Unspecified nephritic syndrome with unspecified morphologic changes; D50.0 Iron deficiency anemia secondary to blood loss (chronic); D64.9 Anemia, unspecified
CPT/HCPCS: 36415; 80048; 82728; 83540; 83550; 83880; 85014; 85018

== ENCOUNTER → 2022-09-01 10:31 | Outpatient (CLI) | payer MEDICARE, OTHER, SELFPAY ==
[2022-06-23 15:57] VITALS: BMI 23.8
--- NOTE | 2022-09-01 | DI.RAD.S_ITS ---
PROCEDURE: FL BARIUM SWALLOW INDICATIONS: Dysphagia, unspecified COMPARISON: None. FINDINGS: Function: There is severely weak and esophageal peristalsis, resulting in tertiary contractions and contrast stasis moderate gastroesophageal reflux. Large hiatal hernia. Morphology: Possible narrowing of the cervical esophagus. IMPRESSION: Large hiatal hernia, resulting in moderate reflux and marked esophageal dysmotility. Possible narrowing of the cervical esophagus, which may indicate stricture or less likely mass. Consider endoscopic evaluation. Dictated by: Hussein Tyson M.D. on 09/02/2022 at 8:35 Approved by: Hussein Tyson M.D. on 09/02/2022 at 8:37
== END ==
PROVIDERS: Family Provider Physician Assistant; PCP Physician Assistant; Referring Provider Physician Assistant; Visit Provider Physician Assistant
DX: R13.10 Dysphagia, unspecified (principal); K44.9 Diaphragmatic hernia without obstruction or gangrene; K21.9 Gastro-esophageal reflux disease without esophagitis; K22.4 Dyskinesia of esophagus
CPT/HCPCS: 74220

== ENCOUNTER → 2022-09-21 15:02 | Outpatient (CLI) | payer MEDICARE, OTHER, SELFPAY ==
[2022-06-23 15:57] VITALS: BMI 23.8
[2022-09-21 17:41] LABS: Hematocrit 27.2 % (36-46); Hemoglobin 9.2 g/dL (12.0-16.0)
[2022-09-21 18:07] LABS: HEMOLYSIS < 15 (0-50); Iron 48 ug/dL (37-170)
[2022-09-21 18:08] LABS: BUN Creatinine Ratio 32.7 (6-22); Blood Urea Nitrogen 67 mg/dL (7-17); Calcium 8.6 mg/dL (8.4-10.2); Carbon Dioxide 30 mmol/L (22-32); Chloride 97 mmol/L (98-107); Estimated Glomerular Filt Rate 23 mL/min (>60); Glucose 97 mg/dL (80-110); HEMOLYSIS < 15 (0-50); Potassium 4.4 mmol/L (3.4-5.1); Sodium 134 mmol/L (137-145)
[2022-09-21 18:13] LABS: NT-proBNP (BNP-Adult 18+) 29000 pg/mL (<450)
[2022-09-21 18:17] LABS: Percent Iron Saturation 21 % (15-50); Total Iron Binding Capacity 232 ug/dL (265-497); Transferrin 155 mg/dL (206-381)
[2022-09-21 18:39] LABS: Ferritin 129 ng/mL (11-264)
== END ==
PROVIDERS: Family Provider Physician Assistant; PCP Physician Assistant; Referring Provider Student in an Organized Health Care Education/Training Program; Visit Provider Student in an Organized Health Care Education/Training Program
DX: I50.32 Chronic diastolic (congestive) heart failure (principal); N05.9 Unspecified nephritic syndrome with unspecified morphologic changes; D64.9 Anemia, unspecified; D50.0 Iron deficiency anemia secondary to blood loss (chronic)
CPT/HCPCS: 36415; 80048; 82728; 83540; 83550; 83880; 85014; 85018

== ENCOUNTER → 2022-10-18 14:15 | Outpatient (CLI) | payer MEDICARE, OTHER, SELFPAY ==
[2022-06-23 15:57] VITALS: BMI 23.8
[2022-10-18 15:18] LABS: Hematocrit 26.1 % (36-46); Hemoglobin 8.8 g/dL (12.0-16.0)
[2022-10-18 15:40] LABS: Iron 77 ug/dL (37-170)
[2022-10-18 15:44] LABS: BUN Creatinine Ratio 56.8 (6-22); Blood Urea Nitrogen 79 mg/dL (7-17); Calcium 8.6 mg/dL (8.4-10.2); Carbon Dioxide 26 mmol/L (22-32); Chloride 104 mmol/L (98-107); Estimated Glomerular Filt Rate 37 mL/min (>60); Glucose 109 mg/dL (80-110); HEMOLYSIS < 15 (0-50); Potassium 4.9 mmol/L (3.4-5.1); Sodium 134 mmol/L (137-145)
[2022-10-18 15:49] LABS: NT-proBNP (BNP-Adult 18+) 14800 pg/mL (<450)
[2022-10-18 15:50] LABS: Total Iron Binding Capacity 270 ug/dL (265-497)
[2022-10-18 16:15] LABS: Ferritin 89 ng/mL (11-264)
[2022-10-20 08:09] LABS: Parathyroid Hormone Int 37 pg/mL (15-65)
== END ==
PROVIDERS: Family Provider Physician Assistant; PCP Physician Assistant; Referring Provider Student in an Organized Health Care Education/Training Program; Visit Provider Student in an Organized Health Care Education/Training Program
DX: D64.9 Anemia, unspecified (principal); D50.0 Iron deficiency anemia secondary to blood loss (chronic); N00.9 Acute nephritic syndrome with unspecified morphologic changes; N05.9 Unspecified nephritic syndrome with unspecified morphologic changes; N25.81 Secondary hyperparathyroidism of renal origin; I25.5 Ischemic cardiomyopathy
CPT/HCPCS: 36415; 80048; 82728; 83540; 83550; 83880; 83970; 85014; 85018

== ENCOUNTER → 2022-10-25 12:51 | Outpatient (CLI) | payer MEDICARE, OTHER, SELFPAY ==
[2022-06-23 15:57] VITALS: BMI 23.8
[2022-10-25 15:16] LABS: Hematocrit 25.2 % (36-46); Hemoglobin 8.6 g/dL (12.0-16.0)
[2022-10-25 15:41] LABS: BUN Creatinine Ratio 46.5 (6-22); Blood Urea Nitrogen 72 mg/dL (7-17); Calcium 8.7 mg/dL (8.4-10.2); Carbon Dioxide 29 mmol/L (22-32); Chloride 99 mmol/L (98-107); Estimated Glomerular Filt Rate 32 mL/min (>60); Glucose 95 mg/dL (80-110); HEMOLYSIS < 15 (0-50); Sodium 134 mmol/L (137-145)
[2022-10-25 15:43] LABS: NT-proBNP (BNP-Adult 18+) 18500 pg/mL (<450)
[2022-10-25 15:44] LABS: HEMOLYSIS < 15 (0-50); Iron 53 ug/dL (37-170)
[2022-10-25 15:59] LABS: Percent Iron Saturation 18 % (15-50); Total Iron Binding Capacity 289 ug/dL (265-497); Transferrin 181 mg/dL (206-381)
[2022-10-25 16:09] LABS: Ferritin 89 ng/mL (11-264)
== END ==
PROVIDERS: Family Provider Physician Assistant; PCP Physician Assistant; Referring Provider Student in an Organized Health Care Education/Training Program; Visit Provider Student in an Organized Health Care Education/Training Program
DX: I50.32 Chronic diastolic (congestive) heart failure (principal); D50.0 Iron deficiency anemia secondary to blood loss (chronic); D64.9 Anemia, unspecified; N25.81 Secondary hyperparathyroidism of renal origin
CPT/HCPCS: 36415; 80048; 82728; 83540; 83550; 83880; 83970; 85014; 85018

== ENCOUNTER → 2022-11-03 16:42 | Outpatient (CLI) | payer MEDICARE, OTHER, SELFPAY ==
[2022-06-23 15:57] VITALS: BMI 23.8
[2022-11-03 17:46] LABS: BUN Creatinine Ratio 39.6 (6-22); Blood Urea Nitrogen 65 mg/dL (7-17); Calcium 8.8 mg/dL (8.4-10.2); Carbon Dioxide 31 mmol/L (22-32); Chloride 99 mmol/L (98-107); Estimated Glomerular Filt Rate 30 mL/min (>60); Glucose 96 mg/dL (80-110); HEMOLYSIS < 15 (0-50); Sodium 135 mmol/L (137-145)
== END ==
PROVIDERS: Family Provider Physician Assistant; PCP Physician Assistant; Referring Provider Internal Medicine; Visit Provider Internal Medicine
DX: I25.5 Ischemic cardiomyopathy (principal)
CPT/HCPCS: 36415; 80048

== ENCOUNTER → 2022-11-10 14:25 | Outpatient (CLI) | payer MEDICARE, OTHER, SELFPAY ==
[2022-06-23 15:57] VITALS: BMI 23.8
[2022-11-10 17:06] LABS: BUN Creatinine Ratio 45.3 (6-22); Blood Urea Nitrogen 82 mg/dL (7-17); Calcium 8.7 mg/dL (8.4-10.2); Carbon Dioxide 30 mmol/L (22-32); Chloride 98 mmol/L (98-107); Estimated Glomerular Filt Rate 27 mL/min (>60); Glucose 88 mg/dL (80-110); HEMOLYSIS < 15 (0-50); Potassium 4.3 mmol/L (3.4-5.1); Sodium 135 mmol/L (137-145)
== END ==
PROVIDERS: Family Provider Physician Assistant; PCP Physician Assistant; Referring Provider Internal Medicine; Visit Provider Internal Medicine
DX: I25.5 Ischemic cardiomyopathy (principal)
CPT/HCPCS: 36415; 80048

== ENCOUNTER → 2022-11-18 15:00 | Outpatient (CLI) | payer MEDICARE, OTHER, SELFPAY ==
[2022-06-23 15:57] VITALS: BMI 23.8
[2022-11-18 15:45] LABS: Hematocrit 27.4 % (36-46); Hemoglobin 9.2 g/dL (12.0-16.0)
[2022-11-18 18:01] LABS: HEMOLYSIS < 15 (0-50); Iron 84 ug/dL (37-170)
[2022-11-18 18:11] LABS: Percent Iron Saturation 26 % (15-50); Total Iron Binding Capacity 321 ug/dL (265-497); Transferrin 219 mg/dL (206-381)
[2022-11-18 18:50] LABS: Blood Urea Nitrogen 80 mg/dL (7-17); Calcium 9.1 mg/dL (8.4-10.2); Carbon Dioxide 29 mmol/L (22-32); Chloride 99 mmol/L (98-107); Estimated Glomerular Filt Rate 27 mL/min (>60); Glucose 97 mg/dL (80-110); HEMOLYSIS < 15 (0-50); Potassium 4.5 mmol/L (3.4-5.1); Sodium 135 mmol/L (137-145)
[2022-11-18 19:00] LABS: NT-proBNP (BNP-Adult 18+) 3970 pg/mL (<450)
[2022-11-18 19:26] LABS: Ferritin 85 ng/mL (11-264)
[2022-11-19 09:09] LABS: Parathyroid Hormone Int 52 pg/mL (15-65)
== END ==
PROVIDERS: Student in an Organized Health Care Education/Training Program; Family Provider Physician Assistant; PCP Physician Assistant; Referring Provider Internal Medicine; Visit Provider Internal Medicine
DX: I25.5 Ischemic cardiomyopathy (principal); D50.0 Iron deficiency anemia secondary to blood loss (chronic); D64.9 Anemia, unspecified; N25.81 Secondary hyperparathyroidism of renal origin
CPT/HCPCS: 36415; 80048; 82728; 83540; 83550; 83880; 83970; 85014; 85018

== ENCOUNTER → 2022-11-24 13:27 | Outpatient (CLI) | payer MEDICARE, OTHER, SELFPAY ==
[2022-06-23 15:57] VITALS: BMI 23.8
[2022-11-24 14:49] LABS: BUN Creatinine Ratio 45.1 (6-22); Blood Urea Nitrogen 93 mg/dL (7-17); Calcium 8.9 mg/dL (8.4-10.2); Carbon Dioxide 27 mmol/L (22-32); Chloride 99 mmol/L (98-107); Estimated Glomerular Filt Rate 23 mL/min (>60); Glucose 105 mg/dL (80-110); HEMOLYSIS < 15 (0-50); Potassium 4.4 mmol/L (3.4-5.1); Sodium 135 mmol/L (137-145)
== END ==
PROVIDERS: Family Provider Physician Assistant; PCP Physician Assistant; Referring Provider Internal Medicine; Visit Provider Internal Medicine
DX: I25.5 Ischemic cardiomyopathy (principal)
CPT/HCPCS: 36415; 80048

== ENCOUNTER → 2022-12-29 15:20 | Outpatient (CLI) | payer MEDICARE, OTHER, SELFPAY ==
[2022-06-23 15:57] VITALS: BMI 23.8
[2022-12-29 16:35] LABS: BUN Creatinine Ratio 42.3 (6-22); Blood Urea Nitrogen 82 mg/dL (7-17); Calcium 8.8 mg/dL (8.4-10.2); Carbon Dioxide 22 mmol/L (22-32); Chloride 102 mmol/L (98-107); Estimated Glomerular Filt Rate 25 mL/min (>60); Glucose 108 mg/dL (80-110); HEMOLYSIS < 15 (0-50); Potassium 4.9 mmol/L (3.4-5.1); Sodium 134 mmol/L (137-145)
== END ==
PROVIDERS: Family Provider Physician Assistant; PCP Physician Assistant; Referring Provider Internal Medicine; Visit Provider Internal Medicine
DX: I25.5 Ischemic cardiomyopathy (principal)
CPT/HCPCS: 80048

== ENCOUNTER 2023-01-02 05:23 | Emergency (ER) | payer MEDICARE, OTHER, SELFPAY ==
[2022-06-23 15:57] VITALS: BMI 23.8
[2023-01-02] VITALS (25 sets, daily range): BP systolic 160–208; BP diastolic 67–92; PULSE 66–92; RESP 12–24; TEMP 36.8; O2SAT 94–97
--- NOTE | 2023-01-02 05:24 | DI.RAD.S_ITS ---
PROCEDURE: XR CHEST 1V INDICATIONS: chest pain TECHNIQUE: One view of the chest was acquired. COMPARISON: [facility], CR, XR CHEST 1V, 06/23/2022, 11:24. FINDINGS: Surgical changes and devices: Left shoulder arthroplasty Lungs and pleura: Lungs are clear. No pleural effusions or pneumothorax. Mediastinum: Mediastinal contours appear normal. Heart size is normal. Atherosclerotic vascular calcification noted in the aortic arch. Retrocardiac hiatal hernia noted Bones and chest wall: No suspicious bony lesions. Overlying soft tissues appear unremarkable. IMPRESSION: No acute cardiopulmonary findings Hiatal hernia and aortic atherosclerosis Note: This final report is concordant with the preliminary after-hours interpretation provided by [facility] Approved by: Carlton Natarajan M.D. on 01/02/2023 at 8:12
[2023-01-02 05:36] LABS: Add Manual Diff / Slide Review NO; Basophils Absolute Auto 0 /uL (0-100); Basophils Percent Auto 0.8 % (0-2); Eosinophils Absolute Auto 300 /uL (0-450); Eosinophils Percent Auto 5.8 % (2-4); Hematocrit 30.5 % (36-46); Hemoglobin 10.5 g/dL (12.0-16.0); Lymphocytes Absolute Auto 1800 /uL (1100-4500); Lymphocytes Percent Auto 31.6 % (25-40); Mean Corpuscular HGB Conc 34.4 % (30-36); Mean Corpuscular Hemoglobin 30.9 PG (26-34); Mean Corpuscular Volume 89.8 fL (80-100); Monocytes Absolute Auto 700 /uL (0-900); Monocytes Percent Auto 12.7 % (3-14); Neutrophils Absolute Auto 2800 /uL (1500-7000); Neutrophils Percent Auto 49.1 % (50-75); Platelet Count 189 X10^3/uL (150-400); Red Cell Distribution Width 13.3 % (11.6-14.8); White Blood Cell Count 5.7 X10^3/uL (4.5-11.0)
--- NOTE | 2023-01-02 05:38 | ED_ITS ---
HPI - General Adult <Lev Perez DO - Last Filed: 01/02/23 18:11> General Chief complaint: Chest Pain Stated complaint: chest pain- burning sensation Time Seen by Provider: 01/02/23 05:23 Source: patient and EMS Mode of arrival: EMS Limitations: no limitations History of Present Illness HPI narrative: 87-year-old female. She is a DNR. Has a history of CHF and hypertension. Has had electrolyte issues in the past. Stated that she woke up approximately 1 hour prior to arrival here in the emergency department with left-sided chest pressure. She states that it does radiate to her back. Not worse with palpation or breathing. She denies any shortness of breath. No fevers. No c oughing. No lower extremity swelling. She did receive 1 nitroglycerin and aspirin by EMS prior to arrival without much improvement of symptoms. Related Data Home Medications Medication Instructions Recorded Confirmed docusate sodium 100 mg capsule 200 mg PO DAILY 06/23/22 06/23/22 escitalopram oxalate 20 mg tablet 20 mg PO DAILY 06/23/22 06/23/22 metoprolol succinate 25 mg 12.5 mg PO DAILY 06/23/22 06/23/22 tablet,extended release 24 hr mirtazapine 30 mg tablet 30 mg PO BEDTIME 06/23/22 06/23/22 ondansetron 4 mg disintegrating 4 mg PO Q8H PRN Nausea And Vomiting 06/23/22 06/23/22 tablet oxycodone 15 mg tablet,crush 15 mg PO BID 06/23/22 06/23/22 resistant,extended release 12 hr (OxyContin) oxycodone 5 mg capsule 5 mg PO Q4H PRN Pain (Scale Score 06/23/22 06/23/22 4-6) polyethylene glycol 3350 17 gram 17 g PO DAILY 06/23/22 06/23/22 oral powder packet (Miralax) sacubitril 24 mg-valsartan 26 mg 1 tab PO BID 06/23/22 06/23/22 tablet (Entresto) Previous Rx's Medication Instructions Recorded acetaminophen 325 mg tablet 650 mg PO Q6H PRN Fever/Mild Pain 05/14/22 (1-3) #30 tabs furosemide 40 mg tablet 60 mg PO BID #42 tabs 07/02/22 sennosides 8.6 mg capsule (senna) 8.6 mg PO BEDTIME #30 caps 07/02/22 sodium chloride 1,000 mg soluble 1,000 mg PO TID #42 tabs 07/02/22 tablet Allergies Allergy/AdvReac Type Severity Reaction Status Date / Time venlafaxine Allergy Unknown Verified 01/02/23 05:50 trazodone AdvReac Intermediate QTc Verified 01/02/23 05:50 prolongation when on escitalopram concurrently Review of Systems <Lev Perez DO - Last Filed: 01/02/23 18:11> ENT Ears, Nose, Mouth, and Throat: Reports system reviewed and no additional complaints, except as documented Cardiovascular Cardiovascular: Reports system reviewed and no additional complaints, except as documented Respiratory Respiratory: Reports system reviewed and no additional complaints, except as documented Gastrointestinal Gastrointestinal: Reports system reviewed and no additional complaints, except as documented Integumentary/Breasts Skin/Breast: Reports system reviewed and no additional complaints, except as documented Hematologic/Lymphatic On Anticoagulants: No Patient History <DO Lucas Lorenz Last Filed: 01/02/23 18:11> Medical History CHF (congestive heart failure) HTN (hypertension) Surgical History History of shoulder replacement Family History (Updated 06/23/22 @ 17:01 by Jesus Rahman DO) Mother No pertinent past medical history Father No pertinent past medical history Social History household members: none Smoking Status: Former smoker alcohol intake: former Smoking Status: Former smoker tobacco type: cigarettes alcohol intake frequency: holidays/special occasions only Substance Use Type: does not use Exam <DO Lucas Lorenz Last Filed: 01/02/23 18:11> Initial Vital Signs Initial Vital Signs: Vital Signs Temperature 98.2 F 01/02/23 05:23 Pulse Rate 75 01/02/23 05:23 Respiratory Rate 14 01/02/23 05:23 Blood Pressure 204/92 H 01/02/23 05:23 Pulse Oximetry 97 01/02/23 05:23 Oxygen Delivery Method Room Air 01/02/23 05:23 Const General: cooperative HENMT Head: normal to inspection and normocephalic Resp Effort & Inspection: normal respiratory effort Auscultation: clear to auscultation bilaterally Cardio Rate: regular rate Rhythm: regular rhythm GI Inspection: normal to inspection Skin General: no rashes or lesions noted Neuro General: patient alert, patient awake and moves all extremities Extrem General: edema <Marlyn Fay, DO - Last Filed: 01/02/23 11:09> Initial Vital Signs Initial Vital Signs: Vital Signs Temperature 98.2 F 01/02/23 05:23 Pulse Rate 75 01/02/23 05:23 Respiratory Rate 14 01/02/23 05:23 Blood Pressure 204/92 H 01/02/23 05:23 Pulse Oximetry 97 01/02/23 05:23 Oxygen Delivery Method Room Air 01/02/23 05:23 Course <Lev Perez, DO - Last Filed: 01/02/23 18:11> Orders Ordered: Discontinued Medications Hydromorphone HCl (Hydromorphone 0.5 Mg Inj) 0.5 mg IV NOW ONE Stop: 01/02/23 10:22 Last Admin: 01/02/23 10:35 Dose: 0.5 mg Documented By: JUDY Furosemide 80 mg/ Sodium (Chloride) 58 mls @ 116 mls/hr IV NOW ONE Stop: 01/02/23 06:04 Last Infusion: 01/02/23 06:40 Dose: 0 mls/hr Documented By: Admin: 01/02/23 06:09 Dose: 116 mls/hr Documented By: CLAIRE Metoprolol Succinate (Metoprolol Er 25 Mg Tablet) 12.5 mg PO NOW ONE Stop: 01/02/23 06:08 Last Admin: 01/02/23 06:26 Dose: 12.5 mg Documented By: CLAIRE Morphine Sulfate (Morphine 2 Mg/Ml Inj) 2 mg IV NOW ONE Stop: 01/02/23 08:38 Last Admin: 01/02/23 08:45 Dose: 2 mg Documented By: HADLEY Nitroglycerin (Nitroglycerin Oint 1 Inch/Gm Oint...G.) 0.5 inch TOP NOW ONE Stop: 01/02/23 05:43 Last Admin: 01/02/23 05:50 Dose: 0.5 inch Documented By: CLAIRE Vital Signs Vital signs: Vital Signs - 8 hr 01/02/23 10:16 01/02/23 10:16 01/02/23 10:30 Pulse Rate 74 Respiratory Rate 15 Blood Pressure 208/83 H 199/83 H Pulse Oximetry 96 01/02/23 10:30 Pulse Rate 71 Respiratory Rate 15 Blood Pressure Pulse Oximetry <Marlyn Fay DO - Last Filed: 01/02/23 11:09> Orders Ordered: Discontinued Medications Hydromorphone HCl (Hydromorphone 0.5 Mg Inj) 0.5 mg IV NOW ONE Stop: 01/02/23 10:22 Last Admin: 01/02/23 10:35 Dose: 0.5 mg Documented By: JUDY Furosemide 80 mg/ Sodium (Chloride) 58 mls @ 116 mls/hr IV NOW ONE Stop: 01/02/23 06:04 Last Infusion: 01/02/23 06:40 Dose: 0 mls/hr Documented By: Admin: 01/02/23 06:09 Dose: 116 mls/hr Documented By: CLAIRE Metoprolol Succinate (Metoprolol Er 25 Mg Tablet) 12.5 mg PO NOW ONE Stop: 01/02/23 06:08 Last Admin: 01/02/23 06:26 Dose: 12.5 mg Documented By: CLAIRE Morphine Sulfate (Morphine 2 Mg/Ml Inj) 2 mg IV NOW ONE Stop: 01/02/23 08:38 Last Admin: 01/02/23 08:45 Dose: 2 mg Documented By: HADLEY Nitroglycerin (Nitroglycerin Oint 1 Inch/Gm Oint...G.) 0.5 inch TOP NOW ONE Stop: 01/02/23 05:43 Last Admin: 01/02/23 05:50 Dose: 0.5 inch Documented By: CLAIRE Vital Signs Vital signs: Vital Signs - 8 hr 01/02/23 10:16 01/02/23 10:16 01/02/23 10:30 Pulse Rate 74 Respiratory Rate 15 Blood Pressure 208/83 H 199/83 H Pulse Oximetry 96 01/02/23 10:30 Pulse Rate 71 Respiratory Rate 15 Blood Pressure Pulse Oximetry Medical Decision Making <Lev Perez DO - Last Filed: 01/02/23 18:11> Medical Records Medical records reviewed: Yes I reviewed the patient's medical records. Lab Data Lab results reviewed: Yes I reviewed the patient's lab results. 01/02/23 05:32 01/02/23 05:32 Labs: Lab Results 01/02/23 01/02/23 01/02/23 Range/Units 05:32 05:32 05:32 WBC 5.7 (4.5-11.0) X10^3/uL RBC 3.40 L (4.0-5.2) X10^6/uL Hgb 10.5 L (12.0-16.0) g/dL Hct 30.5 L (36-46) % MCV 89.8 (80-100) fL MCH 30.9 (26-34) PG MCHC 34.4 (30-36) % RDW 13.3 (11.6-14.8) % Plt Count 189 (150-400) X10^3/uL Neut % (Auto) 49.1 L (50-75) % Lymph % (Auto) 31.6 (25-40) % [place] % (Auto) 12.7 (3-14) % Eos % (Auto) 5.8 H (2-4) % Baso % (Auto) 0.8 (0-2) % Neut # (Auto) 2800 (1359-9965) /uL Lymph # (Auto) 1800 (7879-8160) /uL [place] # (Auto) 700 (0-900) /uL Eos # (Auto) 300 (0-450) /uL Baso # (Auto) 0 (0-100) /uL Sodium 134 L (137-145) mmol/L Potassium 4.6 (3.4-5.1) mmol/L Chloride 100 (98-107) mmol/L Carbon Dioxide 26 (22-32) mmol/L BUN 71 H (7-17) mg/dL Creatinine 1.80 H (0.52-1.04) mg/dL Estimated GFR 27 L (>60) mL/min BUN/Creatinine Ratio 39.4 H (6-22) Glucose 96 (80-110) mg/dL Calcium 9.8 (8.4-10.2) mg/dL Total Bilirubin 0.5 (0.2-1.3) mg/dL AST 30 (14-36) IU/L ALT 19 (<35) IU/L Alkaline Phosphatase 93 (38-126) U/L Total Creatine Kinase 29 L (30-135) U/L Troponin I 0.020 (0.01-0.034) ng/mL NT-Pro-B Natriuret Pep 60219 H (<450) pg/mL Total Protein 6.8 (6.3-8.2) g/dL Albumin 3.8 (3.5-5.0) g/dL Globulin 3.0 (1.7-4.1) g/dL Albumin/Globulin Ratio 1.3 (1.0-2.8) Lipase 135 (23-300) U/L 01/02/23 Range/Units 07:30 WBC (4.5-11.0) X10^3/uL RBC (4.0-5.2) X10^6/uL Hgb (12.0-16.0) g/dL Hct (36-46) % MCV (80-100) fL MCH (26-34) PG MCHC (30-36) % RDW (11.6-14.8) % Plt Count (150-400) X10^3/uL Neut % (Auto) (50-75) % Lymph % (Auto) (25-40) % [place] % (Auto) (3-14) % Eos % (Auto) (2-4) % Baso % (Auto) (0-2) % Neut # (Auto) (4041-2363) /uL Lymph # (Auto) (1320-8377) /uL [place] # (Auto) (0-900) /uL Eos # (Auto) (0-450) /uL Baso # (Auto) (0-100) /uL Sodium (137-145) mmol/L Potassium (3.4-5.1) mmol/L Chloride (98-107) mmol/L Carbon Dioxide (22-32) mmol/L BUN (7-17) mg/dL Creatinine (0.52-1.04) mg/dL Estimated GFR (>60) mL/min BUN/Creatinine Ratio (6-22) Glucose (80-110) mg/dL Calcium (8.4-10.2) mg/dL Total Bilirubin (0.2-1.3) mg/dL AST (14-36) IU/L ALT (<35) IU/L Alkaline Phosphatase (38-126) U/L Total Creatine Kinase (30-135) U/L Troponin I 0.028 (0.01-0.034) ng/mL NT-Pro-B Natriuret Pep (<450) pg/mL Total Protein (6.3-8.2) g/dL Albumin (3.5-5.0) g/dL Globulin (1.7-4.1) g/dL Albumin/Globulin Ratio (1.0-2.8) Lipase (23-300) U/L Imaging Data Chest x-ray: Radiologist's Impression: No acute findings Hiatal hernia ECG Data Attestation: I personally reviewed and interpreted this ECG as follows: Interpretation: Sinus rhythm Ventricular rate [address] T wave changes MDM Narrative Medical decision making narrative: Patient is DNR. Has chest discomfort. Was hypertensive. Was given home dose of metoprolol. Will diurese. Plan for repeat troponin and evaluate for diuresis. Care turned over to Dr. Fay to follow-up and disposition. <Marlyn Fay, DO - Last Filed: 01/02/23 11:09> Lab Data Labs: Lab Results 01/02/23 01/02/23 01/02/23 Range/Units 05:32 05:32 05:32 WBC 5.7 (4.5-11.0) X10^3/uL RBC 3.40 L (4.0-5.2) X10^6/uL Hgb 10.5 L (12.0-16.0) g/dL Hct 30.5 L (36-46) % MCV 89.8 (80-100) fL MCH 30.9 (26-34) PG MCHC 34.4 (30-36) % RDW 13.3 (11.6-14.8) % Plt Count 189 (150-400) X10^3/uL Neut % (Auto) 49.1 L (50-75) % Lymph % (Auto) 31.6 (25-40) % [place] % (Auto) 12.7 (3-14) % Eos % (Auto) 5.8 H (2-4) % Baso % (Auto) 0.8 (0-2) % Neut # (Auto) 2800 (4894-1830) /uL Lymph # (Auto) 1800 (7564-0335) /uL [place] # (Auto) 700 (0-900) /uL Eos # (Auto) 300 (0-450) /uL Baso # (Auto) 0 (0-100) /uL Sodium 134 L (137-145) mmol/L Potassium 4.6 (3.4-5.1) mmol/L Chloride 100 (98-107) mmol/L Carbon Dioxide 26 (22-32) mmol/L BUN 71 H (7-17) mg/dL Creatinine 1.80 H (0.52-1.04) mg/dL Estimated GFR 27 L (>60) mL/min BUN/Creatinine Ratio 39.4 H (6-22) Glucose 96 (80-110) mg/dL Calcium 9.8 (8.4-10.2) mg/dL Total Bilirubin 0.5 (0.2-1.3) mg/dL AST 30 (14-36) IU/L ALT 19 (<35) IU/L Alkaline Phosphatase 93 (38-126) U/L Total Creatine Kinase 29 L (30-135) U/L Troponin I 0.020 (0.01-0.034) ng/mL NT-Pro-B Natriuret Pep 45457 H (<450) pg/mL Total Protein 6.8 (6.3-8.2) g/dL Albumin 3.8 (3.5-5.0) g/dL Globulin 3.0 (1.7-4.1) g/dL Albumin/Globulin Ratio 1.3 (1.0-2.8) Lipase 135 (23-300) U/L 01/02/23 Range/Units 07:30 WBC (4.5-11.0) X10^3/uL RBC (4.0-5.2) X10^6/uL Hgb (12.0-16.0) g/dL Hct (36-46) % MCV (80-100) fL MCH (26-34) PG MCHC (30-36) % RDW (11.6-14.8) % Plt Count (150-400) X10^3/uL Neut % (Auto) (50-75) % Lymph % (Auto) (25-40) % [place] % (Auto) (3-14) % Eos % (Auto) (2-4) % Baso % (Auto) (0-2) % Neut # (Auto) (0943-9680) /uL Lymph # (Auto) (2631-5777) /uL [place] # (Auto) (0-900) /uL Eos # (Auto) (0-450) /uL Baso # (Auto) (0-100) /uL Sodium (137-145) mmol/L Potassium (3.4-5.1) mmol/L Chloride (98-107) mmol/L Carbon Dioxide (22-32) mmol/L BUN (7-17) mg/dL Creatinine (0.52-1.04) mg/dL Estimated GFR (>60) mL/min BUN/Creatinine Ratio (6-22) Glucose (80-110) mg/dL Calcium (8.4-10.2) mg/dL Total Bilirubin (0.2-1.3) mg/dL AST (14-36) IU/L ALT (<35) IU/L Alkaline Phosphatase (38-126) U/L Total Creatine Kinase (30-135) U/L Troponin I 0.028 (0.01-0.034) ng/mL NT-Pro-B Natriuret Pep (<450) pg/mL Total Protein (6.3-8.2) g/dL Albumin (3.5-5.0) g/dL Globulin (1.7-4.1) g/dL Albumin/Globulin Ratio (1.0-2.8) Lipase (23-300) U/L Imaging Data CT scan - chest: Radiologist's Impression: PROCEDURE:? CT ANGIO CHEST ABDOMEN PELVIS ? INDICATIONS:? chest pain left scapula pain ? TECHNIQUE:? Precontrast 5 mm thick sections acquired from the lung apices to the iliac crests.? After the administration of intravenous contrast, 2.5 mm thick sections again acquired from the lung apices to the iliac crests.? Maximum intensity projection (MIP) oblique sagittal and coronal reformats were then acquired.? For radiation dose reduction, the following was used:? automated exposure control.? ? COMPARISON:? None. ? FINDINGS: ? Chest: ? Cardiovascular:? Heart size is enlarged.? No evidence of pulmonary embolism, aortic aneurysm or dissection.? 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 Lungs and pleural spaces:? Small left upper lobe focal ground-glass opacity asso ciated with scattered subpleural ground-glass density.? No focal nodule, pleural effusion or pneumothorax ? Lymph nodes:? No mediastinal, hilar or axillary adenopathy. ? Mediastinum:? Unremarkable.? Large right-sided hiatal hernia contains the entire stomach. ?Thyroid within normal limits. ? Chest Wall and Bones:? Unremarkable.? No acute fracture.? Left shoulder arthroplasty ? Abdomen and Pelvis: ? Liver:? Normal in size and attenuation. No contour deformity present. Biliary system:? Cholecystectomy.? No intra or extrahepatic bile duct dilation. ? Pancreas:? Unremarkable without mass or inflammation evident. ? Spleen:? Normal in size and density. ? Adrenals:? Normal morphology and density. ? Reproductive system:? Unremarkable as visualized. ? Urinary system:? Normal renal size and attenuation.? Bilateral simple appearing renal cortical cysts.? Surgical clips adjacent to the left kidney.? No renal calculi, hydronephrosis, or solid mass present.? Urinary bladder unremarkable. ? Gastrointestinal system:? The bowel is unremarkable with no evidence of bowel obstruction or inflammation. The stomach appears unremarkable.? Multiple diverticula arise from the sigmoid colon without evidence of diverticulitis. ? ? Appendix:? No findings to suggest acute appendicitis. ? Lymph nodes:? No mesenteric or retroperitoneal adenopathy. ? Peritoneal spaces: ? No free air. No free fluid.? ? Vasculature:? Aortic atherosclerotic vascular calcification noted without evidence of aneurysm. ? Abdominal wall:? Abdominal wall intact without evidence of ventral or inguinal hernias. ? Musculoskeletal:? Normal bone mineralization.? 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 No acute fractures.? ? IMPRESSION: ? 1.? Atherosclerotic calcification without aortic dissection or aneurysm in the chest, abdomen and pelvis. ? 2. Left total shoulder arthroplasty ? 3. Chronic findings as above ? ? ? Approved by: Carlton Natarajan M.D. on 01/02/2023 at 9:04? ECG Data Interpretation: Sinus rhythm Ventricular rate [address] T wave changes Nya-EKG 2. Sinus rhythm rate 70 similar EKG to previous no obvious ST changes PVC noted MDM Narrative Medical decision making narrative: Patient is DNR. Has chest discomfort. Was hypertensive. Was given home dose of metoprolol. Will diurese. Plan for repeat troponin and evaluate for diuresis. Care turned over to Dr. Fay to follow-up and disposition. Dr. Fay- Patient signed out to me by Dr. Perez seen evaluated patient m yself. She is intermittent episodes of sleeping. She is nitro paste on continues to be intermittently hypertensive. Reports that she is chest pain back pain and scapular pain. She is 2- troponin she was given 80 mg of Las[place] [address]. She is not hypoxic. EKG have been reviewed they are similar to previous without obvious ST changes. Patient complaining of pain in her left scapular region intermittently hypertensive nitro paste on. Concern for other etiology such as dissection. CT angio was done despite renal function with a GFR 27 which is actually stable or improved for her. CT does not show any cause of pain. Patient is re-evaluated now complaining of left- sided flank pain. CT again does not show any cause of left flank pain. Son at bedside long discussion with son and patient. It appears that patient is chronically on opiate medication for pain. She is 2- troponins a negative CT no changes on her EKG. At this time no clear indication for admission. Patient does not want to be admitted she does not want any aggressive interventions if needed this is confirmed by son. At this time near agreeable to go home. She apparently has a civil engineering designer in home aide and a PCP. According to med rec she looks like she is on 20 mg of torsemide which is the newest prescriptions she was previously on furosemide 80 mg but that was in July unclear which ones she is taking. She is chronically on OxyContin other prescription includes oxycodone but that 1 has not been filled recently. He is given a dose of morphine and Dilaudid here in the ED to help with her pain. At this time symptom control Discharge Plan Departure Patient Disposition: Home Clinical Impression: Atypical chest pain Instructions: DI for Atypical Chest Pain Activity Restrictions/Additional Instructions: *You have been diagnosed with atypical chest pain *What to do: At this time full workup in the ED did not find any cause of back pain. Please have your blood pressure check 1-2 times daily. *Continue to take medications as directed Torsemide 20 mg twice a day for 2 days and resume regular dosage Take OxyContin as prescribed Tylenol 650 mg every 4-6 hours if needed for [id number] pain *Follow up with your primary care provider in 2-3 days or call [phone] *Return to ER if you should have increasing chest pain shortness of breath back pain or any new, worsening or concerning symptoms Prescriptions: No Action polyethylene glycol 3350 [Miralax] 17 gram Powder In Packet 17 g PO DAILY mirtazapine 30 mg Tablet 30 mg PO BEDTIME oxycodone 5 mg Capsule 5 mg PO Q4H PRN (Reason: Pain (Scale Score 4-6)) docusate sodium 100 mg Capsule 200 mg PO DAILY metoprolol succinate 25 mg Tablet Extended Release 24 Hr 12.5 mg PO DAILY ondansetron 4 mg Tablet,Disintegrating 4 mg PO Q8H PRN (Reason: Nausea And Vomiting) escitalopram oxalate 20 mg Tablet 20 mg PO DAILY oxycodone [OxyContin] 15 mg Tablet,Oral Only,Ext.Rel.12 Hr 15 mg PO BID Entresto 24-26 mg Tablet 1 tab PO BID senna 8.6 mg capsule 8.6 mg PO BEDTIME Qty: 30 0RF sodium chloride 1,000 mg tablet,soluble 1,000 mg PO TID Qty: 42 0RF furosemide 40 mg tablet 60 mg PO BID Qty: 42 0RF acetaminophen 325 mg Tablet 650 mg PO Q6H PRN (Reason: Fever/Mild Pain (1-3)) Qty: 30 0RF Referrals: Melinda Hassan PA-C [Primary Care Provider] - Stand Alone Forms: Patient Portal/API
[2023-01-02 05:47] LABS: Alanine Aminotransferase 19 IU/L (<35); Albumin 3.8 g/dL (3.5-5.0); Albumin Globulin Ratio 1.3 (1.0-2.8); Alkaline Phosphatase 93 U/L (38-126); Aspartate Aminotransferase 30 IU/L (14-36); BUN Creatinine Ratio 39.4 (6-22); Bilirubin Total 0.5 mg/dL (0.2-1.3); Blood Urea Nitrogen 71 mg/dL (7-17); Calcium 9.8 mg/dL (8.4-10.2); Carbon Dioxide 26 mmol/L (22-32); Chloride 100 mmol/L (98-107); Creatine Kinase 29 U/L (30-135); Estimated Glomerular Filt Rate 27 mL/min (>60); Glucose 96 mg/dL (80-110); HEMOLYSIS < 15 (0-50); Lipase 135 U/L (23-300); Potassium 4.6 mmol/L (3.4-5.1); Sodium 134 mmol/L (137-145); Total Protein 6.8 g/dL (6.3-8.2)
[2023-01-02] MEDS: NITROGLYCERIN OINT 1 INCH/GM OINT...G. 0.5 INCH TOP (05:50)
[2023-01-02 05:56] LABS: NT-proBNP (BNP-Adult 18+) 16200 pg/mL (<450)
[2023-01-02] MEDS: FUROSEMIDE 80 MG in SODIUM CHLORIDE 0.9% 50 ML 116 MG IV (06:09)
[2023-01-02] MEDS: METOPROLOL ER 25 MG TABLET 12.5 MG PO (06:26)
[2023-01-02 08:02] LABS: Troponin I 0.028 ng/mL (0.01-0.034)
--- NOTE | 2023-01-02 08:23 | PC.NURSE ---
Spoke to Daughter in law on the phone with patients consent. gave update on plan of care. advised we are waiting for 2nd troponin. DIL reports son, Cj is on the way.
--- NOTE | 2023-01-02 08:37 | DI.CT.S_ITS ---
PROCEDURE: CT ANGIO CHEST ABDOMEN PELVIS INDICATIONS: chest pain left scapula pain TECHNIQUE: Precontrast 5 mm thick sections acquired from the lung apices to the iliac crests. After the administration of intravenous contrast, 2.5 mm thick sections again acquired from the lung apices to the iliac crests. Maximum intensity projection (MIP) oblique sagittal and coronal reformats were then acquired. For radiation dose reduction, the following was used: automated exposure control. COMPARISON: None. FINDINGS: Chest: Cardiovascular: Heart size is enlarged. No evidence of pulmonary embolism, aortic aneurysm or dissection. 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 No focal nodule, pleural effusion or pneumothorax Lymph nodes: No mediastinal, hilar or axillary adenopathy. Mediastinum: Unremarkable. Large right-sided hiatal hernia contains the entire stomach. Thyroid within normal limits. Chest Wall and Bones: Unremarkable. No acute fracture. Left shoulder arthroplasty Abdomen and Pelvis: Liver: Normal in size and attenuation. No contour deformity present. Biliary system: Cholecystectomy. No intra or extrahepatic bile duct dilation. Pancreas: Unremarkable without mass or inflammation evident. Spleen: Normal in size and density. Adrenals: Normal morphology and density. Reproductive system: Unremarkable as visualized. Urinary system: Normal renal size and attenuation. Bilateral simple appearing renal cortical cysts. Surgical clips adjacent to the left kidney. No renal calculi, hydronephrosis, or solid mass present. Urinary bladder unremarkable. Gastrointestinal system: The bowel is unremarkable with no evidence of bowel obstruction or inflammation. The stomach appears unremarkable. Multiple diverticula arise from the sigmoid colon without evidence of diverticulitis. Appendix: No findings to suggest acute appendicitis. Lymph nodes: No mesenteric or retroperitoneal adenopathy. Peritoneal spaces: No free air. No free fluid. Vasculature: Aortic atherosclerotic vascular calcification noted without evidence of aneurysm. Abdominal wall: Abdominal wall intact without evidence of ventral or inguinal hernias. Musculoskeletal: Normal bone mineralization. Degenerative disc disease and arthropathy noted in lower lumbar spine. 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 IMPRESSION: 1. Atherosclerotic calcification without aortic dissection or aneurysm in the chest, abdomen and pelvis. 2. Left total shoulder arthroplasty 3. Chronic findings as above Approved by: Carlton Natarajan M.D. on 01/02/2023 at 9:04
[2023-01-02] MEDS: MORPHINE 2 MG/ML INJ IV (08:45)
[2023-01-02] MEDS: HYDROMORPHONE 0.5 MG INJ IV (10:35)
== END 2023-01-02 10:45 | disposition home or self-care (01) ==
PROVIDERS: Emergency Medicine; Emergency Provider Emergency Medicine; Family Provider Physician Assistant; PCP Physician Assistant
DX: R07.89 Other chest pain (principal); Z79.899 Other long term (current) drug therapy
CPT/HCPCS: 36415; 71045; 71275; 74174; 80053; 82550; 83690; 83880; 84484; 85025; 93005; 93010; 96365; 96375; 99284; 99285; J1170; J1940; J2270; Q9967

== ENCOUNTER 2023-01-19 09:55 | Observation (INO) | payer MEDICARE, OTHER, SELFPAY ==
[2022-06-23 15:57] VITALS: BMI 23.8
[2023-01-19] VITALS (24 sets, daily range): BP systolic 101–203; BP diastolic 45–86; PULSE 53–68; RESP 14–41; TEMP 35.7–36.9; O2SAT 94–99; BMI 23.1; BMI 21.5
--- NOTE | 2023-01-19 10:11 | ED.CHESTPAIN ---
HPI - Chest Pain General Chief Complaint: Chest Pain Stated Complaint: L Rib Pain Time Seen by Provider: 01/19/23 10:03 Source: patient Mode of arrival: EMS Limitations: no limitations History of Present Illness HPI narrative: Patient brought here by ambulance from home. From assisted living. Patient is DNR with selective treatments. She states she awoke this morning with left scapular pain. She was seen here 17 days ago for the same complaint. Had a CT angiogram chest abdomen pelvis which had no acute finding. An EKG and troponins as well. Pain is reproducible with deep breath and moving her left arm and shoulder. No prior history of heart attack. No exertional dyspnea or chest pain recently. No sweating or shortness of breath. Related Data Home Medications Medication Instructions Recorded Confirmed docusate sodium 100 mg capsule 200 mg PO DAILY 06/23/22 01/19/23 escitalopram oxalate 20 mg tablet 20 mg PO DAILY 06/23/22 01/19/23 metoprolol succinate 25 mg 25 mg PO DAILY 06/23/22 01/19/23 tablet,extended release 24 hr mirtazapine 30 mg tablet 30 mg PO BEDTIME 06/23/22 01/19/23 oxycodone 15 mg tablet,crush 15 mg PO BID 06/23/22 01/19/23 resistant,extended release 12 hr (OxyContin) oxycodone 5 mg capsule 5 mg PO BID PRN Pain, Moderate 06/23/22 01/19/23 polyethylene glycol 3350 17 gram 17 g PO BID 06/23/22 01/19/23 oral powder packet (Miralax) sacubitril 24 mg-valsartan 26 mg 1 tab PO BID 06/23/22 01/19/23 tablet (Entresto) lidocaine 4 % topical patch 1 patch topical DAILY PRN pain 01/19/23 01/19/23 (Aspercreme (lidocaine)) Previous Rx's Medication Instructions Recorded acetaminophen 325 mg tablet 650 mg (2 x 325 mg) PO Q6H PRN 05/14/22 Fever/Mild Pain (1-3) #30 tabs furosemide 40 mg tablet 60 mg (1.5 x 40 mg) PO BID #42 tabs 07/02/22 sennosides 8.6 mg capsule (senna) 8.6 mg PO BEDTIME #30 caps 07/02/22 sodium chloride 1,000 mg soluble 1,000 mg PO TID #42 tabs 07/02/22 tablet lidocaine 5 % topical patch 1 patch topical DAILY #15 ea 01/20/23 Allergies Allergy/AdvReac Type Severity Reaction Status Date / Time venlafaxine Allergy Unknown Verified 01/19/23 10:03 trazodone AdvReac Intermediate QTc Verified 01/19/23 10:03 prolongation when on escitalopram concurrently Review of Systems Review of Systems Narrative: GENERAL: negative chills, fatigue, malaise, fever, sweats. HEENT: negative sinus pain, ear pain, sore throat RESPIRATORY: negative dyspnea, cough CARDIOVASCULAR: negative chest pain, palpitations GASTROINTESTINAL: negative nausea, vomiting, abdominal pain : negative dysuria, frequency, hematuria MUSCULOSKELETAL: Positive back/muscle or bony pain SKIN: negative rash, skin lesions NEUROLOGIC: negative weakness, numbness ROS Unobtainable: All systems reviewed & are unremarkable except as noted in HPI and below Patient History Medical History CHF (congestive heart failure) HTN (hypertension) Surgical History History of shoulder replacement Family History Mother No pertinent past medical history Father No pertinent past medical history Social History household members: none Smoking Status: Former smoker alcohol intake: current Smoking Status: Former smoker tobacco type: cigarettes alcohol intake frequency: holidays/special occasions only Substance Use Type: does not use Exam Narrative Exam Narrative: GENERAL: in no distress, not toxic not dyspneic HEAD: Normocephalic. EYES: Pupils equal round ENT: Mucous membranes moist. NECK: Trachea midline. CARDIOVASCULAR: Regular rate and rhythm, chest wall is nontender. However nontender on the left scapula but has pain with deep breath and movement of her left shoulder and scapula. RESPIRATORY: Clear to auscultation. Breath sounds equal bilaterally. No wheezes, rales, or rhonchi. GASTROINTESTINAL: Abdomen soft, non-tender EXTREMITIES: No gross deformities. BACK: No flank tenderness. NEURO: AOx4. SKIN: Warm and dry PSYCH: Not anxious, is cooperative Initial Vital Signs Initial Vital Signs: Vital Signs Pulse Rate 68 01/19/23 10:03 Respiratory Rate 18 01/19/23 10:03 Blood Pressure 203/86 H 01/19/23 10:03 Pulse Oximetry 98 01/19/23 10:03 Oxygen Delivery Method Room Air 01/19/23 10:03 Course Orders Ordered: Discontinued Medications Acetaminophen (Acetaminophen 325 Mg Tablet) 650 mg PO NOW ONE Stop: 01/19/23 10:05 Last Admin: 01/19/23 10:22 Dose: 650 mg Documented By: SIVA Acetaminophen (Acetaminophen 325 Mg Tablet) 650 mg PO Q6H PRN PRN Reason: Fever/Mild Pain (1-3) Last Admin: 01/20/23 10:04 Dose: 650 mg Documented By: Admin: 01/20/23 03:17 Dose: 650 mg Documented By: CT Acetaminophen (Acetaminophen 325 Mg Tablet) 650 mg PO Q6H PRN PRN Reason: Fever/Mild Pain (1-3) Al Hydrox/Mg Hydrox/Simethicone (Mag Hydrox/Alum/Simeth 30 Ml Udc) 30 ml PO Q6HR PRN PRN Reason: Dyspepsia Last Admin: 01/20/23 00:46 Dose: 30 ml Documented By: CT Aspirin (Aspirin 81 Mg Chew Tab) 324 mg PO NOW ONE Stop: 01/19/23 10:09 Last Admin: 01/19/23 10:22 Dose: 324 mg Documented By: SIVA Docusate Sodium (Docusate 100 Mg Capsule) 200 mg PO DAILY [facility] Last Admin: 01/20/23 10:08 Dose: 200 mg Documented By: YAZMIN Escitalopram Oxalate (Escitalopram 10 Mg Tablet) 20 mg PO DAILY [facility] Last Admin: 01/20/23 10:09 Dose: 20 mg Documented By: YAZMIN Furosemide (Furosemide 20 Mg Tablet) 60 mg PO BID [facility] Last Admin: 01/20/23 10:04 Dose: 60 mg Documented By: Admin: 01/19/23 21:04 Dose: 60 mg Documented By: CT Heparin Sodium (Porcine) (Heparin 5,000 Unit/Ml Vial) 5,000 unit SUBCUT BID [facility] Last Admin: 01/20/23 10:03 Dose: 5,000 unit Documented By: Admin: 01/19/23 21:04 Dose: 5,000 unit Documented By: CT Ceftriaxone Sodium 1,000 mg/ (Sodium Chloride) 100 mls @ 200 mls/hr IV Q24H ARCELIA Stop: 01/22/23 08:51 Last Infusion: 01/20/23 11:27 Dose: Infused Documented By: Admin: 01/20/23 10:03 Dose: 200 mls/hr Documented By: YAZMIN Ceftriaxone Sodium 1,000 mg/ (Sodium Chloride) 100 mls @ 200 mls/hr IV Q24H ARCELIA Stop: 01/22/23 10:29 Last Admin: 01/20/23 10:37 Dose: Not Given Documented By: MM Sodium Chloride (Normal Saline 0.9%) 250 mls @ 21 mls/hr IV Q24H PRN PRN Reason: Flush Last Admin: 01/20/23 10:43 Dose: 21 mls/hr Documented By: YAZMIN Isosorbide Mononitrate (Isosorbide Mononitrate Er 30 Mg Tablet) 30 mg PO QACBREAK [facility] Last Admin: 01/20/23 10:09 Dose: 30 mg Documented By: YAZMIN Lidocaine (Lidocaine Patch 1 Each Adh..Patch) 1 each TOP DAILY PRN PRN Reason: pain Last Admin: 01/20/23 03:17 Dose: 1 each Documented By: CT Lidocaine (Lidocaine Patch 1 Each Adh..Patch) 1 each TOP DAILY ARCELIA Last Admin: 01/20/23 10:09 Dose: 1 each Documented By: YAZMIN Lidocaine (Remove Lidocaine Patch) 1 each TOP BEDTIME [facility] Magnesium Hydroxide (Magnesium Hydroxide 30 Ml Udc) 30 ml PO DAILY PRN PRN Reason: Constipation Metoprolol Succinate (Metoprolol Er 25 Mg Tablet) 25 mg PO DAILY ARC[facility] Last Admin: 01/20/23 10:04 Dose: 25 mg Documented By: YAZMIN Mirtazapine (Mirtazapine 15 Mg Tablet) 30 mg PO BEDTIME [facility] Last Admin: 01/19/23 21:03 Dose: 30 mg Documented By: CT Morphine Sulfate (Morphine 2 Mg/Ml Inj) 2 mg IV NOW ONE Stop: 01/19/23 22:51 Last Admin: 01/19/23 23:00 Dose: 2 mg Documented By: VEDAK Morphine Sulfate (Morphine 4 Mg/Ml Inj) 4 mg IV Q4HR PRN PRN Reason: Pain, Severe (7-10) Last Admin: 01/20/23 07:39 Dose: 4 mg Documented By: Admin: 01/19/23 23:43 Dose: 4 mg Documented By: JOON Naloxone HCl (Naloxone 0.4 Mg/Ml Vial) 0.2 mg IV Q2MIN PRN PRN Reason: Opiate Reversal Nitroglycerin (Nitroglycerin Oint 1 Inch/Gm Oint...G.) 0.5 inch TOP NOW ONE Stop: 01/19/23 12:35 Last Admin: 01/19/23 13:29 Dose: 0.5 inch Documented By: SIVA Oxycodone HCl (Oxycodone Ir 5 Mg Tablet) 5 mg PO BID PRN PRN Reason: Pain, Moderate Oxycodone HCl (Oxycodone Er 10 Mg Tab) 10 mg PO BID [facility] Last Admin: 01/20/23 10:09 Dose: 10 mg Documented By: Admin: 01/19/23 21:04 Dose: 10 mg Documented By: JOON Oxycodone HCl (Oxycodone Ir 5 Mg Tablet) 5 mg PO Q6H PRN PRN Reason: Pain, Moderate Last Admin: 01/19/23 21:41 Dose: 5 mg Documented By: JOON Pantoprazole Sodium (Pantoprazole 40 Mg Vial) 40 mg IV NOW ONE Stop: 01/19/23 12:26 Last Admin: 01/19/23 12:31 Dose: 40 mg Documented By: SIVA Pantoprazole Sodium (Pantoprazole Dr 20 Mg Tablet) 40 mg PO 0700 [facility] Last Admin: 01/20/23 10:26 Dose: 40 mg Documented By: YAZMIN Polyethylene Glycol (Polyethylene Glycol 3350 17 Gm Powd.Pack) 17 gm PO BID [facility] Last Admin: 01/20/23 10:02 Dose: 17 gm Documented By: Admin: 01/19/23 21:03 Dose: 17 gm Documented By: JOON Sennosides (Sennosides 8.6 Mg Tablet) 8.6 mg PO BEDTIME [facility] Last Admin: 01/19/23 21:04 Dose: 8.6 mg Documented By: JOON Vancomycin HCl (Vancomycin Per Pharmacy) 1 request MISC NOW ONE Stop: 01/20/23 08:46 Last Admin: 01/20/23 09:53 Dose: Not Given Documented By: YAZMIN Vital Signs Vital signs: Vital Signs - 8 hr 01/19/23 10:03 01/19/23 10:06 01/19/23 10:13 Pulse Rate 68 65 Respiratory Rate 18 Blood Pressure 203/86 H 177/77 H Pulse Oximetry 98 97 Oxygen Delivery Method Room Air 01/19/23 10:13 01/19/23 10:30 01/19/23 10:31 Pulse Rate 63 68 Respiratory Rate 22 Blood Pressure 196/82 H Pulse Oximetry 97 98 Oxygen Delivery Method Room Air 01/19/23 11:00 01/19/23 11:01 01/19/23 11:01 Pulse Rate 62 61 Respiratory Rate 21 16 Blood Pressure 164/82 H Pulse Oximetry 98 97 Oxygen Delivery Method 01/19/23 11:30 01/19/23 11:31 01/19/23 11:31 Pulse Rate 58 L 58 L Respiratory Rate 16 20 Blood Pressure 131/63 Pulse Oximetry 97 96 Oxygen Delivery Method 01/19/23 12:00 01/19/23 12:00 01/19/23 12:30 Pulse Rate 58 L 65 Respiratory Rate 14 18 Blood Pressure 135/62 Pulse Oximetry 95 97 Oxygen Delivery Method 01/19/23 12:31 01/19/23 12:31 01/19/23 13:00 Pulse Rate 63 57 L Respiratory Rate 21 31 H Blood Pressure 163/71 H Pulse Oximetry 96 96 Oxygen Delivery Method 01/19/23 13:01 01/19/23 13:01 01/19/23 13:29 Pulse Rate 58 L 57 L Respiratory Rate Blood Pressure 144/62 H 144/62 H Pulse Oximetry 96 Oxygen Delivery Method 01/19/23 13:30 01/19/23 13:31 01/19/23 13:31 Pulse Rate 68 62 Respiratory Rate 22 24 Blood Pressure 144/62 H Pulse Oximetry 95 98 Oxygen Delivery Method 01/19/23 13:45 01/19/23 13:45 01/19/23 14:00 Pulse Rate 54 L Respiratory Rate 24 Blood Pressure 129/58 L 116/59 L Pulse Oximetry 97 Oxygen Delivery Method 01/19/23 14:00 01/19/23 14:15 01/19/23 14:15 Pulse Rate 54 L 53 L Respiratory Rate 28 H 41 H Blood Pressure 101/49 L Pulse Oximetry 96 95 Oxygen Delivery Method 01/19/23 14:17 01/19/23 14:17 Pulse Rate 64 Respiratory Rate 26 H Blood Pressure 119/56 L Pulse Oximetry 96 Oxygen Delivery Method MDM - Chest Pain Lab Data 01/20/23 03:36 01/20/23 03:36 Labs: Lab Results 01/19/23 Range/Units 10:08 WBC 6.5 (4.5-11.0) X10^3/uL RBC 3.36 L (4.0-5.2) X10^6/uL Hgb 10.6 L (12.0-16.0) g/dL Hct 30.3 L (36-46) % MCV 90.0 (80-100) fL MCH 31.4 (26-34) PG MCHC 34.9 (30-36) % RDW 13.0 (11.6-14.8) % Plt Count 244 (150-400) X10^3/uL Neut % (Auto) 57.9 (50-75) % Lymph % (Auto) 24.6 L (25-40) % [place] % (Auto) 13.2 (3-14) % Eos % (Auto) 3.5 (2-4) % Baso % (Auto) 0.8 (0-2) % Neut # (Auto) 3800 (4547-5828) /uL Lymph # (Auto) 1600 (7924-5186) /uL [place] # (Auto) 900 (0-900) /uL Eos # (Auto) 200 (0-450) /uL Baso # (Auto) 100 (0-100) /uL PT 10.9 (10.1-12.7) SECONDS INR 1.0 (0.9-1.3) APTT 17 L (26-36) SECONDS D-Dimer Cancelled Sodium 133 L (137-145) mmol/L Potassium 4.3 (3.4-5.1) mmol/L Chloride 94 L (98-107) mmol/L Carbon Dioxide 30 (22-32) mmol/L BUN 103 H (7-17) mg/dL Creatinine 2.53 H (0.52-1.04) mg/dL Estimated GFR 18 L (>60) mL/min BUN/Creatinine Ratio 40.7 H (6-22) Glucose 92 (80-110) mg/dL Calcium 9.4 (8.4-10.2) mg/dL Total Bilirubin 0.4 (0.2-1.3) mg/dL AST 23 (14-36) IU/L ALT 12 (<35) IU/L Alkaline Phosphatase 89 (38-126) U/L Total Creatine Kinase 29 L (30-135) U/L Troponin I 0.014 (0.01-0.034) ng/mL Total Protein 7.1 (6.3-8.2) g/dL Albumin 3.8 (3.5-5.0) g/dL Globulin 3.3 (1.7-4.1) g/dL Albumin/Globulin Ratio 1.2 (1.0-2.8) Imaging Data Chest x-ray: Radiologist's Impression: [address] [address] XRay Report Signed Patient: Inga Mata MR#: [id number] : 1935 Acct:[id number] Age/Sex: 87 / F Date of Service: 01/19/23 Loc: ED Accession Number: [id number] ?? Procedure: XR chest 1V Ordering Provider: Ruddy Hawkins MD PROCEDURE:? XR CHEST 1V ? INDICATIONS:? Chest pain ? TECHNIQUE:? One view of the chest was acquired.? ? COMPARISON:? [facility], CR, XR CHEST 1V, 01/02/2023, 5:34.? [facility], CR, XR CHEST 1V, 06/23/2022, 11:24. ? FINDINGS:? ? Surgical changes and devices:? Left shoulder arthroplasty partially seen. ? Lungs and pleura:? No dense consolidation.? No pleural effusion. ? Mediastinum:? Possible hiatal hernia.? Borderline cardiomegaly. ? Bones and chest wall:? Degenerative changes. ? ? IMPRESSION:? No acute radiographic abnormality.? Heart size is borderline.? ? Dictated by: Joe Kraft M.D. on 01/19/2023 at 13:31 ? ? Approved by: Joe Kraft M.D. on 01/19/2023 at 13:32 ? MDM Narrative Medical decision making narrative: Patient brought here by ambulance from home. From assisted living. Patient is DNR with selective treatments. She states she awoke this morning with left scapular pain. She was seen here 17 days ago for the same complaint. Had a CT angiogram chest abdomen pelvis which had no acute finding. An EKG and troponins as well. Pain is reproducible with deep breath and moving her left arm and shoulder. No prior history of heart attack. No exertional dyspnea or chest pain recently. No sweating or shortness of breath. After history and exam CBC CMP troponin EKG aspirin Tylenol MDM CC: Left scapular pain Complicating co-morbidities: CHF hypertension Data collected from: Patient and EMS Medical records reviewed: January 02, [address] angiogram chest abdomen pelvis EKG Differential considered: Includes but not limited to atypical chest pain STEMI non-STEMI stable angina unstable angina Exam documented above, pertinent findings include: Reproducible left scapular pain on deep breath Lab Test results independently reviewed as above. Pertinent findings: Hemoglobin 10.6 hematocrit 30.3 sodium 133 potassium 4.3 GFR 2.53 likely related to recent angiogram done 17 days ago. Troponin 0.014 Independently reviewed EKG sinus rhythm rate [address] elevation or depression Imaging studies independently reviewed: Chest X No acute finding Consultations: 12:33 p.m.. Spoke with cardiology, dr grigsby, recommends admission echocardiogram and stress test 2:44 p.m.. Spoke with hospitalist, Dr. Jacobson, who will admit patient Treatments: Aspirin Tylenol nitro paste Re-evaluations: 12:37 p.m.. Patient doing better. Blood pressure has improved. Reviewed results with patient, son now at bedside. Agree for admission and stress test. Patient started getting relief with nitro paste however blood pressure started to decline and it was removed. Blood pressure recovered. Discussion: Appropriate for admission for continued chest pain. Patient seen here 17 days ago and has not had much changes or relief. I did review with cardiology service and recommend for patient to be admitted for echocardiogram and stress test. Diagnosis: Atypical chest Discharge Plan Departure Patient Disposition: Admitted as Observation Clinical Impression: Atypical chest pain Admit Date/Time: 01/19/23 14:44 Admit Provider: Oneal Jacobson
[2023-01-19 10:17] LABS: Add Manual Diff / Slide Review NO; Basophils Absolute Auto 100 /uL (0-100); Basophils Percent Auto 0.8 % (0-2); Eosinophils Absolute Auto 200 /uL (0-450); Eosinophils Percent Auto 3.5 % (2-4); Hematocrit 30.3 % (36-46); Hemoglobin 10.6 g/dL (12.0-16.0); Lymphocytes Absolute Auto 1600 /uL (1100-4500); Lymphocytes Percent Auto 24.6 % (25-40); Mean Corpuscular HGB Conc 34.9 % (30-36); Mean Corpuscular Hemoglobin 31.4 PG (26-34); Monocytes Absolute Auto 900 /uL (0-900); Monocytes Percent Auto 13.2 % (3-14); Neutrophils Absolute Auto 3800 /uL (1500-7000); Neutrophils Percent Auto 57.9 % (50-75); Platelet Count 244 X10^3/uL (150-400); Red Blood Cell Count 3.36 X10^6/uL (4.0-5.2); White Blood Cell Count 6.5 X10^3/uL (4.5-11.0)
[2023-01-19] MEDS: ASPIRIN 81 MG CHEW TAB 324 MG PO (10:22)
[2023-01-19] MEDS: ACETAMINOPHEN 325 MG TABLET 650 MG PO (10:22)
[2023-01-19 10:30] LABS: Prothrombin Time 10.9 SECONDS (10.1-12.7)
[2023-01-19 10:33] LABS: PTT Partial Thromboplastin Tim 17 SECONDS (26-36)
[2023-01-19 10:37] LABS: Alanine Aminotransferase 12 IU/L (<35); Albumin 3.8 g/dL (3.5-5.0); Albumin Globulin Ratio 1.2 (1.0-2.8); Alkaline Phosphatase 89 U/L (38-126); Aspartate Aminotransferase 23 IU/L (14-36); BUN Creatinine Ratio 40.7 (6-22); Bilirubin Total 0.4 mg/dL (0.2-1.3); Blood Urea Nitrogen 103 mg/dL (7-17); Calcium 9.4 mg/dL (8.4-10.2); Carbon Dioxide 30 mmol/L (22-32); Chloride 94 mmol/L (98-107); Creatine Kinase 29 U/L (30-135); Estimated Glomerular Filt Rate 18 mL/min (>60); Globulin 3.3 g/dL (1.7-4.1); Glucose 92 mg/dL (80-110); HEMOLYSIS 25 (0-50); Potassium 4.3 mmol/L (3.4-5.1); Sodium 133 mmol/L (137-145); Total Protein 7.1 g/dL (6.3-8.2)
[2023-01-19 10:48] LABS: Troponin I 0.014 ng/mL (0.01-0.034)
[2023-01-19] MEDS: PANTOPRAZOLE 40 MG VIAL IV (12:31)
--- NOTE | 2023-01-19 12:36 | DI.RAD.S_ITS ---
PROCEDURE: XR CHEST 1V INDICATIONS: Chest pain TECHNIQUE: One view of the chest was acquired. COMPARISON: [facility], CR, XR CHEST 1V, 01/02/2023, 5:34. [facility], CR, XR CHEST 1V, 06/23/2022, 11:24. FINDINGS: Surgical changes and devices: Left shoulder arthroplasty partially seen. Lungs and pleura: No dense consolidation. No pleural effusion. Mediastinum: Possible hiatal hernia. Borderline cardiomegaly. Bones and chest wall: Degenerative changes. IMPRESSION: No acute radiographic abnormality. Heart size is borderline. Dictated by: Joe Kraft M.D. on 01/19/2023 at 13:31 Approved by: Joe Kraft M.D. on 01/19/2023 at 13:32
--- NOTE | 2023-01-19 12:38 | DI.ECHO.S_ITS ---
[facility]---------[facility] +---------+ : : [address] [place] : : : : [id number] : : : : Phone: [phone] Echocardiogram Report + + :Name: SUMAN KEMP Study Date: 01/19/2023 Height: 66 in : :[facility] ReadingLocation: Weight: 143 lb : : Gender: Female BSA: 1.7 m2 : :: 1935 Age: 87 yrs BP: 133/60 mmHg: :Reason For Study: CHEST PAIN : :Ordering Physician: BANDAR, : :ALEJANDRO Performed By: Tonie Collins : :Referring: ALEJANDRO PORTILLO : + + Interpretation Summary The ejection fraction is estimated to be 45-50%. Grade II diastolic dysfunction. The left atrium is severely dilated. The interatrial septum bows toward right atrium consistent with elevated left atrial pressure. The right ventricle is normal in size and function. There is mild mitral regurgitation. There is trace aortic regurgitation. Pulmonary artery pressures cannot be estimated because of the lack of a measurable TR jet velocity but the IVC suggests a CVP of around 3 mmHg. Compared to the prior study dated 05/04/2022, the ejection fraction has increased. Procedure: A two-dimensional transthoracic echocardiogram with color flow and Doppler was performed. The study quality was technically adequate. Comparison is made with the echocardiogram of 05/04/2022. The patient was in sinus bradycardia with heart rates between 52-58 bpm during the exam. Left Ventricle: The left ventricle is normal in size. Proximal septal thickening is noted. The ejection fraction is estimated to be 45-50%. Diastolic parameters suggest a pseudonormalization pattern, consistent with probable elevated filling pressures. Right Ventricle: The right ventricle is normal in size and function. Atria: The left atrium is severely dilated. Right atrial size is normal. The interatrial septum bows toward right atrium consistent with elevated left atrial pressure. The atrial septum is aneurysmal. Mitral Valve: The mitral valve leaflets appear mildly thickened, but open well. There is mild mitral regurgitation. Aortic Valve: The aortic valve is trileaflet. The aortic valve is mildly calcified. There is no aortic valve stenosis. There is trace aortic regurgitation. Tricuspid Valve: The tricuspid valve is normal in structure and function. There is trace tricuspid regurgitation. Pulmonary artery pressures cannot be estimated because of the lack of a measurable TR jet velocity but the IVC suggests a CVP of around 3 mmHg. Pulmonic Valve: The pulmonic valve leaflets are thin and pliable; valve motion is normal. There is mild pulmonic regurgitation. Great Vessels: The aortic root is normal size. The dimensions of the ascending aorta are normal. The IVC is of normal diameter and collapses greater than 50% with a sniff. This suggests a low right atrial pressure of 3 mm Hg. Pericardium/ Pleura There is no pericardial effusion. There is no pleural effusion. MMode/2D Measurements & Calculations LVIDd: 5.8 cm LVOT diam: 2.1 cm LVIDs: 4.3 cm Ao root diam: 3.2 cm FS: 26.3 % asc Aorta Diam: 3.2 cm EPSS: 1.5 cm Ao Arch Diam (Prox Trans): 2.4 cm IVSd: 0.90 cm LVPWd: 0.85 cm LV caal. diameter/BSA (cm/m^2): 3.4 LV sys. diameter/BSA (cm/m^2): 2.5 LA A2 area: 22.7 cm2 RA long axis: 5.5 cm LA A4 area: 25.0 cm2 RA area: 13.6 cm2 LA length (vol): 6.0 cm RA vol: 28.8 ml LA vol: 80.2 ml RA : 16.6 ml/m2 LA vol index: 46.2 ml/m2 IVC diam: 1.5 cm RVD1 (basal): 3.2 cm RVD2 (mid): 2.8 cm TAPSE: 2.7 cm Doppler Measurements & Calculations Ao V2 max: 160.4 cm/sec LVOT Max Pedro: 73.5 cm/sec Ao V2 mean: 113.7 cm/sec LV V1 max P.2 mmHg Ao max P.3 mmHg LV V1 VTI: 19.8 cm Ao mean P.6 mmHg MANJEET(I,D): 1.7 cm2 Ao V2 VTI: 40.3 cm MANJEET(V,D): 1.6 cm2 sev ratio: 0.49 MANJEET indexed to BSA (cm^2/m^2): 0.96 MV E max pedro: 61.4 cm/sec PA V2 max: 86.0 cm/sec MV A max pedro: 91.4 cm/sec PA V2 mean: 62.7 cm/sec MV E/A: 0.67 PA mean P.7 mmHg Med Peak E' Pedro: 3.6 cm/sec PA pr(Accel): 36.2 mmHg E/E' med: 17.2 Lat Peak E' Pedro: 6.0 cm/sec E/E' lat: 10.3 E/e' average: 13.7 MV dec time: 0.37 sec SV(LVOT): 67.2 ml Reading Physician:04:01 PM
[2023-01-19] MEDS: NITROGLYCERIN OINT 1 INCH/GM OINT...G. 0.5 INCH TOP (13:29)
--- NOTE | 2023-01-19 13:57 | PC.NURSE ---
patient reports that her shoulder pain is still achy but has no rib pain
--- NOTE | 2023-01-19 14:17 | PC.NURSE ---
patients BP dropped to 101/49
--- NOTE | 2023-01-19 16:42 | PM.HP.1 ---
History of Present Illness History of Present Illness Date Patient Seen: 01/19/23 Time Patient Seen: 16:42 Chief complaint: L Rib Pain Narrative: The patient is a 87 year old female with a history of heart failure and chronic kidney disease. She presents with a 2 week history of pain described as below her ribcage on the left upper quadrant. The pain feels like it is either shooting to her coming from her back. The pain increases with positional movement and some degree with deep breathing. No associated nausea, or diaphoresis. She denies any recent diarrhea. No recent falls or trauma to the chest. She denies a history of heart attacks. The pain has not been constant but rather comes and goes. It does not seem to be triggered by anything in specific, including exertion. She was seen in the emergency department 1 time recently for the same issue and after representing for similar complaints the emergency doctor thought that a stress test might be indicated. She denies recent URI symptoms, cough or fevers. 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 Her son notes that the diagnosis appears to be heart failure and chronic kidney disease most of her issues. [facility] Medical History CHF (congestive heart failure) HTN (hypertension) Surgical History History of shoulder replacement Family History Mother No pertinent past medical history Father No pertinent past medical history Social History household members: none Smoking Status: Former smoker alcohol intake: current Meds Home Medications and Allergies Home Medications Medication Instructions Recorded Confirmed Type acetaminophen 325 mg tablet 650 mg PO Q6H PRN Fever/Mild Pain 05/14/22 01/19/23 Rx (1-3) #30 tabs docusate sodium 100 mg capsule 200 mg PO DAILY 06/23/22 01/19/23 History escitalopram oxalate 20 mg tablet 20 mg PO DAILY 06/23/22 01/19/23 History metoprolol succinate 25 mg 25 mg PO DAILY 06/23/22 01/19/23 History tablet,extended release 24 hr mirtazapine 30 mg tablet 30 mg PO BEDTIME 06/23/22 01/19/23 History oxycodone 15 mg tablet,crush 15 mg PO BID 06/23/22 01/19/23 History resistant,extended release 12 hr (OxyContin) oxycodone 5 mg capsule 5 mg PO BID PRN Pain, Moderate 06/23/22 01/19/23 History polyethylene glycol 3350 17 gram 17 g PO BID 06/23/22 01/19/23 History oral powder packet (Miralax) sacubitril 24 mg-valsartan 26 mg 1 tab PO BID 06/23/22 01/19/23 History tablet (Entresto) furosemide 40 mg tablet 60 mg PO BID #42 tabs 07/02/22 01/19/23 Rx sennosides 8.6 mg capsule (senna) 8.6 mg PO BEDTIME #30 caps 07/02/22 01/19/23 Rx sodium chloride 1,000 mg soluble 1,000 mg PO TID #42 tabs 07/02/22 01/19/23 Rx tablet lidocaine 4 % topical patch 1 patch topical DAILY PRN pain 01/19/23 01/19/23 History (Aspercreme (lidocaine)) Allergies Allergy/AdvReac Type Severity Reaction Status Date / Time venlafaxine Allergy Unknown Verified 01/19/23 10:03 trazodone AdvReac Intermediate QTc Verified 01/19/23 10:03 prolongation when on escitalopram concurrently Review of Systems Review of Systems Narrative: All else reviewed and otherwise unremarkable except as noted on the H&P. Exam Vital Signs (past 8 hours): - 01/19/23 10:03 01/19/23 10:06 01/19/23 10:13 Pulse Rate 68 65 Respiratory Rate 18 Blood Pressure 203/86 H 177/77 H Pulse Oximetry 98 97 Oxygen Delivery Method Room Air 01/19/23 10:13 01/19/23 10:30 01/19/23 10:31 Pulse Rate 63 68 Respiratory Rate 22 Blood Pressure 196/82 H Pulse Oximetry 97 98 Oxygen Delivery Method Room Air 01/19/23 11:00 01/19/23 11:01 01/19/23 11:01 Pulse Rate 62 61 Respiratory Rate 21 16 Blood Pressure 164/82 H Pulse Oximetry 98 97 Oxygen Delivery Method 01/19/23 11:30 01/19/23 11:31 01/19/23 11:31 Pulse Rate 58 L 58 L Respiratory Rate 16 20 Blood Pressure 131/63 Pulse Oximetry 97 96 Oxygen Delivery Method 01/19/23 12:00 01/19/23 12:00 01/19/23 12:30 Pulse Rate 58 L 65 Respiratory Rate 14 18 Blood Pressure 135/62 Pulse Oximetry 95 97 Oxygen Delivery Method 01/19/23 12:31 01/19/23 12:31 01/19/23 13:00 Pulse Rate 63 57 L Respiratory Rate 21 31 H Blood Pressure 163/71 H Pulse Oximetry 96 96 Oxygen Delivery Method 01/19/23 13:01 01/19/23 13:01 01/19/23 13:29 Pulse Rate 58 L 57 L Respiratory Rate Blood Pressure 144/62 H 144/62 H Pulse Oximetry 96 Oxygen Delivery Method 01/19/23 13:30 01/19/23 13:31 01/19/23 13:31 Pulse Rate 68 62 Respiratory Rate 22 24 Blood Pressure 144/62 H Pulse Oximetry 95 98 Oxygen Delivery Method 01/19/23 13:45 01/19/23 13:45 01/19/23 14:00 Pulse Rate 54 L Respiratory Rate 24 Blood Pressure 129/58 L 116/59 L Pulse Oximetry 97 Oxygen Delivery Method 01/19/23 14:00 01/19/23 14:15 01/19/23 14:15 Pulse Rate 54 L 53 L Respiratory Rate 28 H 41 H Blood Pressure 101/49 L Pulse Oximetry 96 95 Oxygen Delivery Method 01/19/23 14:17 01/19/23 14:17 Pulse Rate 64 Respiratory Rate 26 H Blood Pressure 119/56 L Pulse Oximetry 96 Oxygen Delivery Method Oxygen Delivery Method Room Air Narrative Exam Narrative: The patient is awake and in NAD. Normal speech and mentation. Normal judgement, and calm affect. Head is atraumatic and EOMI. Anicteric sclera. Oropharynx is moist. Neck is supple and trachea is midline. Lungs are CTA, with normal rate and effort. Heart is RRR, with a systolic murmur, no gallop or rub. Abdomen is soft, NT and ND. Extremities are with 1+ edema. Good arm pulses. Good leg pulses. Skin is free of rash or lesions. Joints are free of swelling or deformity. Back with normal ROM. Kyphosis. Objective ECG Impression: ECG pending (ED not found) Labs 01/19/23 10:08 01/19/23 10:08 Labs: Laboratory Results - last 24 hr 01/19/23 01/19/23 01/19/23 10:08 10:08 10:08 WBC 6.5 RBC 3.36 L Hgb 10.6 L Hct 30.3 L MCV 90.0 MCH 31.4 MCHC 34.9 RDW 13.0 Plt Count 244 Neut % (Auto) 57.9 Lymph % (Auto) 24.6 L [place] % (Auto) 13.2 Eos % (Auto) 3.5 Baso % (Auto) 0.8 Neut # (Auto) 3800 Lymph # (Auto) 1600 [place] # (Auto) 900 Eos # (Auto) 200 Baso # (Auto) 100 PT 10.9 INR 1.0 APTT 17 L D-Dimer Cancelled Sodium 133 L Potassium 4.3 Chloride 94 L Carbon Dioxide 30 BUN 103 H Creatinine 2.53 H Estimated GFR 18 L BUN/Creatinine Ratio 40.7 H Glucose 92 Calcium 9.4 Total Bilirubin 0.4 AST 23 ALT 12 Alkaline Phosphatase 89 Total Creatine Kinase 29 L Troponin I 0.014 Total Protein 7.1 Albumin 3.8 Globulin 3.3 Albumin/Globulin Ratio 1.2 Assessment & Plan Assessment & Plan narrative: 1. Atypical chest pain, POA and active. -serial enzymes and stress test in AM. 2. ANA MARIA on CKD (3), POA and stable (baseline Cr around 1.63), POA and active. -monitor renal function. 3. Chronic systolic heart failure (EF 25%, seen at [facility]), POA and stable. 4. HTN, POA and stable -resume usual meds as able. 5. Acute hyponatremia (H/O), POA and active. -follow. May need diuresis if worsens. DNR, confirmed at admit. Son is with her. Time Spent With Patient Time with patient: 30 to 49 minutes with 50% spent counseling/coordinating care Quality VTE Deep Vein Thrombosis/Pulmonary Embolism Present on Admission: No
[2023-01-19 17:11] LABS: Troponin I < 0.012 ng/mL (0.01-0.034)
--- NOTE | 2023-01-19 17:51 | PC.NURSE ---
Pt to room 210 via stretcher and was transferred to bed via slider board. Son is at the bedside. Pt is alert and oriented. States she does not feel well. Pt oriented to room, call light, bed controls, and tv controls. Pt given water and a snack to eat. SCD's on and running. Denies chest pain, nausea, or shortness of breath. Tele placed on Pt. Bed alarm on for safety.
--- NOTE | 2023-01-19 18:45 | PC.NURSE ---
Addendum entered by Nazia Marte R.N. 01/19/23 18:50: Barrier cream (orange bottle) applied to chronic pressure injury to bottom. Original Note:
[2023-01-19] MEDS: MIRTAZAPINE 15 MG TABLET 30 MG PO (21:03)
[2023-01-19] MEDS: polyethylene glycoL 3350 17 GM POWD.PACK PO (21:03)
[2023-01-19] MEDS: OXYCODONE ER 10 MG TAB PO (21:04)
[2023-01-19] MEDS: SENNOSIDES 8.6 MG TABLET PO (21:04)
[2023-01-19] MEDS: HEPARIN 5,000 UNIT/ML VIAL 5000 UNIT SUBCUT (21:04)
[2023-01-19] MEDS: FUROSEMIDE 20 MG TABLET 60 MG PO (21:04)
[2023-01-19] MEDS: OXYCODONE IR 5 MG TABLET PO (21:41)
[2023-01-19 22:13] LABS: Troponin I < 0.012 ng/mL (0.01-0.034)
[2023-01-19] MEDS: MORPHINE 2 MG/ML INJ IV (23:00)
--- NOTE | 2023-01-19 23:18 | P.CALLCOV_ITS ---
Call Coverage Note Note Narrative of Care Provided: Patient seen Chest pain - will orderd morphine IV prn will monitor D/W residential treatment staff Serial cardiac enzymes Ct chest abd pelvis review? Atherosclerotic calcification without aortic dissection or aneurysm in the chest, abdomen and pelvis. EKG review
[2023-01-19] MEDS: MORPHINE 4 MG/ML INJ IV (23:43)
[2023-01-20] MEDS: MAG HYDROX/ALUM/SIMETH 30 ML UDC PO (00:46)
[2023-01-20 01:59] VITALS: PULSE 68
[2023-01-20] MEDS: ACETAMINOPHEN 325 MG TABLET 650 MG PO ×2 (03:17→10:04)
[2023-01-20] MEDS: LIDOCAINE PATCH 1 EACH ADH..PATCH TOP ×2 (03:17→10:09)
[2023-01-20 03:35] VITALS: BP 153/64; PULSE 70; RESP 20; TEMP 36.7; O2SAT 95
[2023-01-20 04:02] LABS: Add Manual Diff / Slide Review NO; Basophils Absolute Auto 0 /uL (0-100); Basophils Percent Auto 0.4 % (0-2); Eosinophils Absolute Auto 200 /uL (0-450); Eosinophils Percent Auto 3.7 % (2-4); Hematocrit 29.1 % (36-46); Hemoglobin 9.9 g/dL (12.0-16.0); Lymphocytes Absolute Auto 1500 /uL (1100-4500); Lymphocytes Percent Auto 23.5 % (25-40); Mean Corpuscular HGB Conc 34.2 % (30-36); Mean Corpuscular Hemoglobin 30.6 PG (26-34); Mean Corpuscular Volume 89.5 fL (80-100); Monocytes Absolute Auto 700 /uL (0-900); Monocytes Percent Auto 11.5 % (3-14); Neutrophils Absolute Auto 3800 /uL (1500-7000); Neutrophils Percent Auto 60.9 % (50-75); Platelet Count 217 X10^3/uL (150-400); Red Blood Cell Count 3.25 X10^6/uL (4.0-5.2); White Blood Cell Count 6.3 X10^3/uL (4.5-11.0)
[2023-01-20 04:11] LABS: BUN Creatinine Ratio 43.7 (6-22); Blood Urea Nitrogen 93 mg/dL (7-17); Carbon Dioxide 28 mmol/L (22-32); Chloride 96 mmol/L (98-107); Estimated Glomerular Filt Rate 22 mL/min (>60); Glucose 95 mg/dL (80-110); HEMOLYSIS < 15 (0-50); Potassium 4.1 mmol/L (3.4-5.1); Sodium 132 mmol/L (137-145)
[2023-01-20 04:39] LABS: Bilirubin Urine UA NEGATIVE (NEGATIVE); Color Urine UA YELLOW; Glucose Urine UA NEGATIVE (Negative); Ketones Urine UA NEGATIVE (NEGATIVE); Leukocyte Esterase Urine UA 3+ (NEGATIVE); Nitrite Urine UA NEGATIVE (Negative); Occult Blood Urine UA 2+ (Negative); Protein Urine UA NEGATIVE (Negative); Specific Gravity Urine UA <=1.005 (1.000-1.035); Urobilinogen Urine UA 0.2 E.U./dL (0.2)
[2023-01-20 04:44] LABS: Appearance Urine UA CLOUDY
[2023-01-20 05:24] LABS: Bacteria Urine Many (>30); Culture Indicated Urine Specimen Cultured; RBC Urine 1-5/HPF (0-5/HPF); Squamous Epithelial Cell Urine None Seen (0-5/HPF); WBC Urine >100/HPF (0-5/HPF)
[2023-01-20] MEDS: MORPHINE 4 MG/ML INJ IV (07:39)
[2023-01-20 08:00] VITALS: BP 154/44; PULSE 63; RESP 18; TEMP 36.5; O2SAT 97
[2023-01-20 09:32] LABS: Magnesium 2.4 mg/dL (1.6-2.3)
[2023-01-20] MEDS: polyethylene glycoL 3350 17 GM POWD.PACK PO (10:02)
[2023-01-20] MEDS: cefTRIAXone 1,000 MG in SODIUM CHLORIDE 0.9% 100 ML 200 MG IV (10:03)
[2023-01-20] MEDS: HEPARIN 5,000 UNIT/ML VIAL 5000 UNIT SUBCUT (10:03)
[2023-01-20 10:04] VITALS: BP 154/44; PULSE 63
[2023-01-20] MEDS: FUROSEMIDE 20 MG TABLET 60 MG PO (10:04)
[2023-01-20] MEDS: METOPROLOL ER 25 MG TABLET PO (10:04)
[2023-01-20] MEDS: DOCUSATE 100 MG CAPSULE 200 MG PO (10:08)
[2023-01-20] MEDS: ESCITALOPRAM 10 MG TABLET 20 MG PO (10:09)
[2023-01-20] MEDS: ISOSORBIDE MONONITRATE ER 30 MG TABLET PO (10:09)
[2023-01-20] MEDS: OXYCODONE ER 10 MG TAB PO (10:09)
[2023-01-20] MEDS: PANTOPRAZOLE DR 20 MG TABLET 40 MG PO (10:26)
[2023-01-20] MEDS: SODIUM CHLORIDE 0.9% 250 ML 21 ML IV (10:43)
[2023-01-20 11:46] VITALS: PULSE 63
[2023-01-20 12:00] VITALS: BP 101/33; PULSE 63; RESP 18; TEMP 36.9; O2SAT 94
--- NOTE | 2023-01-20 14:59 | P.DS_ITS ---
History of Present Illness History of Present Illness Date Patient Seen: 01/19/23 Time Patient Seen: 16:42 Chief complaint: L Rib Pain Narrative: The patient is a 87 year old female with a history of heart failure and chronic kidney disease. She presents with a 2 week history of pain described as below her ribcage on the left upper quadrant. The pain feels like it is either shooting to her coming from her back. The pain increases with positional movement and some degree with deep breathing. No associated nausea, or diaphoresis. She denies any recent diarrhea. No recent falls or trauma to the chest. She denies a history of heart attacks. The pain has not been constant but rather comes and goes. It does not seem to be triggered by anything in specific, including exertion. She was seen in the emergency department 1 time recently for the same issue and after representing for similar complaints the emergency doctor thought that a stress test might be indicated. She denies recent URI symptoms, cough or fevers. 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 Her son notes that the diagnosis appears to be heart failure and chronic kidney disease most of her issues. Discharge Providers Provider Date of admission: 01/19/23 14:44 Discharge Date: 01/20/23 Primary care physician: Melinda Hassan PA-C Discharge provider: Casper Tilley DO Summary Hospital Course Discharge Diagnosis: 1. Atypical chest pain, POA and active. 2. ANA MARIA on CKD (3), POA and stable (baseline Cr around 1.63), POA and active. 3. Chronic systolic heart failure (EF 25%, seen at [facility]), POA and stable.? 4. HTN, POA and stable 5. Acute hyponatremia (H/O), POA and active. Hospital Course: Admitted for L chest pain. Reproducible on exam so stress not ordered and patient did not want it anyways. Likely costochondritis. Echo improved from prior with EF now of 45-50% and no WMA. Mildly low sodium of 132. Patient given lidoderm patch which helped the pain. Discharged home with a lidoderm script to use. Exam Vital Signs (past 8 hours): - 01/20/23 08:00 01/20/23 10:04 01/20/23 11:46 Temperature 97.7 F Pulse Rate 63 63 63 Respiratory Rate 18 Blood Pressure 154/44 H 154/44 H Pulse Oximetry 97 Oxygen Flow Rate 0 01/20/23 12:00 Temperature 98.4 F Pulse Rate 63 Respiratory Rate 18 Blood Pressure 101/33 L Pulse Oximetry 94 Oxygen Flow Rate 0 Oxygen Delivery Method Nasal Cannula Oxygen Flow Rate 0 Narrative Exam Narrative: The patient is awake and in NAD. Normal speech and mentation. Normal judgement, and calm affect. Head is atraumatic and EOMI. Anicteric sclera. Oropharynx is moist. Neck is supple and trachea is midline. Lungs are CTA, with normal rate and effort. Heart is RRR, with a systolic murmur, no gallop or rub. Chest pain is reproduc ible on exam with palpation of left chest under breast. Abdomen is soft, NT and ND. Extremities are with 1+ edema. Good arm pulses. Good leg pulses. Skin is free of rash or lesions. Joints are free of swelling or deformity. Back with normal ROM. Kyphosis. Objective Labs 01/20/23 03:36 01/20/23 03:36 Labs: Laboratory Results - last 24 hr 01/19/23 01/19/23 01/20/23 16:42 21:41 03:00 WBC RBC Hgb Hct MCV MCH MCHC RDW Plt Count Neut % (Auto) Lymph % (Auto) [place] % (Auto) Eos % (Auto) Baso % (Auto) Neut # (Auto) Lymph # (Auto) [place] # (Auto) Eos # (Auto) Baso # (Auto) Sodium Potassium Chloride Carbon Dioxide BUN Creatinine Estimated GFR BUN/Creatinine Ratio Glucose Calcium Magnesium Troponin I < 0.012 < 0.012 Urine Color Yellow Urine Appearance Cloudy Urine pH 7.0 Ur Specific [place] <=1.005 Urine Protein Negative Urine Glucose (UA) Negative Urine Ketones Negative Urine Occult Blood 2+ H Urine Nitrate Negative Urine Bilirubin Negative Urine Urobilinogen 0.2 Ur Leukocyte Esterase 3+ H Urine RBC 1-5/hpf Urine WBC >100/hpf H Ur Squamous Epith Cells None seen Urine Bacteria Many (>30) H Ur Culture Indicated? Specimen cultured 01/20/23 01/20/23 01/20/23 03:36 03:36 03:36 WBC 6.3 RBC 3.25 L Hgb 9.9 L Hct 29.1 L MCV 89.5 MCH 30.6 MCHC 34.2 RDW 13.0 Plt Count 217 Neut % (Auto) 60.9 Lymph % (Auto) 23.5 L [place] % (Auto) 11.5 Eos % (Auto) 3.7 Baso % (Auto) 0.4 Neut # (Auto) 3800 Lymph # (Auto) 1500 [place] # (Auto) 700 Eos # (Auto) 200 Baso # (Auto) 0 Sodium 132 L Potassium 4.1 Chloride 96 L Carbon Dioxide 28 BUN 93 H Creatinine 2.13 H Estimated GFR 22 L BUN/Creatinine Ratio 43.7 H Glucose 95 Calcium 9.0 Magnesium 2.4 H Troponin I Urine Color Urine Appearance Urine pH Ur Specific [place] Urine Protein Urine Glucose (UA) Urine Ketones Urine Occult Blood Urine Nitrate Urine Bilirubin Urine Urobilinogen Ur Leukocyte Esterase Urine RBC Urine WBC Ur Squamous Epith Cells Urine Bacteria Ur Culture Indicated? [facility] Medical History CHF (congestive heart failure) HTN (hypertension) Surgical History History of shoulder replacement Family History Mother No pertinent past medical history Father No pertinent past medical history Social History household members: none Smoking Status: Former smoker alcohol intake: current Discharge Plan Discharge Plan Patient Disposition: Home Provider Discharge Comment: I don't believe that your chest pain is related to your heart, as your echo was reassuring. I've sent lidocaine patches to help with the pain. But you can also take tylenol. Discharge orders & Medications Prescriptions: New lidocaine 5 % Adhesive Patch,Medicated 1 patch topical DAILY Qty: 15 0RF Rx Instructions: apply to left chest where pain is Continued polyethylene glycol 3350 [Miralax] 17 gram Powder In Packet 17 g PO BID mirtazapine 30 mg Tablet 30 mg PO BEDTIME oxycodone 5 mg Capsule 5 mg PO BID PRN (Reason: Pain, Moderate) docusate sodium 100 mg Capsule 200 mg PO DAILY metoprolol succinate 25 mg Tablet Extended Release 24 Hr 25 mg PO DAILY Rx Instructions: give in the morning. Hold for SBP less than 100 or HR less than 55 escitalopram oxalate 20 mg Tablet 20 mg PO DAILY oxycodone [OxyContin] 15 mg Tablet,Oral Only,Ext.Rel.12 Hr 15 mg PO BID Entresto 24-26 mg Tablet 1 tab PO BID senna 8.6 mg capsule 8.6 mg PO BEDTIME Qty: 30 0RF sodium chloride 1,000 mg tablet,soluble 1,000 mg PO TID Qty: 42 0RF furosemide 40 mg tablet 60 mg PO BID Qty: 42 0RF lidocaine [Aspercreme (lidocaine)] 4 % Adhesive Patch,Medicated 1 patch TOPICAL DAILY PRN (Reason: pain) acetaminophen 325 mg Tablet 650 mg PO Q6H PRN (Reason: Fever/Mild Pain (1-3)) Qty: 30 0RF Follow up/Referrals: Melinda Hassan PA-C [Primary Care Provider] - 01/24/23 4:30 pm (Appt:01/24 @ 4: 30 Dr.h kemp please arrive 15 min prior to your scheduled appointment time - bring you id & insurance card if you need to cancel please provide 24 hours notice ) Visit Report/Discharge Packet Stand Alone Forms: Patient Portal/API, Stroke Signs & Symptoms Discharge Data Primary Care Provider: Melinda Hassan Attending Provider: Oneal Jacobson Admit Date/Time: 01/19/23 14:44 Discharges patient from system. Discharge Date/Time: 01/20/23 15:30 Quality VTE Deep Vein Thrombosis/Pulmonary Embolism Present on Admission: No
--- NOTE | 2023-01-20 16:00 | CM.DANOTE ---
Initial DCP Assessment Note INSPECTOR AND CLERK reviewed chart and team rounds for medical status and anticipated d/c needs. Met with pt and son at bedside, introduced self and role. Payor: Medicare PCP: Melinda Hassan Attending: Oneal Jacobson Pt is a 87 year-old F with a hx of heart failure and chronic kidney disease. She's admitted after experiencing left lower rib cage pain for the last 2-weeks, went to see PCP and was sent to the ED for further evaluation. While inpt, she was dx with a UIT and started on oral ABO's for home d/c. Overall assessment from Hospitalist was atypical chest pain, and a stress test was completed. D/C anticipated for today, per PT eval, home with OP PT, which will resume at [facility] where she resides. No further d/c needs identified at this time. Discharge Planning/Care Management CM Discharge Assessment Start: 01/20/23 15:43 Freq: Status: Active Protocol: Document 01/20/23 15:45 DPL (Rec: 01/20/23 15:59 DPL [id number]) Discharge Planning Assessment Assigned [employer] ANAIS Bettencourt DPOA/Assigned Designee Name sherin Resendiz Advance Directives? Yes: VICTORINA, Advance Directive Advance Directives on File Yes History Provided By Patient,Family Member,Medical Record Expected Length of Stay 2 Has Patient been admitted in last 30 Yes days? Comment 17-days ago prior to this admit Prior Living Arrangements Assisted Living Comment [facility] Household Members none Type of transporation used prior to Relies on Others admit Comment Son provides for transportation needs. Facility Name Admitted From: [facility] Willing to Return to Facility? Yes Independent with ADL's No Is patient alert and oriented? Yes Needs Assistance With Meal Prep,Managing Medications ,Home Chores / Shopping Caregiver for Another No Community Services used prior to Physical Therapy admission: Comment OP PT provided through [facility]. DME Already Rented / Owned [facility] / Walker Patient/Family Preference Residential Facility,Home with Home Health Barriers to Discharge No Discharge Plan Home with Home Health Transportation Arrangement Likely Dtr inlaw and son Cj can transport if pt safe for POV Referrals Initiated Home Health Additional Comment Pt most likely will d/c today, OP PT recommended to resume at [facility]. Son will assist to arrange. Whiteboard Updated in Patient Room with Yes name and ext. # of [employer] Review Status In Process Please Provide Date Initial DC 01/20/23 Assessment Was Performed
== END 2023-01-20 15:30 | disposition home or self-care (01) ==
LOC: ED 12:36 → AC 14:45
PROVIDERS: Family Medicine; Student in an Organized Health Care Education/Training Program; Admitting Provider Hospitalist; Emergency Provider Emergency Medicine; Family Provider Physician Assistant; PCP Physician Assistant; Referring Provider Emergency Medicine; Visit Provider Hospitalist
DX: R07.89 Other chest pain (principal); I13.0 Hypertensive heart and chronic kidney disease with heart failure and stage 1 through stage 4 chronic kidney disease, or unspecified chronic kidney disease; I50.22 Chronic systolic (congestive) heart failure; N18.30 Chronic kidney disease, stage 3 unspecified; N17.9 Acute kidney failure, unspecified; E87.1 Hypo-osmolality and hyponatremia
CPT/HCPCS: 36415; 71045; 80048; 80053; 81001; 82550; 83735; 84484; 85025; 85610; 85730; 87077; 87086; 87186; 93005; 93306; 96365; 96372; 96375; 96376; 99285; G0378; C9113; J0696; J1644; J2270

== ENCOUNTER 2023-03-10 15:16 | Emergency (ER) | payer MEDICARE, OTHER, SELFPAY ==
[2023-01-19 15:33] VITALS: BMI 21.5
[2023-03-10 15:22] VITALS: PULSE 66; RESP 18; TEMP 36.6; O2SAT 98; BMI 23.3
--- NOTE | 2023-03-10 15:28 | DI.RAD.S_ITS ---
PROCEDURE: XR CHEST 1V INDICATIONS: chest pain TECHNIQUE: One view of the chest was acquired. COMPARISON: [facility], CR, XR CHEST 1V, 01/19/2023, 12:40. FINDINGS: Surgical changes and devices: Left shoulder arthroplasty. Cholecystectomy clips. Lungs and pleura: Lungs are clear. No pleural effusions or pneumothorax. Mediastinum: Mediastinal contours appear normal. Heart is enlarged. Bones and chest wall: No suspicious bony lesions. Overlying soft tissues appear unremarkable. IMPRESSION: No acute cardiopulmonary disease process. Dictated by: Daniela Aquino MD, PhD on 03/10/2023 at 15:52 Approved by: Daniela Aquino MD, PhD on 03/10/2023 at 15:53
--- NOTE | 2023-03-10 15:40 | ED_ITS ---
HPI - Chest Pain General Chief Complaint: Chest Pain Stated Complaint: Sudden Rt. sided back pain rad. to chest Time Seen by Provider: 03/10/23 15:36 Source: patient and EMS Mode of arrival: EMS Limitations: no limitations History of Present Illness HPI narrative: Patient is an 87-year-old female. She is a DNR/selective treatment. The PLOSt forms at bedside. She was sent over here to the emergency department for evaluation of sudden right-sided back pain that radiated to her chest. It is very difficult for the patient to explain why she is here. She is currently not having any symptoms. She is not having abdominal pain. No nausea vomiting. No headache. No lower extremity swelling. Related Data Home Medications Medication Instructions Recorded Confirmed docusate sodium 100 mg capsule 200 mg PO DAILY 06/23/22 01/19/23 escitalopram oxalate 20 mg tablet 20 mg PO DAILY 06/23/22 01/19/23 metoprolol succinate 25 mg 25 mg PO DAILY 06/23/22 01/19/23 tablet,extended release 24 hr mirtazapine 30 mg tablet 30 mg PO BEDTIME 06/23/22 01/19/23 oxycodone 15 mg tablet,crush 15 mg PO BID 06/23/22 01/19/23 resistant,extended release 12 hr (OxyContin) oxycodone 5 mg capsule 5 mg PO BID PRN Pain, Moderate 06/23/22 01/19/23 polyethylene glycol 3350 17 gram 17 g PO BID 06/23/22 01/19/23 oral powder packet (Miralax) sacubitril 24 mg-valsartan 26 mg 1 tab PO BID 06/23/22 01/19/23 tablet (Entresto) lidocaine 4 % topical patch 1 patch topical DAILY PRN pain 01/19/23 01/19/23 (Aspercreme (lidocaine)) Previous Rx's Medication Instructions Recorded acetaminophen 325 mg tablet 650 mg (2 x 325 mg) PO Q6H PRN 05/14/22 Fever/Mild Pain (1-3) #30 tabs furosemide 40 mg tablet 60 mg (1.5 x 40 mg) PO BID #42 tabs 07/02/22 sennosides 8.6 mg capsule (senna) 8.6 mg PO BEDTIME #30 caps 07/02/22 sodium chloride 1,000 mg soluble 1,000 mg PO TID #42 tabs 07/02/22 tablet lidocaine 5 % topical patch 1 patch topical DAILY #15 ea 01/20/23 Allergies Allergy/AdvReac Type Severity Reaction Status Date / Time venlafaxine Allergy Unknown Verified 01/19/23 10:03 trazodone AdvReac Intermediate QTc Verified 01/19/23 10:03 prolongation when on escitalopram concurrently Review of Systems Constitutional Constitutional: Reports system reviewed and no additional complaints, except as documented Cardiovascular Cardiovascular: Reports system reviewed and no additional complaints, except as documented Respiratory Respiratory: Reports system reviewed and no additional complaints, except as documented Gastrointestinal Gastrointestinal: Reports system reviewed and no additional complaints, except as documented Integumentary/Breasts Skin/Breast: Reports system reviewed and no additional complaints, except as documented Neurologic Neurologic: Reports system reviewed and no additional complaints, except as documented Patient History Medical History HTN (hypertension) CHF (congestive heart failure) Surgical History History of shoulder replacement Family History Mother No pertinent past medical history Father No pertinent past medical history Social History household members: none Smoking Status: Former smoker alcohol intake: current Smoking Status: Former smoker tobacco type: cigarettes alcohol intake frequency: holidays/special occasions only Substance Use Type: does not use Exam Initial Vital Signs Initial Vital Signs: Vital Signs Temperature 97.9 F 03/10/23 15:22 Pulse Rate 66 03/10/23 15:22 Respiratory Rate 18 03/10/23 15:22 Pulse Oximetry 98 03/10/23 15:22 Oxygen Delivery Method Room Air 03/10/23 15:22 HENMT Head: normal to inspection and normocephalic Resp Effort & Inspection: normal respiratory effort Auscultation: clear to auscultation bilaterally Cardio Rate: regular rate Rhythm: regular rhythm Neuro Other: Patient is oriented to person and place but does not know the year. Seems somewhat confused about why she is here Extrem General: No edema Course Orders Ordered: ED Orders 03/10/23 15:27 Complete Blood Count AUTO DIFF Stat Comprehensive Metabolic Panel Stat Lipase Stat Magnesium Stat PTT Partial Thromboplastin Ashok Stat Prothrombin Time INR Stat Troponin & CK Cardiac Panel Stat 03/10/23 15:28 XR chest 1V Stat 03/10/23 15:30 EKG-12 Lead Stat 03/10/23 17:30 Troponin & CK Cardiac Panel Stat Discontinued Medications Aspirin (Aspirin 81 Mg Chew Tab) 324 mg PO NOW ONE Stop: 03/10/23 15:29 Last Admin: 03/10/23 15:54 Dose: Not Given Documented By: RB Vital Signs Vital signs: Vital Signs - 8 hr 03/10/23 15:22 03/10/23 17:50 Temperature 97.9 F 98.4 F Pulse Rate 66 68 Respiratory Rate 18 18 Blood Pressure 128/70 Pulse Oximetry 98 98 Oxygen Delivery Method Room Air Room Air MDM - Chest Pain Lab Data Attestation: I reviewed the patient's lab results. 03/10/23 15:27 03/10/23 15:27 Labs: Lab Results 03/10/23 Range/Units 15:27 WBC 7.9 (4.5-11.0) X10^3/uL RBC 3.72 L (4.0-5.2) X10^6/uL Hgb 11.7 L (12.0-16.0) g/dL Hct 34.0 L (36-46) % MCV 91.3 (80-100) fL MCH 31.4 (26-34) PG MCHC 34.4 (30-36) % RDW 13.4 (11.6-14.8) % Plt Count 233 (150-400) X10^3/uL Neut % (Auto) 40.5 L (50-75) % Lymph % (Auto) 43.9 H (25-40) % [place] % (Auto) 11.8 (3-14) % Eos % (Auto) 3.2 (2-4) % Baso % (Auto) 0.6 (0-2) % Neut # (Auto) 3200 (2428-8385) /uL Lymph # (Auto) 3400 (0753-6466) /uL [place] # (Auto) 900 (0-900) /uL Eos # (Auto) 300 (0-450) /uL Baso # (Auto) 0 (0-100) /uL PT 11.2 (10.1-12.7) SECONDS INR 1.0 (0.9-1.3) APTT 25 L (26-36) SECONDS Sodium 137 (137-145) mmol/L Potassium 4.5 (3.4-5.1) mmol/L Chloride 101 (98-107) mmol/L Carbon Dioxide 26 (22-32) mmol/L BUN 106 H* (7-17) mg/dL Creatinine 2.72 H (0.52-1.04) mg/dL Estimated GFR 16 L (>60) mL/min BUN/Creatinine Ratio 39.0 H (6-22) Glucose 81 (80-110) mg/dL Calcium 9.7 (8.4-10.2) mg/dL Magnesium 2.5 H (1.6-2.3) mg/dL Total Bilirubin 0.6 (0.2-1.3) mg/dL AST 24 (14-36) IU/L ALT 14 (<35) IU/L Alkaline Phosphatase 83 (38-126) U/L Total Creatine Kinase 36 (30-135) U/L Troponin I 0.015 (0.01-0.034) ng/mL Total Protein 7.3 (6.3-8.2) g/dL Albumin 4.1 (3.5-5.0) g/dL Globulin 3.2 (1.7-4.1) g/dL Albumin/Globulin Ratio 1.3 (1.0-2.8) Lipase 106 (23-300) U/L Imaging Data Chest x-ray: Radiologist's Impression: PROCEDURE: XR CHEST 1V INDICATIONS: chest pain TECHNIQUE: One view of the chest was acquired. COMPARISON: [facility], , XR CHEST 1V, 01/19/2023, 12:40. FINDINGS: Surgical changes and devices: Left shoulder arthroplasty. Cholecystectomy clips. Lungs and pleura: Lungs are clear. No pleural effusions or pneumothorax. Mediastinum: Mediastinal contours appear normal. Heart is enlarged. Bones and chest wall: No suspicious bony lesions. Overlying soft tissues appear unremarkable. IMPRESSION: No acute cardiopulmonary disease process. ECG Data Attestation: I personally reviewed and interpreted this ECG as follows: Interpretation: Sinus rhythm Ventricular rate is 64 First-degree AV block CO interval 2 and 4 milliseconds Left axis deviation LVH No ST T wave changes MDM Narrative Medical decision making narrative: Patient has been asymptomatic since being here in the emergency department. Troponin is negative. LVH on EKG but no ST T wave changes. Chest x-ray is unremarkable. Patient states that she would like to be discharged home because she is feeling very well. She is a DNR/selective treatment. We will hold on further workup for now and discharge patient back to her living facility. Patient is in agreement with this plan. Discharge Plan Departure Patient Disposition: Home Clinical Impression: Back pain Activity Restrictions/Additional Instructions: Inga can continue to take all of her medications as directed. Recommend that her primary care doctor be notified of her visit here in the ER. She can return to the emergency department for new or worsening symptoms. Prescriptions: No Action polyethylene glycol 3350 [Miralax] 17 gram Powder In Packet 17 g PO BID mirtazapine 30 mg Tablet 30 mg PO BEDTIME oxycodone 5 mg Capsule 5 mg PO BID PRN (Reason: Pain, Moderate) docusate sodium 100 mg Capsule 200 mg PO DAILY metoprolol succinate 25 mg Tablet Extended Release 24 Hr 25 mg PO DAILY Rx Instructions: give in the morning. Hold for SBP less than 100 or HR less than 55 escitalopram oxalate 20 mg Tablet 20 mg PO DAILY oxycodone [OxyContin] 15 mg Tablet,Oral Only,Ext.Rel.12 Hr 15 mg PO BID Entresto 24-26 mg Tablet 1 tab PO BID senna 8.6 mg capsule 8.6 mg PO BEDTIME Qty: 30 0RF sodium chloride 1,000 mg tablet,soluble 1,000 mg PO TID Qty: 42 0RF furosemide 40 mg tablet 60 mg PO BID Qty: 42 0RF lidocaine [Aspercreme (lidocaine)] 4 % Adhesive Patch,Medicated 1 patch TOPICAL DAILY PRN (Reason: pain) lidocaine 5 % Adhesive Patch,Medicated 1 patch topical DAILY Qty: 15 0RF Rx Instructions: apply to left chest where pain is acetaminophen 325 mg Tablet 650 mg PO Q6H PRN (Reason: Fever/Mild Pain (1-3)) Qty: 30 0RF Referrals: Melinda Hassan PA-C [Primary Care Provider] - Stand Alone Forms: Patient Portal/API
[2023-03-10 15:43] LABS: Prothrombin Time 11.2 SECONDS (10.1-12.7)
[2023-03-10 15:45] LABS: PTT Partial Thromboplastin Tim 25 SECONDS (26-36)
[2023-03-10 15:48] LABS: Alanine Aminotransferase 14 IU/L (<35); Albumin 4.1 g/dL (3.5-5.0); Albumin Globulin Ratio 1.3 (1.0-2.8); Alkaline Phosphatase 83 U/L (38-126); Aspartate Aminotransferase 24 IU/L (14-36); Bilirubin Total 0.6 mg/dL (0.2-1.3); Calcium 9.7 mg/dL (8.4-10.2); Carbon Dioxide 26 mmol/L (22-32); Chloride 101 mmol/L (98-107); Creatine Kinase 36 U/L (30-135); Estimated Glomerular Filt Rate 16 mL/min (>60); Globulin 3.2 g/dL (1.7-4.1); Glucose 81 mg/dL (80-110); HEMOLYSIS < 15 (0-50); Lipase 106 U/L (23-300); Magnesium 2.5 mg/dL (1.6-2.3); Potassium 4.5 mmol/L (3.4-5.1); Sodium 137 mmol/L (137-145); Total Protein 7.3 g/dL (6.3-8.2)
[2023-03-10 15:53] LABS: Add Manual Diff / Slide Review NO; Basophils Absolute Auto 0 /uL (0-100); Basophils Percent Auto 0.6 % (0-2); Eosinophils Absolute Auto 300 /uL (0-450); Eosinophils Percent Auto 3.2 % (2-4); Hemoglobin 11.7 g/dL (12.0-16.0); Lymphocytes Absolute Auto 3400 /uL (1100-4500); Lymphocytes Percent Auto 43.9 % (25-40); Mean Corpuscular HGB Conc 34.4 % (30-36); Mean Corpuscular Hemoglobin 31.4 PG (26-34); Mean Corpuscular Volume 91.3 fL (80-100); Monocytes Absolute Auto 900 /uL (0-900); Monocytes Percent Auto 11.8 % (3-14); Neutrophils Absolute Auto 3200 /uL (1500-7000); Neutrophils Percent Auto 40.5 % (50-75); Platelet Count 233 X10^3/uL (150-400); Red Blood Cell Count 3.72 X10^6/uL (4.0-5.2); Red Cell Distribution Width 13.4 % (11.6-14.8); White Blood Cell Count 7.9 X10^3/uL (4.5-11.0)
[2023-03-10 15:59] LABS: Troponin I 0.015 ng/mL (0.01-0.034)
[2023-03-10 16:01] LABS: Blood Urea Nitrogen 106 mg/dL (7-17)
[2023-03-10 17:50] VITALS: BP 128/70; PULSE 68; RESP 18; TEMP 36.9; O2SAT 98
== END 2023-03-10 17:50 | disposition home or self-care (01) ==
PROVIDERS: Emergency Provider Emergency Medicine; Family Provider Physician Assistant; PCP Physician Assistant
DX: M54.9 Dorsalgia, unspecified (principal); R07.9 Chest pain, unspecified
CPT/HCPCS: 36415; 71045; 80053; 82550; 83690; 83735; 84484; 85025; 85610; 85730; 93005; 93010; 99283; 99284

== ENCOUNTER → 2023-04-01 12:43 | Outpatient (CLI) | payer MEDICARE, OTHER, SELFPAY ==
[2023-01-19 15:33] VITALS: BMI 21.5
== END ==
PROVIDERS: Family Provider Physician Assistant; PCP Physician Assistant; Referring Provider Physician Assistant; Visit Provider Physician Assistant
DX: L89.312 Pressure ulcer of right buttock, stage 2 (principal); L89.322 Pressure ulcer of left buttock, stage 2; R60.0 Localized edema; R21 Rash and other nonspecific skin eruption
CPT/HCPCS: 99203; 99213

== ENCOUNTER → 2023-06-20 15:18 | Outpatient (CLI) | payer MEDICARE, OTHER, SELFPAY ==
[2023-01-19 15:33] VITALS: BMI 21.5
[2023-06-20 17:06] LABS: Iron 112 ug/dL (37-170)
[2023-06-20 17:07] LABS: Blood Urea Nitrogen 95 mg/dL (7-17); Calcium 9.2 mg/dL (8.4-10.2); Carbon Dioxide 26 mmol/L (22-32); Chloride 102 mmol/L (98-107); Estimated Glomerular Filt Rate 22 mL/min (>60); Glucose 101 mg/dL (80-110); HEMOLYSIS < 15 (0-50); Potassium 4.4 mmol/L (3.4-5.1); Sodium 139 mmol/L (137-145)
[2023-06-20 17:15] LABS: Total Iron Binding Capacity 287 ug/dL (265-497)
[2023-06-20 17:17] LABS: NT-proBNP (BNP-Adult 18+) 1280 pg/mL (<450)
[2023-06-20 17:46] LABS: Ferritin 186 ng/mL (11-264)
[2023-06-20 18:21] LABS: Hematocrit 33.9 % (36-46); Hemoglobin 11.5 g/dL (12.0-16.0)
[2023-06-23 07:36] LABS: Parathyroid Hormone Int 60 pg/mL (15-65)
== END ==
PROVIDERS: Family Provider Physician Assistant; PCP Physician Assistant; Referring Provider Student in an Organized Health Care Education/Training Program; Visit Provider Student in an Organized Health Care Education/Training Program
DX: I50.32 Chronic diastolic (congestive) heart failure (principal); D50.0 Iron deficiency anemia secondary to blood loss (chronic); N05.9 Unspecified nephritic syndrome with unspecified morphologic changes; D70.9 Neutropenia, unspecified; D63.1 Anemia in chronic kidney disease; N25.81 Secondary hyperparathyroidism of renal origin
CPT/HCPCS: 36415; 80048; 82728; 83540; 83550; 83880; 83970; 85014; 85018

== ENCOUNTER → 2023-11-01 13:19 | Outpatient (CLI) | payer MEDICARE, OTHER, SELFPAY ==
[2023-01-19 15:33] VITALS: BMI 21.5
[2023-11-01 14:42] LABS: Hematocrit 34.3 % (36-46); Hemoglobin 11.8 g/dL (12.0-16.0)
[2023-11-01 15:07] LABS: BUN Creatinine Ratio 34.9 (6-22); Blood Urea Nitrogen 84 mg/dL (7-17); Calcium 8.7 mg/dL (8.4-10.2); Carbon Dioxide 29 mmol/L (22-32); Chloride 102 mmol/L (98-107); Estimated Glomerular Filt Rate 19 mL/min (>60); Glucose 106 mg/dL (80-110); HEMOLYSIS < 15 (0-50); Potassium 4.1 mmol/L (3.4-5.1); Sodium 138 mmol/L (137-145)
[2023-11-01 15:08] LABS: Iron 83 ug/dL (37-170)
[2023-11-01 15:16] LABS: NT-proBNP (BNP-Adult 18+) 917 pg/mL (<450)
[2023-11-01 15:18] LABS: Total Iron Binding Capacity 253 ug/dL (265-497)
[2023-11-01 15:41] LABS: Ferritin 189 ng/mL (11-264)
[2023-11-03 08:10] LABS: Parathyroid Hormone Int 101 pg/mL (15-65)
== END ==
PROVIDERS: Family Provider Physician Assistant; PCP Physician Assistant; Referring Provider Student in an Organized Health Care Education/Training Program; Visit Provider Student in an Organized Health Care Education/Training Program
DX: I50.32 Chronic diastolic (congestive) heart failure (principal); N05.9 Unspecified nephritic syndrome with unspecified morphologic changes; D50.0 Iron deficiency anemia secondary to blood loss (chronic); D70.9 Neutropenia, unspecified; D63.1 Anemia in chronic kidney disease; N25.81 Secondary hyperparathyroidism of renal origin
CPT/HCPCS: 36415; 80048; 82728; 83540; 83550; 83880; 83970; 85014; 85018

== ENCOUNTER → 2024-03-14 06:29 | Outpatient (ROUT) | payer MEDICARE, OTHER, SELFPAY ==
[2023-01-19 15:33] VITALS: BMI 21.5
[2024-03-14 08:36] LABS: HEMOLYSIS < 15 (0-50); Iron 73 ug/dL (37-170)
[2024-03-14 08:49] LABS: Percent Iron Saturation 37 % (15-50); Total Iron Binding Capacity 200 ug/dL (265-497); Transferrin 162 mg/dL (206-381)
[2024-03-14 09:16] LABS: Ferritin 172 ng/mL (11-264)
== END ==
PROVIDERS: Family Provider Physician Assistant; PCP Physician Assistant; Visit Provider Physician Assistant
DX: D64.9 Anemia, unspecified (principal)
CPT/HCPCS: 36415; 82728; 83540; 83550

== ENCOUNTER → 2024-06-21 10:47 | Outpatient (CLI) | payer MEDICARE, OTHER, SELFPAY ==
[2023-01-19 15:33] VITALS: BMI 21.5
[2024-06-21 11:43] LABS: Hematocrit 32.9 % (36-46); Hemoglobin 11.2 g/dL (12.0-16.0)
[2024-06-21 11:56] LABS: BUN Creatinine Ratio 33.8 (6-22); Blood Urea Nitrogen 75 mg/dL (7-17); Calcium 9.2 mg/dL (8.4-10.2); Carbon Dioxide 22 mmol/L (22-32); Chloride 102 mmol/L (98-107); Cholesterol 173 mg/dL (140-199); Estimated Glomerular Filt Rate 21 mL/min (>60); Glucose 118 mg/dL (80-110); HDL Cholesterol 50 mg/dL (40-60); HEMOLYSIS 17 (0-50); LDL Cholesterol Calculated 95 mg/dL (<100); Potassium 4.7 mmol/L (3.4-5.1); Sodium 135 mmol/L (137-145); Triglycerides 142 mg/dL (35-150)
[2024-06-21 12:04] LABS: NT-proBNP (BNP-Adult 18+) 1590 pg/mL (<450)
[2024-06-21 12:30] LABS: Ferritin 177 ng/mL (11-264)
[2024-06-22 09:09] LABS: Parathyroid Hormone Int 145 pg/mL (15-65)
== END ==
PROVIDERS: Family Provider Physician Assistant; PCP Physician Assistant; Referring Provider Student in an Organized Health Care Education/Training Program; Visit Provider Student in an Organized Health Care Education/Training Program
DX: I50.32 Chronic diastolic (congestive) heart failure (principal); D50.0 Iron deficiency anemia secondary to blood loss (chronic); E78.5 Hyperlipidemia, unspecified; N05.9 Unspecified nephritic syndrome with unspecified morphologic changes; D70.9 Neutropenia, unspecified; D63.1 Anemia in chronic kidney disease; N25.81 Secondary hyperparathyroidism of renal origin
CPT/HCPCS: 36415; 80048; 80061; 82728; 83880; 83970; 85014; 85018

== ENCOUNTER → 2024-11-07 15:54 | Outpatient (ROUT) | payer OTHER, MEDICARE, SELFPAY ==
[2023-01-19 15:33] VITALS: BMI 21.5
[2024-11-07 16:24] LABS: Blood Urea Nitrogen 73 mg/dL (7-17); Calcium 8.9 mg/dL (8.4-10.2); Carbon Dioxide 28 mmol/L (22-32); Chloride 104 mmol/L (98-107); Estimated Glomerular Filt Rate 20 mL/min (>60); Glucose 148 mg/dL (70-99); HEMOLYSIS < 15 (0-50); Sodium 140 mmol/L (137-145)
[2024-11-07 16:35] LABS: Potassium 5.5 mmol/L (3.4-5.1)
== END ==
PROVIDERS: Family Provider Physician Assistant; PCP Physician Assistant; Visit Provider Family Medicine
DX: I50.9 Heart failure, unspecified (principal)
CPT/HCPCS: 80048